=== PATIENT | female | born 2000 | race Caucasian/White ===

== ENCOUNTER 2023-01-07 16:19 | Outpatient (OUT) | payer BC, MEDICAID, SELFPAY ==
[2023-01-07 17:05] LABS: Thyroid Stimulating Hormone 0.912 uIU/mL (0.358-3.740)
== END 2023-01-07 16:20 | disposition home or self-care (01) ==
PROVIDERS: PCP Obstetrics & Gynecology; Visit Provider Obstetrics & Gynecology
DX: R79.89 Other specified abnormal findings of blood chemistry (principal)
CPT/HCPCS: 36415; 84443

== ENCOUNTER 2023-01-12 16:54 | Outpatient (OUT) | payer BC, MEDICAID, SELFPAY ==
--- NOTE | 2023-01-12 17:02 | US_ITS ---
[address] [address] Patient Name: KARLY CRUZ MRN: [id number] date: 2000 Sex: F Assigned Patient Location: US Current Patient Location: LAB Accession/Order Number: [id number] Exam Date: 01/12/2023 17:03 Report Date: 01/13/2023 16:41 At the request of: AI DARBY Procedure: US OB anatomy EXAMINATION: US OB anatomy, US OB cervical length HISTORY: Z34.92 ENCOUNTER FOR SUPERVISION OF NORMAL COMPARISON: No relevant comparison available. TECHNIQUE: Transabdominal sonographic examination was performed for obstetrical and evaluation. FINDINGS: Number: 1 Heart Rate: 142.1 bpm H.B. /min Amniotic Fluid Volume: Subjectively normal position: Cephalic presentation, longitudinal lie Placental Location: Posterior, grade 0. Placental edge 2.9 cm from the cervical os Cervix Length: 3.8 cm , closed Normally visualized anatomy: Cerebellum, choroid plexus, cisterna magna, lateral cerebral ventricles, orbits, midline falx, hard palate, four-chamber heart, RVOT, LVOT, stomach, kidneys, bladder, umbilical cord insertion into the abdomen, three-vessel cord, cervical spine, thoracic spine, lumbar spine, sacral spine, right upper extremity, left upper extremity, right lower extremity, left lower extremity Suboptimally visualized anatomy: None BIOMETRY: BPD: 5.7 cm 23 weeks 2 days , 16% HC: 22.1 cm 24 weeks 1 days, 30% AC: 20.5 cm 25 weeks 1 days, 71% FL: 4.2 cm 23 weeks 5 days, 26% EFW:694.7 grams; 1 lb. 9 oz., 54% FL/AC: 20.6 FL/BPD: 74.6 HC/AC: 1.1 GESTATIONAL AGE: Age by EDC: 24 weeks 1 days REBEKAH by EDC: 05/03/2023 Age by current US: 24 weeks 1 days REBEKAH by current US: 05/03/2023 IMPRESSION: Normal anatomy scan Closed cervix measuring 3.8 cm in length *Reference: [facility] Practice Guideline for the performance of Obstetric Ultrasound Examinations, April 17, 2007. Electronically authenticated by: ALF PIEDRA Date: 01/13/2023 16:41
--- NOTE | 2023-01-12 17:02 | US_ITS ---
[address] [address] Patient Name: KARLY CRUZ MRN: [id number] date: 2000 Sex: F Assigned Patient Location: US Current Patient Location: LAB Accession/Order Number: [id number] Exam Date: 01/12/2023 17:03 Report Date: 01/13/2023 16:41 At the request of: AI DARBY Procedure: US OB cervical length EXAMINATION: US OB anatomy, US OB cervical length HISTORY: Z34.92 ENCOUNTER FOR SUPERVISION OF NORMAL COMPARISON: No relevant comparison available. TECHNIQUE: Transabdominal sonographic examination was performed for obstetrical and evaluation. FINDINGS: Number: 1 Heart Rate: 142.1 bpm H.B. /min Amniotic Fluid Volume: Subjectively normal position: Cephalic presentation, longitudinal lie Placental Location: Posterior, grade 0. Placental edge 2.9 cm from the cervical os Cervix Length: 3.8 cm , closed Normally visualized anatomy: Cerebellum, choroid plexus, cisterna magna, lateral cerebral ventricles, orbits, midline falx, hard palate, four-chamber heart, RVOT, LVOT, stomach, kidneys, bladder, umbilical cord insertion into the abdomen, three-vessel cord, cervical spine, thoracic spine, lumbar spine, sacral spine, right upper extremity, left upper extremity, right lower extremity, left lower extremity Suboptimally visualized anatomy: None BIOMETRY: BPD: 5.7 cm 23 weeks 2 days , 16% HC: 22.1 cm 24 weeks 1 days, 30% AC: 20.5 cm 25 weeks 1 days, 71% FL: 4.2 cm 23 weeks 5 days, 26% EFW:694.7 grams; 1 lb. 9 oz., 54% FL/AC: 20.6 FL/BPD: 74.6 HC/AC: 1.1 GESTATIONAL AGE: Age by EDC: 24 weeks 1 days REBEKAH by EDC: 05/03/2023 Age by current US: 24 weeks 1 days REBEKAH by current US: 05/03/2023 IMPRESSION: Normal anatomy scan Closed cervix measuring 3.8 cm in length *Reference: [facility] Practice Guideline for the performance of Obstetric Ultrasound Examinations, April 17, 2007. Electronically authenticated by: ALF PIEDRA Date: 01/13/2023 16:41
== END 2023-01-12 16:55 | disposition home or self-care (01) ==
PROVIDERS: PCP Obstetrics & Gynecology; Visit Provider Obstetrics & Gynecology
DX: Z34.92 Encounter for supervision of normal pregnancy, unspecified, second trimester (principal)
CPT/HCPCS: 76805; 76817

== ENCOUNTER 2023-02-16 15:26 | Outpatient (OUT) | payer OTHER, MEDICAID, SELFPAY ==
[2023-02-16 16:39] LABS: Basophils Percent Auto 0.3 % (0.2-2.0); Eosinophils Absolute Auto 0.3 10^3/uL (0.0-0.7); Eosinophils Percent Auto 3.1 % (0.9-7.0); Hematocrit 32.9 % (36.0-48.0); Hemoglobin 10.5 g/dL (12.0-16.0); Immature Granulocytes Abs Auto 0.04 10^3/uL (0.00-0.03); Immature Granulocytes Pct Auto 0.4 % (0.0-0.5); Lymphocytes Absolute Auto 1.7 10^3/uL (1.2-3.8); Lymphocytes Percent Auto 16.4 % (20.5-60.0); Mean Corpuscular HGB Conc 31.9 g/dL (29.9-35.2); Mean Corpuscular Hemoglobin 25.6 pg (26.7-34.0); Mean Corpuscular Volume 80.2 fL (81.0-99.0); Mean Platelet Volume 10.7 fL (9.5-13.5); Monocytes Absolute Auto 0.4 10^3/uL (0.3-0.8); Neutrophils Absolute Auto 7.6 10^3/uL (1.4-6.5); Neutrophils Percent Auto 75.8 % (43.0-75.0); Platelet Count 291 10^3/uL (150-450); Red Cell Distribution Width 13.7 % (11.0-15.0); White Blood Count 10.1 10^3/uL (4.0-11.0)
[2023-02-16 16:56] LABS: Glucose 1 Hour 171 mg/dL
== END 2023-02-16 15:27 | disposition home or self-care (01) ==
LOC: LAB 15:26
PROVIDERS: PCP Obstetrics & Gynecology; Visit Provider Obstetrics & Gynecology
DX: Z34.93 Encounter for supervision of normal pregnancy, unspecified, third trimester (principal)
CPT/HCPCS: 36415; 82950; 85025

== ENCOUNTER 2023-03-18 13:19 | Outpatient (OUT) | payer OTHER, MEDICAID, SELFPAY ==
[2023-03-18 13:45] LABS: Glucose Fasting 75 mg/dL (74-106)
[2023-03-18 14:57] LABS: Glucose 1 Hour 162 mg/dL
[2023-03-18 15:57] LABS: Glucose 2 Hour 134 mg/dL
[2023-03-18 16:58] LABS: Glucose 3 Hour 143 mg/dL
== END 2023-03-18 13:20 | disposition home or self-care (01) ==
PROVIDERS: PCP Obstetrics & Gynecology; Visit Provider Obstetrics & Gynecology
DX: E74.39 Other disorders of intestinal carbohydrate absorption (principal)
CPT/HCPCS: 36415; 82951; 82952

== ENCOUNTER 2023-04-14 20:06 | Outpatient (REF) | payer OTHER, MEDICAID, SELFPAY | END 2023-04-14 20:07 | disposition home or self-care (01) | LOC: LAB 20:06 | PROVIDERS: PCP Obstetrics & Gynecology; Visit Provider Obstetrics & Gynecology | DX: Z34.93 Encounter for supervision of normal pregnancy, unspecified, third trimester (principal) | CPT/HCPCS: 87081; 87150 ==

== ENCOUNTER 2023-04-28 18:04 | Inpatient (IN) | payer OTHER, MEDICAID, SELFPAY ==
[2023-04-28] VITALS (19 sets, daily range): BP systolic 89–135; BP diastolic 50–94; PULSE 78–115; RESP 18
[2023-04-28 20:04] LABS: Hemoglobin 9.9 g/dL (12.0-16.0); Mean Corpuscular HGB Conc 31.9 g/dL (29.9-35.2); Mean Corpuscular Hemoglobin 23.8 pg (26.7-34.0); Mean Corpuscular Volume 74.5 fL (81.0-99.0); Platelet Count 321 10^3/uL (150-450); Red Blood Count 4.16 10^6/uL (4.20-5.40); Red Cell Distribution Width 14.6 % (11.0-15.0)
[2023-04-28 20:21] LABS: Amphetamine Screen Urine NEGATIVE (NEGATIVE); Barbiturates Screen Urine NEGATIVE (NEGATIVE); Benzodiazepines Screen Urine NEGATIVE (NEGATIVE); Cannabinoid Screen Urine NEGATIVE (NEGATIVE); Cocaine Screen Urine NEGATIVE (NEGATIVE); Methadone Screen Urine NEGATIVE (NEGATIVE); Methamphetamines Screen Urine NEGATIVE (NEGATIVE); Opiate Screen Urine NEGATIVE (NEGATIVE); Phencyclidine Screen Urine NEGATIVE (NEGATIVE); Tricyclic Antidepressant Urine NEGATIVE (NEGATIVE)
[2023-04-28 20:22] LABS: Buprenorphine Screen Urine NEGATIVE (NEGATIVE); Oxycodone Screen Urine NEGATIVE (NEGATIVE)
[2023-04-28] MEDS: 0.9 % SODIUM CHLORIDE 1,000 ML 125 ML IV (20:54)
[2023-04-28] MEDS: AMPICILLIN SODIUM 2,000 MG in 0.9 % SODIUM CHLORIDE 100 ML 200 MG IV (20:57)
[2023-04-28] MEDS: ROPIVACAINE HCL/PF 400 MG/200 ML PREMIX 6 MG EPIDURAL (22:30)
[2023-04-28] MEDS: FENTANYL CITRATE/PF 100 MCG/2 ML VIAL EPIDURAL ×2 (22:31)
[2023-04-29] VITALS (18 sets, daily range): BP systolic 107–191; BP diastolic 53–124; PULSE 71–97; RESP 14–18; TEMP 36.3–37.1
[2023-04-29] MEDS: AMPICILLIN SODIUM 1,000 MG in 0.9 % SODIUM CHLORIDE 50 ML 100 MG IV (00:32)
--- NOTE | 2023-04-29 00:56 | PM.OBPRCVD ---
Procedure Intrapartal events: None Induction method: artificial rupture of membranes Delivery augmentation: rupture of membranes and pitocin Delivery monitor: external FHT and external uterine Route of delivery: Episiotomy Description: none Laceration description: perineal - 1st degree Delivery repair: Vicryl Estimated blood loss (mL): 250 Anesthesia type: Epidural Disposition: floor Infant Delivery date: 04/29/23 Gender: male presentation: vertex Placental delivery description: Spontaneous cord description: 3 Vessels and Nuchal Cord
[2023-04-29] MEDS: OXYTOCIN/0.9 % SODIUM CHLORIDE 20 UNITS/1,000 ML PLAST..BAG 125 UNIT IV (01:06)
[2023-04-29] MEDS: BENZOCAINE/MENTHOL 85 GRAM SPRAY BOTTLE 1 APPLIC TOPICAL (04:04)
[2023-04-29] MEDS: IBUPROFEN 600 MG TABLET PO ×3 (04:04→17:25)
[2023-04-29] MEDS: GLYCERIN/WITCH HAZEL PADS 1 PAD TOPICAL (04:04)
--- NOTE | 2023-04-29 07:21 | W.PC.ACHO ---
Registration Status: ADM IN Primary Language: Bahraini Preferred Language: Bahraini Active Medications Generic Name Dose Route Start Last Admin Trade Name Freq PRN Reason Stop Dose Admin Acetaminophen 650 mg 04/29/23 00:54 Acetaminophen 325 Mg Tablet PO Q6H PRN Mild Pain Al Hydroxide/Mg Hydroxide 2,400 mg 04/29/23 00:54 Magnesium Hydroxide 2,400 Mg/10 Ml Oral.Susp PO Q6H PRN Dyspepsia Benzocaine/Menthol 1 applic 04/29/23 00:54 04/29/23 04:04 Benzocaine/Menthol 85 Gram Douglas Bottle TOPICAL 1 applic Q2H PRN Administration Pain Carboprost Tromethamine 250 mcg 04/28/23 18:41 Carboprost Tromethamine 250 Mcg/Ml 1 Ml Vial IM 04/30/23 18:42 Q15M PRN Bleeding Diphenhydramine HCl 25 mg 04/28/23 18:57 Diphenhydramine Hcl 50 Mg/Ml (1ml) Vial IV 04/29/23 18:57 Q6H PRN Itching Diphtheria/Pertussis/Tetanus Vacc 0.5 ml 05/01/23 09:00 Adacel Diph,Pertuss(Acell),Tet Vac/Pf 0.5 Ml Adult Syringe IM 05/01/23 09:01 .ONCE ONE Docusate Sodium 100 mg 04/30/23 09:00 Docusate Sodium 100 Mg Capsule PO BID GEETA Ephedrine Sulfate 5 mg 04/28/23 18:57 Ephedrine Sulfate 50 Mg/Ml Vial IV 04/29/23 18:57 Q5M PRN Blood Pressure - Low Sodium Chloride 1,000 mls @ 125 mls/hr 04/28/23 18:45 04/28/23 20:54 Sodium Chloride 0.9% 1,000 Ml IV 125 mls/hr .Q8H GEETA Administration Oxytocin/Sodium Chloride 10 units in 500 mls @ 6 mls/hr 04/28/23 18:45 Pitocin 10 Unit/500 Ml-Ns IV CONT GEETA Protocol 2 MILLIUNIT/MIN Ampicillin 1,000 mg/ Sodium 50 mls @ 100 mls/hr 04/29/23 00:00 04/29/23 00:32 Chloride IV 100 mls/hr Q4H GEETA Administration Ropivacaine/Sodium Chloride 400 mg in 200 mls @ 6 mls/hr 04/28/23 23:15 04/28/23 22:30 Naropin 0.2% 400 Mg/200 Ml Bag EPIDURAL 6 mls/hr Q24H GEETA Administration Oxytocin 20 unit/ Sodium 1,002 mls @ 125 mls/hr 04/29/23 01:00 Chloride IV 04/29/23 08:59 Q8H GEETA Ibuprofen 600 mg 04/29/23 00:54 04/29/23 04:04 Ibuprofen 600 Mg Tablet PO 600 mg Q6H PRN Administration Moderate Pain Lidocaine 5 ml 04/28/23 18:51 Lidocaine Viscous 2% 15 Ml Solution TOPICAL ONCE PRN Pain Lidocaine 1 ml 04/28/23 18:51 Lidocaine Hcl 1% 200 Mg/20 Ml Mdv INJ ONCE PRN Pain Lidocaine 5 ml 04/28/23 18:57 Lidocaine Hcl 2% Pf 100 Mg/5 Ml Vial INJ 04/29/23 18:57 Q1H PRN epidural Measles/Mumps/Rubella Vaccine Live 0.5 ml 05/01/23 09:00 Measles,Mumps,Rubella Vacc/Pf 0.5 Ml Vial SQ 05/01/23 09:01 .ONCE ONE Methylergonovine Maleate 0.2 mg 04/28/23 18:41 Methylergonovine Maleate 0.2 Mg/Ml Ampule IM 04/30/23 18:42 ONCE PRN Uterine Contractility/Contract Methylergonovine Maleate 0.2 mg 04/28/23 18:41 Methylergonovine Maleate 0.2 Mg Tablet PO 04/30/23 18:42 Q4H PRN Uterine Contractility/Contract Misoprostol 600 mcg 04/28/23 18:41 Misoprostol 100 Mcg Tablet PO 04/30/23 18:42 ONCE PRN Uterine Bleeding Misoprostol 800 mcg 04/28/23 18:41 Misoprostol 100 Mcg Tablet SL 04/30/23 18:42 ONCE PRN Uterine Bleeding Misoprostol 1,000 mcg 04/28/23 18:41 Misoprostol 100 Mcg Tablet SC 04/30/23 18:42 ONCE PRN Uterine Bleeding Naloxone HCl 0.4 mg 04/28/23 18:57 Naloxone Hcl 0.4 Mg/Ml Vial IV 04/29/23 18:57 ONCE PRN epidural Ondansetron HCl 4 mg 04/28/23 18:41 Ondansetron Pf 4 Mg/2 Ml Vial IV Q6H PRN Nausea And Vomiting Ondansetron HCl 4 mg 04/28/23 18:41 Ondansetron 4 Mg Rapdis Tablet SL Q6H PRN Nausea And Vomiting Oxytocin 10 unit 04/28/23 18:41 Oxytocin 10 Unit/Ml Vial IM 04/30/23 18:42 ONCE PRN Bleeding Senna 17.2 mg 04/29/23 20:00 Sennosides 8.6 Mg Tablet PO QHS PRN Constipation Simethicone 80 mg 04/29/23 00:54 Simethicone 80 Mg Tab.Chew PO QID PRN Abdominal Distention Temazepam 15 mg 04/29/23 00:54 Temazepam 15 Mg Capsule PO QHS PRN Sleep Witch Cindy/Glycerin 1 pad 04/29/23 00:54 04/29/23 04:04 Glycerin/Witch Cindy Pads TOPICAL 1 pad Q2H PRN Administration Pain Diet Category Date Time Status Regular Consistency Diet Diet 04/29/23 00:55 Active IV Insertion/Site Date of IV Line Insertion [20g 04/28/23 right Hand] IV Insertion Time [20g right 19:50 Hand] Neurology Patient orientation (short person,place,time,situation list) Respiratory Oxygen Delivery Method Room Air Oxygen Delivery Method Room Air Oxygen Delivery Method Room Air Cardiology Heart Sounds Strong,Regular
--- NOTE | 2023-04-29 18:57 | PC.NURSE ---
Charting from 0700-current reviewed by this group underwriter and confirmed.
--- NOTE | 2023-04-29 19:36 | PC.NURSE ---
Patient visiting with visitors. Ice water refilled. Denies any further needs.
[2023-04-30 00:52] VITALS: BP 111/62; PULSE 74
[2023-04-30] MEDS: IBUPROFEN 600 MG TABLET PO ×2 (00:52→10:43)
[2023-04-30 00:53] VITALS: RESP 16; TEMP 36.3
[2023-04-30 06:31] LABS: Basophils Percent Auto 0.5 % (0.2-2.0); Eosinophils Absolute Auto 0.4 10^3/uL (0.0-0.7); Eosinophils Percent Auto 5.3 % (0.9-7.0); Hematocrit 30.2 % (36.0-48.0); Hemoglobin 8.8 g/dL (12.0-16.0); Immature Granulocytes Abs Auto 0.03 10^3/uL (0.00-0.03); Immature Granulocytes Pct Auto 0.4 % (0.0-0.5); Lymphocytes Absolute Auto 2.6 10^3/uL (1.2-3.8); Lymphocytes Percent Auto 31.7 % (20.5-60.0); Mean Corpuscular HGB Conc 29.1 g/dL (29.9-35.2); Mean Corpuscular Hemoglobin 23.9 pg (26.7-34.0); Mean Corpuscular Volume 82.1 fL (81.0-99.0); Mean Platelet Volume 10.7 fL (9.5-13.5); Monocytes Absolute Auto 0.5 10^3/uL (0.3-0.8); Monocytes Percent Auto 6.5 % (1.7-12.0); Neutrophils Absolute Auto 4.5 10^3/uL (1.4-6.5); Neutrophils Percent Auto 55.6 % (43.0-75.0); Platelet Count 230 10^3/uL (150-450); Red Blood Count 3.68 10^6/uL (4.20-5.40); White Blood Count 8.1 10^3/uL (4.0-11.0)
--- NOTE | 2023-04-30 07:34 | PC.NURSE ---
Report given to Elma Rivera RN
--- NOTE | 2023-04-30 08:05 | PM.OBPN ---
OB - PN: Subj Subjective Patient comments: no complaints and pain well controlled Narrative: Patient considering discharge today Exam Constitutional Vital Signs, click to edit/add: Last Vital Signs Temp 97.3 F L 04/30/23 00:53 Pulse 74 04/30/23 00:52 Resp 16 04/30/23 00:53 BP 111/62 04/30/23 00:52 O2 Del Method Room Air 04/30/23 00:53 GI Inspection: normal to inspection Palpation: soft Other: Fundus firm below U Other: perineum - minimal bleeding Results Labs Labs: Short CBC 04/30/23 Range/Units 06:24 WBC 8.1 (4.0-11.0) 10^3/uL Hgb 8.8 L (12.0-16.0) g/dL Hct 30.2 L (36.0-48.0) % Plt Count 230 (150-450) 10^3/uL OB - PN: A/P Assessment and Plan (1) Vaginal delivery: Plan Patient doing well May go home today Plan - Vaginal Delivery day: 1 Plan: routine care and follow up 6 weeks Comment: patient considering discharge today Time Spent with Patient Time: Total time spent is greater than 50% in coordination of care (as documented) at patient's floor/unit and/or counseling patient: Total time spent with greater than 50% in coordination of care (as documented) at patient's floor/unit and/or counseling patient: less than 15 minutes
--- NOTE | 2023-04-30 08:07 | P.DS_ITS ---
DS: Providers Provider Date of admission: 04/28/23 18:04 Primary care physician: Benjamin Spencer DO Admitting clinician: Benjamin Spencer Attending physician on admission: Benjamin Spencer Consults: 04/28/23 Consult to Anesthesiology Routine Consulting Provider: Gagandeep Frias Reason for consultation: epidural Attending physician on discharge: Benjamin Spencer Discharging clinician: Jayashree Thorne Anticipated date of discharge: 04/30/23 DS: Diagnosis Discharge Diagnosis (1) Vaginal delivery: Plan Patient doing well Considering discharge today OB - DS: Summary Hospital Course Hospital Course: Normal care Complications complications: none Delivery method: spontaneous vaginal delivery Gender: male Discharge plan: home Status at Discharge Functional status at discharge: independent ambulation Overall status at discharge: patient is progressing back to baseline Time Spent with Patient Time attestation: Total time spent providing and/or coordinating discharge services: Time spent: less than 30 minutes Exam Constitutional Vital Signs, click to edit/add: Last Vital Signs Temp 97.3 F L 04/30/23 00:53 Pulse 74 04/30/23 00:52 Resp 16 04/30/23 00:53 BP 111/62 04/30/23 00:52 O2 Del Method Room Air 04/30/23 00:53 GI Inspection: normal to inspection Palpation: soft Other: Fundus firm below U Other: perineum - minimal bleeding DS: Data Data Completed and Pending Labs on day of discharge: Labs from last 24 hours 04/30/23 06:24 WBC 8.1 RBC 3.68 L Hgb 8.8 L Hct 30.2 L MCV 82.1 MCH 23.9 L MCHC 29.1 L RDW 15.0 Plt Count 230 MPV 10.7 Neut % (Auto) 55.6 Lymph % (Auto) 31.7 [place] % (Auto) 6.5 Eos % (Auto) 5.3 Baso % (Auto) 0.5 Neut # (Auto) 4.5 Lymph # (Auto) 2.6 [place] # (Auto) 0.5 Eos # (Auto) 0.4 Baso # (Auto) 0.0 Abs Immat Gran (auto) 0.03 Imm/Tot Granulo (auto) 0.4 Discharge Plan Discharge Disposition: Home, Self-Care Discharge Medications: Discontinued PNV w/o vit A-Fe [id number] PO Forms: Portal Instructions Follow Up Appointments: 6 weeks
[2023-04-30] MEDS: DOCUSATE SODIUM 100 MG CAPSULE PO (10:44)
--- NOTE | 2023-04-30 17:27 | PC.NURSE ---
[id number] dr Walsh in and discusses infant circ. consent signed. then mom pumps breasts. denies needs at this time or pain
--- NOTE | 2023-04-30 17:30 | PC.NURSE ---
Dr. Walsh in to inform that circ will be delayed d/t floor census. verbalizes understanding
[2023-04-30 20:59] VITALS: BP 135/85; PULSE 85
[2023-04-30] MEDS: MEASLES,MUMPS,RUBELLA VACC/PF 0.5 ML VIAL SQ (21:49)
== END 2023-04-30 22:00 | disposition home or self-care (01) | DRG 807 ==
PROVIDERS: Admitting Provider Obstetrics & Gynecology; PCP Obstetrics & Gynecology; Visit Provider Obstetrics & Gynecology
DX: O69.81X0 Labor and delivery complicated by cord around neck, without compression, not applicable or unspecified (principal); Z37.0 Single live birth; O70.0 First degree perineal laceration during delivery; Z3A.39 39 weeks gestation of pregnancy; Z83.3 Family history of diabetes mellitus; Z82.49 Family history of ischemic heart disease and other diseases of the circulatory system; Z88.1 Allergy status to other antibiotic agents
CPT/HCPCS: 36415; 59050; 59410; 80307; 85025; 85027; 86850; 86900; 86901; 90471; 90707; 96374; 96375; 96376

== ENCOUNTER 2023-05-05 08:00 | Outpatient (OUT) | payer OTHER, MEDICAID, SELFPAY | END 2023-05-05 08:01 | disposition home or self-care (01) | LOC: FBCO 08:02 | PROVIDERS: Visit Provider Obstetrics & Gynecology | DX: Z39.2 Encounter for routine postpartum follow-up (principal) ==

== ENCOUNTER 2024-01-29 14:30 | Emergency (ER) | payer OTHER, MEDICAID, SELFPAY ==
[2024-01-29 14:53] VITALS: BP 129/80; PULSE 82; TEMP 37; O2SAT 98
--- NOTE | 2024-01-29 15:10 | ED.GENADUL1 ---
HPI HPI - General Adult General Chief complaint: Urogenital-Female Stated complaint: LOWER ABDOMEN/PRIVATE AREA PAIN Time Seen by Provider: 01/29/24 15:04 Source: patient Mode of arrival: walk-in History of Present Illness HPI narrative: Patient is a 23-year-old female who presents to the emergency department for vaginal pain and burning after sneezing vigorously while urinating yesterday. She states she had no symptoms until she was urinating on the toilet and sneezed, she states she felt pressure and burning in the vaginal area and is concerned that something may have torn. She has no fevers, vomiting, flank pain, abdominal pain. No vaginal discharge. Related Data Previous Rx's ?Medication ?Instructions ?Recorded ketorolac 10 mg tablet 10 mg PO TID PRN pain #10 tabs 01/29/24 Allergies Allergy/AdvReac Type Severity Reaction Status Date / Time No Known Drug Allergies Allergy Verified 04/28/23 20:53 Opioid HPI Opioid Management Most Recent Opioid Data: Last Pain Scale 2 04/30/23 10:43 Ur Phencyclidine Scrn Negative (NEGATIVE) 04/28/23 19:50 Review of Systems ROS Constitutional Denies: fever or chills Ears, nose, mouth, and throat Denies: throat pain or nasal congestion Respiratory Denies: shortness of breath Gastrointestinal Denies: nausea or vomiting Genitourinary Reports: painful urination; Denies: pelvic pain Musculoskeletal Denies: back pain Integumentary/Breast Denies: rash Hematologic/Lymphatic Denies: easy bruising or easy bleeding [facility] Medical History (Updated 01/29/24 @ 15:37 by ANGELA Cordero) Anemia affecting first ?O99.019 - Anemia complicating , unspecified trimester (ICD-10) Exam Narrative Exam Narrative: Gen.: Awake, alert, in no distress Head: Normocephalic, atraumatic ENT: Moist mucous membranes Respiratory: No respiratory distress Gastrointestinal: Abdomen is soft, nondistended and nontender to palpation : No evidence of vaginal laceration, cervix is present in the opening of the vagina, although the cervix does not protrude past the vagina. No vaginal discharge. Extremities: Moves extremities equally Psych: Normal mood and affect Neuro: No focal neuro deficit Skin: Warm, dry, intact Constitutional Vital Signs, click to edit/add: Last Vital Signs Temp 98.6 F 01/29/24 14:53 Pulse 82 01/29/24 14:53 Resp 16 01/29/24 14:53 BP 129/80 01/29/24 14:53 Pulse Ox 98 01/29/24 14:53 O2 Del Method Room Air 01/29/24 14:53 Course Vital Signs Vital signs: Vital Signs Temperature 98.6 F 01/29/24 14:53 Pulse Rate 82 01/29/24 14:53 Respiratory Rate 16 01/29/24 14:53 Blood Pressure 129/80 01/29/24 14:53 Pulse Oximetry 98 01/29/24 14:53 Oxygen Delivery Method Room Air 01/29/24 14:53 Temperature 98.6 F 01/29/24 14:53 Pulse Rate 82 01/29/24 14:53 Respiratory Rate 16 01/29/24 14:53 Blood Pressure 129/80 01/29/24 14:53 Pulse Oximetry 98 01/29/24 14:53 Oxygen Delivery Method Room Air 01/29/24 14:53 Medical Decision Making MDM Narrative Medical decision making narrative: Vaginal exam performed with Amalia Navarro RN at the bedside throughout the duration of the exam. Patient has evidence on exam of mild uterine prolapse. Cervix does not extend past the vagina. Urine specimen obtained. Urine with no evidence of urinary tract infection, test is negative and the patient is discharged to follow-up with gynecology for evaluation of prolapse. NSAIDs given for home. SUPERVISED APC VISIT, PHYSICIAN ATTESTATION: Based on the medical record the care appears appropriate. ? Medical Records Medical records reviewed: Yes I reviewed the patient's medical records Lab Data Lab results reviewed: Yes I reviewed the patient's lab results Labs: Lab Results 01/29/24 Range/Units 14:56 Urine Color Lt. yellow (YELLOW) Urine Clarity Clear (CLEAR) Urine pH 7.0 (5.0-9.0) Ur Specific [place] 1.020 (1.005-1.025) Urine Protein Negative (NEG/TRACE) mg/dL Urine Glucose (UA) Negative (NEGATIVE) mg/dL Urine Ketones Negative (NEGATIVE) mg/dL Urine Occult Blood Negative (NEGATIVE) Urine Nitrite Negative (NEGATIVE) Urine Bilirubin Negative (NEGATIVE) Urine Urobilinogen 0.2 (0.2-1.0) EU/dL Ur Leukocyte Esterase Negative (NEGATIVE) Urine HCG, Qual Negative (NEGATIVE) Discharge Plan Discharge Stand Alone Forms: Portal Instructions Chief Complaint: Urogenital-Female Clinical Impression: Cervical prolapse Patient Disposition: Home, Self-Care Time of Disposition Decision: 15:37 Condition: Good Prescriptions / Home Meds: New ketorolac 10 mg tablet 10 mg PO TID PRN (Reason: pain) Qty: 10 0RF Print Language: Mongolian Instructions: Uterine Prolapse (ED) Referrals: Benjamin Spencer DO [Physician] - As soon as possible Physician,Non-Staff, MD [Primary Care Provider] - 1 week
[2024-01-29 15:31] LABS: Bilirubin Urine NEGATIVE (NEGATIVE); Blood Urine NEGATIVE (NEGATIVE); Clarity Urine CLEAR (CLEAR); Color Urine LT. YELLOW (YELLOW); Glucose Urine UA NEGATIVE (NEGATIVE); Ketones Urine NEGATIVE (NEGATIVE); Leukocyte Esterase Urine NEGATIVE (NEGATIVE); Nitrite Urine NEGATIVE (NEGATIVE); Protein Urine NEGATIVE (NEG/TRACE); Urobilinogen Urine 0.2 EU/dL (0.2-1.0)
[2024-01-29 15:33] LABS: HCG Qualitative Urine* NEGATIVE (NEGATIVE); Internal Control Within Normal Limits
[2024-01-29 15:34] LABS: Urine Microscopic Indicated NO
== END 2024-01-29 15:50 | disposition home or self-care (01) ==
PROVIDERS: Physician Assistant; Emergency Provider Student in an Organized Health Care Education/Training Program
DX: N81.2 Incomplete uterovaginal prolapse (principal)
CPT/HCPCS: 81003; 84703; 99283

== ENCOUNTER 2024-02-01 08:04 | Outpatient (OUT) | payer OTHER, MEDICAID, SELFPAY ==
--- NOTE | 2024-02-01 08:06 | US_ITS ---
[address] [address] Patient Name: KARLY CRUZ MRN: [id number] date: 2000 Sex: F Assigned Patient Location: [facility] Current Patient Location: [facility] Accession/Order Number: [id number] Exam Date: 02/01/2024 08:07 Report Date: 02/01/2024 14:21 At the request of: AI DARBY Procedure: US pelvis w/ transvaginal EXAMINATION: US pelvis w/ transvaginal HISTORY: VAGINAL BURNING , pain COMPARISON: No relevant comparison available. TECHNIQUE: Transabdominal and/or transvaginal sonographic examination was performed as indicated by examination type. FINDINGS: UTERUS: Normal size and appearance. Uterus size: 7.0 x 3.0 x 6.0 cm ENDOMETRIUM: Normal homogeneous appearance. Endometrial thickness: 6 mm RIGHT OVARY: Normal size and appearance. Duplex Doppler demonstrates normal waveform and flow; resistive index 0.6. Ovary size: 3.0 x 1.7 x 3.5 cm LEFT OVARY: Normal size and appearance. Duplex Doppler demonstrates normal waveform and flow; resistive index 0.5. Ovary size: 2.6 x 1.8 x 2.1 cm CUL-DE-SAC: Unremarkable. No significant free fluid. BLADDER: Unremarkable. OTHER: None. US/US pelvis w/ transvaginal IMPRESSION: 1. No abnormal or suspicious findings to account for patient's symptoms. Electronically authenticated by: GM BARRY Date: 02/01/2024 14:21
--- OUTSIDE RECORDS SUMMARY | 2024-02-01 08:09 | XMS_ITS | CCD ---
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 Role Phone Elsa Rea Unavailable Deann Partida Unavailable RosalvaCharisse solorzano Unavailable ANTONIETAC, DR HIGHTOWER Primary Care Unavailable MEHNAZ ., DR CLOUD Admitting Unavailable MEHNAZ ., DR CLOUD Attending Unavailable MEHNAZ ., DR CLOUD Consulting Unavailable MEHNAZ ., DR CLOUD Admitting Unavailable MISC, DR HIGHTOWER Primary Care Unavailable MEHNAZ ., DR CLOUD Attending Unavailable ZIEBER, DR GM Cole Consulting Unavailable MEHNAZ ., DR LCOUD Attending Unavailable MEHNAZ ., DR CLOUD Consulting Unavailable MISC, DR HIGHTOWER Primary Care Unavailable MEHNAZ ., DR CLOUD Admitting Unavailable MEHNAZ ., DR CLOUD Consulting Unavailable EMHNAZ ., DR CLOUD Admitting Unavailable MISC, DR HIGHTOWER Primary Care Unavailable MEHNAZ ., DR CLOUD Attending Unavailable MEHNAZ ., DR CLOUD Consulting Unavailable MEHNAZ ., DR CLOUD Admitting Unavailable MISC, DR HIGHTOWER Primary Care Unavailable MEHNAZ ., DR CLOUD Attending Unavailable SELENA MEZA Attending Unavailable Medications Current Medications Medication Drug Class(es) Dates Sig (Normalized) Sig (Original) fluticasone propionate 0.05 mg/actuat metered dose nasal spray (1 source) Corticosteroid Start: 03-25-2022 take 2 spray(s) nasal route once daily Fluticasone Propionate 50 MCG/ACT 2 sprays Nasally Once a day for 14 day(s) Mar, Active Pre-Elen (1 source) Pre-Elen Active predniSONE 20 mg oral tablet (1 source) Start: 03-25-2022 take 1 tablet by mouth every twelve hours predniSONE 20 MG 1 tablet Orally 2 times a day for 5 day(s) Mar, Active Completed/Discontinued Medications Medication Drug Class(es) Dates Sig (Normalized) Sig (Original) Iron (2 sources) Iron Not-Taking/ PRN Iron Active mupirocin 0.02 mg/mg topical ointment (2 sources) RNA Synthetase Inhibitor Antibacterial Start: 09-14-2022 Mupirocin 2 % 1 application to affected area Externally 2 times a day for 7 days Aug, Not-Taking/PRN (2 sources) Not-Abhishek ing/PRN Active Problems Active Problems Problem Classification Problem Date Documented Date Episodic/Chronic Immunizations and screening for infectious disease (2 sources) Contact with and (suspected) exposure to other viral communicable diseases; Translations: [Encounter for screening for human papillomavirus (HPV)] Onset: 05-04-2021 Resolved: 05-04-2021 Episodic Menstrual disorders (5 sources) Irregular menstruation, unspecified; Translations: [IRREGULAR MENSTRUATION UNSPECIFIED] Onset: 10-09-2022 Chronic Other and delivery including normal (1 source) Encounter for supervision of normal , unspecified, first trimester; Translations: [ENC SUP NORMAL PREG UNS FIRST TRI] Onset: 10-09-2022 Episodic Other screening for suspected conditions (not mental disorders or infectious disease) (8 sources) Encounter for screening for malignant neoplasm of cervix; Translations: [Encounter for screening, unspecified] Onset: 10-01-2022 Episodic Other upper respiratory infections (7 sources) Acute pharyngitis, unspecified; Translations: [Pain in throat] Onset: 01-01-2022 Resolved: 03-25-2022 Episodic Residual codes; unclassified (1 source) 9 weeks gestation of ; Translations: [9 WEEKS GESTATION OF ] Onset: 10-09-2022 Episodic Skin and subcutaneous tissue infections (1 source) Impetigo, unspecified Episodic Past or Other Problems Problem Classification Problem Date Documented Da te Episodic/Chronic Viral infection (3 sources) COVID-19; Translations: [COVID-19 U07.1] Onset: 05-04-2021 Resolved: 01-01-2022 Results Test Name Value Interpretation Reference Range Facility COVID + FLU Quick Testingon 08-18-2023 SARS-CoV-2 (COVID-19) RNA ANNE+probe Ql (Unsp spec) Positive [facility] Other COVID + FLU Quick Testing Negative [facility] Other PAP ACOG PANEL 2: 21 to 29on 11-25-2022 . . Normal [facility] Comment on above: Performed By: #### [id number] #### [facility] [address] [place] [address] Dr. Keri Guerra Age Gdln ACOG Testing - Normal [facility] Comment on above: Performed By: #### [id number] #### [facility] [address] [address] [address] Keri Guerra DIAGNOSIS: Comment [facility] Comment on above: Result Comment: NEGA TIVE FOR INTRAEPITHELIAL LESION OR MALIGNANCY. Performed By: #### [id number] #### [facility] [address] [place] [address] Dr. Keri Guerra Methodology: Comment [facility] Comment on above: Result Comment: This liquid based ThinPrep(R) pap test was screened with the use of an image guided system. Performed By: #### [id number] #### [facility] [address] [place] [address] Dr. Keri Guerra Note: Comment [facility] Comment on above: Result Comment: The Pap smear is a screening test designed to aid in the detection of premalignant and malignant conditions of the uterine cervix. It is not a diagnostic procedure and should not be used as the sole means of detecting cervical cancer. Both false-positive and false-negative reports do occur. . Performed By: #### [id number] #### [facility] [address] [place] [address] Dr. Keri Guerra Performed by: Comment Normal [place] Comment on above: Result Comment: Drew Florian Biology Instructor (ASCP) Performed By: #### [id number] #### [facility] [address] [place] [address] Dr. Keri Guerra Reflex Criteria: Comment [facility] Comment on above: Result Comment: The HPV DNA reflex criteria were not met with this specimen result therefore, no HPV testing was performed. . Performed By: #### [id number] #### [facility] [address] [place] [address] Dr. Keri Guerra Specimen adequacy: Comment Normal [facility] Comment on above: Result Comment: Sati sfactory for evaluation. No endocervical component is identified. Areas of partially obscuring inflammatory exudate are present. Performed By: #### [id number] #### [facility] [address] [place] [address] Dr. Keri Guerra HEP B SURFACE ANTIGEN SCREEN on 10-17-2022 HBsAg Screen Negative Normal Negative [facility] Comment on above: Performed By: #### H BSANS #### [facility] [address] [place] [address] Dr. Keri Guerra HEPATITIS C VIRUS AB W/ REFL EX QUANTon 10-17-2022 HCV AB Non-Reactive Normal Non Reactive [facility] Comment on above: Performed By: #### H CVPCRR #### [facility] [address] [place] [address] Dr. Keri Guerra Interpretation: Comment Normal [facility] Comment on above: Result Comment: Not infected with HCV unless early or acute infection is suspected (which may be delayed in an immunocompromised individual), or other evidence exists to indicate HCV infection. Performed By: #### H CVPCRR #### [facility] [address] [place] [address] Dr. Keri Guerra HIV 1 AND 2 WITH REFLEXon HIV Screen 4th Generation wRfx Non-Reactive Normal Non Reactive [facility] Comment on above: Result Comment: HIV Negative HIV-1/HIV-2 antibodies and HIV-1 p24 antigen were NOT detected. There is no laboratory evidence of HIV infection. Performed By: #### H IV12 #### [facility] [address] [place] [address] Dr. Keri Guerra RPR QUANTon 10-17-2022 Rapid Plasma Reagin, Quant Non-Reactive Normal NonRea<1:1 [facility] Comment on above: Result Comment: Plea se Note: This test does not meet current guidelines for screening and diagnosis of syphilis. This test is intended for following treatment response in patients being treated for syphilis infection. To screen for syphilis infection, a reflex cascade that includes both RPR and a treponema-specific assay should be utilized, such as Treponema pallidum (Syphilis) Screening [place] ([id number]) or Rapid Plasma Reagin (RPR) Test With Reflex to Quantitative RPR and Confirmatory Treponema pallidum Antibodies ([id number]). Performed By: #### R PRQ #### [facility] [address] [place] [address] Dr. Keri Guerra RUBELLA AB IGGon 10-17-2022 Rubella Antibodies, IgG <0.90 Critically low Immune >0.99 [facility] Comment on above: Result Comment: Non- immune <0.90 Equivocal 0.90 - 0.99 Immune >0.99 Performed By: #### R UBIGG #### [facility] [address] [place] [address] Dr. Keri Guerra CBC AUTO DIFFon 10-15-2022 BASO # 0.0 103/ul Normal 0.0-0.1 [facility] Comment on above: Performed By: #### C BC #### [facility] [address] [place] [address] Dr. Keri Guerra Basophils/100 WBC (Bld) 0.1 % Critically low 0.2-2.0 [facility] Comment on above: Performed By: #### C BC #### [facility] [address] [place] [address] Dr. Keri Guerra EO # 0.3 103/ul Normal 0.0-0.7 [facility] Comment on above: Performed By: #### C BC #### [facility] [address] [place] [address] Dr. Keri Guerra Eosinophils/100 WBC (Bld) 3.7 % Normal 0.9-7.0 [facility] Comment on above: Performed By: #### C BC #### [facility] [address] [place] [address] Dr. Keri Guerra Erythrocyte distribution width (RBC) [Ratio] 16.0 % Critically high 11.0-15.0 [facility] Comment on above: Performed By: #### C BC #### [facility] [address] [place] [address] Dr. Keri Guerra Hematocrit (Bld) [Volume fraction] 36.3 % Normal 36.0-48.0 [facility] Comment on above: Performed By: #### C BC #### [facility] [address] [place] [address] Dr. Keri Guerra Hemoglobin (Bld) [Mass/Vol] 12.1 g/dL Normal 12.0-16.0 [facility] Comment on above: Performed By: #### C BC #### [facility] [address] [place] [address] Dr. Keri Guerra IG # 0.02 10e3/ul Normal 0.00-0.03 [facility] Comment on above: Performed By: #### C BC #### [facility] [address] [place] [address] Dr. Keri Guerra IG % 0.3 % Normal 0.0-0.5 [facility] Comment on above: Performed By: #### C BC #### [facility] [address] [place] [address] Dr. Keri Guerra LYMPH # 1.7 103/ul Normal 1.2-3.8 [facility] Comment on above: Performed By: #### C BC #### [facility] [address] [place] [address] Dr. Keri Guerra Lymphocytes/100 WBC (Bld) 20.8 % Normal 20.5-60.0 [facility] Comment on above: Performed By: #### C BC #### [facility] [address] [place] [address] Dr. Keri Guerra MANUAL DIFF REQ NO Normal [facility] Comment on above: Performed By: #### C BC #### [facility] [address] [place] [address] Dr. Keri Guerra MCH (RBC) [Entitic mass] 25.3 pg Critically low 26.7-34.0 [facility] Comment on above: Performed By: #### C BC #### [facility] [address] [place] [address] Dr. Keri Guerra MCHC (RBC) [Mass/Vol] 33.3 g/dL Normal 29.9-35.2 [facility] Comment on above: Performed By: #### C BC #### [facility] [address] [place] [address] Dr. Keri Guerra MCV (RBC) [Entitic vol] 75.9 fL Critically low 81.0-99.0 [facility] Comment on above: Performed By: #### C BC #### [facility] [address] [place] [address] Dr. Keri Guerra MONO # 0.4 103/ul Normal 0.3-0.8 [facility] Comment on above: Performed By: #### C BC #### [facility] [address] [place] [address] Dr. Keri Guerra Monocytes/100 WBC (Bld) 5.0 % Normal 1.7-12.0 [facility] Comment on above: Performed By: #### C BC #### [facility] [address] [place] [address] Dr. Keri Guerra NEUT # 5.6 103/ul Normal 1.4-6.5 [facility] Comment on above: Performed By: #### C BC #### [facility] [address] [place] [address] Dr. Keri Guerra Neutrophils/100 WBC (Bld) 70.1 % Normal 43.0-75.0 [facility] Comment on above: Performed By: #### C BC #### [facility] [address] [place] [address] Dr. Keri Guerra Platelet mean volume (Bld) [Entitic vol] 11.0 fL Normal 9.5-13.5 [facility] Comment on above: Performed By: #### C BC #### [facility] [address] [place] [address] Dr. Keri Guerra PLT 319 103/ul Normal 150-450 [facility] Comment on above: Performed By: #### C BC #### [facility] [address] [place], [place] [id number] Dr. Keri Guerra RBC 4.78 106/ul Normal 4.20-5.40 [facility] Comment on above: Performed By: #### C BC #### [facility] [address] [place] [address] Dr. Keri Guerra WBC 7.9 103/ul Normal 4.0-11.0 [facility] Comment on above: Performed By: #### C BC #### [facility] [address] [place] [address] Dr. Keri Guerra CULTURE URINEon 10-15-2022 CULTURE URINE Culture Observations : LIGHT GROWTH OF MIXED GENITAL LARISA. NO POTENTIAL PATHOGENS SEEN. Normal [facility] Comment on above: Performed By: #### U RCX #### [facility] [address] [place] [address] Dr. Keri Guerra TSHon 10-15-2022 TSH 0.294 uIU/mL Critically low 0.358-3.740 [facility] Comment on above: Performed By: #### T SH #### [facility] [address] [place] [address] Dr. Keri Guerra TYPE AND SCREENon 10-15-2022 TYPE AND SCREEN Negative Normal [facility] Comment on above: Performed By: #### T NS #### [facility] [address] [place] [address] Dr. Keri Guerra US PREG TVon 10-01-2022 US PREG TV EXAMINATION: US PREG TV HISTORY: Missed period COMPARISON: No relevant comparison available. FINDINGS: GESTATIONAL SAC: Present and normal appearing. YOLK SAC: Present and normal appearing. POLE: Present and normal appearing. CARDIAC: Present. UTERUS: Normal size and appearance. OVARIES: Right: Normal. Left: Normal. CERVIX: 4.5 cm in length and closed. CUL-DE-SAC: Normal. OTHER: None. AGE BY LMP: Unknown LMP REBEKAH BY LMP: AGE BY US CRL: 9 weeks 3 days REBEKAH BY US CRL: 05/03/2023 IMPRESSION: 1. Single live intrauterine 9 weeks 3 days by today's ultrasound. Electronically authenticated by: GM BARRY Date: 2022-10-01 15:23 Normal [facility] Quick Strepon 03-25-2022 S. pyogenes Org specific cx Ql (Throat) Negative [facility] Other Quick Strep [facility] Other COVID/FLU RT-PCRon SARS-CoV-2 (COVID-19) RNA ANNE+probe Ql (Unsp spec) Positive [facility] Other COVID/FLU RT-PCR Negative [facility] Other COVID Quick Testingon 2020 Result Positive [facility] Other Consultation Noteon 08-05-19 Consultation Note [id number] 0CD:[id number] Normal [facility] Vital Signs Date Time Vital Sign Value Performing Clinician Facility 08-18-2023 11:30-0500 Body height 157.48 cm Deann Partida Other [facility] Other 08-18-2023 11:30-0500 Body mass index (BMI) [Ratio] 26.48 kg/m2 Deann Partida Other [facility] Other 08-18-2023 11:30-0500 Body temperature 98.6 [degF] Deann Partida Other [facility] Other 08-18-2023 11:30-0500 Body weight 65.68 kg Deann Partida Other [facility] Other 08-18-2023 11:30-0500 Respiratory rate 18 /min Deann Partida Other [facility] Other 08-18-2023 11:30-0500 SaO2% (BldA) [Mass fraction] 97 % Deann Partida Other [facility] Other 09-14-2022 15:25-0500 Body height 157.48 cm Elsa Rea Other [facility] Other 09-14-2022 15:25-0500 Body mass index (BMI) [Ratio] 26.88 kg/m2 Elsa Rea Other [facility] Other 09-14-2022 15:25-0500 Body temperature 97.7 [degF] Elsa Rea Other [facility] Other 09-14-2022 15:25-0500 Body weight 66.68 kg Elsa Rea Other [facility] Other 09-14-2022 15:25-0500 Diastolic blood pressure 65 mm[Hg] Elsa Rea Other [facility] Other 09-14-2022 15:25-0500 Respiratory rate 18 /min Elsa Rea Other [facility] Other 09-14-2022 15:25-0500 SaO2% (BldA) [Mass fraction] 99 % Elsa Rea Other [facility] Other 09-14-2022 15:25-0500 Systolic blood pressure 118 mm[Hg] Elsa Rea Other [facility] Other 03-25-2022 11:40-0400 Body height 157.48 cm Charisse Blackwell Other [facility] Other 03-25-2022 11:40-0400 Body mass index (BMI) [Ratio] 27.43 kg/m2 Charisse Blackwell Other [facility] Other 03-25-2022 11:40-0400 Body temperature 98.8 [degF] Charisse Blackwell Other [facility] Other 03-25-2022 11:40-0400 Body weight 68.04 kg Charisse Blackwell Other [facility] Other 03-25-2022 11:40-0400 Respiratory rate 18 /min Charisse Blackwell Other [facility] Other 03-25-2022 11:40-0400 SaO2% (BldA) [Mass fraction] 99 % Charisse Blackwell Other [facility] Other 01-01-2022 10:40-0400 Body height 160.02 cm Deann Partida Other [facility] Other 01-01-2022 10:40-0400 Body mass index (BMI) [Ratio] 24.8 kg/m2 Deann Partida Other [facility] Other 01-01-2022 10:40-0400 Body temperature 97.5 [degF] Deann Partida Other [facility] Other 01-01-2022 10:40-0400 Body weight 63.5 kg Deann Partida Other [facility] Other 01-01-2022 10:40-0400 SaO2% (BldA) [Mass fraction] 99 % Deann Partida Other [facility] Other 05-04-2021 11:30-0400 Body height 160.02 cm Elsa Rea Other [facility] Other 05-04-2021 11:30-0400 Body mass index (BMI) [Ratio] 23.91 kg/m2 Elsa Rea Other [facility] Other 05-04-2021 11:30-0400 Body temperature 97.3 [degF] Elsa Rea Other [facility] Other 05-04-2021 11:30-0400 Body weight 61.24 kg Elsa Rea Other [facility] Other 05-04-2021 11:30-0400 SaO2% (BldA) [Mass fraction] 99 % Elsa Rea Other [facility] Other Encounters Encounter Date Encounter Type Care Provider Facility Start: 08-18-2023 End: 08-18-2023 ambulatory Deann Partida Other [facility] Other Start: 08-18-2023 Office outpatient visit 25 minutes Deann Partida [facility] Start: 06-13-2023 End: 06-13-2023 ambulatory SELENA MEZA Not Available Start: 11-17-2022 End: 11-17-[address] AI DARBY . Facility:[facility] Start: 10-18-[address] DOCTOR MONCADA Facility :[facility] Start: 10-15-2022 End: 10-16-[address] AI DARBY . Facility:[facility] Start: 10-01-2022 End: 10-02-[address] AI DARBY . Facility:[facility] Start: 09-14-2022 End: 09-14-2022 ambulatory Elsa Rea Other [facility] Other Start: 09-14-2022 Office outpatient visit 15 minutes Elsa Álvaro [facility] Start: 03-25-2022 End: 03-25-2022 ambulatory Charisse Blackwell Other [facility] Other Start: 03-25-2022 Office outpatient visit 15 minutes Charisse Blackwell [facility] Start: 01-01-2022 End: 01-01-2022 ambulatory Deann Partida Other [facility] Other Start: 01-01-2022 Office outpatient visit 25 minutes Deann Partida [facility] Start: 05-04-2021 Office outpatient visit 15 minutes Elsa Álvaro [facility] Payers Date Payer Category Payer Medicaid [id number] 2. [id number] 2022 Private Health Insurance [id number] 2001 Unknown [id number] 2.16.84 [id number] 2001 Unknown [id number] 2.16.84 [id number] 2001 Unknown [id number] 2.16.84 [id number] 2001 Unknown [id number] 2.16.84 [id number] 2001 Unknown [id number] 2.16.84 [id number] 2001 Unknown [id number] 1958 [id number] Private Health Insurance [id number] Unknown [id number] 2.1 [id number] Social History Date Type Detail Facility Unknown if ever smoked [facility] Other Sex Assigned At Sex Assigned At Bir th [facility] Other Evaluation note 08-18-2023 Note Date & Type Note Facility 08-18-2023 Evaluation note Encounter Date Diagnosis Assessment Notes Aug, Sore throat (ICD-10 - J02.9) Aug, COVID-19 (ICD-10 - U07.1) Rapid COVID test performed in office today. Advised patient that test was positive. Instructed patient to isolate per CDC guidelines for 5 days from symptom onset, mask 5 days following. May return to work/activities outside home after isolation period as long as symptoms are improving and has been afebrile for 24 hours without use of antipyretic. Advised patient that treatment of COVID is with viral supportive care, Capmist and Flonase as directed, Tylenol/Motrin as needed for body aches/fever. Increase fluids and rest. Encouraged use of cool mist humidifier. Follow-up with PCP to advise of positive result and further management. Immediate eval for SOB, difficulty, chest pain, fevers that do not break with antipyretic or any other concerning symptoms as reviewed on patient education handout. Patient verbalizes understanding and is agreeable to treatment plan. Patient left in stable condition [facility] Other Evaluation note 09-14-2022 Note Date & Type Note Facility 09-14-2022 Evaluation note Encounter Date Diagnosis Assessment Notes Aug, Impetigo (ICD-10 - L01.00) Clean area as discussed with 1/2 peroxide and water mix. Apply ointment to area. Infection is very contagious. Bed laundering and cleaning toys is important. Follow up with primary care provider or come back into office to be seen if symptoms worsen [facility] Other Evaluation note 03-25-2022 Note Date & Type Note Facility 03-25-2022 Evaluation note Encounter Date Diagnosis Assessment Notes Mar, Sore throat (ICD-10 - J02.9) Mar, Acute sinusitis, recurrence not specified, unspecified location (ICD-10 - J01.90) Sinusitis home care material was printed Drink plenty fluids, get plenty of rest. Take Tylenol or Motrin as needed for aches pains or fevers. Take the prednisone as prescribed until gone. Use the Flonase inhaler as prescribed until your symptoms improve. Follow-up with your family physician if no improvement in 2 to 3 days. [facility] Other Evaluation note 01-01-2022 Note Date & Type Note Facility 01-01-2022 Evaluation note Encounter Date Diagnosis Assessment Notes Dec, Sore throat (ICD-10 - J02.9) Dec, COVID-19 (ICD-10 - U07.1) COVID PCR test positive today, Influenza A/B PCR test negative today. Advised patient that test was positive. Instructed patient to isolate per CDC guidelines for 10 days from symptom onset. May return to work/activities outside home after isolation period as long as symptoms are improving and has been afebrile for 24 hours without use of antipyretic. Encouraged supportive care, reviewed OTC cold medications safe with , Tylenol/Motrin as needed for body aches/fever, increase fluids and rest, encouraged use of cool mist humidifier. Follow-up with PCP to advise of positive result and further management. Immediate eval for SOB, difficulty, chest pain, fevers that do not break with antipyretic or any other concerning symptoms as reviewed on patient education handout. Patient verbalizes understanding and is agreeable to treatment plan. Patient left in stable condition [facility] ([place] Other Evaluation note 05-04-2021 Note Date & Type Note Facility 05-04-2021 Evaluation note Encounter Date Diagnosis Assessment Notes Apr, Contact with and (suspected) exposure to other viral communicable diseases (ICD-10 - Z20.828) Apr, COVID-19 (ICD-10 - U07.1) Today you tested positive for the COVID virus. This mean you need to follow all CDC quarantine guidelines found at coronavirus.[place].gov. It is important to rest, increase fluids, and stay at home. Contact PCP and inform them of results. Medications like Mucinex, Cepacol, Tylenol, saline nasal spray are over the counter medications that can help with the symptoms. Current guidelines include staying home for at least 10 days, having no fever above 100.4 for 24 hours without medication and having significant improvement of symptoms before you are allowed to stop your quarantine. Contact primary care and ask for guidance is essential to follow up Apr, Other Additional time spent conducting pre-visit phone call, screening for symptoms, instructions on social distancing, application and removal of PPE, and cleaning of examination room, equipment and supplies was preformed. Patient education given for testing methodology and results. Patient care instructions given in writting by [facility] document. [facility] ([place] Other History general Narrative - Reported Note Date & Type Note Facility History general Narrative - Reported Type Hospitalization History fractured arm and shatte red elbow [facility] Other History general Narrative - Reported Note Date & Type Note Facility History general Narrative - Reported Type Hospitalization History fractured arm and shatte red elbow Hospitalization History childbirth [facility] Other Summary Purpose Family History No Family History Records FoundNo Family History Records FoundNo Family History Records Found Advance Directives No Advanced Directives Records FoundNo Advanced Directives Records FoundNo Advanced Directives Records Found Additional Source Comments INFORMATION SOURCE (unrecogn ized section and content) DATE CREATED AUTHOR 08/09/2020 [facility] DATE CREATED AUTHOR AUTHOR'S ORGANIZ ATION 12/24/2022 [facility] DATE CREATED AUTHOR AUTHOR'S ORGANIZ ATION 06/14/2023 [facility] EPIC REASON FOR VISIT (unrecogniz ed section and content) #7 WHITE FUSION, N/V, COVID EXPOSURE, , COVID Provider VisitWHITE FUSION, SORE THROAT, COUGHWHITE FUSION, SWOLLEN GLANDS, SORE THROAT, SINUS CONGESTION, EARCHEINFECTION ON TOP OF NOSECONGESTION, THROAT PAIN, EAR PAIN, HEADACHE FOR RECORDS PERTAINING TO PATIENTS WHO ARE OR HAVE BEEN ENROLLED IN A CHEMICAL DEPENDENCY/SUBSTANCEABUSE PROGRAM, SOME INFORMATION MAY BE OMITTED. This clinical summary was aggregated from multiple sources. Caution should be exercised in using it in the provision of clinical care. This summary normalizes information from multiple sources, and as a consequence, information in this document may materially change the coding, format and clinical context of patient data. In addition, data may be omitted in some cases. CLINICAL DECISIONS SHOULD BE BASED ON THE PRIMARY CLINICAL RECORDS. [facility] provides no warranty or guarantee of the accuracy or completeness of information in this document.
== END 2024-02-01 08:05 | disposition home or self-care (01) ==
LOC: NOMS 08:04
PROVIDERS: Visit Provider Obstetrics & Gynecology
DX: N94.9 Unspecified condition associated with female genital organs and menstrual cycle (principal)
CPT/HCPCS: 76830; 76856

== ENCOUNTER 2024-08-29 16:38 | Outpatient (RCR) | payer OTHER, MEDICAID, SELFPAY ==
[2024-08-29 17:44] LABS: HCG Quantitative 43102 mIU/mL
== END 2024-09-14 16:57 | disposition home or self-care (01) ==
LOC: LAB 16:38
PROVIDERS: Visit Provider Obstetrics & Gynecology
DX: Z32.01 Encounter for pregnancy test, result positive (principal)
CPT/HCPCS: 36415; 84702

== ENCOUNTER 2024-09-29 13:02 | Outpatient (OUT) | payer OTHER, SELFPAY ==
--- NOTE | 2024-09-29 | US_ITS ---
The [address] [address] Patient Name: KARLY CRUZ MRN: [id number] date: 2000 Sex: F Assigned Patient Location: US Current Patient Location: US Accession/Order Number: [id number] Exam Date: 09/29/2024 13:47 Report Date: 09/29/2024 13:52 At the request of: AI DARBY DO Procedure: US OB <= 14 weeks fetus Obstetrical ultrasound for fetus less than 14 weeks HISTORY: Missed menses. COMPARISON: None The heart rate is 178bpm. Left ovary not visualized. Right ovary measures 2.3 x 1.8 x 2.1 cm. Adequate flow of the right ovary. No cervical length 3.5 cm. Cervical os closed. No free fluid identified in cul-de-sac. Subchorionic hematoma measures 2.6 x 2.5 x 0.2 cm. [place]-rump length measures 4.0cm consistent with 11 weeks 0 days. The yolk sac is not seen. The estimated due date by this ultrasound is 04/20/2025. US/US OB <= 14 weeks fetus IMPRESSION: Single live anterior gestation no recent or days. 2.6 cm subchorionic hematoma.. Impression dictated by: Jose Miguel Riley M.D.09/29/2024 1:52 PM Dictation Location: [employer] Electronically authenticated by: [id number] Y Date: 09/29/2024 13:52
--- OUTSIDE RECORDS SUMMARY | 2024-09-29 13:05 | XMS_ITS | CCD ---
Author Organization [facility]iniSyn[facility] Care Team Providers Care Pull Worker Name Role Phone Elsa Rea Unavailable Deann Partida Unavailable Charisse Blackwell Unavailable ANTONIETAC, DR HIGHTOWER Primary Care Unavailable TJ ., DR CLOUD Admitting Unavailable TJ ., DR CLOUD Attending Unavailable TJ ., DR CLOUD Consulting Unavailable TJ ., DR CLOUD Admitting Unavailable MISC, DR HIGHTOWER Primary Care Unavailable TJ ., DR CLOUD Attending Unavailable ZIEBER, DR GM Cole Consulting Unavailable TJ ., DR CLOUD Attending Unavailable TJ ., DR CLOUD Consulting Unavailable MISC, DR HIGHTOWER Primary Care Unavailable TJ ., DR CLOUD Admitting Unavailable TJ ., DR CLOUD Consulting Unavailable TJ ., DR CLOUD Admitting Unavailable MISC, DR HIGHTOWER Primary Care Unavailable TJ ., DR CLOUD Attending Unavailable TJ ., DR CLOUD Consulting Unavailable TJ ., DR CLOUD Admitting Unavailable MISC, DR HIGHTOWER Primary Care Unavailable TJ ., DR CLOUD Attending Unavailable Unavailable Primary Care Provider Unavailabl e AI SPENCER Attending Unavailable TJAI Lee Attending Unavailable AI SPENCER Attending Unavailable Allergies Allergy Classification Reported Allergen(s) Allergy Type Date of Onset Reaction(s) Facility (5 sources) Minocycline Drug Allergy 12-14-2022 Nausea Only [facility] Work Phone: Medications Current Medications Medication Drug Class(es) Dates Sig (Normalized) Sig (Original) fluticasone propionate 0.05 mg/actuat metered dose nasal spray (1 source) Corticosteroid Start: 03-25-2022 take 2 spray(s) nasal route once daily Fluticasone Propionate 50 MCG/ACT 2 sprays Nasally Once a day for 14 day(s) Mar, Active Pre- (1 source) Pre- Active predniSONE 20 mg oral tablet (1 source) Start: 03-25-2022 take 1 tablet by mouth every twelve hours predniSONE 20 MG 1 tablet Orally 2 times a day for 5 day(s) Mar, Active Completed/Discontinued Medications Medication Drug Class(es) Dates Sig (Normalized) Sig (Original) Iron (2 sources) Iron Not-Taking/ PRN Iron Active levonorgestrel 0.730645 mg/hr intrauterine system (2 sources) Progestin, Progestin-containing Intrauterine Device Start: 2024 End: 2024 Levonorgestrel intrauterine device 52 mg mupirocin 0.02 mg/mg topical ointment (2 sources) RNA Synthetase Inhibitor Antibacterial Start: 09-14-2022 Mupirocin 2 % 1 application to affected area Externally 2 times a day for 7 days Aug, Not-Taking/PRN (2 sources) Not-Taking/PRN Active Problems Active Problems Problem Classification Problem Date Documented Date Episodic/Chronic Contraceptive and procreative management (2 sources) Patient encounter status; Translations: [Encounter for initial prescription of contraceptives, unspecified] 07-31-2024 Episodic Immunizations and screening for infectious disease (2 sources) Contact with and (suspected) exposure to other viral communicable diseases; Translations: [Encounter for screening for human papillomavirus (HPV)] Onset: 05-04-2021 Resolved: 05-04-2021 Episodic Menstrual disorders (8 sources) Irregular menstruation, unspecified; Translations: [Missed period] Onset: 10-09-2022 Chronic Other and delivery including normal (4 sources) Encounter for supervision of normal , unspecified, first trimester; Translations: [ test positive] Onset: 10-09-2022 2024 Episodic Other screening for suspected conditions (not [...] tissue infections (1 source) Impetigo, unspecified Episodic Sprains and strains (2 sources) Sprain of right ankle; Translations: [Sprain of unspecified ligament of right ankle, initial encounter] 05-10-2024 Episodic Unclassified (5 sources) OB Reminders Onset: 04-27-2023 04-27-2023 Past or Other Problems Problem Classification Problem Date Documented Da te Episodic/Chronic Viral infection (3 sources) COVID-19; Translations: [COVID-19 U07.1] Onset: 05-04-2021 Resolved: 01-01-2022 Results Test Name Value Interpretation Reference Range Facility [facility] PREG QUANT HCGon 025 HCG QUANTITATIVE 09002 mIU/mL [facility] Comment on above: 5-50 0.2-1 WEEK 50-500 1-2 WEEKS 100-5,000 2-3 WEEKS 500-10,000 3-4 WEEKS 1,000-50,000 4-5 WEEKS 10,000-100,000 5-6 WEEKS 15,000-200,000 6-8 WEEKS 10,000-100,000 2-3 MONTHS [facility] Healthcar e HCG ( test) Ql (U)o n 07-31-2024 Interpretation and review of laboratory results Normal formerly [facility] re Preg Test, Ur Negative Negative [facility] COVID + FLU Quick Testingon 08-18-2023 SARS-CoV-2 (COVID-19) RNA ANNE+probe Ql (Unsp spec) Positive [employer] Other COVID + FLU Quick Testing Negative [employer] Other PAP ACOG PANEL 2: 21 to 29on 11-25-2022 . . Normal [facility] Comment on above: Performed By: #### [id number] #### [facility] [address] [place] [address] Dr. Keri Guerra Age Gdln ACOG Testing - Normal [facility] Comment on above: Performed By: #### [id number] #### [facility] [address] [place] [address] Dr. Keri Guerra DIAGNOSIS: Comment Normal [facility] Comment on above: Result Comment: NEGA TIVE FOR INTRAEPITHELIAL LESION OR MALIGNANCY. Performed By: #### [id number] #### [facility] [address] [place] [address] Dr. Keri Guerra Methodology: Comment Normal [facility] Comment on above: Result Comment: This liquid based ThinPrep(R) pap test was screened with the use of an image guided system. Performed By: #### [id number] #### [facility] [address] [place] [address] Dr. Keri Guerra Note: Comment Normal [facility] Comment on above: Result Comment: The Pap smear is a screening test designed to aid in the detection of premalignant and malignant conditions of the uterine cervix. It is not a diagnostic procedure and should not be used as the sole means of detecting cervical cancer. Both false-positive and false-negative reports do occur. . Performed By: #### [id number] #### [facility] [address] [place] [address] Dr. Keri Guerra Performed by: Comment Normal [facility] Comment on above: Result Comment: Drew Florian Senior Occupational Therapist (ASCP) Performed By: #### [id number] #### [facility] [address] [place] [address] Dr. Keri Guerra Reflex Criteria: Comment Normal [facility] Comment on above: Result Comment: The HPV DNA reflex criteria were not met with this specimen result therefore, no HPV testing was performed. . Performed By: #### [id number] #### [facility] [address] [place] [address] Dr. Keri Guerra Specimen adequacy: Comment Normal [facility] Comment on above: Result Comment: Sati sfactory for evaluation. No endocervical component is identified. Areas of partially obscuring inflammatory exudate are present. Performed By: #### 4 [id number] #### [facility] [address] [place] [address] Dr. Keri Guerra HEP B SURFACE ANTIGEN SCREEN on 10-17-2022 HBsAg Screen Negative Normal Negative [facility] Comment on above: Performed By: #### H BSANS #### [facility] [address] [place] [address] Dr. Keri Guerra HEPATITIS C VIRUS AB W/ REFL EX QUANTon 10-17-2022 HCV AB Non-Reactive Normal Non Reactive [facility] Comment on above: Performed By: #### H CVPCRR #### [facility] [address] [place] [address] Dr. Keri Guerra Interpretation: Comment Normal [facility] Comment on above: Result Comment: Not infected with HCV unless early or acute infection is suspected (which may be delayed in an immunocompromised individual), or other evidence exists to indicate HCV infection. Performed By: #### H CVPCRR #### [facility] [address] [place] [address] Dr. Keri Guerra HIV 1 AND 2 WITH REFLEXon HIV Screen 4th Generation wRfx Non-Reactive Normal Non Reactive [facility] Comment on above: Result Comment: HIV Negative HIV-1/HIV-2 antibodies and HIV-1 p24 antigen were NOT detected. There is no laboratory evidence of HIV infection. Performed By: #### H IV12 #### [facility] [address] [place] [address] Dr. Keri Guerra RPR QUANTon 10-17-2022 Rapid Plasma Reagin, Quant Non-Reactive Normal NonRea<1:1 [facility] Comment on above: Result Comment: Plea se Note: This test does not meet current guidelines for screening and diagnosis of syphilis. This test is intended for following treatment response in patients being treated for syphilis infection. To screen for syphilis infection, a reflex cascade that includes both RPR and a treponema-specific assay should be utilized, such as Treponema pallidum (Syphilis) Screening [place] (526296) or Rapid Plasma Reagin (RPR) Test With Reflex to Quantitative RPR and Confirmatory Treponema pallidum Antibodies ([id number]). Performed By: #### R PRQ #### [facility] [address] [place] [address] Dr. Keri Guerra RUBELLA AB IGGon 10-17-2022 Rubella Antibodies, IgG <0.90 Critically low Immune >0.99 [facility] Comment on above: Result Comment: Non- immune <0.90 Equivocal 0.90 - 0.99 Immune >0.99 Performed By: #### R UBIGG #### [facility] [address] [place] [address] Dr. Keri Guerra CBC AUTO DIFFon 10-15-2022 BASO # 0.0 103/ul Normal 0.0-0.1 [facility] Comment on above: Performed By: #### C BC #### [facility] [address] [place] [address] Dr. Keri Guerra Basophils/100 WBC (Bld) 0.1 % Critically low 0.2-2.0 [facility] Comment on above: Performed By: #### C BC #### [facility] [address] [place] [address] Dr. Keri Guerra EO # 0.3 103/ul Normal 0.0-0.7 [facility] Comment on above: Performed By: #### C BC #### [facility] [address] [place] [address] Dr. Keri Guerra Eosinophils/100 WBC (Bld) 3.7 % Normal 0.9-7.0 [facility] Comment on above: Performed By: #### C BC #### [facility] [address] [place] [address] Dr. Keri Guerra Erythrocyte distribution width (RBC) [Ratio] 16.0 % Critically high 11.0-15.0 [facility] Comment on above: Performed By: #### C BC #### [facility] [address] [place] [address] Dr. Keri Guerra Hematocrit (Bld) [Volume fraction] 36.3 % Normal 36.0-48.0 [facility] Comment on above: Performed By: #### C BC #### [facility] [address] [place] [address] Dr. Keri Guerra Hemoglobin (Bld) [Mass/Vol] 12.1 g/dL Normal 12.0-16.0 [facility] Comment on above: Performed By: #### C BC #### [facility] [address] [place] [address] Dr. Keri Guerra IG # 0.02 10e3/ul Normal 0.00-0.03 [facility] Comment on above: Performed By: #### C BC #### [facility] [address] [place] [address] Dr. Keri Guerra IG % 0.3 % Normal 0.0-0.5 [facility] Comment on above: Performed By: #### C BC #### [facility] [address] [place] [address] Dr. Keri Guerra LYMPH # 1.7 103/ul Normal 1.2-3.8 [facility] Comment on above: Performed By: #### C BC #### [facility] [address] [place] [address] Dr. Keri Guerra Lymphocytes/100 WBC (Bld) 20.8 % Normal 20.5-60.0 [facility] Comment on above: Performed By: #### C BC #### [facility] [address] [place] [address] Dr. Keri Guerra MANUAL DIFF REQ NO Normal [facility] Comment on above: Performed By: #### C BC #### [facility] [address] [place] [address] Dr. Keri Guerra MCH (RBC) [Entitic mass] 25.3 pg Critically low 26.7-34.0 [facility] Comment on above: Performed By: #### C BC #### [facility] [address] [place] [address] Dr. Keri Guerra MCHC (RBC) [Mass/Vol] 33.3 g/dL Normal 29.9-35.2 [facility] Comment on above: Performed By: #### C BC #### [facility] [address] [place] [address] Dr. Keri Guerra MCV (RBC) [Entitic vol] 75.9 fL Critically low 81.0-99.0 [facility] Comment on above: Performed By: #### C BC #### [facility] [address] [place] [address] Dr. Keri Guerra MONO # 0.4 103/ul Normal 0.3-0.8 [facility] Comment on above: Performed By: #### C BC #### [facility] [address] [place] [address] Dr. Keri Guerra Monocytes/100 WBC (Bld) 5.0 % Normal 1.7-12.0 [facility] Comment on above: Performed By: #### C BC #### [facility] [address] [place] [address] Dr. Keri Guerra NEUT # 5.6 103/ul Normal 1.4-6.5 [facility] Comment on above: Performed By: #### C BC #### [facility] [address] [place] [address] Dr. Keri Guerra Neutrophils/100 WBC (Bld) 70.1 % Normal 43.0-75.0 [facility] Comment on above: Performed By: #### C BC #### [facility] [address] [place] [address] Dr. Keri Guerra Platelet mean volume (Bld) [Entitic vol] 11.0 fL Normal 9.5-13.5 [facility] Comment on above: Performed By: #### C BC #### [facility] [address] [place] [address] Dr. Keri Guerra PLT 319 103/ul Normal 150-450 [facility] Comment on above: Performed By: #### C BC #### [facility] [address] [place] [address] Dr. Keri Guerra RBC 4.78 106/ul Normal 4.20-5.40 [facility] Comment on above: Performed By: #### C BC #### [facility] [address] [place] [address] Dr. Keri Guerra WBC 7.9 103/ul Normal 4.0-11.0 [facility] Comment on above: Performed By: #### C BC #### [facility] [address] [place] [address] Dr. Keri Guerra CULTURE URINEon 10-15-2022 CULTURE URINE Culture Observations : LIGHT GROWTH OF MIXED GENITAL LARISA. NO POTENTIAL PATHOGENS SEEN. Normal [facility] Comment on above: Performed By: #### U RCX #### [facility] [address] [address] [address] Keri Guerra TSHon 10-15-2022 TSH 0.294 uIU/mL Critically low 0.358-3.740 [facility] Comment on above: Performed By: #### T SH #### [facility] [address] [address] [address] Keri Guerra TYPE AND SCREENon 10-15-2022 TYPE AND SCREEN Negative Normal [facility] Comment on above: Performed By: #### T NS #### [facility] [address] [address] [address] Keri Guerra US PREG TVon 10-01-2022 [...] by: GM BARRY Date: 2022-10-01 15:23 Normal [facility] Quick Strepon 03-25-2022 S. pyogenes Org specific cx Ql (Throat) Negative [employer] Other Quick Strep [employer] Other COVID/FLU RT-PCRon 2 SARS-CoV-2 (COVID-19) RNA ANNE+probe Ql (Unsp spec) Positive [employer] Other COVID/FLU RT-PCR Negative [place] [employer] Other COVID Quick Testingon 2020 Result Positive [facility] [employer] Other Consultation Noteon 08-05-19 Consultation Note [id number] Normal [facility] Vital Signs Date Time Vital Sign Value Performing Clinician Facility 07-31-2024 09:06-0500 Body mass index (BMI) [Ratio] 27.58 kg/m2 Ai Tj DO Work Phone: [facility] 07-31-2024 09:06-0500 Body weight 68.4 kg Ai Tj DO Work Phone: [facility] 07-31-2024 09:06-0500 Diastolic blood pressure 80 mm[Hg] reBuy[employer]deo DO Work Phone: [facility] 07-31-2024 09:06-0500 Systolic blood pressure 120 mm[Hg] Ai Tj DO Work Phone: [facility] 05-10-2024 10:22-0400 Body height 160.02 cm [facility] 05-10-2024 10:22-0400 Body mass index (BMI) [Ratio] 24.7 kg/m2 [facility] 05-10-2024 10:22-0400 Body temperature 98.2 [degF] [facility] 05-10-2024 10:22-0400 Body weight 63.5 kg [facility] 05-10-2024 10:22-0400 Diastolic blood pressure 65 mm[Hg] [facility] 05-10-2024 10:22-0400 Heart rate 95 /min [facility] 05-10-2024 10:22-0400 Respiratory rate 18 /min [facility] 05-10-2024 10:22-0400 SaO2% (BldA) [Mass fraction] 97 % [facility] 05-10-2024 10:22-0400 Systolic blood pressure 128 mm[Hg] [facility] 08-18-2023 11:30-0500 Body height 157.48 cm Deann Partida Other [employer] Other 08-18-2023 11:30-0500 Body mass index (BMI) [Ratio] 26.48 kg/m2 Deann Partida Other [employer] Other 08-18-2023 11:30-0500 Body temperature 98.6 [degF] Deann Partida Other [employer] Other 08-18-2023 11:30-0500 Body weight 65.68 kg Deann Partida Other [employer] Other 08-18-2023 11:30-0500 Respiratory rate 18 /min Deann Partida Other [employer] Other 08-18-2023 11:30-0500 SaO2% (BldA) [Mass fraction] 97 % Deann Partida Other [employer] Other 09-14-2022 15:25-0500 Body height 157.48 cm Elsa Rea Other [employer] Other 09-14-2022 15:25-0500 Body mass index (BMI) [Ratio] 26.88 kg/m2 Elsa Rea Other [employer] Other 09-14-2022 15:25-0500 Body temperature 97.7 [degF] Elsa Rea Other [employer] Other 09-14-2022 15:25-0500 Body weight 66.68 kg Elsa Rea Other [employer] Other 09-14-2022 15:25-0500 Diastolic blood pressure 65 mm[Hg] Elsa Rea Other [employer] Other 09-14-2022 15:25-0500 Respiratory rate 18 /min Elsa Rea Other [employer] Other 09-14-2022 15:25-0500 SaO2% (BldA) [Mass fraction] 99 % Elsa Rea Other [employer] Other 09-14-2022 15:25-0500 Systolic blood pressure 118 mm[Hg] Elsa Rea Other [employer] Other 03-25-2022 11:40-0400 Body height 157.48 cm Charisse Bonillamond Other [employer] Other 03-25-2022 11:40-0400 Body mass index (BMI) [Ratio] 27.43 kg/m2 Charisse Rosalva Other [employer] Other 03-25-2022 11:40-0400 Body temperature 98.8 [degF] Charisse Rosalva Other [employer] Other 03-25-2022 11:40-0400 Body weight 68.04 kg Charisse Bonillamond Other [employer] Other 03-25-2022 11:40-0400 Respiratory rate 18 /min Charisse Bonillamond Other [employer] Other 03-25-2022 11:40-0400 SaO2% (BldA) [Mass fraction] 99 % Charisse Rosalva Other [employer] Other 01-01-2022 10:40-0400 Body height 160.02 cm Deann Partida Other [employer] Other 01-01-2022 10:40-0400 Body mass index (BMI) [Ratio] 24.8 kg/m2 Deann Partida Other [employer] Other 01-01-2022 10:40-0400 Body temperature 97.5 [degF] Deann Partida Other [employer] Other 01-01-2022 10:40-0400 Body weight 63.5 kg Deann Partida Other [employer] Other 01-01-2022 10:40-0400 SaO2% (BldA) [Mass fraction] 99 % Deann Partida Other [employer] Other 05-04-2021 11:30-0400 Body height 160.02 cm Elsa Álvaro Other [employer] Other 05-04-2021 11:30-0400 Body mass index (BMI) [Ratio] 23.91 kg/m2 Elsa Rea Other [employer] Other 05-04-2021 11:30-0400 Body temperature 97.3 [degF] Elsa Rea Other [employer] Other 05-04-2021 11:30-0400 Body weight 61.24 kg Elsa Rea Other [employer] Other 05-04-2021 11:30-0400 SaO2% (BldA) [Mass fraction] 99 % Elsa Rea Other [facility] [employer] Other Encounters Encounter Date Encounter Type Care Provider Facility Start: 2024 End: 2024 ambulatory AI TJ Not Available Start: 2024 End: 2024 Office outpatient visit 15 minutes Ai Tj DO Work Phone: [facility] Comment on above: examinatio n or test, positive result; Missed menses Start: 2024 End: 2024 Clinisync Result Encounter Ai Tj DO Work Phone: [facility] Unsolicited Start: 2024 End: 2024 Clinisync Result Encounter Ai Tj DO Work Phone: [facility] Unsolicited Start: 07-31-2024 End: 07-31-2024 Bamboo flowsheet Ai Tj DO Work Phone: [facility] Start: 07-31-2024 End: 07-31-2024 Bamboo flowsheet Ai Tj DO Work Phone: [facility] Start: 07-31-2024 End: 07-31-2024 ambulatory AI TJ Not Available Start: 07-31-2024 End: 07-31-2024 Office outpatient visit 15 minutes Ai Tj DO Work Phone: [facility] Comment on above: Encounter for initia l prescription of contraceptives, unspecified contraceptive Start: 05-10-2024 End: 05-10-2024 ambulatory [facility] Work Phone: Start: 05-10-2024 End: 05-10-2024 Patient encounter procedure [facility] Work Phone: Start: 01-31-2024 End: 01-31-2024 ambulatory AI TJ Not Available Start: 08-18-2023 End: 08-18-2023 ambulatory Deann Partida Other [employer] Other Start: 08-18-2023 Office outpatient vi sit 25 minutes Deann Partida [facility] Start: 11-17-2022 End: 11-17-[address] AI SPENCER . Facility:[facility] Start: 10-18-[address] DOCTOR MONCADA Facility :[facility] Start: 10-15-2022 End: 10-16-[address] AI SPENCER . Facility:[facility] Start: 10-01-2022 End: 10-02-[address] AI SPENCER . Facility:[facility] Start: 09-14-2022 End: 09-14-2022 ambulatory Elsa Rea Other [employer] Other Start: 09-14-2022 Office outpatient vi sit 15 minutes Elsajose j Rea [facility] Start: 03-25-2022 End: 03-25-2022 ambulatory Charisse Blackwell Other [employer] Other Start: 03-25-2022 Office outpatient vi sit 15 minutes Charissenell Blackwell [facility] Start: 01-01-2022 End: 01-01-2022 ambulatory Deann Partida Other [employer] Other Start: 01-01-2022 Office outpatient vi sit 25 minutes Deann Partida [facility] Start: 05-04-2021 Office outpatient vi sit 15 minutes Elsa Álvaro [facility] Procedures Date Procedure Procedure Detail Performing Clinician Start: 2024 [facility] PREG QUANT HCG Core y Tj DO Work Phone: Start: 07-31-2024 Urine test visual color cmprsn meths Ai Tj DO Work Phone: Plan of Treatment Date Care Activity Detail Author Start: 10-31-2024 End: 10-31-2024 Patient encounter procedure 10/31/2024 1:00 PM EDT Office Visit [facility] [address] [place] [id number] Ai Spencer, DO [address] [place], [place] [id number] [facility] Start: 2024 End: 2024 Patient encounter procedure 2024 3:30 PM EST Procedure Visit [facility] [address] [place] [address] Ai Spencer, DO [address] [place], [place] [id number] [facility] End: 2025 hCG, quantitative, hCG, quantitative, Lab Routine examination or test, positive result 4 Occurrences starting 2024 until 2025 [facility] Work Phone: Comment on above: 4 Occurrences starti ng 2024 until 2025 Payers Date Payer Category Payer Private Health Insurance [employer] [id number] 2024 Unknown [id number] 2022 Medicaid [id number] 2001 Unknown [id number]. 593 2001 Unknown [id number] [id number]. 593 2001 Unknown [id number] [id number]. 593 2001 Unknown [id number] [id number]. 593 2001 Unknown [id number] [id number]. 593 2001 Unknown [id number] 2.16.840.1.315295.3.579.2. 1259 2001 Unknown [id number] [id number]. 1259 2001 Unknown [id number] [id number]. 1259 1959 [place] [facility] [id number] Private Health Insurance [id number] Self-pay Self Pay [id number] Unknown [id number] Unknown Benny BARRIGA/GRACE [id number] Social History Date Type Detail Facility Unknown if ever smoked [facility] [employer] Other Start: 01-31-2024 Sex Assigned At N [facility] [employer] Other Start: 03-31-2023 End: 05-10-2024 Tobacco smoking status NHIS Never smoked tobacco (finding) [facility] Start: 2001 Sex Assigned At Female F [facility] Start: 03-31-2023 Tobacco use and exposure Smokeless tobacco non-user [facility] Start: 01-31-2024 End: 2024 Alcoholic beverage intake Lifetime non-drinker (finding) [facility] Start: 01-31-2024 History of Social function [facility] Start: 02-16-2023 Alcohol Comment Caffeine intak e: soda/pop occasional [facility] Start: 2001 Sex assigned at Not on file [facility] Goals Date Patient Goal Desired Activity /State Personal health goal Clinical Notes 05-04-2021 to 2024 Iza De Leon, YARIEL - 2024 3:30 PM Alison Rodriguez, YARIEL - 2024 3:30 PM Alison Rodriguez, [employer] - 07/31/2024 8:50 AM EST Note Date & Type Note Facility 2024 History of Presen t illness Narrative Associated Order(s): IUD Insertion Post-Procedure Diagnose(s): Encounter for IUD insertion Reason for Appointment: Patient ID: Wendy Agosto is a 24 y.o. female who presents for IUD insertion Patient presents today for a IUD Insertion appointment. MEDICATIONS No current outpatient medications ALLERGIES Allergies Allergen Reactions Minocycline Nausea Only SURGICAL HISTORY Past Surgical History: Procedure Laterality Date PAP SMEAR 03/19/2021 nilm REVIEW OF SYSTEMS Review of Systems: Review of Systems OBJECTIVE Objective: OBGyn Exam Vitals: Estimated body mass index is 27.58 kg/m as calculated from the following: Height as of 12/15/22: 5' 2 . Weight as of 07/31/24: 150 lb 12.8 oz. BP: Patient's last menstrual period was 07/18/2024. ASSESSMENT & PLAN Assessment/Plan Encounter Diagnosis: ICD-10-CM 1. Encounter for IUD insertion Z30.430 Levonorgestrel intrauterine device 52 mg POCT , urine manually resulted IUD Insertion Performed by: Ai Spencer DO Authorized by: Ai Spencer DO Procedure: IUD insertion [facility]: 52 mg Mirena IUD (5 years) Intended removal date: 5 years Documented by Iza De Leon LPN on behalf of: Ai Spencer DO Reason for Appointment: Patient ID: Wendy Agosto is a 24 y.o. female who presents for IUD insertion Patient presents today for Acute Visit. MEDICATIONS No current outpatient medications ALLERGIES Allergies Allergen Reactions Minocycline Nausea Only PROBLEMS Active Ambulatory Problems Diagnosis Date Noted No Active Ambulatory Problems Resolved Ambulatory Problems Diagnosis Date Noted No Resolved Ambulatory Problems Past Medical History: Diagnosis Date 6 weeks follow-up BMI 25.0-25.9,adult Salt deficiency Type O blood, Rh positive HISTORY PAST MEDICAL HISTORY SOCIAL HISTORY Past Medical History: Diagnosis Date 6 weeks follow-up BMI 25.0-25.9,adult Salt deficiency Type O blood, Rh positive Social History Tobacco Use Smoking status: Never Smokeless tobacco: Never Substance Use Topics Alcohol use: Never Comment: Caffeine intake: soda/pop occasional Drug use: Never FAMILY HISTORY Family History Problem Relation Name Age of Onset Diabetes Father Heart disease Father No Known Problems Maternal Grandmother Diabetes Maternal Grandfather No Known Problems Paternal Grandmother No Known Problems Paternal Grandfather SURGICAL HISTORY Past Surgical History: Procedure Laterality Date PAP SMEAR 03/19/2021 nilm REVIEW OF SYSTEMS Review of Systems: Review of Systems Constitutional: Negative. HENT: Negative. Eyes: Negative. Respiratory: Negative. Cardiovascular: Negative. Gastrointestinal: Negative. Genitourinary: Negative. Musculoskeletal: Negative. Skin: Negative. Neurological: Negative. All other systems reviewed and are negative. Hematological: Negative. Endocrine: Negative. Allergic/Immunologic: Negative. OBJECTIVE Objective: Physical Exam Constitutional: Appearance: Normal appearance. She is well-developed. Cardiovascular: Rate and Rhythm: Normal rate and regular rhythm. Pulmonary: Effort: Pulmonary effort is normal. Breath sounds: Normal breath sounds. Abdominal: General: Bowel sounds are normal. There is no distension. Palpations: Abdomen is soft. Tenderness: There is no abdominal tenderness. There is no guarding or rebound. Musculoskeletal: General: No swelling. Normal range of motion. Right lower leg: No edema. Left lower leg: No edema. Neurological: Mental Status: She is alert and oriented to person, place, and time. Skin: General: Skin is warm and dry. Psychiatric: Mood and Affect: Mood normal. Behavior: Behavior normal. Vitals and nursing note reviewed. Exam conducted with a cemetery laborer present. Vitals: Estimated body mass index is 27.58 kg/m as calculated from the following: Height as of 12/15/22: 5' 2 . Weight as of 07/31/24: 150 lb 12.8 oz. BP: Patient's last menstrual period was 07/18/2024. ASSESSMENT & PLAN ICD-10-CM 1. Encounter for IUD insertion Z30.430 Levonorgestrel intrauterine device 52 mg POCT , urine manually resulted IUD Insertion 2. examination or test, positive result Z32.01 hCG, quantitative, Pt presents for IUD insertion- test positive- pt given quant lab level to have obtained. Pt to return for ob intake. Documented by Lisa Rodriguez LPN on behalf of: Ai Spencer DO documented in this encounter [facility] 07-31-2024 History of Presen t illness Narrative Reason for Appointment: Patient ID: Wendy Agosto is a 23 y.o. female who presents for Contraception Patient presents today for Consult appointment. MEDICATIONS No current outpatient medications ALLERGIES Allergies Allergen Reactions Minocycline Nausea Only PROBLEMS Active Ambulatory Problems Diagnosis Date Noted No Active Ambulatory Problems Resolved Ambulatory Problems Diagnosis Date Noted No Resolved Ambulatory Problems Past Medical History: Diagnosis Date 6 weeks follow-up BMI 25.0-25.9,adult Salt deficiency Type O blood, Rh positive HISTORY PAST MEDICAL HISTORY SOCIAL HISTORY Past Medical History: Diagnosis Date 6 weeks follow-up BMI 25.0-25.9,adult Salt deficiency Type O blood, Rh positive Social History Tobacco Use Smoking status: Never Smokeless tobacco: Never Substance Use Topics Alcohol use: Never Comment: Caffeine intake: soda/pop occasional Drug use: Never FAMILY HISTORY Family History Problem Relation Name Age of Onset Diabetes Father Heart disease Father No Known Problems Maternal Grandmother Diabetes Maternal Grandfather No Known Problems Paternal Grandmother No Known Problems Paternal Grandfather SURGICAL HISTORY Past Surgical History: Procedure Laterality Date PAP SMEAR 03/19/2021 nilm REVIEW OF SYSTEMS Review of Systems: Review of Systems Constitutional: Negative. HENT: Negative. Eyes: Negative. Respiratory: Negative. Cardiovascular: Negative. Gastrointestinal: Negative. Genitourinary: Negative. Musculoskeletal: Negative. Skin: Negative. Neurological: Negative. All other systems reviewed and are negative. Hematological: Negative. Endocrine: Negative. Allergic/Immunologic: Negative. OBJECTIVE Objective: Physical Exam Constitutional: Appearance: Normal appearance. She is well-developed. Cardiovascular: Rate and Rhythm: Normal rate and regular rhythm. Pulmonary: Effort: Pulmonary effort is normal. Breath sounds: Normal breath sounds. Abdominal: General: Bowel sounds are normal. There is no distension. Palpations: Abdomen is soft. Tenderness: There is no abdominal tenderness. There is no guarding or rebound. Musculoskeletal: General: No swelling. Normal range of motion. Right lower leg: No edema. Left lower leg: No edema. Neurological: Mental Status: She is alert and oriented to person, place, and time. Skin: General: Skin is warm and dry. Psychiatric: Mood and Affect: Mood normal. Behavior: Behavior normal. Vitals and nursing note reviewed. Exam conducted with a cemetery laborer present. Vitals: Estimated body mass index is 27.58 kg/m as calculated from the following: Height as of 23: 5' 2 . Weight as of this encounter: 150 lb 12.8 oz. BP: 120/80 Patient's last menstrual period was 07/18/2024. ASSESSMENT & PLAN ICD-10-CM 1. Encounter for initial prescription of contraceptives, unspecified contraceptive Z30.019 POCT , urine manually resulted Pt presents to discuss control. Pt is not good at taking pills. Discussed all options. Pt desires Mirena IUD for control for bleeding control. Pt to return for placement. Pt voiced understanding. Documented by Lisa Rodriguez LPN on behalf of: Ai Spencer DO documented in this encounter [facility] 08-18-2023 Evaluation note Encounter Date Diagnosis Assessment [...] treatment plan. Patient left in stable condition [employer] Other 02-28-2023 Evaluation note* Encounter Date Diagnosis Assessment Notes Treatment Notes Treatment Clinical Notes Aug, Impetigo (ICD-10 - L01.00) Clean area as discussed with 1/2 peroxide and water mix. Apply ointment to area. Infection is very contagious. Bed laundering and cleaning toys is important. Follow up with primary care provider or come back into office to be seen if symptoms worsen [employer] Other 09-08-2022 Evaluation note* Encounter Date Diagnosis Assessment Notes Treatment Notes Treatment Clinical Notes Mar, Sore throat (ICD-10 - J02.9) [...] no improvement in 2 to 3 days. [employer] Other 06-17-2022 Evaluation note* Encounter Date Diagnosis Assessment Notes Treatment Notes Treatment Clinical Notes Dec, Sore throat (ICD-10 - J02.9) [...] treatment plan. Patient left in stable condition [employer] Other 10-18-2021 Evaluation note* Encounter Date Diagnosis Assessment Notes Treatment Notes Treatment Clinical Notes Apr, Contact with and (suspected) exposure to other viral communicable diseases (ICD-10 - Z20.828) Apr, COVID-19 (ICD-10 - U07.1) Today you tested positive for the COVID virus. This mean you need to follow all CDC quarantine guidelines found at [email or web address] v. It is important to rest, increase fluids, [...] Patient care instructions given in writting by [facility] Home document. [employer] Other Evaluation note* Diagnosis Onset Date Resolution Status Right ankle sprain acute [facility] Work Phone: Evaluation note* Diagnosis Encounter for initial prescription of contraceptives, unspecified contraceptive [facility] Diagnosis examination or test, positive result Missed menses [facility] N[facility] - Reported* Type Description Date Hospitalization History fractured arm and shatte red elbow [facility] [employer] Other History general Narrative - Reported* Type Description Date Hospitalization History fractured arm and shatte red elbow Hospitalization History childbirth [facility] [employer] Other Summary Purpose Family History No Family History Records Found Relationship Condition Age at Onset Recorded Date/T raul father Diabetes mellitus Unknown Advance Directives No Advanced Directives Records Found Advance Directive Response Recorded Date/ Time Advance Directives No May 10, 2024 10:15am Chief Complaint and Reason for Visit Chief Complaint ankle pain w/o known injury Reason for Visit Right ankle sprain Additional Source Comments INFORMATION SOURCE (unrecogn ized section and content) DATE CREATED AUTHOR 08/09/2020 Rodriguez Lucho [facility] DATE CREATED AUTHOR AUTHOR'S ORGANIZ ATION 12/24/2022 [facility] DATE CREATED AUTHOR AUTHOR'S ORGANIZ ATION 08/31/2024 [facility] EPIC REASON FOR VISIT (unrecogniz ed section and content) Reason Comments Contraception Reason Comments Amenorrhea Care Teams (unrecognized sec tion and content) Team Status: Active Member Role Status Dates PHYSICIAN NO FAMILY Primary Care Provider Active Team Status: Inactive Member Role Status Dates PHYSICIAN NO FAMILY Primary Care Provider Active Start: May 10, 2024 End: May 10, 2024 Maranda Caceres APRN Attending Provider Active Start: May 10, 2024 End: May 10, 2024 Goals (unrecognized section and content) Goals may be documented in a n alternate section FOR RECORDS PERTAINING TO PATIENTS WHO ARE [...] BE BASED ON THE PRIMARY CLINICAL RECORDS. [employer] provides no warranty or guarantee of the accuracy or completeness of information in this document.
== END 2024-09-29 13:03 | disposition home or self-care (01) ==
LOC: US 13:02
PROVIDERS: Visit Provider Obstetrics & Gynecology
DX: Z3A.11 11 weeks gestation of pregnancy (principal); N92.6 Irregular menstruation, unspecified
CPT/HCPCS: 76801

== ENCOUNTER 2024-10-18 16:59 | Outpatient (OUT) | payer OTHER, SELFPAY ==
--- OUTSIDE RECORDS SUMMARY | 2024-10-17 16:58 | XMS_ITS | CCD ---
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 Name Role Phone Elsa Rea Unavailable Deann [...] 14 day(s) Mar, Active Pre- (1 source) Pre-Elen Active predniSONE 20 mg oral tablet (1 source) Start: 03-25-2022 take 1 tablet by mouth every twelve hours predniSONE 20 MG 1 tablet Orally 2 times a day for 5 day(s) Mar, Active Completed/Discontinued Medications Medication Drug Class(es) Dates Sig (Normalized) Sig (Original) Iron (2 sources) Iron Not-Taking/ PRN Iron Active levonorgestrel 0.707872 mg/hr intrauterine system (2 sources) Progestin, Progestin-containing [...] Test Name Value Interpretation Reference Range Facility [facility] PREG QUANT HCGon 025 HCG QUANTITATIVE 39104 mIU/mL [facility] lthcare Comment on above: 5-50 0.2-1 WEEK 50-500 1-2 WEEKS 100-5,000 2-3 WEEKS 500-10,000 3-4 WEEKS 1,000-50,000 4-5 WEEKS 10,000-100,000 5-6 WEEKS 15,000-200,000 6-8 WEEKS 10,000-100,000 2-3 MONTHS [facility] HCG ( test) Ql (U)o n 07-31-2024 Interpretation and review of laboratory results Normal [facility] re Preg Test, Ur Negative Negative [facility] COVID + FLU Quick Testingon 08-18-2023 SARS-CoV-2 (COVID-19) RNA ANNE+probe Ql (Unsp spec) Positive [facility] Other COVID + FLU Quick Testing Negative [facility] Other PAP ACOG PANEL 2: 21 to 29on 11-25-2022 . . Normal [facility] Comment on above: Performed By: #### [id number] #### [facility] [address] [place] [address] Dr. Keri Guerra Age Gdln ACOG Testing - Normal [facility] Comment on above: Performed By: #### [id number] #### [facility] [address] [place] [address] Dr. Keri Guerra DIAGNOSIS: Comment Normal [facility] Comment on above: Result Comment: NEGA TIVE FOR INTRAEPITHELIAL LESION OR MALIGNANCY. Performed By: #### [id number] #### [facility] [address] [place] [address] Dr. Keri Guerra Methodology: Comment Normal [facility] Comment on above: Result Comment: This liquid based ThinPrep(R) pap test was screened with the use of an image guided system. Performed By: #### [id number] #### [facility] [address] [place] [address] Dr. Keri Guerra Note: Comment Normal [facility] Comment on above: Result Comment: The Pap smear is a screening test designed to aid in the detection of premalignant and malignant conditions of the uterine cervix. It is not a diagnostic procedure and should not be used as the sole means of detecting cervical cancer. Both false-positive and false-negative reports do occur. . Performed By: #### [id number] #### [facility] [address] [place] [address] Dr. Keri Guerra Performed by: Comment Normal [facility] Comment on above: Result Comment: Drew Florian Architecture Technician (ASCP) Performed By: #### [id number] #### [facility] [address] [place] [address] Dr. Keri Guerra Reflex Criteria: Comment Normal [facility] Comment on above: Result Comment: The HPV DNA reflex criteria were not met with this specimen result therefore, no HPV testing was performed. . Performed By: #### [id number] #### [facility] [address] [place] [address] Dr. Keri Guerra Specimen adequacy: Comment Normal [facility] Comment on above: Result Comment: Sati sfactory for evaluation. No endocervical component is identified. Areas of partially obscuring inflammatory exudate are present. Performed By: #### [id number] #### [facility] [address] [place] [address] Dr. Keri Guerra HEP B SURFACE ANTIGEN SCREEN on 10-17-2022 HBsAg Screen Negative Normal Negative [facility] Comment on above: Performed By: #### H BSANS #### [facility] [address] [place] [address] Dr. Keri Guerra HEPATITIS C VIRUS AB W/ REFL EX QUANTon 10-17-2022 HCV AB Non-Reactive Normal Non Reactive [facility] Comment on above: Performed By: #### H CVPCRR #### [facility] [address] [place] [address] Dr. Keri Guerra Interpretation: Comment Normal [facility] Comment on above: Result Comment: Not infected with HCV unless early or acute infection is suspected (which may be delayed in an immunocompromised individual), or other evidence exists to indicate HCV infection. Performed By: #### H CVPCRR #### [facility] [address] [place] [address] Dr. Keri Guerra HIV 1 AND 2 WITH REFLEXon HIV Screen 4th Generation wRfx Non-Reactive Normal Non Reactive [facility] Comment on above: Result Comment: HIV Negative HIV-1/HIV-2 antibodies and HIV-1 p24 antigen were NOT detected. There is no laboratory evidence of HIV infection. Performed By: #### H IV12 #### [facility] [address] [place] [address] Dr. Keri Guerra RPR QUANTon 10-17-2022 Rapid Plasma Reagin, Quant Non-Reactive Normal NonRea<1:1 [facility] Comment on above: Result Comment: Plea se Note: This test does not meet current guidelines for screening and diagnosis of syphilis. This test is intended for following treatment response in patients being treated for syphilis infection. To screen for syphilis infection, a reflex cascade that includes both RPR and a treponema-specific assay should be utilized, such as Treponema pallidum (Syphilis) Screening [place] (367342) or Rapid Plasma Reagin (RPR) Test With Reflex to Quantitative RPR and Confirmatory Treponema pallidum Antibodies ([id number]). Performed By: #### R PRQ #### [facility] [address] [place] [address] Dr. Keri Guerra RUBELLA AB IGGon 10-17-2022 Rubella Antibodies, IgG <0.90 Critically low Immune >0.99 [facility] Comment on above: Result Comment: Non- immune <0.90 Equivocal 0.90 - 0.99 Immune >0.99 Performed By: #### R UBIGG #### [facility] [address] [place] [address] Dr. Keri Guerra CBC AUTO DIFFon 10-15-2022 BASO # 0.0 103/ul Normal 0.0-0.1 [facility] Comment on above: Performed By: #### C BC #### [facility] [address] [place] [address] Dr. Keri Guerra Basophils/100 WBC (Bld) 0.1 % Critically low 0.2-2.0 [facility] Comment on above: Performed By: #### C BC #### [facility] [address] [place] [address] Dr. Keri Guerra EO # 0.3 103/ul Normal 0.0-0.7 [facility] Comment on above: Performed By: #### C BC #### [facility] [address] [place] [address] Dr. Keri Guerra Eosinophils/100 WBC (Bld) 3.7 % Normal 0.9-7.0 [facility] Comment on above: Performed By: #### C BC #### [facility] [address] [place] [address] Dr. Keri Guerra Erythrocyte distribution width (RBC) [Ratio] 16.0 % Critically high 11.0-15.0 [facility] Comment on above: Performed By: #### C BC #### [facility] [address] [place] [address] Dr. Keri Guerra Hematocrit (Bld) [Volume fraction] 36.3 % Normal 36.0-48.0 [facility] Comment on above: Performed By: #### C BC #### [facility] [address] [place] [address] Dr. Keri Guerra Hemoglobin (Bld) [Mass/Vol] 12.1 g/dL Normal 12.0-16.0 [facility] Comment on above: Performed By: #### C BC #### [facility] [address] [place] [address] Dr. Keri Guerra IG # 0.02 10e3/ul Normal 0.00-0.03 [facility] Comment on above: Performed By: #### C BC #### [facility] [address] [place] [address] Dr. Keri Guerra IG % 0.3 % Normal 0.0-0.5 [facility] Comment on above: Performed By: #### C BC #### [facility] [address] [place] [address] Dr. Keri Guerra LYMPH # 1.7 103/ul Normal 1.2-3.8 [facility] Comment on above: Performed By: #### C BC #### [facility] [address] [place] [address] Dr. Keri Guerra Lymphocytes/100 WBC (Bld) 20.8 % Normal 20.5-60.0 [facility] Comment on above: Performed By: #### C BC #### [facility] [address] [place] [address] Dr. Keri Guerra MANUAL DIFF REQ NO Normal [facility] Comment on above: Performed By: #### C BC #### [facility] [address] [place] [address] Dr. Keri Guerra MCH (RBC) [Entitic mass] 25.3 pg Critically low 26.7-34.0 [facility] Comment on above: Performed By: #### C BC #### [facility] [address] [place] [address] Dr. Keri Guerra MCHC (RBC) [Mass/Vol] 33.3 g/dL Normal 29.9-35.2 [facility] Comment on above: Performed By: #### C BC #### [facility] [address] [place] [address] Dr. Keri Guerra MCV (RBC) [Entitic vol] 75.9 fL Critically low 81.0-99.0 [facility] Comment on above: Performed By: #### C BC #### [facility] [address] [place] [address] Dr. Keri Guerra MONO # 0.4 103/ul Normal 0.3-0.8 [facility] Comment on above: Performed By: #### C BC #### [facility] [address] [place] [address] Dr. Keri Guerra Monocytes/100 WBC (Bld) 5.0 % Normal 1.7-12.0 [facility] Comment on above: Performed By: #### C BC #### [facility] [address] [place] [address] Dr. Keri Guerra NEUT # 5.6 103/ul Normal 1.4-6.5 [facility] Comment on above: Performed By: #### C BC #### [facility] [address] [place] [address] Dr. Keri Guerra Neutrophils/100 WBC (Bld) 70.1 % Normal 43.0-75.0 [facility] Comment on above: Performed By: #### C BC #### [facility] [address] [place] [address] Dr. Keri Guerra Platelet mean volume (Bld) [Entitic vol] 11.0 fL Normal 9.5-13.5 [facility] Comment on above: Performed By: #### C BC #### [facility] [address] [place] [address] Dr. Keri Guerra PLT 319 103/ul Normal 150-450 [facility] Comment on above: Performed By: #### C BC #### [facility] [address] [place] [address] Dr. Keri Guerra RBC 4.78 106/ul Normal 4.20-5.40 [facility] Comment on above: Performed By: #### C BC #### [facility] [address] [place] [address] Dr. Keri Guerra WBC 7.9 103/ul Normal 4.0-11.0 [facility] Comment on above: Performed By: #### C BC #### [facility] [address] [place] [address] Dr. Keri Guerra CULTURE URINEon 10-15-2022 CULTURE URINE Culture Observations : LIGHT GROWTH OF MIXED GENITAL LARISA. NO POTENTIAL PATHOGENS SEEN. Normal [facility] Comment on above: Performed By: #### U RCX #### [facility] [address] [address] [address] Keri Guerra TSHon 10-15-2022 TSH 0.294 uIU/mL Critically low 0.358-3.740 [facility] Comment on above: Performed By: #### T SH #### [facility] [address] [address] [address] Keri Guerra TYPE AND SCREENon 10-15-2022 TYPE AND SCREEN Negative Normal [facility] Comment on above: Performed By: #### T NS #### [facility] [address] [address] [address] Keri Guerra US PREG TVon 10-01-2022 [...] by: GM BARRY Date: 2022-10-01 15:23 Normal [facility] Quick Strepon 03-25-2022 S. pyogenes Org specific cx Ql (Throat) Negative [facility] Other Quick Strep [facility] Other COVID/FLU RT-PCRon 2 SARS-CoV-2 (COVID-19) RNA ANNE+probe Ql (Unsp spec) Positive [facility] Other COVID/FLU RT-PCR Negative [place] [employer] Other COVID Quick Testingon 2020 Result Positive modu [facility] Other Consultation Noteon 08-05-19 Consultation Note [id number] Normal Rodriguez [facility] Vital Signs Date Time Vital Sign Value Performing Clinician Facility 07-31-2024 09:06-0500 Body mass index (BMI) [Ratio] 27.58 kg/m2 Ai Tj DO Work Phone: [facility] 07-31-2024 09:06-0500 Body weight 68.4 kg Ai Tj DO Work Phone: [facility] 07-31-2024 09:06-0500 Diastolic blood pressure 80 mm[Hg] Gustoo DO Work Phone: [facility] 07-31-2024 09:06-0500 Systolic blood pressure 120 mm[Hg] Ai Tj DO Work Phone: [facility] 05-10-2024 10:22-0400 Body height 160.02 cm [facility] 05-10-2024 10:22-0400 Body mass index (BMI) [Ratio] 24.7 kg/m2 [facility] 05-10-2024 10:22-0400 Body temperature 98.2 [degF] [facility] 05-10-2024 10:22-0400 Body weight 63.5 kg [facility] 05-10-2024 10:22-0400 Diastolic blood pressure 65 mm[Hg] [facility] 05-10-2024 10:22-0400 Heart rate 95 /min [facility] 05-10-2024 10:22-0400 Respiratory rate 18 /min [facility] 05-10-2024 10:22-0400 SaO2% (BldA) [Mass fraction] 97 % [facility] 05-10-2024 10:22-0400 Systolic blood pressure 128 mm[Hg] [facility] 08-18-2023 11:30-0500 Body height 157.48 cm Deann Partida Other [facility] Other 08-18-2023 11:30-0500 Body mass index (BMI) [Ratio] 26.48 kg/m2 Deann Partida Other [facility] Other 08-18-2023 11:30-0500 Body temperature 98.6 [degF] Deann Partida Other [facility] Other 08-18-2023 11:30-0500 Body weight 65.68 kg Deann Partida Other [facility] Other 08-18-2023 11:30-0500 Respiratory rate 18 /min Deann Partida Other [facility] Other 08-18-2023 11:30-0500 SaO2% (BldA) [Mass fraction] 97 % Deann Partida Other [facility] Other 09-14-2022 15:25-0500 Body height 157.48 cm Elsa Rea Other [facility] Other 09-14-2022 15:25-0500 Body mass index (BMI) [Ratio] 26.88 kg/m2 Elsa Rea Other [facility] Other 09-14-2022 15:25-0500 Body temperature 97.7 [degF] Elsa Rea Other [facility] Other 09-14-2022 15:25-0500 Body weight 66.68 kg Elsa Rea Other [facility] Other 09-14-2022 15:25-0500 Diastolic blood pressure 65 mm[Hg] Elsa Rea Other [facility] Other 09-14-2022 15:25-0500 Respiratory rate 18 /min Elsa Rea Other [facility] Other 09-14-2022 15:25-0500 SaO2% (BldA) [Mass fraction] 99 % Elsa Rea Other [facility] Other 09-14-2022 15:25-0500 Systolic blood pressure 118 mm[Hg] Elsa Rea Other [facility] Other 03-25-2022 11:40-0400 Body height 157.48 cm Charisse Bonillamond Other [facility] Other 03-25-2022 11:40-0400 Body mass index (BMI) [Ratio] 27.43 kg/m2 Charisse Rosalva Other [facility] Other 03-25-2022 11:40-0400 Body temperature 98.8 [degF] Charisse Rosalva Other [facility] Other 03-25-2022 11:40-0400 Body weight 68.04 kg Charisse Bonillamond Other [facility] Other 03-25-2022 11:40-0400 Respiratory rate 18 /min Charisse Bonillamond Other [facility] Other 03-25-2022 11:40-0400 SaO2% (BldA) [Mass fraction] 99 % Charisse Rosalva Other [facility] Other 01-01-2022 10:40-0400 Body height 160.02 cm Deann Partida Other [facility] Other 01-01-2022 10:40-0400 Body mass index (BMI) [Ratio] 24.8 kg/m2 Deann Partida Other [facility] Other 01-01-2022 10:40-0400 Body temperature 97.5 [degF] Deann Partida Other [facility] Other 01-01-2022 10:40-0400 Body weight 63.5 kg Deann Partida Other [facility] Other 01-01-2022 10:40-0400 SaO2% (BldA) [Mass fraction] 99 % Deann Partida Other [facility] Other 05-04-2021 11:30-0400 Body height 160.02 cm Elsa Álvaro Other [facility] Other 05-04-2021 11:30-0400 Body mass index (BMI) [Ratio] 23.91 kg/m2 Elsa Rea Other [facility] Other 05-04-2021 11:30-0400 Body temperature 97.3 [degF] Elsa Rea Other [facility] Other 05-04-2021 11:30-0400 Body weight 61.24 kg Elsa Rea Other [facility] Other 05-04-2021 11:30-0400 SaO2% (BldA) [Mass fraction] 99 % Elsa Rea Other [facility] Other Encounters Encounter Date Encounter Type Care [...] unspecified contraceptive Start: 05-10-2024 End: 05-10-2024 ambulatory [facility] Work Phone: Start: 05-10-2024 End: 05-10-2024 Patient encounter procedure [facility] Work Phone: Start: 01-31-2024 End: 01-31-2024 ambulatory AI TJ Not Available Start: 08-18-2023 End: 08-18-2023 ambulatory Deann Partida Other [facility] Other Start: 08-18-2023 Office outpatient vi sit 25 minutes Deann Partida [facility] Start: 11-17-2022 End: 11-17-[address] AI SPENCER . Facility:[facility] Start: 10-18-[address] DOCTOR MONCADA Facility :[facility] Start: 10-15-2022 End: 10-16-[address] AI SPENCER . Facility:[facility] Start: 10-01-2022 End: 10-02-[address] AI SPENCER . Facility:[facility] Start: 09-14-2022 End: 09-14-2022 ambulatory Elsa Rea Other [facility] Other Start: 09-14-2022 Office outpatient vi sit 15 minutes Elsajose j Rea [facility] Start: 03-25-2022 End: 03-25-2022 ambulatory Charisse Blackwell Other [facility] Other Start: 03-25-2022 Office outpatient vi sit 15 minutes Charissenell Blackwell [facility] Start: 01-01-2022 End: 01-01-2022 ambulatory Deann Partida Other [facility] Other Start: 01-01-2022 Office outpatient vi sit [...] EDT Office Visit [facility] [address] [place] [id number] Ai Spencer, DO [address] [place], [place] [id number] [facility] Start: 2024 End: 2024 Patient encounter procedure 2024 3:30 PM EST Procedure Visit [facility] [address] [place] [address] Ai Spencer, DO [address] [place], [place] [id number] [facility] End: 2025 hCG, quantitative, hCG, quantitative, Lab Routine examination or test, positive result 4 Occurrences starting 2024 until 2025 [facility] Work Phone: Comment on above: 4 Occurrences starti ng 2024 until 2025 Payers Date Payer Category Payer Private Health Insurance [employer] [id number] 2024 Unknown [id number] 2022 Medicaid [id number] 2001 Unknown [id number]. 593 2001 Unknown [id number] [id number]. 593 2001 Unknown [id number] [id number]. 593 2001 Unknown [id number] [id number]. 593 2001 Unknown [id number] 2.16.840.1.180898.3.579.2. 593 2001 Unknown [id number] 2.16.840.1.191893.3.579.2. 1259 2001 Unknown [id number] 2.16.840.1.080634.3.579.2. 1259 2001 Unknown [id number] [id number]. 1259 1959 [facility] [id number] Private Health Insurance [id number] [id number] Self-pay Self Pay [id number] Unknown [id number] Unknown Benny BARRIGA/GRACE [id number] Social History Date Type Detail Facility Unknown if ever smoked [facility] Other Start: 01-31-2024 Sex Assigned At N [facility] Other Start: 03-31-2023 End: 05-10-2024 Tobacco smoking status NHIS Never smoked tobacco (finding) [facility] Start: 2000 Sex Assigned At Female F [facility] Start: 03-31-2023 Tobacco use and exposure Smokeless tobacco non-user [facility] Start: 01-31-2024 End: 2024 Alcoholic beverage intake Lifetime non-drinker (finding) [facility] Start: 01-31-2024 History of Social function [facility] Start: 02-16-2023 Alcohol Comment Caffeine intak e: soda/pop occasional [facility] Start: 2001 Sex assigned at Not on file [facility] Goals Date Patient Goal Desired Activity /State Personal health goal Clinical Notes 05-04-2021 to 2024 zIa De Leon, YARIEL - 2024 3:30 PM Alison Rodriguez, YARIEL - 2024 3:30 PM Alison Rodriguez, PAYROLL PROCESSOR - 07/31/2024 8:50 AM EST Note Date [...] nursing note reviewed. Exam conducted with a medical sales representative present. Vitals: Estimated body mass index is [...] Ai Spencer DO documented in this encounter [facility] 07-31-2024 History of Presen t illness [...] nursing note reviewed. Exam conducted with a medical sales representative present. Vitals: Estimated body mass index is [...] Ai Spencer DO documented in this encounter [facility] 08-18-2023 Evaluation note Encounter Date Diagnosis [...] treatment plan. Patient left in stable condition [facility] Other 02-28-2023 Evaluation note* Encounter Date Diagnosis Assessment Notes Treatment Notes Treatment Clinical Notes Aug, Impetigo (ICD-10 - L01.00) Clean area as discussed with 1/2 peroxide and water mix. Apply ointment to area. Infection is very contagious. Bed laundering and cleaning toys is important. Follow up with primary care provider or come back into office to be seen if symptoms worsen [facility] Other 09-08-2022 Evaluation note* Encounter Date Diagnosis [...] no improvement in 2 to 3 days. [facility] Other 06-17-2022 Evaluation note* Encounter Date Diagnosis [...] treatment plan. Patient left in stable condition [facility] Other 10-18-2021 Evaluation note* Encounter Date Diagnosis Assessment Notes Treatment Notes Treatment Clinical Notes Apr, Contact with and (suspected) exposure to other viral communicable diseases (ICD-10 - Z20.828) Apr, COVID-19 (ICD-10 - U07.1) Today you tested positive for the COVID virus. This mean you need to follow all CDC quarantine guidelines found at [email or web address] v. It is important to rest, increase [...] Patient care instructions given in writting by [facility] At Home document. [facility] Other Evaluation note* Diagnosis Onset Date Resolution Status Right ankle sprain acute [facility] Work Phone: Evaluation note* Diagnosis Encounter for initial prescription of contraceptives, unspecified contraceptive [facility] Diagnosis examination or test, positive result Missed menses documented in this encounter [facility] N[facility]ative - Reported* Type Description Date Hospitalization History fractured arm and shatte red elbow [facility] Other History general Narrative - Reported* Type Description Date Hospitalization History fractured arm and shatte red elbow Hospitalization History childbirth [facility] Other Summary Purpose Family History No Family [...] and content) DATE CREATED AUTHOR 08/09/2020 Rodriguez Kay [facility] DATE CREATED AUTHOR AUTHOR'S ORGANIZ ATION 12/24/2022 [facility] DATE CREATED AUTHOR AUTHOR'S ORGANIZ ATION 08/31/2024 [facility] EPIC REASON FOR VISIT (unrecogniz [...] BE BASED ON THE PRIMARY CLINICAL RECORDS. [employer] provides no warranty or guarantee of the accuracy or completeness of information in this document.
[2024-10-18 17:15] LABS: Basophils Percent Auto 0.3 % (0.2-2.0); Eosinophils Absolute Auto 0.5 10^3/uL (0.0-0.7); Eosinophils Percent Auto 4.8 % (0.9-7.0); Hematocrit 36.9 % (36.0-48.0); Hemoglobin 12.7 g/dL (12.0-16.0); Immature Granulocytes Abs Auto 0.02 10^3/uL (0.00-0.03); Immature Granulocytes Pct Auto 0.2 % (0.0-0.5); Lymphocytes Absolute Auto 2.2 10^3/uL (1.2-3.8); Lymphocytes Percent Auto 23.1 % (20.5-60.0); Mean Corpuscular HGB Conc 34.4 g/dL (29.9-35.2); Mean Corpuscular Hemoglobin 28.3 pg (26.7-34.0); Mean Corpuscular Volume 82.4 fL (81.0-99.0); Mean Platelet Volume 10.7 fL (9.5-13.5); Monocytes Absolute Auto 0.4 10^3/uL (0.3-0.8); Monocytes Percent Auto 4.2 % (1.7-12.0); Neutrophils Absolute Auto 6.4 10^3/uL (1.4-6.5); Neutrophils Percent Auto 67.4 % (43.0-75.0); Platelet Count 278 10^3/uL (150-450); Red Blood Count 4.48 10^6/uL (4.20-5.40); Red Cell Distribution Width 12.8 % (11.0-15.0); White Blood Count 9.5 10^3/uL (4.0-11.0)
[2024-10-18 17:32] LABS: Amphetamine Screen Urine NEGATIVE (NEGATIVE); Barbiturates Screen Urine NEGATIVE (NEGATIVE); Benzodiazepines Screen Urine NEGATIVE (NEGATIVE); Buprenorphine Screen Urine NEGATIVE (NEGATIVE); Cannabinoid Screen Urine NEGATIVE (NEGATIVE); Cocaine Screen Urine NEGATIVE (NEGATIVE); Methadone Screen Urine NEGATIVE (NEGATIVE); Methamphetamines Screen Urine NEGATIVE (NEGATIVE); Opiate Screen Urine NEGATIVE (NEGATIVE); Oxycodone Screen Urine NEGATIVE (NEGATIVE); Phencyclidine Screen Urine NEGATIVE (NEGATIVE); Tricyclic Antidepressant Urine NEGATIVE (NEGATIVE)
[2024-10-18 17:41] LABS: BOX Test Reference Lab UNITY; BOX Test Sent Out UNITY
[2024-10-18 18:00] LABS: Estimated Average Glucose 103 mg/dL; Glycohemoglobin A1C 5.2 % (4.5-6.2)
[2024-10-20 06:12] LABS: HBsAg Screen Negative (Negative); HCV Ab Non Reactive (Non Reactive); HIV Ab/p24 Ag Screen Non Reactive (Non Reactive)
[2024-10-20 08:09] LABS: Rubella Antibodies, IgG 2.06 index (Immune >0.99)
[2024-10-20 12:08] LABS: Rapid Plasma Reagin, Quant Non Reactive titer (NonRea<1:1)
== END 2024-10-18 17:00 | disposition home or self-care (01) ==
PROVIDERS: Visit Provider Obstetrics & Gynecology
DX: Z34.01 Encounter for supervision of normal first pregnancy, first trimester (principal); Z36.0 Encounter for antenatal screening for chromosomal anomalies; N92.6 Irregular menstruation, unspecified
CPT/HCPCS: 36415; 80307; 83036; 84702; 85025; 86592; 86762; 86803; 86850; 86900; 86901; 87086; 87340; 87389

== ENCOUNTER 2024-10-31 14:54 | Outpatient (REF) | payer OTHER, SELFPAY ==
[2024-11-03 14:08] LABS: Age Gdln ACOG Testing Note (.); IGP, rfx Aptima HPV ASCU Note (.)
== END 2024-10-31 14:55 | disposition home or self-care (01) ==
LOC: LAB 14:54
PROVIDERS: Visit Provider Obstetrics & Gynecology
DX: Z01.419 Encounter for gynecological examination (general) (routine) without abnormal findings (principal)
CPT/HCPCS: 88175

== ENCOUNTER 2024-12-08 14:00 | Outpatient (OUT) | payer OTHER, SELFPAY ==
--- OUTSIDE RECORDS SUMMARY | 2024-12-04 12:58 | XMS_ITS ---
Author Name Auto Generated Organization OHIP Care Team Providers Care Informatics Educator Name Role Phone AI DARBY Attending Unavailable AI DARBY Attending Unavailable AI DARBY Attending Unavailable AI DARBY Attending Unavailable AI DARBY Attending Unavailable PROBLEMS No Problem Records Found PROCEDURES No Procedure Records Found RESULTS No Result Records Found ALLERGIES No Allergies Records Found ENCOUNTERS ADMIT/DISCHARGE ACCOUNT NUMBER ADMITTING ENCOUNTER CLASS LOCATION SOURCE 12/04/2024/ 5 [id number] Ambulatory Building:[facility] 11/22/2024/ 5 [id number] Ambulatory Building:[facility] 10/31/2024/ 5 [id number] Ambulatory Building:[facility] 08/29/2024/ 5 [id number] Ambulatory Building:[facility] 07/31/2024/ 5 [id number] Ambulatory Building:[facility] 01/31/2024/ 4 [id number] Ambulatory Building:[facility] PAYERS ENCOUNTER GUARANTOR PAYER SUBSCRIBER SOURCE 12/04/2024 KARLY CRUZDOB: [place] [address]Vqq: (HP) Primary Insurance:MEDICAL MUTUALPolicy Number: [id number] e Date:2024-01-16 PRADIP LAGUERREOODDOB: [id number] [place] [address] [facility] 11/22/2024 KARLY BLANCHARDIBLEDOB: [place], [place] [address]Crn: (HP) Primary Insurance:MEDICAL MUTUALPolicy Number: [id number] e Date:2024-01-16 PRADIP LAGUERREOODDOB: [id number] [place] [address] [facility] 10/31/2024 KARLY BLANCHARDIBLEDOB: [place], [place] [address]Klv: () Primary Insurance:MEDICAL MUTUALPolicy Number: [id number] e Date:2024-01-16 PRADIP LAGUERREOODDOB: [id number] [place] [address] [facility] EPIC 2024 KARLY BLANCHARDIBLEDOB: [place], [place] [address]Wdz: (HP) Primary Insurance:MEDICAL MUTUALPolicy Number: [id number] e Date:2024-01-16 PRADIP LAGUERREOODDOB: [id number] [place] [address] [facility] 07/31/2024 KARLY BLANCHARDIBLEDOB: [place], [place] [address]Lzp: (HP) Primary Insurance:MEDICAL MUTUALPolicy Number: [id number] e Date:2024-01-16 PRADIP SMALL: [id number] [place] [address] [facility] 01/31/2024 KARLY BAUTISTAB: [place], [place] [address]Cwr: () Primary Insurance:[employer] MEDICAID [place] Number: [id number] e Date:2022-08-18 KARLY BAUTISTAB: [id number] [place] [address] [facility] 01/31/2024 Secondary Insurance:MEDICAL MUTUALPolicy Number: [id number] e Date:2024-01-16 PRADIP SMALL: [id number] [place] [address] [facility] EPIC
--- NOTE | 2024-12-08 14:02 | US_ITS ---
The [address] [address] Patient Name: KARLY CRUZ MRN: [id number] date: 2000 Sex: F Assigned Patient Location: US Current Patient Location: US Accession/Order Number: [id number] Exam Date: 12/08/2024 15:11 Report Date: 12/08/2024 15:17 At the request of: AI DARBY DO Procedure: US OB anatomy US OB cervical length, US OB anatomy 12/08/2024 2:38 PM SIGNS AND SYMPTOMS: anatomic survey, cervical length COMPARISON: None. TECHNIQUE: Ramon scale and color Doppler sonographic images of the gravid uterus FINDINGS: An intrauterine is identified. The fetus has an estimated gestational age of 20 weeks and 5 days by measurement sonographically and is consistent with the estimated gestational age of 20 weeks and 3 days given the history. The visualized anatomy is within normal limits. The fetus is male gender. A heart rate is identified at 144 bpm. A normal amount of amniotic fluid is present. There is no evidence for placenta previa or subchorionic hemorrhage. The placenta is approximately 3.3 cm from the cervix and anteriorly located. Pelvic survey reveals no gross abnormalities. The cervix measures 4.4 cm in length. US/US OB cervical length IMPRESSION: Single live IUP with an estimated gestational age of 20 weeks and 5 days with an estimated date of delivery of 04/22/2025 and normal heart rate. Unremarkable anatomy scan. The cervix measures 4.4 cm in length. Impression dictated by: Black Cummings M.D. 12/08/2024 3:17 PM Dictation Location: [employer] Electronically authenticated by: [id number] Y Date: 12/08/2024 15:17
--- NOTE | 2024-12-08 14:02 | US_ITS ---
The [address] [address] Patient Name: KARLY CRUZ MRN: [id number] date: 2000 Sex: F Assigned Patient Location: US Current Patient Location: US Accession/Order Number: [id number] Exam Date: 12/08/2024 15:11 Report Date: 12/08/2024 15:17 At the request of: AI DARBY DO Procedure: US OB anatomy US OB cervical length, US OB anatomy 12/08/2024 2:38 PM SIGNS AND SYMPTOMS: anatomic survey, cervical length COMPARISON: None. TECHNIQUE: Ramon scale and color Doppler sonographic images of the gravid uterus FINDINGS: An intrauterine is identified. The fetus has an estimated gestational age of 20 weeks and 5 days by measurement sonographically and is consistent with the estimated gestational age of 20 weeks and 3 days given the history. The visualized anatomy is within normal limits. The fetus is male gender. A heart rate is identified at 144 bpm. A normal amount of amniotic fluid is present. There is no evidence for placenta previa or subchorionic hemorrhage. The placenta is approximately 3.3 cm from the cervix and anteriorly located. Pelvic survey reveals no gross abnormalities. The cervix measures 4.4 cm in length. US/US OB anatomy IMPRESSION: Single live IUP with an estimated gestational age of 20 weeks and 5 days with an estimated date of delivery of 04/22/2025 and normal heart rate. Unremarkable anatomy scan. The cervix measures 4.4 cm in length. Impression dictated by: Black Cummings M.D. 12/08/2024 3:17 PM Dictation Location: [employer] Electronically authenticated by: [id number] Y Date: 12/08/2024 15:17
== END 2024-12-08 14:01 | disposition home or self-care (01) ==
LOC: US 14:00
PROVIDERS: Visit Provider Obstetrics & Gynecology
DX: Z36.89 Encounter for other specified antenatal screening (principal); Z3A.20 20 weeks gestation of pregnancy
CPT/HCPCS: 76805; 76817

== ENCOUNTER 2025-01-12 08:00 | Outpatient (OUT) | payer OTHER, SELFPAY ==
--- OUTSIDE RECORDS SUMMARY | 2025-01-12 08:03 | XMS_ITS | CCD ---
Author Organization [facility] Care Team Providers Care Apprentice Cook Name Role Phone Elsa Rea Unavailable Deann [...] Provider Unavailabl e AI SPENCER Attending Unavailable AI SPENCER Attending Unavailable AI SPENCER Attending Unavailable TJAI NOWAK Attending Unavailable TORRI MEZA Attending Unavailable AI SPENCER Attending Unavailable Allergies Allergy Classification Reported Allergen(s) Allergy Type Date of Onset Reaction(s) Facility (18 sources) Minocycline Drug Allergy 12-14-2022 Nausea Only [...] sources) Iron Not-Taking/ PRN Iron Active levonorgestrel 0.658716 mg/hr intrauterine system (2 sources) Progestin, Progestin-containing Intrauterine Device Start: 2024 End: 2024 Levonorgestrel intrauterine device 52 mg metroNIDAZOLE 500 mg oral tablet (3 sources) Nitroimidazole Antimicrobial Start: 11-01-2024 End: 12-04-2024 take 1 tablet by mouth in the morning metroNIDAZOLE (Flagyl) 500 MG tablet Indications: BV (bacterial vaginosis) Take 1 tablet (500 mg) by mouth in the morning and 1 tablet (500 mg) before bedtime. Do all this for 7 days. Do not drink alcohol while taking this medication. 14 tablet 11/01/2024 12/04/2024 Discontinued (Other) mupirocin 0.02 mg/mg topical ointment (2 sources) [...] Episodic Immunizations and screening for infectious disease (4 sources) Contact with and (suspected) exposure to other viral communicable diseases; Translations: [Encounter for screening for human papillomavirus (HPV)] Onset: 05-04-2021 Resolved: 05-04-2021 Episodic Menstrual disorders (20 sources) Irregular menstruation, unspecified; Translations: [Missed period] Onset: 10-09-2022 Chronic Other and delivery including normal (20 sources) Encounter for supervision of normal , unspecified, first trimester; Translations: [ test positive] Onset: 10-09-2022 2024 Episodic Other screening for suspected conditions (not mental disorders or infectious disease) (11 sources) Encounter for screening for malignant neoplasm of cervix; Translations: [Encounter for screening, unspecified] Onset: 10-01-2022 Episodic Other upper respiratory infections (7 sources) Acute pharyngitis, unspecified; Translations: [Pain in throat] Onset: 01-01-2022 Resolved: 03-25-2022 Episodic Residual codes; unclassified (1 source) 9 weeks gestation of ; Translations: [9 WEEKS GESTATION OF ] Onset: 10-09-2022 Episodic Residual codes; unclassified (2 sources) Gestation period, 19 weeks; Translations: [19 weeks gestation of ] 12-04-2024 Episodic Residual codes; unclassified (2 sources) Gestation period, 25 weeks; Translations: [25 weeks gestation of ] 01-10-2025 Episodic Skin and subcutaneous tissue infections (1 source) Impetigo, unspecified Episodic Sprains and strains (2 sources) Sprain of right ankle; Translations: [Sprain of unspecified ligament of right ankle, initial encounter] 05-10-2024 Episodic Unclassified (18 sources) OB Reminders Onset: 04-27-2023 04-27-2023 Past or Other Problems Problem Classification Problem Date Documented Da te Episodic/Chronic Viral infection (3 sources) COVID-19; Translations: [COVID-19 U07.1] Onset: 05-04-2021 Resolved: 01-01-2022 Results Test Name Value Interpretation Reference Range Facility Urinalysis macro (dipstick) panel (U)on 01-10-2025 Bilirubin, UA Negative Negative - 4(70) +++ mg/dL [facility] Blood, UA Negative Negative - 50 Nicolás/mcL [facility] Clarity, UA Clear [facility] re Color, UA Yellow [facility] Glucose, [facility]A Positive Negative - 2000(110) ++++ mg/dL [facility] Comment on above: 250mg/dL Interpretation and review of laboratory results Abnormal [facility] Ketones, UA Negative Negative - 160(16) ++++ mg/dL [facility] Leukocytes, UA Positive Negative - 500+++ Yodit/mcL [facility] Comment on above: small Nitrite, UA Negative Negative - Positive [facility] Healthcare pH, UA 7 5 - 9 [facility] Protein, UA Negative Negative - 1999(20) ++++ mg/dL [facility] Healthcare Spec Grav, UA 1.02 1 - 1.03 [facility] care Urobilinogen, UA 0.2 0.2 - 12 mg[facility]dL [facility] Urinalysis macro (dipstick) panel (U)on 12-04-2024 Bilirubin, UA Negative Negative - 4(70) +++ mg/dL [facility] Blood, UA Negative Negative - 50 Nicolás/mcL [facility] Healthcare Clarity, UA Clear [facility] Color, UA Yellow [facility] Glucose, UA Negative Negative - 1999(110) ++++ mg/dL [facility] Interpretation and review of laboratory results Normal [facility] Ketones, UA Negative Negative - 160(16) ++++ mg/dL [facility] Leukocytes, UA Negative Negative - 500+++ Yodit/mcL [facility] Healthcare Nitrite, UA Negative Negative - Positive [facility] pH, UA 8.5 5 - 9 [facility] Protein, UA Negative Negative - 1999(20) ++++ mg/dL [facility] Spec Grav, UA 1.02 1 - 1.03 [facility] Urobilinogen, UA 0.2 0.2 - 12 mg/dL [facility] Urinalysis macro (dipstick) panel (U)on 11-22-2024 Bilirubin, UA Negative Negative - 4(70) +++ mg/dL [facility] Blood, UA Negative Negative - 50 Nicolás/mcL [facility] Healthcare Clarity, UA Clear [facility] Color, UA Yellow [facility] Glucose, UA Positive Negative - 1999(110) ++++ mg/dL [facility] Interpretation and review of laboratory results Abnormal [facility] Ketones, UA Negative Negative - 160(16) ++++ mg/dL [facility] Leukocytes, UA Positive Negative - 500+++ Yodit/mcL [facility] Healthcare Nitrite, UA Negative Negative - Positive [facility] pH, UA 6.5 5 - 9 [facility] Protein, UA Negative Negative - 1999(20) ++++ mg/dL [facility] Spec Grav, UA 1.025 1 - 1.03 [facility] Urobilinogen, UA 1.0 0.2 - 12 mg/dL [facility],APTIMA HPV,AGE GDLNon AGE GDLN ACOG TESTING Note . [facility] Comment on above: TESTS RESULT FLAG U NITS REF RANGE LAB Clinician Provided Cytology Information Source.............Endoc[employer]ix Other.............. No. of containers..01 ThinPrep Vial Age Algo ACOG Rosita... FLAG LEGEND: L-Low Normal,H-High Normal,LL-Alert Low,HH-Alert High <-Panic Low,>-Panic High,A-Abnormal,AA-Critical Abnormal Performed at: 01 =G [facility] [address] [place] [address] Tamy Matos MD, IGP, RFX APTIMA HPV ASCU Note . [facility] Comment on above: TESTS RESULT FLAG UN ITS REF RANGE LAB DIAGNOSIS: 02 NEGATIVE FOR INTRAEPITHELIAL LESION OR MALIGNANCY. Specimen adequacy: 02 Satisfactory for evaluation. No endocervical component is identified. Performed by: 02 Shiraz [employer] ([facility]) . 02 Note: Note 03 The Pap smear is a screening test designed to aid in the detection of premalignant and malignant conditions of the uterine cervix. It is not a diagnostic procedure and should not be used as the sole means of detecting cervical cancer. Both false-positive and false-negative reports do occur. Test Methodology: Note 03 This liquid based ThinPrep(R) pap test was screened with the use of an image guided system. . 02 The HPV DNA reflex criteria were not met with this specimen result therefore, no HPV testing was performed. FLAG LEGEND: L-Low Normal,H-High Normal,LL-Alert Low,HH-Alert High <-Panic Low,>-Panic High,A-Abnormal,AA-Critical Abnormal Performed at: [address] [address] Neha Cole MD, [address] [facility] [address] [address] Tamy Matos MD, Performed at: = - [facility] [id number] A P Supervisor: Tamy Matos MD, Phone: [phone] Performed at: [facility] [address] [id number] A P Supervisor: Neha Cole MD, Phone: [phone] [facility] RECURRENT VAGINITIS (HTRX)on 11-01-[address] [facility] althcare ATOPOBIUM VAGINAE Not detected [facility] Healthcare BVAB 2,3 (BACTERIAL VAGINOSIS ASSOCIATED BACTERIA 2, 3); MOBILUNCUS SPP 0 [facility] BVAB 2,3 (BACTERIAL VAGINOSIS ASSOCIATED BACTERIA 2, 3); MOBILUNCUS SPP Not detected [facility] ELAINA ALBICANS, PARAPSILOSIS, TROPICALIS 0 [facility] ELAINA ALBICANS, PARAPSILOSIS, TROPICALIS Not detected [facility] Healthcare ELAINA GLABRATA 0 [facility] Hea lthcare ELAINA GLABRATA Not detected [facility] ealthcare ELAINA KRUSEI 0 [facility]LAINA KRUSEI Not detected [facility] CHLAMYDIA TRACHOMATIS 0 [facility] CHLAMYDIA TRACHOMATIS Not detected [facility] ERMB, C; MEFA 21.586 Abnormal [facility] care ERMB, C; MEFA Detected Abnormal [facility] GARDNERELLA VAGINALIS 24.886 Abnormal [facility] GARDNERELLA VAGINALIS Detected Abnormal [facility] Interpretation and review of laboratory results Abnormal [facility] MEGASPHAERA (TYPES 1, 2) 0 [facility] MEGASPHAERA (TYPES 1, 2) Not detected [facility] MYCOPLASMA GENITALIUM 0 [facility] MYCOPLASMA GENITALIUM Not detected [facility] NEISSERIA GONORRHOEAE 0 [facility] NEISSERIA GONORRHOEAE Not detected [facility] TRICHOMONAS VAGINALIS 0 [facility] TRICHOMONAS VAGINALIS Not detected [facility] TBH DRUG SCREEN RAPID (URINE )on 10-18-2024 AMPHETAMINE SCREEN URINE Negative NEGATIVE [facility] BARBITURATES SCREEN URINE Negative NEGATIVE [facility] BENZODIAZEPINES SCREEN URINE Negative NEGATIVE [facility] BUPRENORPHINE SCREEN URINE Negative NEGATIVE [facility] Comment on above: DRUG CLASS TEST SYST EM CUT-OFF CONCENTRATIONS ARE FOLLOWS: AMP (Amphetamine): 500 ng/mL BAR (Barbiturates): 200 ng/mL BZO (Benzodiazepines): 150 ng/mL BUP (Buprenorphine): 10 ng/mL PILAR (Cocaine): 150 ng/mL mAMP (Methamphetamine): 500 ng/mL MTD (Methadone): 200 ng/mL OPI (Opiates): 100 ng/mL OXY (Oxycodone): 100 ng/mL PCP (Phencyclidine): 25 ng/mL THC (Cannabinoids): 50 ng/mL TCA (Trycyclic Antidepressants): 300 ng/mL CANNABINOID SCREEN URINE Negative NEGATIVE [facility] COCAINE SCREEN URINE Negative NEGATIVE [facility] METHADONE SCREEN URINE Negative [facility] METHAMPHETAMINES SCREEN URINE Negative NEGATIVE [facility] OPIATE SCREEN URINE Negative NEGATIVE [facility] OXYCODONE SCREEN URINE Negative [facility]IVE [facility] PHENCYCLIDINE SCREEN URINE Negative NEGATIVE [facility] TRICYCLIC ANTIDEPRESSANT URINE Negative NEGATIVE [facility] Health care CL[facility] Health[facility] e TBH PREG QUANT HCGon 025 HCG QUANTITATIVE 66168 mIU/mL [facility] Hea lthcare Comment on above: 5-50 0.2-1 WEEK 50-500 1-2 WEEKS 100-5,000 2-3 WEEKS 500-10,000 3-4 WEEKS 1,000-50,000 4-5 WEEKS 10,000-100,000 5-6 WEEKS 15,000-200,000 6-8 WEEKS 10,000-100,000 2-3 MONTHS [facility] HCG ( test) Ql (U)o n 07-31-2024 Interpretation and review of laboratory results Normal [facility] Preg Test, Ur Negative Negative [facility] COVID + FLU Quick Testingon 08-18-2023 SARS-CoV-2 (COVID-19) RNA ANNE+probe Ql (Unsp spec) Positive [facility] Other COVID + FLU Quick Testing Negative [facility] Other PAP ACOG PANEL 2: 21 to 29on 11-25-2022 . . Normal [facility] Comment on above: Performed By: #### [id number] #### [facility] [address] [place] [address] Dr. Keri Guerra Age Gdln ACOG Testing 22- Normal [facility] Comment on above: Performed By: #### [id number] #### [facility] [address] [place] [address] Dr. Keri Guerra DIAGNOSIS: Comment [facility] Comment on above: Result Comment: NEGA TIVE FOR INTRAEPITHELIAL LESION OR MALIGNANCY. Performed By: #### [id number] #### [facility] [address] [address] [address] Keri Guerra Methodology: Comment Normal [facility] Comment on above: Result Comment: This liquid based ThinPrep(R) pap test was screened with the use of an image guided system. Performed By: #### [id number] #### [facility] [address] [place] [address] Dr. Keri Guerra Note: Comment Normal [facility] Comment on above: Result Comment: The Pap smear is a screening test designed to aid in the detection of premalignant and malignant conditions of the uterine cervix. It is not a diagnostic procedure and should not be used as the sole means of detecting cervical cancer. Both false-positive and false-negative reports do occur. . Performed By: #### [id number] #### [facility] [address] [place] [address] Dr. Keri Guerra Performed by: Comment Normal [facility] Comment on above: Result Comment: Drew Florian, Metal Loader (ASCP) Performed By: #### [id number] #### [facility] [address] [place] [address] Dr. Keri Guerra Reflex Criteria: Comment Normal [facility] Comment on above: Result Comment: The HPV DNA reflex criteria were not met with this specimen result therefore, no HPV testing was performed. . Performed By: #### [id number] #### [facility] [address] [place] [address] Dr. Keri Guerra Specimen adequacy: Comment Normal [facility] Comment on above: Result Comment: Sati sfactory for evaluation. No endocervical component is identified. Areas of partially obscuring inflammatory exudate are present. Performed By: #### 4 [id number] #### [facility] [address] [place] [address] Dr. Keri Guerra HEP B SURFACE ANTIGEN SCREEN on 10-17-2022 HBsAg Screen Negative Normal Negative [facility] Comment on above: Performed By: #### H BSANS #### [facility] [address] [place] [address] Dr. Keri Guerra HEPATITIS C VIRUS AB W/ REFL EX QUANTon 10-17-2022 HCV AB Non-Reactive Normal Non Reactive [facility] Comment on above: Performed By: #### H CVPCRR #### [facility] [address] [place] [address] Dr. Keri Guerra Interpretation: Comment Normal [facility] Comment on above: Result Comment: Not infected with HCV unless early or acute infection is suspected (which may be delayed in an immunocompromised individual), or other evidence exists to indicate HCV infection. Performed By: #### H CVPCRR #### [facility] [address] [place] [address] Dr. Keri Guerra HIV 1 AND 2 WITH REFLEXon HIV Screen 4th Generation wRfx Non-Reactive Normal Non Reactive [facility] Comment on above: Result Comment: HIV Negative HIV-1/HIV-2 antibodies and HIV-1 p24 antigen were NOT detected. There is no laboratory evidence of HIV infection. Performed By: #### H IV12 #### [facility] [address] [place] [address] Dr. Keri Guerra RPR QUANTon 10-17-2022 Rapid Plasma Reagin, Quant Non-Reactive Normal NonRea<1:1 [facility] Comment on above: Result Comment: Plea se Note: This test does not meet current guidelines for screening and diagnosis of syphilis. This test is intended for following treatment response in patients being treated for syphilis infection. To screen for syphilis infection, a reflex cascade that includes both RPR and a treponema-specific assay should be utilized, such as Treponema pallidum (Syphilis) Screening [place] (993894) or Rapid Plasma Reagin (RPR) Test With Reflex to Quantitative RPR and Confirmatory Treponema pallidum Antibodies (056631). Performed By: #### R PRQ #### [facility] [address] [place] [address] Dr. Keri Guerra RUBELLA AB IGGon 10-17-2022 Rubella Antibodies, IgG <0.90 Critically low Immune >0.99 [facility] Comment on above: Result Comment: Non- immune <0.90 Equivocal 0.90 - 0.99 Immune >0.99 Performed By: #### R UBIGG #### [facility] [address] [place] [address] Dr. Keri Guerra CBC AUTO DIFFon 10-15-2022 BASO # 0.0 103/ul Normal 0.0-0.1 [facility] Comment on above: Performed By: #### C BC #### [facility] [address] [address] [address] Keri Guerra Basophils/100 WBC (Bld) 0.1 % Critically low 0.2-2.0 [facility] Comment on above: Performed By: #### C BC #### [facility] [address] [place] [address] Dr. Keri Guerra EO # 0.3 103/ul Normal 0.0-0.7 [facility] Comment on above: Performed By: #### C BC #### [facility] [address] [place] [address] Dr. Keri Guerra Eosinophils/100 WBC (Bld) 3.7 % Normal 0.9-7.0 [facility] Comment on above: Performed By: #### C BC #### [facility] [address] [place] [address] Dr. Keri Guerra Erythrocyte distribution width (RBC) [Ratio] 16.0 % Critically high 11.0-15.0 [facility] Comment on above: Performed By: #### C BC #### [facility] [address] [place] [address] Dr. Keri Guerra Hematocrit (Bld) [Volume fraction] 36.3 % Normal 36.0-48.0 [facility] Comment on above: Performed By: #### C BC #### [facility] [address] [place] [address] Dr. Keri Guerra Hemoglobin (Bld) [Mass/Vol] 12.1 g/dL Normal 12.0-16.0 [facility] Comment on above: Performed By: #### C BC #### [facility] [address] [place] [address] Dr. Keri Guerra IG # 0.02 10e3/ul Normal 0.00-0.03 [facility] Comment on above: Performed By: #### C BC #### [facility] [address] [place] [address] Dr. Keri Guerra IG % 0.3 % Normal 0.0-0.5 [facility] Comment on above: Performed By: #### C BC #### [facility] [address] [place] [address] Dr. Keri Guerra LYMPH # 1.7 103/ul Normal 1.2-3.8 [facility] Comment on above: Performed By: #### C BC #### [facility] [address] [place] [address] Dr. Keri Guerra Lymphocytes/100 WBC (Bld) 20.8 % Normal 20.5-60.0 [facility] Comment on above: Performed By: #### C BC #### [facility] [address] [place] [address] Dr. Keri Guerra MANUAL DIFF REQ NO Normal [facility] Comment on above: Performed By: #### C BC #### [facility] [address] [place] [address] Dr. Keri Guerra MCH (RBC) [Entitic mass] 25.3 pg Critically low 26.7-34.0 [facility] Comment on above: Performed By: #### C BC #### [facility] [address] [place] [address] Dr. Keri Guerra MCHC (RBC) [Mass/Vol] 33.3 g/dL Normal 29.9-35.2 [facility] Comment on above: Performed By: #### C BC #### [facility] [address] [place] [address] Dr. Keri Guerra MCV (RBC) [Entitic vol] 75.9 fL Critically low 81.0-99.0 [facility] Comment on above: Performed By: #### C BC #### [facility] [address] [place] [address] Dr. Keri Guerra MONO # 0.4 103/ul Normal 0.3-0.8 [facility] Comment on above: Performed By: #### C BC #### [facility] [address] [place] [address] Dr. Keri Guerra Monocytes/100 WBC (Bld) 5.0 % Normal 1.7-12.0 [facility] Comment on above: Performed By: #### C BC #### [facility] [address] [place] [address] Dr. Keri Guerra NEUT # 5.6 103/ul Normal 1.4-6.5 [facility] Comment on above: Performed By: #### C BC #### [facility] [address] [place] [address] Dr. Keri Guerra Neutrophils/100 WBC (Bld) 70.1 % Normal 43.0-75.0 [facility] Comment on above: Performed By: #### C BC #### [facility] [address] [place] [address] Dr. Keri Guerra Platelet mean volume (Bld) [Entitic vol] 11.0 fL Normal 9.5-13.5 [facility] Comment on above: Performed By: #### C BC #### [facility] [address] [place] [address] Dr. Keri Guerra PLT 319 103/ul Normal 150-450 [facility] Comment on above: Performed By: #### C BC #### [facility] [address] [place] [address] Dr. Keri Guerra RBC 4.78 106/ul Normal 4.20-5.40 [facility] Comment on above: Performed By: #### C BC #### [facility] [address] [place] [address] Dr. Keri Guerra WBC 7.9 103/ul Normal 4.0-11.0 [facility] Comment on above: Performed By: #### C BC #### [facility] [address] [place] [address] Dr. Keri Guerra CULTURE URINEon 10-15-2022 CULTURE URINE Culture Observations : LIGHT GROWTH OF MIXED GENITAL LARISA. NO POTENTIAL PATHOGENS SEEN. Normal [facility] Comment on above: Performed By: #### U RCX #### [facility] [address] [place] [address] Dr. Keri Guerra TSHon 10-15-2022 TSH 0.294 uIU/mL Critically low 0.358-3.740 [facility] Comment on above: Performed By: #### T SH #### [facility] [address] [place], [place] [address] Dr. Keri Guerra TYPE AND SCREENon 10-15-2022 TYPE AND SCREEN Negative Normal [facility] Comment on above: Performed By: #### T NS #### [facility] [address] [place], [place] [address] Dr. Keri Guerra US PREG TVon 10-01-2022 [...] by: GM BARRY Date: 2022-10-01 15:23 Normal [facility] Quick Strepon 03-25-2022 S. pyogenes Org specific cx Ql (Throat) Negative [facility] Other Quick Strep [facility] Other COVID/FLU RT-PCRon 2 SARS-CoV-2 (COVID-19) RNA ANNE+probe Ql (Unsp spec) Positive [facility] [employer] Other COVID/FLU RT-PCR Negative [employer] [facility] Other COVID Quick Testingon 2020 Result Positive [facility] Other Consultation Noteon 08-05-19 21 Consultation Note [id number] Normal [facility] Vital Signs Date Time Vital Sign Value Performing Clinician Facility 01-10-2025 11:33-0400 Body mass index (BMI) [Ratio] 29.17 kg/m2 Torri MILLER Work Phone: [facility] 01-10-2025 11:33-0400 Body weight 72.35 kg Torri MILLER Work Phone: [facility] 01-10-2025 11:33-0400 Diastolic blood pressure 76 mm[Hg] Torri MILLER Work Phone: [facility] 01-10-2025 11:33-0400 Systolic blood pressure 122 mm[Hg] Torri MILLER Work Phone: [facility] 12-04-2024 13:28-0400 Body mass index (BMI) [Ratio] 27.87 kg/m2 Ai Tj DO Work Phone: [facility] 12-04-2024 13:28-0400 Body weight 69.13 kg Ai Tj DO Work Phone: [facility] 12-04-2024 13:28-0400 Diastolic blood pressure 70 mm[Hg] Ai Tj DO Work Phone: [facility] 12-04-2024 13:28-0400 Systolic blood pressure 120 mm[Hg] Ai Tj DO Work Phone: [facility] 11-22-2024 15:22-0400 Body mass index (BMI) [Ratio] 27.76 kg/m2 [facility] 11-22-2024 15:22-0400 Body weight 68.86 kg [facility] Nurse [facility] 10-31-2024 13:04-0400 Body mass index (BMI) [Ratio] 27.53 kg/m2 Ai Tj DO Work Phone: [facility] 10-31-2024 13:04-0400 Body weight 68.27 kg Ai Tj DO Work Phone: [facility] 10-31-2024 13:04-0400 Diastolic blood pressure 80 mm[Hg] Ai Tj DO Work Phone: [facility] 10-31-2024 13:04-0400 Systolic blood pressure 112 mm[Hg] Ai Tj DO Work Phone: [facility] 07-31-2024 09:06-0500 Body mass index (BMI) [Ratio] 27.58 kg/m2 Ai Tj DO Work Phone: [facility] 07-31-2024 09:06-0500 Body weight 68.4 kg Ai Tj DO Work Phone: [facility] 07-31-2024 09:06-0500 Diastolic blood pressure 80 mm[Hg] Ai Tj DO Work Phone: [facility] 07-31-2024 09:06-0500 Systolic blood pressure 120 mm[Hg] Ai Tj DO Work Phone: [facility] 05-10-2024 10:22-0400 Body height 160.02 cm [facility] [facility] 05-10-2024 10:22-0400 Body mass index (BMI) [Ratio] 24.7 kg/m2 [facility] 05-10-2024 10:22-0400 Body temperature 98.2 [degF] [facility] 05-10-2024 10:22-0400 Body weight 63.5 kg [facility] 05-10-2024 10:22-0400 Diastolic blood pressure 65 mm[Hg] [facility] 05-10-2024 10:22-0400 Heart rate 95 /min [facility] 05-10-2024 10:22-0400 Respiratory rate 18 /min [facility] 05-10-2024 10:22-0400 SaO2% (BldA) [Mass fraction] 97 % [facility] 05-10-2024 10:22-0400 Systolic blood pressure 128 mm[Hg] [facility] 08-18-2023 11:30-0500 Body height 157.48 cm Deann Partida Other [facility] Other 08-18-2023 11:30-0500 Body mass index (BMI) [Ratio] 26.48 kg/m2 Deann Jaquan Other [facility] Other 08-18-2023 11:30-0500 Body temperature 98.6 [degF] Deann Partida Other [facility] Other 08-18-2023 11:30-0500 Body weight 65.68 kg Deann Partida Other [facility] Other 08-18-2023 11:30-0500 Respiratory rate 18 /min Deann Partida Other [facility] Other 08-18-2023 11:30-0500 SaO2% (BldA) [Mass fraction] 97 % Deann Partida Other [facility] Other 09-14-2022 15:25-0500 Body height 157.48 cm Elsa Álvaro Other [facility] Other 09-14-2022 15:25-0500 Body mass index (BMI) [Ratio] 26.88 kg/m2 Elsa Álvaro Other [facility] Other 09-14-2022 15:25-0500 Body temperature 97.7 [degF] Elsa Rea Other [facility] Other 09-14-2022 15:25-0500 Body weight 66.68 kg Elsa Rea Other [facility] Other 09-14-2022 15:25-0500 Diastolic blood pressure 65 mm[Hg] Elsa Rea Other [facility] Other 09-14-2022 15:25-0500 Respiratory rate 18 /min Elsa Rea Other [facility] Other 09-14-2022 15:25-0500 SaO2% (BldA) [Mass fraction] 99 % Elsa Rea Other [facility] Other 09-14-2022 15:25-0500 Systolic blood pressure 118 mm[Hg] Elsa Rea Other [facility] Other 03-25-2022 11:40-0400 Body height 157.48 cm Charisse Bonillamond Other [facility] Other 03-25-2022 11:40-0400 Body mass index (BMI) [Ratio] 27.43 kg/m2 Charisse Bonillamond Other [facility] Other 03-25-2022 11:40-0400 Body temperature 98.8 [degF] Charisse Bonillamond Other [facility] Other 03-25-2022 11:40-0400 Body weight 68.04 kg Charisse Bonillamond Other [facility] Other 03-25-2022 11:40-0400 Respiratory rate 18 /min Charisse Blackwell Other [facility] Other 03-25-2022 11:40-0400 SaO2% (BldA) [Mass fraction] 99 % Charisse Bonillamond Other [facility] Other 01-01-2022 10:40-0400 Body height 160.02 cm Deann Partida Other [facility] Other 01-01-2022 10:40-0400 Body mass index (BMI) [Ratio] 24.8 kg/m2 Deann Partida Other [facility] Other 01-01-2022 10:40-0400 Body temperature 97.5 [degF] Deann Partida Other [facility] Other 01-01-2022 10:40-0400 Body weight 63.5 kg Deann Partida Other [facility] Other 01-01-2022 10:40-0400 SaO2% (BldA) [Mass fraction] 99 % Deann Partida Other [facility] Other 05-04-2021 11:30-0400 Body height 160.02 cm Lesa Álvaro Other [facility] Other 05-04-2021 11:30-0400 Body mass index (BMI) [Ratio] 23.91 kg/m2 Elsa Rea Other [facility] Other 05-04-2021 11:30-0400 Body temperature 97.3 [degF] Elsa Rea Other [facility] Other 05-04-2021 11:30-0400 Body weight 61.24 kg Elsa Rea Other [facility] Other 05-04-2021 11:30-0400 SaO2% (BldA) [Mass fraction] 99 % Elsa Rea Other [facility] Other Encounters Encounter Date Encounter Type Care Provider Facility Start: 01-10-2025 End: 01-10-2025 Bamboo flowsheet Torri MILLER Work Phone: [facility] Start: 01-10-2025 End: 01-10-2025 Bamboo flowsheet Torri MILLER Work Phone: [facility] Start: 01-10-2025 End: 01-10-2025 ambulatory TORRI MEZA Not Available Start: 01-10-2025 End: 01-10-2025 flow sheet Torri MILLER Work Phone: [facility] Comment on above: Second trimester pre gnancy ([facility]); 25 weeks gestation of ([facility]); Diabetes mellitus screening Start: 12-04-2024 End: 12-04-2024 Bamboo flowsheet Ai Tj DO Work Phone: [facility] Start: 12-04-2024 End: 12-04-2024 Bamboo flowsheet Ai Tj DO Work Phone: [facility] Start: 12-04-2024 End: 12-04-2024 flow sheet Ai Tj DO Work Phone: [facility] Comment on above: 19 weeks gestation o f ; Second trimester Start: 12-04-2024 End: 12-04-2024 ambulatory AI TJ Not Available Start: 11-22-2024 End: 11-22-2024 Office outpatient visit 5 minutes [facility] Tj Nurse [facility] Comment on above: GA: 18w1d Start: 11-22-2024 End: 11-22-2024 ambulatory AI TJ Not Available Start: 10-31-2024 End: 10-31-2024 Bamboo flowsheet Ai Tj DO Work Phone: [facility] Start: 10-31-2024 End: 11-03-2024 Bamboo flowsheet Ai Tj DO Work Phone: [facility] Start: 10-31-2024 End: 11-03-2024 Clinisync Result Encounter Ai Tj DO Work Phone: [facility] Unsolicited Start: 10-31-2024 End: 11-01-2024 External Result Encounter Ai Tj DO Work Phone: [facility] Unsolicited Start: 10-31-2024 End: 10-31-2024 Patient encounter procedure Ai Tj DO Work Phone: [facility] Start: 10-31-2024 End: 10-31-2024 Periodic preventive med est patient 18-39 yrs Ai Tj DO Work Phone: [facility] Comment on above: Well woman exam with routine gynecological exam; STD exposure Start: 10-31-2024 End: 10-31-2024 ambulatory AI TJ Not Available Start: 10-18-2024 End: 10-18-2024 Clinisync Result Encounter Ai Tj DO Work Phone: [facility] Unsolicited Start: 10-18-2024 End: 10-18-2024 Clinisync Result Encounter Ai Tj DO Work Phone: [facility] Unsolicited Start: 2024 End: 2024 ambulatory AI TJ [...] unspecified contraceptive Start: 05-10-2024 End: 05-10-2024 ambulatory [facility] Work Phone: Start: 05-10-2024 End: 05-10-2024 Patient encounter procedure [facility] Work Phone: Start: 01-31-2024 End: 01-31-2024 ambulatory AI SPENCER Not Available Start: 08-18-2023 End: 08-18-2023 ambulatory Deann Partida Other [facility] Other Start: 08-18-2023 Office outpatient vi sit 25 minutes Deann Partida [facility] Start: 11-17-2022 End: 11-17-[address] AI SPENCER . Facility:[facility] Start: 10-18-[address] DOCTOR MONCADA Facility :[facility] Start: 10-15-2022 End: 10-16-[address] AI SPENCER . Facility:[facility] Start: 10-01-2022 End: 10-02-[address] AI SPENCER . Facility:[facility] Start: 09-14-2022 End: 09-14-2022 ambulatory Elsa Rea Other [facility] Other Start: 09-14-2022 Office outpatient vi sit 15 minutes Elsa Rea [facility] Start: 03-25-2022 End: 03-25-2022 ambulatory Charisse Blackwell Other [facility] Other Start: 03-25-2022 Office outpatient vi sit 15 minutes Charisse Blackwell [facility] Start: 01-01-2022 End: 01-01-2022 ambulatory Deann Partida Other [facility] [employer] Other Start: 01-01-2022 Office outpatient vi sit 25 minutes Deann Partida [facility] Start: 05-04-2021 Office outpatient vi sit 15 minutes Elsa Rea [facility] Procedures Date Procedure Procedure Detail Performing Clinician Start: 01-10-2025 Urnls dip stick/tabl et rgnt non-auto w/o micrscp Torri Meza PA Work Phone: Start: 12-04-2024 Urnls dip stick/tabl et rgnt non-auto w/o micrscp Ai Tj DO Work Phone: Start: 11-22-2024 Urnls dip stick/tabl et rgnt non-auto w/o micrscp Ai Tj DO Work Phone: Start: 10-31-2024 RECURRENT VAGINITIS (HTRX) Ai Tj DO Work Phone: Start: 10-31-2024 IGP,APTIMA HPV,AGE GDLN Ai Tj DO Work Phone: Start: 10-18-2024 [facility] DRUG SCREEN RAPI D (URINE) Ai Tj DO Work Phone: Start: 2024 [facility] PREG QUANT HCG Core y Tj DO Work Phone: Start: 07-31-2024 Urine test visual color cmprsn meths Ai Tj DO Work Phone: Plan of Treatment Date Care Activity Detail Author Start: 02-05-2025 End: 02-05-2025 Patient encounter procedure 02/05/2025 8:40 AM EDT Routine [facility] [address] [place] [address] Ai Spencer, DO [address] [place] [address] [facility] Start: 01-10-2025 End: 01-10-2026 CBC panel - Blood by Automated count CBC Lab Routine Diabetes mellitus screening Expected: 01/10/2025 (Approximate), Expires: 01/10/2026 [facility] Work Phone: Comment on above: Expected: 01/10/2025 (Approximate), Expires: 01/10/2026 Start: 01-10-2025 End: 01-10-2026 Measurement of glucose 1 hour after glucose challenge for glucose tolerance test Glucose tolerance, 1 hour Lab Routine Diabetes mellitus screening Expected: 01/10/2025 (Approximate), Expires: 01/10/2026 [facility] Comment on above: Expected: 01/10/2025 (Approximate), Expires: 01/10/2026 Start: 01-01-2025 End: 01-01-2025 Patient encounter procedure 01/01/2025 2:40 PM EDT Routine [facility] [address] [place] [id number] Ai Spencer, [facility] [place] [address] [facility] Start: 12-04-2024 End: 12-04-2024 Patient encounter procedure [facility] Comment on above: Arrived Start: 11-22-2024 End: 03-25-2025 Alpha fetoprotein, maternal Alpha fetoprotein, maternal Lab Routine Screening, , for anatomic survey Expected: 11/22/2024 (Approximate), Expires: 03/25/2025 [facility] Work Phone: Comment on above: Expected: 11/22/2024 (Approximate), Expires: 03/25/2025 Start: 11-22-2024 End: 11-22-2024 ambulatory 11/22/2024 2:00 PM EDT Initial [facility] [address] [place] [address] [facility] Start: 11-22-2024 End: 02-22-2025 US for US OB 14+ weeks anatomy scan Imaging Routine Screening, , for anatomic survey Expected: 11/22/2024, Expires: 02/22/2025 [facility] Comment on above: Expected: 11/22/2024 , Expires: 02/22/2025 Start: 10-31-2024 End: 12-31-2024 Alpha fetoprotein, maternal Alpha fetoprotein, maternal Lab Routine Well woman exam with routine gynecological exam Expected: 10/31/2024 (Approximate), Expires: 12/31/2024 [facility] Work Phone: Comment on above: Expected: 10/31/2024 (Approximate), Expires: 12/31/2024 Start: 10-31-2024 End: 10-31-[address] [facility] Comment on above: Arrived Start: 2024 End: 2024 Patient encounter procedure 2024 3:30 PM EST Procedure Visit [facility] [address] [place] [id number] Ai Spencer, [address] [place] [address] [facility] CHLAMYDIA TRACHOMATI S (GENITO/STI) CHLAMYDIA TRACHOMATIS (GENITO/STI) Lab Routine STD exposure Ordered: 10/31/2024 [facility] Comment on above: Ordered: 10/31/2024 Cytology Cervical or vaginal smear or scraping study Pap Smear Pathology and Cytology Routine Well woman exam with routine gynecological exam Ordered: 10/31/2024 [facility] Comment on above: Ordered: 10/31/2024 End: 2025 hCG, quantitative, hCG, quantitative, Lab Routine examination or test, positive result 4 Occurrences starting 2024 until 2025 [facility] Work Phone: Comment on above: 4 Occurrences starti ng 2024 until 2025 Neisseria gonorrhoea e DNA [Presence] in Unspecified specimen by ANNE with probe detection Neisseria gonorrhea DNA probe, direct Lab Routine STD exposure Ordered: 10/31/2024 [facility] Comment on above: Ordered: 10/31/2024 SURESWAB(R) ADVANCED VAGINITIS PLUS, TMA SURESWAB(R) ADVANCED VAGINITIS PLUS, TMA Pathology and Cytology Routine STD exposure Ordered: 10/31/2024 [facility] Comment on above: Ordered: 10/31/2024 Payers Date Payer Category Payer Private Health Insurance [employer] [id number] 2024 Unknown [id number] 2022 Medicaid [id number] 2001 Unknown [id number] [id number]. 593 2001 Unknown [id number] [id number]. 593 2001 Unknown [id number] 2.16.840.1.364442.3.579.2. 593 2001 Unknown [id number] 2.16.840.1.100459.3.579.2. 593 2001 Unknown [id number] 2.16.840.1.299099.3.579.2. 593 2001 Unknown [id number] 2.16.840.1.901839.3.579.2. 1259 2001 Unknown [id number] 2.16.840.1.348082.3.579.2. 1259 2001 Unknown [id number] 2.16.840.1.998662.3.579.2. 1259 2001 Unknown [id number] 2.16.840.1.900368.3.579.2. 1259 2001 Unknown [id number] 2.16.840.1.724578.3.579.2. 1259 2001 Unknown [id number] 2.16.840.1.888788.3.579.2. 1259 2001 Unknown [id number] 2.16.840.1.183193.3.579.2. 1259 [id number] [id number] Private Health Insurance [id number] Self-pay Self Pay [id number] Unknown [id number] [id number] Unknown Benny BARRIGA/GRACE [id number] Social History Date Type Detail Facility Unknown if ever smoked [facility] [employer] Other Start: 01-31-2024 Sex Assigned At N [facility] [employer] Other Start: 03-31-2023 End: 05-10-2024 Tobacco smoking status NHIS Never smoked tobacco (finding) [facility] Start: 2001 Sex Assigned At Female F [facility] Start: 03-31-2023 Tobacco use and exposure Smokeless tobacco non-user [facility] Start: 01-31-2024 End: 12-25-2024 Alcoholic beverage intake Lifetime non-drinker (finding) [facility] Start: 01-31-2024 History of Social function [facility] Start: 02-16-2023 Alcohol Comment Caffeine intak e: soda/pop occasional [facility] Start: 2001 Sex assigned at Not on file [facility] Start: 08-01-2024 [facility] Go[facility] Date Patient Goal Desired Activity /State Personal health goal Clinical Notes 05-04-2021 to 01-10-2025 ANGLEA Mayorga - 01/10/2025 11:20 AM Sabrina Rodriguez, D[facility]ER - 12/04/2024 1:00 PM Muriel De Leon, DENTURE PACKER - 11/22/2024 2:00 PM Sabrina Rodriguez, [facility] - 10/31/2024 1:00 PM EDT Note Date & Type Note Facility 01-10-2025 History of Presen t illness Narrative Reason for Appointment: Patient ID: Wenyd Agosto is a 24 y.o. female who presents for Routine Visit Patient presents today for Return OB appointment. MEDICATIONS No current outpatient medications ALLERGIES Allergies Allergen Reactions Minocycline Nausea Only PROBLEMS Active Ambulatory Problems Diagnosis Date Noted Missed menses 2024 examination or test, positive result ([facility]) 2024 Resolved Ambulatory Problems Diagnosis Date Noted No Resolved Ambulatory Problems Past Medical History: Diagnosis Date 6 weeks follow-up ([facility]) BMI 25.0-25.9,adult Salt deficiency Type O blood, Rh positive HISTORY PAST MEDICAL HISTORY SOCIAL HISTORY Past Medical History: Diagnosis Date 6 weeks follow-up ([facility]) BMI 25.0-25.9,adult Salt deficiency Type O blood, [...] Exam Constitutional: Appearance: Normal appearance. She is normal weight. HENT: Head: Normocephalic. Cardiovascular: Rate and Rhythm: Normal rate. Pulses: Normal pulses. Pulmonary: Effort: Pulmonary effort is normal. Breath sounds: Normal breath sounds. Abdominal: Palpations: Abdomen is soft. Musculoskeletal: General: Normal range of motion. Neurological: General: No focal deficit present. Mental Status: She is alert and oriented to person, place, and time. Psychiatric: Mood and Affect: Mood normal. Behavior: Behavior normal. Thought Content: Thought content normal. Judgment: Judgment normal. Vitals and nursing note reviewed. Vitals: Estimated body mass index is 29.17 kg/m as calculated from the following: Height as of 12/15/22: 5' 2 . Weight as of this encounter: 159 lb 8 oz. BP: 122/76 Patient's last menstrual period was 07/18/2024. ASSESSMENT & PLAN ICD-10-CM 1. Second trimester ([facility]) Z34.92 POCT urinalysis dipstick manually resulted 2. 25 weeks gestation of ([facility]) Z3A.25 3. Diabetes mellitus screening Z13.1 CBC Glucose tolerance, 1 hour CBC Glucose tolerance, 1 hour Return OB: Patient presents today for a routine obstetrics appointment. Patient is currently 25w1d . Patient states she is doing well but has complaints of being tired due to current . Patient has verbalizes frequent movement. Orders Placed This Encounter Procedures CBC Glucose tolerance, 1 hour POCT urinalysis dipstick manually resulted Follow Up: Patient is to return to office in 4week for routine OB appointment. Documented by ANGELA Mayorga on behalf of: ANGELA Mayorga documented in this encounter [facility] 12-04-2024 History of Presen t illness Narrative Reason for Appointment: Patient ID: Wendy Agosto is a 24 y.o. female who presents for Routine Visit Patient presents today for Return OB appointment. MEDICATIONS No current outpatient medications ALLERGIES Allergies Allergen Reactions Minocycline Nausea Only PROBLEMS Active Ambulatory Problems Diagnosis Date Noted Missed menses 2024 examination or test, positive result 2024 Resolved Ambulatory Problems Diagnosis Date Noted No [...] nursing note reviewed. Exam conducted with a technology applications engineer present. Vitals: Estimated body mass index is 27.87 kg/m as calculated from the following: Height as of 12/15/22: 5' 2 . Weight as of this encounter: 152 lb 6.4 oz. BP: 120/70 Patient's last menstrual period was 07/18/2024. ASSESSMENT & PLAN ICD-10-CM 1. 19 weeks gestation of Z3A.19 POCT urinalysis dipstick manually resulted 2. Second trimester Z34.92 POCT urinalysis dipstick manually resulted Patient presents today for a routine obstetrics appointment. Patient is currently 19w6d with a Estimated Date of Delivery: 04/24/25. Pt has complaints of pressure on abdomen. Advised to apply heat or cold and take tylenol- pt voiced understanding. Pt to have anatomy scan. Pt to return in 4 weeks for scheduled Ob appt. Documented by Lisa Rodriguez LPN on behalf of: Ai Spencer DO documented in this encounter [facility] 11-22-2024 History of Presen t illness Narrative Reason for Appointment: Patient ID: Wendy Agosto is a 24 y.o. female who presents for Amenorrhea Patient presents today for a Nurse OB Intake appointment. Patient is 18w1d with a Estimated Date of Delivery: 04/24/25 OB History Para Term AB Living 3 2 2 1 SAB IAB Ectopic Multiple Live Births 1 # Outcome Date GA Lbr Ganga/2nd Weight Sex Type Anes PTL Lv 3 Current 2 Term 04/29/23 39w0d Vag-Spont CHELSI 1 Term Vag-Spont Obstetric Comments Last pap smear date 03/19/21 nilm Current Medications: currently has no medications in their medication list. Medical History: Active Ambulatory Problems Diagnosis Date Noted Missed menses 2024 examination or test, positive result 2024 Resolved Ambulatory Problems Diagnosis Date Noted No Resolved Ambulatory Problems Past Medical History: Diagnosis Date 6 weeks follow-up BMI 25.0-25.9,adult Salt deficiency Type O blood, Rh positive Family History Problem Relation Name Age of Onset Diabetes Father Heart disease Father No Known Problems Maternal Grandmother Diabetes Maternal Grandfather No Known Problems Paternal Grandmother No Known Problems Paternal Grandfather Social History Tobacco Use Smoking status: Never Smokeless tobacco: Never Substance Use Topics Alcohol use: Never Comment: Caffeine intake: soda/pop occasional Drug use: Never Past Surgical History: Procedure Laterality Date PAP SMEAR 03/19/2021 nilm Allergies Allergen Reactions Minocycline Nausea Only Vitals: Estimated body mass index is 27.76 kg/m as calculated from the following: Height as of 12/15/22: 5' 2 . Weight as of this encounter: 151 lb 12.8 oz. BP: Patient's last menstrual period was 07/18/2024. Assessment/Plan Diagnoses and all orders for this visit: Screening, , for anatomic survey - Alpha fetoprotein, maternal; Future - US OB 14+ weeks anatomy scan; Future - POCT urinalysis dipstick manually resulted Missed menses - POCT urinalysis dipstick manually resulted Nurse Note: OB Intake: Patient presents today for first OB visit. Patients history has been reviewed in great detail including any potential risks. Patient signed consent forms and patient desires testing in both trimesters. Patient currently has no complaints and has been advised to drink 6-8 glasses of water a day, eat no raw or undercooked meat, and stay away from [facility]. Patient has also been advised to not change litter boxes and eat 6 small meals a day. Patient has been consulted regarding the do's and don'ts of . Patient was given labs and all questions and concerns were answered. Follow Up: Patient is to return in 4 weeks for routine OB appointment. Orders Placed This Encounter Procedures US OB 14+ weeks anatomy scan Alpha fetoprotein, maternal POCT urinalysis dipstick manually resulted Follow Up: Patient is to have labs drawn at directed and return to office for initial OB appointment with provider. Patient may call office as needed with any concerns or questions. Nurse Visit Completed by: Iza De Leon LPN documented in this encounter [facility] 10-31-2024 History of Presen t illness Narrative Reason for Appointment: Patient ID: Wendy Agosto is a 24 y.o. female who presents for Well Women Visit Patient presents today for Annual Exam., STD Check., and Return OB appointment. MEDICATIONS No current outpatient medications ALLERGIES Allergies Allergen Reactions Minocycline Nausea Only PROBLEMS Active Ambulatory Problems Diagnosis Date Noted Missed menses 2024 examination or test, positive result 2024 Resolved Ambulatory Problems Diagnosis Date Noted No [...] Constitutional: Appearance: Normal appearance. She is well-developed. Genitourinary: Vulva normal. Breasts: Breasts are soft. Right: Normal. Left: Normal. Cardiovascular: Rate and Rhythm: Normal rate and [...] nursing note reviewed. Exam conducted with a technology applications engineer present. Vitals: Estimated body mass index is 27.53 kg/m as calculated from the following: Height as of 12/15/22: 5' 2 . Weight as of this encounter: 150 lb 8 oz. BP: 112/80 Patient's last menstrual period was 07/18/2024. ASSESSMENT & PLAN ICD-10-CM 1. Well woman exam with routine gynecological exam Z01.419 Alpha fetoprotein, maternal Alpha fetoprotein, maternal Pap Smear 2. STD exposure Z20.2 SURESWAB(R) ADVANCED VAGINITIS PLUS, TMA CHLAMYDIA TRACHOMATIS (GENITO/STI) Neisseria gonorrhea DNA probe, direct Return OB/Annual Exam: Patient presents today for a annual exam/routine obstetrics appointment. Patient is currently 15w0d . Patient states she is doing well but has complaints of nausea in the morning. Pap and cultures was obtained without difficulty and patient was given orders for msAFP to be obtained. Orders Placed This Encounter Procedures Alpha fetoprotein, maternal CHLAMYDIA TRACHOMATIS (GENITO/STI) Neisseria gonorrhea DNA probe, direct Follow Up: Patient is to schedule annual exam for next year and return to office for OB appointment. Documented by Lisa Rodriguez LPN on behalf of: Ai Spencer DO documented in this encounter [facility] 2024 History of Presen t illness Narrative [...] nursing note reviewed. Exam conducted with a technology applications engineer present. Vitals: Estimated body mass index is [...] Ai Spencer DO documented in this encounter [facility] 07-31-2024 History of Presen t illness [...] nursing note reviewed. Exam conducted with a technology applications engineer present. Vitals: Estimated body mass index is [...] Ai Spencer DO documented in this encounter [facility] 08-18-2023 Evaluation note Encounter Date Diagnosis [...] treatment plan. Patient left in stable condition [employer] Other 02-28-2023 Evaluation note* Encounter Date Diagnosis Assessment Notes Treatment Notes Treatment Clinical Notes Aug, Impetigo (ICD-10 - L01.00) Clean area as discussed with 1/2 peroxide and water mix. Apply ointment to area. Infection is very contagious. Bed laundering and cleaning toys is important. Follow up with primary care provider or come back into office to be seen if symptoms worsen [facility] Other 09-08-2022 Evaluation note* Encounter Date Diagnosis [...] no improvement in 2 to 3 days. [facility] Other 06-17-2022 Evaluation note* Encounter Date Diagnosis [...] treatment plan. Patient left in stable condition [employer] Other 10-18-2021 Evaluation note* Encounter Date Diagnosis Assessment Notes Treatment Notes Treatment Clinical Notes Apr, Contact with and (suspected) exposure to other viral communicable diseases (ICD-10 - Z20.828) Apr, COVID-19 (ICD-10 - U07.1) Today you tested positive for the COVID virus. This mean you need to follow all CDC quarantine guidelines found at [email or web address].go v. It is important to rest, increase [...] Patient care instructions given in writting by CDC Care At Home document. [employer] Other Evaluation note* Diagnosis Onset Date Resolution Status Right ankle sprain acute [facility] Work Phone: Evaluation note* Diagnosis Encounter for initial prescription of contraceptives, unspecified contraceptive documented in this encounter [facility]* Diagnosis examination or test, positive result Missed menses documented in this encounter [facility] note* Diagnosis Well woman exam with routine gynecological exam Routine gynecological examination STD exposure documented in this encounter [facility]* Diagnosis Screening, , for anatomic survey Encounter for anatomic survey Missed menses documented in this encounter [facility] HealthcareEvaluation note* Diagnosis 19 weeks gestation of Second trimester state, incidental documented in this encounter [facility]* Diagnosis Second trimester ([facility]) state, incidental 25 weeks gestation of ([facility]) Diabetes mellitus screening Screening for diabetes mellitus documented in this encounter [facility] HealthcareHistory general Narrative - Reported* Type Description Date Hospitalization History fractured arm and shatte red elbow [facility] [employer] Other History general Narrative - Reported* Type Description Date Hospitalization History fractured arm and shatte red elbow Hospitalization History childbirth [facility] [employer] Other Summary Purpose Family History No Family [...] section and content) DATE CREATED AUTHOR 08/09/2020 [facility] DATE CREATED AUTHOR AUTHOR'S ORGANIZ ATION 12/24/2022 [facility] DATE CREATED AUTHOR AUTHOR'S ORGANIZ ATION 01/11/2025 [facility] EPIC REASON FOR VISIT (unrecogniz ed section and content) Reason Comments Contraception Reason Comments Amenorrhea Reason Comments [facility] Women Visit Reason Comments Routine Visit Care Teams (unrecognized sec tion and content) [...] BE BASED ON THE PRIMARY CLINICAL RECORDS. [employer] [facility]. provides no warranty or guarantee of the accuracy or completeness of information in this document.
[2025-01-12 09:30] LABS: Basophils Percent Auto 0.3 % (0.2-2.0); Eosinophils Absolute Auto 0.4 10^3/uL (0.0-0.7); Eosinophils Percent Auto 3.9 % (0.9-7.0); Hematocrit 35.8 % (36.0-48.0); Hemoglobin 11.9 g/dL (12.0-16.0); Immature Granulocytes Abs Auto 0.03 10^3/uL (0.00-0.03); Immature Granulocytes Pct Auto 0.3 % (0.0-0.5); Lymphocytes Absolute Auto 1.3 10^3/uL (1.2-3.8); Lymphocytes Percent Auto 13.7 % (20.5-60.0); Mean Corpuscular HGB Conc 33.2 g/dL (29.9-35.2); Mean Corpuscular Volume 84.2 fL (81.0-99.0); Mean Platelet Volume 10.9 fL (9.5-13.5); Monocytes Absolute Auto 0.4 10^3/uL (0.3-0.8); Monocytes Percent Auto 4.5 % (1.7-12.0); Neutrophils Absolute Auto 7.5 10^3/uL (1.4-6.5); Neutrophils Percent Auto 77.3 % (43.0-75.0); Platelet Count 254 10^3/uL (150-450); Red Blood Count 4.25 10^6/uL (4.20-5.40); White Blood Count 9.7 10^3/uL (4.0-11.0)
[2025-01-12 09:53] LABS: Glucose 1 Hour 140 mg/dL (<130)
== END 2025-01-12 08:01 | disposition home or self-care (01) ==
LOC: LAB 08:00
PROVIDERS: Visit Provider Physician Assistant
DX: Z13.1 Encounter for screening for diabetes mellitus (principal)
CPT/HCPCS: 36415; 82950; 85025

== ENCOUNTER 2025-02-14 07:32 | Outpatient (OUT) | payer OTHER, SELFPAY ==
--- OUTSIDE RECORDS SUMMARY | 2025-02-14 07:35 | XMS_ITS | CCD ---
Author Organization [facility] CliniSymi Care Team Providers Care Extension Worker Name Role Phone Elsa Rea Unavailable [...] Allergy Type Date of Onset Reaction(s) Facility (19 sources) Minocycline Drug Allergy 12-14-2022 Nausea Only [...] sources) Iron Not-Taking/ PRN Iron Active levonorgestrel [id number] mg/hr intrauterine system (2 sources) Progestin, Progestin-containing [...] Translations: [Missed period] Onset: 10-09-2022 Chronic Other screening for suspected conditions (not mental [...] right ankle, initial encounter] 05-10-2024 Episodic Unclassified (19 sources) OB Reminders Onset: 04-27-2023 04-27-2023 Past or Other Problems Problem Classification Problem Date Documented Da te Episodic/Chronic Other and delivery including normal (20 sources) Encounter for supervision of normal , unspecified, first trimester; Translations: [ test positive] Onset: 10-09-2022 2024 Episodic Viral infection (3 sources) COVID-19; Translations: [COVID-19 U07.1] Onset: 05-04-2021 Resolved: 01-01-2022 Results Test Name Value Interpretation Reference Range Facility ALL CBC WITH AUTO DIFFon BASOPHILS ABSOLUTE AUTO 0 [facility] Basophils/100 WBC (Bld) 0.3 % 0.2 - 2.0 % [facility] Eosinophils/100 WBC (Bld) 3.9 % 0.9 - 7.0 % [facility] Erythrocyte distribution width (RBC) [Ratio] 13 % 11.0 - 15.0 % [facility] Hematocrit (Bld) [Volume fraction] 35.8 % Low 36.0 - 48.0 % [facility] [Mass/Vol] 11.9 g/dL Low 12.0 - 16.0 g/dL [facility] IMMATURE GRANULOCYTES ABS AUTO 0.03 [facility] Immature granulocytes/100 WBC (Bld) 0.3 % 0.0 - 0.5 % [facility] Interpretation and review of laboratory results Abnormal [facility] LYMPHOCYTES ABSOLUTE AUTO 1.3 [facility] Lymphocytes/100 WBC (Bld) 13.7 % Low 20.5 - 60.0 % [facility] MCH (RBC) [Entitic mass] 28 pg 26.7 - 34.0 pg [facility] MCHC (RBC) [Mass/Vol] 33.2 g/dL 29.9 - 35.2 g/dL [facility] MCV (RBC) [Entitic vol] 84.2 fL 81.0 - 99.0 fL [facility] MONOCYTES ABSOLUTE AUTO 0.4 [facility] Monocytes/100 WBC (Bld) 4.5 % 1.7 - 12.0 % [facility] NEUTROPHILS ABSOLUTE AUTO 7.5 High [facility] Neutrophils/100 WBC (Bld) 77.3 % High 43.0 - 75.0 % [facility] Platelet mean volume (Bld) [Entitic vol] 10.9 fL 9.5 - 13.5 fL [facility] EO # 0.4 [facility] e TB PLT 254 [facility] e TB RBC 4.25 [facility] TB WBC 9.7 [facility] Urinalysis macro (dipstick) panel (U)on 01-10-2025 Bilirubin, UA Negative Negative - 4(70) +++ mg/dL [facility] Blood, UA Negative Negative - 50 Nicolás/mcL [facility] Clarity, UA Clear [facility] re Color, UA Yellow [facility] e Glucose, UA Positive Negative - 1999(110) ++++ mg/dL [facility] Comment on above: 250mg/dL Interpretation and review of laboratory results Abnormal [facility] Ketones, UA Negative Negative - 160(16) ++++ mg/dL [facility] Leukocytes, UA Positive Negative - 500+++ Yodit/mcL [facility] Comment on above: small Nitrite, UA Negative Negative - Positive [facility] pH, UA 7 5 - 9 [facility] e Protein, UA Negative Negative - 1999(20) ++++ mg/dL [facility] Healthcare Spec Grav, UA 1.02 1 - 1.03 [facility] Health care Urobilinogen, UA 0.2 0.2 - 12 mg/dL [facility] e Urinalysis macro (dipstick) panel (U)on 12-04-2024 Bilirubin, UA Negative Negative - 4(70) +++ mg/dL [facility] Healthcare Blood, UA Negative Negative - 50 Nicolás/mcL [facility] Healthcare Clarity, UA Clear [facility] re Color, UA Yellow [facility] Glucose, UA Negative Negative - 1999(110) ++++ mg/dL [facility] Interpretation and review of laboratory results Normal [facility] Ketones, UA Negative Negative - 160(16) ++++ mg/dL [facility] Healthcare Leukocytes, UA Negative Negative - 500+++ Yodit/mcL [facility] Healthcare Nitrite, UA Negative Negative - Positive [facility] pH, UA 8.5 5 - 9 [facility] e Protein, UA Negative Negative - 1999(20) ++++ mg/dL [facility] Healthcare Spec Grav, UA 1.02 1 - 1.03 [facility] Health care Urobilinogen, UA 0.2 0.2 - 12 mg/dL [facility] Urinalysis macro (dipstick) panel (U)on 11-22-2024 Bilirubin, UA Negative Negative - 4(70) +++ mg/dL [facility] Blood, UA Negative Negative - 50 Nicolás/mcL [facility] Healthcare Clarity, UA Clear [facility] re Color, UA Yellow [facility] e Glucose, UA Positive Negative - 1999(110) ++++ mg/dL [facility] Interpretation and review of laboratory results Abnormal [facility] Ketones, UA Negative Negative - 160(16) ++++ mg/dL [facility] Healthcare Leukocytes, UA Positive Negative - 500+++ Yodit/mcL [facility] Healthcare Nitrite, UA Negative Negative - Positive [facility] Healthcare pH, UA 6.5 5 - 9 [facility] e Protein, UA Negative Negative - 1999(20) ++++ mg/dL [facility] Healthcare Spec Grav, UA 1.025 1 - 1.03 [facility] Health care Urobilinogen, UA 1.0 0.2 - 12 mg/dL [facility] Healthcare [facility] Healthcar e IGP,APTIMA HPV,AGE GDLNon AGE GDLN ACOG TESTING Note . [facility] Comment on above: TESTS RESULT FLAG UN ITS REF RANGE LAB Clinician Provided Cytology Information Source.............[employer] Other.............. No. of containers..01 ThinPrep Vial Age Algo ACOG Rosita... FLAG LEGEND: L-Low Normal,H-High Normal,LL-Alert Low,HH-Alert High <-Panic Low,>-Panic High,A-Abnormal,AA-Critical Abnormal Performed at: 01 =G [facility] [address] Tamy Matos MD, IGP, RFX APTIMA HPV ASCU Note . [facility] Comment on above: TESTS RESULT FLAG UN ITS REF RANGE LAB DIAGNOSIS: 02 NEGATIVE FOR INTRAEPITHELIAL LESION OR MALIGNANCY. Specimen adequacy: 02 Satisfactory for evaluation. No endocervical component is identified. Performed by: 02 Shiraz Todd Customs Officer (ASC) . 02 Note: Note 03 The Pap [...] <-Panic Low,>-Panic High,A-Abnormal,AA-Critical Abnormal Performed at: [address] [phone] Neha Cole MD, [address] [address] Tamy Matos MD, Performed at: =[facility] [address] [id number] Stratigraphy Teacher: Tamy Matos MD, Phone: [phone] Performed at: [facility] [address] [id number] Stratigraphy Teacher: Neha Cole MD, Phone: [phone] SPATULA-[facility]ONE [facility] e RECURRENT VAGINITIS (HTRX)on 11-01-[address] [facility] althcare ATOPOBIUM VAGINAE Not detected [facility] BVAB 2,3 (BACTERIAL VAGINOSIS ASSOCIATED BACTERIA 2, 3); MOBILUNCUS SPP 0 [facility] BVAB 2,3 (BACTERIAL VAGINOSIS ASSOCIATED BACTERIA 2, 3); MOBILUNCUS SPP Not detected [facility] Healthcare ELAINA ALBICANS, PARAPSILOSIS, TROPICALIS 0 [facility] Healthcare ELAINA ALBICANS, PARAPSILOSIS, TROPICALIS Not detected [facility] GLABRATA 0 [facility] ELAINA GLABRATA Not [facility] ELAINA KRUSEI 0 [facility] Healt hcare ELAINA KRUSEI Not detected [facility] CHLAMYDIA TRACHOMATIS 0 [facility] CHLAMYDIA TRACHOMATIS Not detected [facility] ERMB, C; MEFA 21.586 Abnormal [facility] care ERMB, C; MEFA Detected Abnormal [facility] care GARDNERELLA VAGINALIS 24.886 Abnormal [facility] GARDNERELLA VAGINALIS Detected Abnormal [facility] Interpretation and review of laboratory results Abnormal [facility] MEGASPHAERA (TYPES 1, 2) 0 [facility] MEGASPHAERA (TYPES 1, 2) Not detected [facility] MYCOPLASMA GENITALIUM 0 [facility] MYCOPLASMA GENITALIUM Not detected [facility] NEISSERIA GONORRHOEAE 0 [facility] NEISSERIA GONORRHOEAE Not detected [facility] TRICHOMONAS VAGINALIS 0 [facility] TRICHOMONAS VAGINALIS Not detected [facility] DRUG SCREEN RAPID (URINE )on 10-18-2024 AMPHETAMINE SCREEN URINE Negative NEGATIVE [facility] BARBITURATES SCREEN URINE Negative NEGATIVE [facility] BENZODIAZEPINES SCREEN URINE Negative NEGATIVE [facility] BUPRENORPHINE SCREEN URINE Negative NEGATIVE [facility] Comment on above: DRUG CLASS TEST [...] 300 ng/mL CANNABINOID SCREEN URINE Negative NEGATIVE [facility] Healthcare COCAINE SCREEN URINE Negative NEGATIVE [facility] Healthcare METHADONE SCREEN URINE Negative NEGATIVE [facility] Healthcare METHAMPHETAMINES SCREEN URINE Negative NEGATIVE [facility] OPIATE SCREEN URINE Negative NEGATIVE [facility] OXYCODONE SCREEN URINE Negative NEGATIVE [facility] PHENCYCLIDINE SCREEN URINE Negative NEGATIVE [facility] TRICYCLIC ANTIDEPRESSANT URINE Negative NEGATIVE [facility] e TBH PREG QUANT HCGon 025 HCG QUANTITATIVE 92323 mIU/mL [facility] Hea lthcare Comment on above: 5-50 0.2-1 WEEK 50-500 1-2 WEEKS 100-5,000 2-3 WEEKS 500-10,000 3-4 WEEKS 1,000-50,000 4-5 WEEKS 10,000-100,000 5-6 WEEKS 15,000-200,000 6-8 WEEKS 10,000-100,000 2-3 MONTHS [facility] e HCG ( test) Ql (U)o n 07-31-2024 Interpretation and review of laboratory results Normal [facility] Preg Test, Ur Negative Negative [facility] COVID + FLU Quick Testingon 08-18-2023 SARS-CoV-2 (COVID-19) RNA ANNE+probe Ql (Unsp spec) Positive [facility] Other COVID + FLU Quick Testing Negative [facility] Other PAP ACOG PANEL 2: 21 to 29on 11-25-2022 . . Normal [facility] Comment on above: Performed By: #### [id number] #### [facility] [address] [place] [address] Dr. Keri Guerra Age Gdln ACOG Testing 22- [facility] Comment on above: Performed By: #### [id number] #### [facility] [address] [address] [address] Keri Guerra DIAGNOSIS: Comment [facility] Comment on above: Result Comment: NEGA TIVE FOR INTRAEPITHELIAL LESION OR MALIGNANCY. Performed By: #### [id number] #### [facility] [address] [place] [address] Dr. Keri Guerra Methodology: Comment [facility] Comment on above: Result Comment: This liquid based ThinPrep(R) pap test was screened with the use of an image guided system. Performed By: #### [id number] #### [facility] [address] [place] [address] Dr. Keri Guerra Note: Comment Normal [facility] Comment on above: Result Comment: The Pap smear is a screening test designed to aid in the detection of premalignant and malignant conditions of the uterine cervix. It is not a diagnostic procedure and should not be used as the sole means of detecting cervical cancer. Both false-positive and false-negative reports do occur. . Performed By: #### 4 [id number] #### [facility] [address] [place] [address] Dr. Keri Guerra Performed by: Comment Normal [facility] Comment on above: Result Comment: Drew Florian, Customs Officer (ASCP) Performed By: #### [id number] #### [facility] [address] [place] [address] Dr. Keri Guerra Reflex Criteria: Comment Normal [facility] Comment on above: Result Comment: The HPV DNA reflex criteria were not met with this specimen result therefore, no HPV testing was performed. . Performed By: #### 4 [id number] #### [facility] [address] [place] [address] Dr. Keri Guerra Specimen adequacy: Comment Normal [facility] Comment on above: Result Comment: Sati sfactory for evaluation. No endocervical component is identified. Areas of partially obscuring inflammatory exudate are present. Performed By: #### 4 [id number] #### [facility] [address] [place] [address] Dr. Keri Guerra HEP B SURFACE ANTIGEN SCREEN on 10-17-2022 HBsAg Screen Negative Normal Negative [facility] Comment on above: Performed By: #### H BSANS #### [facility] [address] [place] [address] Dr. Keri Guerra HEPATITIS C VIRUS AB W/ REFL EX QUANTon 10-17-2022 HCV AB Non-Reactive Normal Non Reactive [facility] Comment on above: Performed By: #### H CVPCRR #### [facility] [address] [place] [address] Dr. Keri Guerra Interpretation: Comment Normal [facility] Comment on above: Result Comment: Not infected with HCV unless early or acute infection is suspected (which may be delayed in an immunocompromised individual), or other evidence exists to indicate HCV infection. Performed By: #### H CVPCRR #### [facility] [address] [place] [address] Dr. Keri Guerra HIV 1 AND 2 WITH REFLEXon HIV Screen 4th Generation wRfx Non-Reactive Normal Non Reactive [facility] Comment on above: Result Comment: HIV Negative HIV-1/HIV-2 antibodies and HIV-1 p24 antigen were NOT detected. There is no laboratory evidence of HIV infection. Performed By: #### H IV12 #### [facility] [address] [place] [address] Dr. Keri Guerra RPR QUANTon 10-17-2022 Rapid Plasma Reagin, Quant Non-Reactive Normal NonRea<1:1 [facility] Comment on above: Result [...] utilized, such as Treponema pallidum (Syphilis) Screening [place] (750563) or Rapid Plasma Reagin (RPR) Test With Reflex to Quantitative RPR and Confirmatory Treponema pallidum Antibodies ([id number]). Performed By: #### R PRQ #### [facility] [address] [place] [address] Dr. Keri Guerra RUBELLA AB IGGon 10-17-2022 Rubella Antibodies, IgG <0.90 Critically low Immune >0.99 [facility] Comment on above: Result Comment: Non- immune <0.90 Equivocal 0.90 - 0.99 Immune >0.99 Performed By: #### R UBIGG #### [facility] [address] [place] [address] Dr. Keri Guerra CBC AUTO DIFFon 10-15-2022 BASO # 0.0 103/ul Normal 0.0-0.1 [facility] Comment on above: Performed By: #### C BC #### [facility] [address] [place] [address] Dr. Keri Guerra Basophils/100 WBC (Bld) 0.1 % Critically low 0.2-2.0 [facility] Comment on above: Performed By: #### C BC #### [facility] [address] [place] [address] Dr. Keri Guerra EO # 0.3 103/ul Normal 0.0-0.7 [facility] Comment on above: Performed By: #### C BC #### [facility] [address] [place] [address] Dr. Keri Guerra Eosinophils/100 WBC (Bld) 3.7 % Normal 0.9-7.0 [facility] Comment on above: Performed By: #### C BC #### [facility] [address] [place] [address] Dr. Keri Guerra Erythrocyte distribution width (RBC) [Ratio] 16.0 % Critically high 11.0-15.0 [facility] Comment on above: Performed By: #### C BC #### [facility] [address] [place] [address] Dr. Keri Guerra Hematocrit (Bld) [Volume fraction] 36.3 % Normal 36.0-48.0 [facility] Comment on above: Performed By: #### C BC #### [facility] [address] [place] [address] Dr. Keri Guerra Hemoglobin (Bld) [Mass/Vol] 12.1 g/dL Normal 12.0-16.0 [facility] Comment on above: Performed By: #### C BC #### [facility] [address] [place] [address] Dr. Keri Guerra IG # 0.02 10e3/ul Normal 0.00-0.03 [facility] Comment on above: Performed By: #### C BC #### [facility] [address] [place] [address] Dr. Keri Guerra IG % 0.3 % Normal 0.0-0.5 [facility] Comment on above: Performed By: #### C BC #### [facility] [address] [address] [address] Keri Guerra LYMPH # 1.7 103/ul Normal 1.2-3.8 [facility] Comment on above: Performed By: #### C BC #### [facility] [address] [place] [address] Dr. Keri Guerra Lymphocytes/100 WBC (Bld) 20.8 % Normal 20.5-60.0 [facility] Comment on above: Performed By: #### C BC #### [facility] [address] [place] [address] Dr. Keri Guerra MANUAL DIFF REQ NO Normal [facility] Comment on above: Performed By: #### C BC #### [facility] [address] [place] [address] Dr. Keri Guerra MCH (RBC) [Entitic mass] 25.3 pg Critically low 26.7-34.0 [facility] Comment on above: Performed By: #### C BC #### [facility] [address] [place] [address] Dr. Keri Guerra MCHC (RBC) [Mass/Vol] 33.3 g/dL Normal 29.9-35.2 [facility] Comment on above: Performed By: #### C BC #### [facility] [address] [place] [address] Dr. Keri Guerra MCV (RBC) [Entitic vol] 75.9 fL Critically low 81.0-99.0 [facility] Comment on above: Performed By: #### C BC #### [facility] [address] [place] [address] Dr. Keri Guerra MONO # 0.4 103/ul Normal 0.3-0.8 [facility] Comment on above: Performed By: #### C BC #### [facility] [address] [place] [address] Dr. Keri Guerra Monocytes/100 WBC (Bld) 5.0 % Normal 1.7-12.0 [facility] Comment on above: Performed By: #### C BC #### [facility] [address] [place] [address] Dr. Keri Guerra NEUT # 5.6 103/ul Normal 1.4-6.5 [facility] Comment on above: Performed By: #### C BC #### [facility] [address] [place] [address] Dr. Keri Guerra Neutrophils/100 WBC (Bld) 70.1 % Normal 43.0-75.0 [facility] Comment on above: Performed By: #### C BC #### [facility] [address] [place] [address] Dr. Keri Guerra Platelet mean volume (Bld) [Entitic vol] 11.0 fL Normal 9.5-13.5 [facility] Comment on above: Performed By: #### C BC #### [facility] [address] [place] [address] Dr. Keri Guerra PLT 319 103/ul Normal 150-450 [facility] Comment on above: Performed By: #### C BC #### [facility] [address] [place] [address] Dr. Keri Guerra RBC 4.78 106/ul Normal 4.20-5.40 [facility] Comment on above: Performed By: #### C BC #### [facility] [address] [place] [address] Dr. Keri Guerra WBC 7.9 103/ul Normal 4.0-11.0 [facility] Comment on above: Performed By: #### C BC #### [facility] [address] [place] [address] Dr. Keri Guerra CULTURE URINEon 10-15-2022 CULTURE URINE Culture Observations : LIGHT GROWTH OF MIXED GENITAL LARISA. NO POTENTIAL PATHOGENS SEEN. Normal [facility] Comment on above: Performed By: #### U RCX #### [facility] [address] [place] [address] Dr. Keri Guerra TSHon 10-15-2022 TSH 0.294 uIU/mL Critically low 0.358-3.740 [facility] Comment on above: Performed By: #### T SH #### [facility] [address] [place] [address] Dr. Keri Guerra TYPE AND SCREENon 10-15-2022 TYPE AND SCREEN Negative Normal [facility] Comment on above: Performed By: #### T NS #### [facility] [address] [place] [address] Dr. Keri Guerra US PREG TVon 10-01-2022 [...] by: GM BARRY Date: 2022-10-01 15:23 Normal [facility] Quick Strepon 03-25-2022 S. pyogenes Org specific cx Ql (Throat) Negative [facility] Other Quick Strep [facility] Other COVID/FLU RT-PCRon 2 SARS-CoV-2 (COVID-19) RNA ANNE+probe Ql (Unsp spec) Positive [employer] Other COVID/FLU RT-PCR Negative [facility] Other COVID Quick Testingon 2020 Result Positive [employer] Other Consultation Noteon 08-05-19 21 Consultation Note [id number] Normal [facility] Vital Signs Date Time Vital Sign Value Performing Clinician Facility 01-10-2025 11:33-0400 Body mass index (BMI) [Ratio] 29.17 kg/m2 Torri MILLER Work Phone: [facility] 01-10-2025 11:33-0400 Body weight 72.35 kg Torri MILLER Work Phone: [facility] 01-10-2025 11:33-0400 Diastolic blood pressure 76 mm[Hg] Torri MILLER Work Phone: [facility] 01-10-2025 11:33-0400 Systolic blood pressure 122 mm[Hg] Torri MILLER Work Phone: [facility] 12-04-2024 13:28-0400 Body mass index (BMI) [Ratio] 27.87 kg/m2 Ai Tj DO Work Phone: [facility] 12-04-2024 13:28-0400 Body weight 69.13 kg Ai Tj DO Work Phone: [facility] 12-04-2024 13:28-0400 Diastolic blood pressure 70 mm[Hg] Ai Tj DO Work Phone: [facility] 12-04-2024 13:28-0400 Systolic blood pressure 120 mm[Hg] Ai Tj DO Work Phone: [facility] 11-22-2024 15:22-0400 Body mass index (BMI) [Ratio] 27.76 kg/m2 [facility] 11-22-2024 15:22-0400 Body weight 68.86 kg [facility] Nurse [facility] 10-31-2024 13:04-0400 Body mass index (BMI) [Ratio] 27.53 kg/m2 Ai Tj DO Work Phone: [facility] 10-31-2024 13:04-0400 Body weight 68.27 kg Ai Tj DO Work Phone: [facility] 10-31-2024 13:04-0400 Diastolic blood pressure 80 mm[Hg] Ai Tj DO Work Phone: [facility] 10-31-2024 13:04-0400 Systolic blood pressure 112 mm[Hg] Ai Tj DO Work Phone: [facility] 07-31-2024 09:06-0500 Body mass index (BMI) [Ratio] 27.58 kg/m2 Ai Tj DO Work Phone: [facility] 07-31-2024 09:06-0500 Body weight 68.4 kg Ai Tj DO Work Phone: [facility] 07-31-2024 09:06-0500 Diastolic blood pressure 80 mm[Hg] Ai Tj DO Work Phone: [facility] 07-31-2024 09:06-0500 Systolic blood pressure 120 mm[Hg] Ai Tj DO Work Phone: [facility] 05-10-2024 10:22-0400 Body height 160.02 cm [facility] 05-10-2024 10:22-0400 Body mass index (BMI) [Ratio] 24.7 kg/m2 [facility] 05-10-2024 10:22-0400 Body temperature 98.2 [degF] [facility] 05-10-2024 10:22-0400 Body weight 63.5 kg [facility] 05-10-2024 10:22-0400 Diastolic blood pressure 65 mm[Hg] [facility] 05-10-2024 10:22-0400 Heart rate 95 /min [facility] 05-10-2024 10:22-0400 Respiratory rate 18 /min [facility] 05-10-2024 10:22-0400 SaO2% (BldA) [Mass fraction] 97 % [facility] 05-10-2024 10:22-0400 Systolic blood pressure 128 mm[Hg] [facility] 08-18-2023 11:30-0500 Body height 157.48 cm Deann Partida Other [facility] Other 08-18-2023 11:30-0500 Body mass index (BMI) [Ratio] 26.48 kg/m2 Deann Partida Other [facility] Other 08-18-2023 11:30-0500 Body temperature 98.6 [degF] Deann Jaquan Other [facility] Other 08-18-2023 11:30-0500 Body weight 65.68 kg Deann Partida Other [facility] Other 08-18-2023 11:30-0500 Respiratory rate 18 /min Deann Partida Other [facility] Other 08-18-2023 11:30-0500 SaO2% (BldA) [Mass fraction] 97 % Deann Partida Other [facility] Other 09-14-2022 15:25-0500 Body height 157.48 cm Elsa Álvaro Other [facility] Other 09-14-2022 15:25-0500 Body mass index (BMI) [Ratio] 26.88 kg/m2 Elsa Álvaro Other [facility] Other 09-14-2022 15:25-0500 Body temperature 97.7 [degF] Elsa Álvaro Other [facility] Other 09-14-2022 15:25-0500 Body weight 66.68 kg Elsa Álvaro Other [facility] Other 09-14-2022 15:25-0500 Diastolic blood pressure 65 mm[Hg] Elsa Álvaro Other [facility] Other 09-14-2022 15:25-0500 Respiratory rate 18 /min Elsa Rea Other [facility] Other 09-14-2022 15:25-0500 SaO2% (BldA) [Mass fraction] 99 % Elsa Rea Other [facility] Other 09-14-2022 15:25-0500 Systolic blood pressure 118 mm[Hg] Elsa Rea Other [facility] Other 03-25-2022 11:40-0400 Body height 157.48 cm Charisse Blackwell Other [facility] Other 03-25-2022 11:40-0400 Body mass index (BMI) [Ratio] 27.43 kg/m2 Charisse Bonillamond Other [facility] Other 03-25-2022 11:40-0400 Body temperature 98.8 [degF] Charisse Blackwell Other [facility] Other 03-25-2022 11:40-0400 Body weight 68.04 kg Charisse Blackwell Other [facility] Other 03-25-2022 11:40-0400 Respiratory rate 18 /min Charisse Blackwell Other [facility] Other 03-25-2022 11:40-0400 SaO2% (BldA) [Mass fraction] 99 % Charisse Bonillamond Other [facility] Other 01-01-2022 10:40-0400 Body height 160.02 cm Deann Partida Other [facility] Other 01-01-2022 10:40-0400 Body mass index (BMI) [Ratio] 24.8 kg/m2 Deann Partida Other [facility] Other 01-01-2022 10:40-0400 Body temperature 97.5 [degF] Deann Jaquan Other [facility] Other 01-01-2022 10:40-0400 Body weight 63.5 kg Deann Jaquan Other [facility] Other 01-01-2022 10:40-0400 SaO2% (BldA) [Mass fraction] 99 % Deann Jaquan Other [facility] Other 05-04-2021 11:30-0400 Body height 160.02 cm Elsa Rea Other [facility] Other 05-04-2021 11:30-0400 Body mass index (BMI) [Ratio] 23.91 kg/m2 Elsa Bainsault Other [facility] Other 05-04-2021 11:30-0400 Body temperature 97.3 [degF] Elsa Bainsault Other [facility] Other 05-04-2021 11:30-0400 Body weight 61.24 kg Elsa Álvaro Other [facility] Other 05-04-2021 11:30-0400 SaO2% (BldA) [Mass fraction] 99 % Elsa Bainsault Other [facility] Other Encounters Encounter Date Encounter Type Care Provider Facility Start: 01-12-2025 End: 01-12-2025 Clinisync Result Encounter Torri MILLER Work Phone: [facility] Unsolicited Start: 01-12-2025 End: 01-12-2025 Clinisync Result Encounter Torri MILLER Work Phone: [facility] Unsolicited Start: 01-10-2025 End: 01-10-2025 Bamboo flowsheet Torri MILLER Work Phone: [facility] Start: 01-10-2025 End: 01-10-2025 Bamboo flowsheet Torri MILLER Work Phone: [facility] Start: 01-10-2025 End: 01-10-2025 ambulatory TORRI MEZA Not Available Start: 01-10-2025 End: 01-10-2025 flow sheet Torri MILLER Work Phone: [facility] Comment on above: Second trimester pre gnancy ([facility]); 25 weeks gestation of ([facility]); Diabetes mellitus screening Start: 12-04-2024 End: [...] yrs Ai Tj DO Work Phone: [facility] Comment on above: Well woman exam [...] minutes Ai Tj DO Work Phone: [facility] Comment on above: examinatio n or [...] unspecified contraceptive Start: 05-10-2024 End: 05-10-2024 ambulatory [facility] Work Phone: Start: 05-10-2024 End: 05-10-2024 Patient encounter procedure [facility] Work Phone: Start: 01-31-2024 End: 01-31-2024 ambulatory AI GRANADOSO Not Available Start: 08-18-2023 End: 08-18-2023 ambulatory Deann Partida Other [facility] Other Start: 08-18-2023 Office outpatient vi sit 25 minutes Deann Partida [facility] Start: 11-17-2022 End: 11-17-[address] AI SPENCER . Facility:[facility] Start: 10-18-[address] DOCTOR MONCADA Facility :[facility] Start: 10-15-2022 End: 10-16-[address] AI SPENCER . Facility:[facility] Start: 10-01-2022 End: 10-02-[address] AI SPENCER . Facility:[facility] Start: 09-14-2022 End: 09-14-2022 ambulatory Elsa Rea Other [facility] Other Start: 09-14-2022 Office outpatient vi sit 15 minutes Elsa Rea [facility] Start: 03-25-2022 End: 03-25-2022 ambulatory Charisse Bonillamond Other [facility] Other Start: 03-25-2022 Office outpatient vi sit 15 minutes Charisse Bonillamond [facility] Start: 01-01-2022 End: 01-01-2022 ambulatory Deann Partida Other [facility] Other Start: 01-01-2022 Office outpatient vi sit 25 minutes Deann Partida [facility] Start: 05-04-2021 Office outpatient vi sit 15 minutes Elsa Rea [facility] Procedures Date Procedure Procedure Detail Performing Clinician Start: 01-12-2025 ALL CBC WITH AUTO DIFF Torri MILLER Work Phone: Start: 01-10-2025 Urnls dip stick/tabl et rgnt non-auto w/o micrscp Torri MILLER Work Phone: Start: 12-04-2024 Urnls dip stick/tabl et rgnt non-auto w/o micrscp Ai Tj DO Work Phone: Start: 11-22-2024 Urnls dip stick/tabl et rgnt non-auto w/o micrscp Ai Tj DO Work Phone: Start: 10-31-2024 RECURRENT VAGINITIS (HTRX) Ai Tj DO Work Phone: Start: 10-31-2024 IGP,APTIMA HPV,AGE GDLN Ai Tj DO Work Phone: Start: 10-18-2024 TB DRUG SCREEN RAPI D (URINE) Ai Tj DO Work Phone: Start: 2024 TB PREG QUANT HCG Core y Tj DO Work Phone: Start: 07-31-2024 Urine test visual color cmprsn meths Ai Tj DO Work Phone: Plan of Treatment Date Care Activity Detail Author Start: 02-05-2025 End: 02-05-2025 Patient encounter procedure 02/05/2025 8:40 AM EDT Routine [facility] [address] [facility] [place] [place] [address] Ai Spencer, DO [address] [place], [place] [address] [place] [address] [facility] Start: 01-10-2025 End: 01-10-2026 [...] mellitus screening Expected: 01/10/2025 (Approximate), Expires: 01/10/2026 [facility] Comment on above: Expected: 01/10/2025 (Approximate), Expires: 01/10/2026 Start: 01-01-2025 End: 01-01-2025 Patient encounter procedure 01/01/2025 2:40 PM EDT Routine [facility] [address] [place] [address] Ai Spencer, DO [address] [place], [place] [address] [address] [facility] Start: 12-04-2024 End: 12-04-2024 Patient encounter procedure [facility] Comment on above: Arrived Start: 11-22-2024 End: 03-25-2025 Alpha fetoprotein, maternal Alpha fetoprotein, maternal Lab Routine Screening, , for anatomic survey Expected: 11/22/2024 (Approximate), Expires: 03/25/2025 [facility] Work Phone: Comment on above: Expected: 11/22/2024 (Approximate), Expires: 03/25/2025 Start: 11-22-2024 End: 11-22-2024 ambulatory 11/22/2024 2:00 PM EDT Initial [facility] [address] [id number] [facility] Start: 11-22-2024 End: 02-22-2025 US for US OB 14+ weeks anatomy scan Imaging Routine Screening, , for anatomic survey Expected: 11/22/2024, Expires: 02/22/2025 [facility] Comment on above: Expected: 11/22/2024 , Expires: 02/22/2025 Start: 10-31-2024 End: 12-31-2024 Alpha fetoprotein, maternal Alpha fetoprotein, maternal Lab Routine Well woman exam with routine gynecological exam Expected: 10/31/2024 (Approximate), Expires: 12/31/2024 [facility] Work Phone: Comment on above: Expected: 10/31/2024 (Approximate), Expires: 12/31/2024 Start: 10-31-2024 End: 10-31-2024 [facility] Comment on above: Arrived Start: 2024 End: 2024 Patient encounter procedure 2024 3:30 PM EST [facility] [address] [place] [id number] Ai Spencer, [address] [place] [address] [facility] CHLAMYDIA TRACHOMATI S (GENITO/STI) CHLAMYDIA TRACHOMATIS (GENITO/STI) Lab Routine STD exposure Ordered: 10/31/2024 [facility] Comment on above: Ordered: 10/31/2024 Cytology Cervical or vaginal smear or scraping study Pap Smear Pathology and Cytology Routine Well woman exam with routine gynecological exam Ordered: 10/31/2024 [facility] Comment on above: Ordered: 10/31/2024 End: 2025 hCG, quantitative, hCG, quantitative, Lab Routine examination or test, positive result 4 Occurrences starting 2024 until 2025 [facility] Work Phone: Comment on above: 4 Occurrences starti ng 2024 until 2025 Neisseria gonorrhoea e DNA [Presence] in Unspecified specimen by ANNE with probe detection Neisseria gonorrhea DNA probe, direct Lab Routine STD exposure Ordered: 10/31/2024 [facility] Comment on above: Ordered: 10/31/2024 SURESWAB(R) ADVANCED VAGINITIS PLUS, TMA SURESWAB(R) ADVANCED VAGINITIS PLUS, TMA Pathology and Cytology Routine STD exposure Ordered: 10/31/2024 [facility] Comment on above: Ordered: 10/31/2024 Payers Date Payer Category Payer Private Health Insurance [employer] [id number] 2024 Unknown [id number] 2022 Medicaid [id number] 2001 Unknown [id number] 2.16.840.1.895435.3.579.2. 593 2001 Unknown [id number] 2.16.840.1.684267.3.579.2. 593 2001 Unknown [id number] 2.16.840.1.765450.3.579.2. 593 2001 Unknown [id number] 2.16.840.1.226528.3.579.2. 593 2001 Unknown [id number] 2.16.840.1.924020.3.579.2. 593 2001 Unknown [id number] 2.16.840.1.764864.3.579.2. 1259 2001 Unknown [id number] 2.16.840.1.208724.3.579.2. 1259 2001 Unknown [id number] 2.16.840.1.767471.3.579.2. 1259 2001 Unknown [id number] 2.16.840.1.950837.3.579.2. 1259 2001 Unknown [id number] 2.16.840.1.514850.3.579.2. 1259 2001 Unknown [id number] 2.16.840.1.120727.3.579.2. 1259 2001 Unknown [id number] 2.16.840.1.591982.3.579.2. 1259 1959 Rust [id number] [id number] Private Health Insurance [id number] 2.16.840.1.308417.19 Self-pay Self Pay [id number] Unknown [id number] 2.16.840.1.352004.19 Unknown Benny BARRIGA/GRACE [id number] Social History Date Type Detail Facility Unknown if ever smoked [facility] Other Start: 01-31-2024 Sex Assigned At N [facility] Other Start: 03-31-2023 End: 05-10-2024 Tobacco smoking status NHIS Never smoked tobacco (finding) [facility] Start: 2000 Sex Assigned At Female F [facility] Start: 03-31-2023 Tobacco use and exposure Smokeless tobacco non-user [facility] Start: 01-31-2024 End: 12-25-2024 Alcoholic beverage intake Lifetime non-drinker (finding) [facility] Start: 01-31-2024 History of Social function [facility] Start: 02-16-2023 Alcohol Comment Caffeine intak e: soda/pop occasional [facility] Start: 2000 Sex assigned at Not on file [facility] Start: 08-01-2024 [facility] Go[facility] Date Patient Goal Desired Activity /State Personal health goal Clinical Notes 05-04-2021 to 01-10-2025 Torri Meaz, ANGELA - 01/10/2025 11:20 AM Sabrina Rodriguez, METAL FINISH INSPECTOR - 12/04/2024 1:00 PM Muriel De Leon, METAL FINISH INSPECTOR - 11/22/2024 2:00 PM Sabrina Rodriguez, METAL FINISH INSPECTOR - 10/31/2024 1:00 PM EDT Note Date [...] menses 2024 examination or test, positive result ([facility]) 2024 Resolved Ambulatory Problems Diagnosis Date Noted No Resolved Ambulatory Problems Past Medical History: Diagnosis Date 6 weeks follow-up ([facility]) BMI 25.0-25.9,adult Salt deficiency Type O blood, Rh positive HISTORY PAST MEDICAL HISTORY SOCIAL HISTORY Past Medical History: Diagnosis Date 6 weeks follow-up ([facility]) BMI 25.0-25.9,adult Salt deficiency Type O [...] ASSESSMENT & PLAN ICD-10-CM 1. Second trimester ([facility]) Z34.92 POCT urinalysis dipstick manually resulted 2. 25 weeks gestation of ([facility]) Z3A.25 3. Diabetes mellitus screening Z13.1 [...] of: ANGELA Mayorga documented in this encounter [facility] 12-04-2024 History of Presen t illness [...] nursing note reviewed. Exam conducted with a product development actuary present. Vitals: Estimated body mass index is [...] Ai Spencer DO documented in this encounter [facility] 11-22-2024 History of Presen t illness [...] or undercooked meat, and stay away from [facility]. Patient has also been advised to not [...] De Leon LPN documented in this encounter [facility] 10-31-2024 History of Presen t illness [...] nursing note reviewed. Exam conducted with a product development actuary present. Vitals: Estimated body mass index is [...] Ai Spencer DO documented in this encounter [facility] 2024 History of Presen t illness [...] nursing note reviewed. Exam conducted with a product development actuary present. Vitals: Estimated body mass index is [...] Ai Spencer DO documented in this encounter [facility] 07-31-2024 History of Presen t illness [...] nursing note reviewed. Exam conducted with a product development actuary present. Vitals: Estimated body mass index is [...] Ai Spencer DO documented in this encounter [facility] 08-18-2023 Evaluation note Encounter Date Diagnosis [...] treatment plan. Patient left in stable condition [facility] Other 02-28-2023 Evaluation note* Encounter Date Diagnosis Assessment Notes Treatment Notes Treatment Clinical Notes Aug, Impetigo (ICD-10 - L01.00) Clean area as discussed with 1/2 peroxide and water mix. Apply ointment to area. Infection is very contagious. Bed laundering and cleaning toys is important. Follow up with primary care provider or come back into office to be seen if symptoms worsen [facility] Other 09-08-2022 Evaluation note* Encounter Date Diagnosis [...] no improvement in 2 to 3 days. [facility] Other 06-17-2022 Evaluation note* Encounter Date Diagnosis [...] treatment plan. Patient left in stable condition [facility] Other 10-18-2021 Evaluation note* Encounter Date Diagnosis Assessment Notes Treatment Notes Treatment Clinical Notes Apr, Contact with and (suspected) exposure to other viral communicable diseases (ICD-10 - Z20.828) Apr, COVID-19 (ICD-10 - U07.1) Today you tested positive for the COVID virus. This mean you need to follow all CDC quarantine guidelines found at [email or web address] v. It is important to rest, increase [...] writting by CDC Care At Home document. [facility] Other Evaluation note* Diagnosis Onset Date Resolution Status Right ankle sprain acute [facility] Work Phone: Evaluation note* Diagnosis Encounter for initial prescription of contraceptives, unspecified contraceptive [facility] Diagnosis examination or test, positive result Missed menses documented [facility] Diagnosis Well woman exam with routine gynecological exam Routine gynecological examination STD exposure documented [facility] encounter [facility] Diagnosis Screening, , for anatomic survey Encounter for anatomic survey Missed menses documented in [facility] encounter [facility] Diagnosis 19 weeks gestation of Second trimester state, incidental documented in [facility] Diagnosis Second trimester ([facility]) state, incidental 25 weeks gestation of ([facility]) Diabetes mellitus screening Screening for diabetes mellitus documented in this encounter [facility] - Reported* Type Description Date Hospitalization History fractured arm and shatte red elbow [facility] Other History general Narrative - Reported* Type Description Date Hospitalization History fractured arm and shatte red elbow Hospitalization History childbirth [facility] Other Summary Purpose Family History Relationship Condition Age at Onset Recorded Date/T raul father Diabetes mellitus Unknown Advance Directives Advance Directive Response Recorded Date/ Time Advance Directives No May 10, 2024 10:15am Chief Complaint and Reason for Visit Chief Complaint ankle pain w/o known injury Reason for Visit Right ankle sprain Additional Source Comments INFORMATION SOURCE (unrecogn ized section and content) DATE CREATED AUTHOR 08/09/2020 Rodriguez [facility] DATE CREATED AUTHOR AUTHOR'S ORGANIZ ATION 12/24/2022 Jessica Vale [facility] DATE CREATED AUTHOR AUTHOR'S ORGANIZ ATION 01/11/2025 [facility] EPIC REASON FOR VISIT [...] BE BASED ON THE PRIMARY CLINICAL RECORDS. [employer] provides no warranty or guarantee of the accuracy or completeness of information in this document.
[2025-02-14 08:56] LABS: Glucose 1 Hour 157 mg/dL (<180)
[2025-02-14 10:25] LABS: Glucose 2 Hour 129 mg/dL (<155)
[2025-02-14 11:21] LABS: Glucose 3 Hour 114 mg/dL (<140)
== END 2025-02-14 07:33 | disposition home or self-care (01) ==
LOC: LAB 07:32
PROVIDERS: Visit Provider Physician Assistant
DX: R73.09 Other abnormal glucose (principal)
CPT/HCPCS: 36415; 82951; 82952

== ENCOUNTER 2025-03-01 06:59 | Outpatient (OUT) | payer OTHER, SELFPAY ==
--- NOTE | 2025-03-01 | US_ITS ---
[address] [address] Patient Name: KARLY CRUZ MRN: [id number] date: 2000 Sex: F Assigned Patient Location: US Current Patient Location: Accession/Order Number: [id number] Exam Date: 03/01/2025 08:28 Report Date: 03/01/2025 08:33 At the request of: SELENA MEZA Procedure: US OB growth Growth ultrasound. Reason for exam: size and consistent with dates. COMPARISON: Ultrasound 09/29/2024. TECHNIQUE: Transabdominal imaging of the gravid uterus was obtained. FINDINGS: Single live intrauterine measuring 32 weeks 2 days by anatomic measurements. Appropriate growth by dating. Estimated weight is 1833 g which is at the 24th percentile. ISAI is normal at 16.51 cm. heart rate 140 bpm. position is cephalic at time of scanning. US/US OB growth Impression: Single live intrauterine 32 weeks 2 days by anatomic measurements. Appropriate growth. Impression dictated by: Oscar Clemens Jr., D.O. 03/01/2025 8:33 AM Dictation Location[facility] Electronically authenticated by: [id number] Date: 03/01/2025 08:33
--- OUTSIDE RECORDS SUMMARY | 2025-03-01 07:01 | XMS_ITS | CCD ---
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 Name Role Phone Elsa Rea Unavailable Deann [...] SPENCER Attending Unavailable AI SPENCER Attending Unavailable TORRI MEZA Attending Unavailable TORRI MEZA Attending Unavailable AI SPENCER Attending Unavailable Allergies Allergy Classification Reported Allergen(s) Allergy Type Date of Onset Reaction(s) Facility (20 sources) Minocycline Drug Allergy 12-14-2022 Nausea Only [...] sources) Iron Not-Taking/ PRN Iron Active levonorgestrel 0.196756 mg/hr intrauterine system (2 sources) Progestin, Progestin-containing [...] Translations: [Missed period] Onset: 10-09-2022 Chronic Other complications of (2 sources) size does not accord with dates; Translations: [Uterine size-date discrepancy, unspecified trimester] 02-21-2025 Episodic Other and delivery including normal (20 sources) [...] [25 weeks gestation of ] 01-10-2025 Episodic Residual codes; unclassified (2 sources) Gestation period, 31 weeks; Translations: [31 weeks gestation of ] 02-21-2025 Episodic Skin and subcutaneous tissue infections (1 source) Impetigo, unspecified Episodic Sprains and strains (2 sources) Sprain of right ankle; Translations: [Sprain of unspecified ligament of right ankle, initial encounter] 05-10-2024 Episodic Unclassified (20 sources) OB Reminders Onset: 04-27-2023 04-27-2023 Past or Other Problems Problem Classification Problem Date Documented Da te Episodic/Chronic Viral infection (3 sources) COVID-19; Translations: [COVID-19 U07.1] Onset: 05-04-2021 Resolved: 01-01-2022 Results Test Name Value Interpretation Reference Range Facility Urinalysis macro (dipstick) panel (U)on 02-21-2025 Bilirubin, UA Negative Negative - 4(70) +++ mg/dL [facility] Blood, UA Negative Negative - 50 Nicolás/mcL [facility] Healthcare Clarity, UA Clear [facility] re Color, UA Yellow [facility] e Glucose, UA Negative Negative - 1999(110) ++++ mg/dL [facility] Interpretation and review of laboratory results Normal [facility] Ketones, UA Negative Negative - 160(16) ++++ mg/dL [facility] Leukocytes, UA Negative Negative - 500+++ Yodit/mcL [facility] Nitrite, UA Negative Negative - Positive [facility] pH, UA 5.5 5 - 9 [facility] Protein, UA Negative Negative - 1999(20) ++++ mg/dL [facility] Spec Grav, UA 1.02 1 - 1.03 [facility] Urobilinogen, UA 1.0 0.2 - 12 mg/dL [facility] GLUCOSE TOLERANCE 3 HOURon 0 02-14-2025 GLUCOSE TOLERANCE 3 HOUR mg/dL [facility] Comment on above: GLU FAST 86 (<95) Co l: 02/14/25 0737 GLU 1HR 157 (<180) Col: 02/14/25 0841 GLU 2HR 129 (<155) Col: 02/14/25 0941 GLU 3HR 114 (<140) Col: 02/14/25 1040 [facility] e ALL CBC WITH AUTO DIFFon BASOPHILS ABSOLUTE AUTO 0 [facility] Basophils/100 WBC (Bld) 0.3 % 0.2 - 2.0 % [facility] Eosinophils/100 WBC (Bld) 3.9 % 0.9 - 7.0 % [facility] Erythrocyte distribution width (RBC) [Ratio] 13 % 11.0 - 15.0 % [facility] Hematocrit (Bld) [Volume fraction] 35.8 % Low 36.0 - 48.0 % [facility] e Hemoglobin (Bld) [Mass/Vol] 11.9 g/dL Low 12.0 - 16.0 g/dL [facility] IMMATURE GRANULOCYTES ABS AUTO 0.03 [facility] Immature granulocytes/100 WBC (Bld) 0.3 % 0.0 - 0.5 % [facility] Interpretation and review of laboratory results Abnormal [facility] LYMPHOCYTES ABSOLUTE AUTO 1.3 [facility] Lymphocytes/100 WBC (Bld) 13.7 % Low 20.5 - 60.0 % [facility] MCH (RBC) [Entitic mass] 28 pg 26.7 - 34.0 pg [facility] MCHC (RBC) [Mass/Vol] 33.2 g/dL 29.9 - 35.2 g/dL [facility] MCV (RBC) [Entitic vol] 84.2 fL 81.0 - 99.0 fL [facility] MONOCYTES ABSOLUTE AUTO 0.4 [facility] Monocytes/100 WBC (Bld) 4.5 % 1.7 - 12.0 % [facility] NEUTROPHILS ABSOLUTE AUTO 7.5 High [facility] Neutrophils/100 WBC (Bld) 77.3 % High 43.0 - 75.0 % [facility] Platelet mean volume (Bld) [Entitic vol] 10.9 fL 9.5 - 13.5 fL [facility] EO # 0.4 [facility] Healthcar e TB PLT 254 [facility] e TB RBC 4.25 [facility] TB WBC 9.7 [facility] Urinalysis macro (dipstick) panel (U)on 01-10-2025 Bilirubin, UA Negative Negative - 4(70) +++ mg/dL [facility] Blood, UA Negative Negative - 50 Nicolás/mcL [facility] Clarity, UA Clear [facility], UA Yellow [facility] e Glucose, UA Positive Negative - 1999(110) ++++ mg/dL [facility] Comment on above: 250mg/dL Interpretation and review of laboratory results Abnormal [facility] Ketones, UA Negative Negative - 160(16) ++++ mg/dL [facility] Leukocytes, UA Positive Negative - 500+++ Yodit/mcL [facility] Comment on above: small Nitrite, UA Negative Negative - Positive [facility] pH, UA 7 5 - 9 [facility] Protein, UA Negative Negative - 1999(20) ++++ mg/dL [facility] Spec Grav, UA 1.02 1 - 1.03 [facility] Urobilinogen, UA 0.2 0.2 - 12 mg/dL [facility] Urinalysis macro (dipstick) panel (U)on 12-04-2024 Bilirubin, UA Negative Negative - 4(70) +++ mg/dL [facility] Blood, UA Negative Negative - 50 Nicolás/mcL [facility] Clarity, UA Clear [facility] Healthca re Color, UA Yellow [facility] Healthcar e Glucose, UA Negative Negative - 1999(110) ++++ mg/dL [facility] Interpretation and review of laboratory results Normal [facility] Ketones, UA Negative Negative - 160(16) ++++ mg/dL [facility] Leukocytes, UA Negative Negative - 500+++ Yoidt/mcL [facility] Nitrite, UA Negative Negative - Positive [facility] pH, UA 8.5 5 - 9 [facility] Healthcar e Protein, UA Negative Negative - 1999(20) ++++ mg/dL [facility] Spec Grav, UA 1.02 1 - 1.03 [facility] Urobilinogen, UA 0.2 0.2 - 12 mg/dL [facility] Urinalysis macro (dipstick) panel (U)on 11-22-2024 Bilirubin, UA Negative Negative - 4(70) +++ mg/dL [facility] Blood, UA Negative Negative - 50 Nicolás/mcL [facility] Clarity, UA Clear [facility] Healthca re Color, UA Yellow [facility] Healthcar e Glucose, UA Positive Negative - 1999(110) ++++ mg/dL [facility] Interpretation and review of laboratory results Abnormal [facility] Ketones, UA Negative Negative - 160(16) ++++ mg/dL [facility] Leukocytes, UA Positive Negative - 500+++ Yodit/mcL [facility] Nitrite, UA Negative Negative - Positive [facility] pH, UA 6.5 5 - 9 [facility] Healthcar e Protein, UA Negative Negative - 1999(20) ++++ mg/dL [facility] Spec Grav, UA 1.025 1 - 1.03 [facility] Urobilinogen, UA 1.0 0.2 - 12 mg/dL [facility] Health[facility] e IGP,APTIMA HPV,AGE GDLNon AGE GDLN ACOG TESTING Note . [facility] Comment on above: TESTS RESULT FLAG UN ITS REF RANGE LAB Clinician Provided Cytology Information Source.............[employer] Other.............. No. of containers..01 ThinPrep Vial Age Chuyita Becker... FLAG LEGEND: L-Low Normal,H-High Normal,LL-Alert Low,HH-Alert High <-Panic Low,>-Panic High,A-Abnormal,AA-Critical Abnormal Performed at: 01 =G [facility] [id number] Tamy Matos MD, IGP, RFX APTIMA HPV ASCU Note . [facility] Comment on above: TESTS RESULT FLAG U NITS REF RANGE LAB DIAGNOSIS: 02 NEGATIVE FOR INTRAEPITHELIAL LESION OR MALIGNANCY. Specimen adequacy: 02 Satisfactory for evaluation. No endocervical component is identified. Performed by: 02 Shiraz Todd Migratory Worker ([facility]) . 02 Note: Note 03 The [...] <-Panic Low,>-Panic High,A-Abnormal,AA-Critical Abnormal Performed at: 02 [facility] [address] [place] [address] Neha Cole MD, [address] [address] Tamy Matos MD, Performed at: =[facility] [address] [id number] Supervisor Net Making: Tamy Matos MD, Phone: [phone] Performed at: [address] [id number] Supervisor Net Making: Neha Cole MD, Phone: [phone] [facility]AT[facility] Healthcar e RECURRENT VAGINITIS (HTRX)on 11-01-[address] [facility] ATOPOBIUM VAGINAE Not detected [facility] BVAB 2,3 (BACTERIAL VAGINOSIS ASSOCIATED BACTERIA 2, 3); MOBILUNCUS SPP 0 [facility] BVAB 2,3 (BACTERIAL VAGINOSIS ASSOCIATED BACTERIA 2, 3); MOBILUNCUS SPP Not detected [facility] ELAINA ALBICANS, PARAPSILOSIS, TROPICALIS 0 [facility] ELAINA ALBICANS, PARAPSILOSIS, TROPICALIS Not detected [facility] E[facility]INA [facility]RATA [facility] ELAINA GLABRATA Not detected [facility] ELAINA KRUSEI 0 [facility] ELAINA KRUSEI Not detected [facility] ltare CHLAMYDIA TRACHOMATIS 0 [facility] CHLAMYDIA TRACHOMATIS Not detected [facility] ERMB, C; MEFA 21.586 Abnormal [facility] care ERMB, C; MEFA Detected Abnormal [facility] care GARDNERELLA VAGINALIS 24.886 Abnormal [facility] GARDNERELLA VAGINALIS Detected Abnormal [facility] Interpretation and review of laboratory results Abnormal [facility] MEGASPHAERA (TYPES 1, 2) 0 [facility] MEGASPHAERA (TYPES 1, 2) Not detected [facility] MYCOPLASMA GENITALIUM 0 [facility] MYCOPLASMA GENITALIUM Not detected [facility] NEISSERIA GONORRHOEAE 0 [facility] NEISSERIA GONORRHOEAE Not detected [facility] TRICHOMONAS VAGINALIS 0 [facility] TRICHOMONAS VAGINALIS Not detected [facility] TB DRUG SCREEN RAPID (URINE )on 10-18-2024 AMPHETAMINE SCREEN URINE Negative NEGATIVE [facility] BARBITURATES SCREEN URINE Negative NEGATIVE [facility] BENZODIAZEPINES SCREEN URINE Negative NEGATIVE [facility] BUPRENORPHINE SCREEN URINE Negative NEGATIVE [facility] Comment on above: DRUG CLASS TEST SYST [...] 300 ng/mL CANNABINOID SCREEN URINE Negative NEGATIVE [facility] COCAINE SCREEN URINE Negative NEGATIVE [facility] METHADONE SCREEN URINE Negative NEGATIVE [facility] METHAMPHETAMINES SCREEN URINE Negative NEGATIVE [facility] OPIATE SCREEN URINE Negative NEGATIVE [facility] OXYCODONE SCREEN URINE Negative NEGATIVE [facility] PHENCYCLIDINE SCREEN URINE Negative NEGATIVE [facility] TRICYCLIC ANTIDEPRESSANT URINE Negative NEGATIVE [facility] care [facility] TB PREG QUANT HCGon 025 HCG QUANTITATIVE [address] mIU/mL [facility] Hea lthcare Comment on above: 5-50 0.2-1 WEEK 50-500 1-2 WEEKS 100-5,000 2-3 WEEKS 500-10,000 3-4 WEEKS 1,000-50,000 4-5 WEEKS 10,000-100,000 5-6 WEEKS 15,000-200,000 6-8 WEEKS 10,000-100,000 2-3 MONTHS [facility] HCG ( test) Ql (U)o n 07-31-2024 Interpretation and review of laboratory results Normal [facility] Healthcare Preg Test, Ur Negative Negative [facility] care [facility] COVID + FLU Quick Testingon 08-18-2023 SARS-CoV-2 (COVID-19) RNA ANNE+probe Ql (Unsp spec) Positive [facility] Other COVID + FLU Quick Testing Negative [facility] Other PAP ACOG PANEL 2: 21 to 29on 11-25-2022 . . Normal [facility] Comment on above: Performed By: #### [id number] #### [facility] [address] [place] [address] Dr. Keri Guerra Age Gdln ACOG Testing - Normal [facility] Comment on above: Performed By: #### [id number] #### [facility] [address] [address] [address] Keri Guerra DIAGNOSIS: Comment [facility] Comment on above: Result Comment: NEGA TIVE FOR INTRAEPITHELIAL LESION OR MALIGNANCY. Performed By: #### 4 [id number] #### [facility] [address] [place] [address] Dr. Keri Guerra Methodology: Comment [facility] Comment on above: Result Comment: This liquid based ThinPrep(R) pap test was screened with the use of an image guided system. Performed By: #### [id number] #### [facility] [address] [address] [address] Keri Guerra Note: Comment [facility] Comment on above: Result Comment: The Pap smear is a screening test designed to aid in the detection of premalignant and malignant conditions of the uterine cervix. It is not a diagnostic procedure and should not be used as the sole means of detecting cervical cancer. Both false-positive and false-negative reports do occur. . Performed By: #### 4 [id number] #### [facility] [address] [place] [address] Dr. Keri Guerra Performed by: Comment Normal [facility] Comment on above: Result Comment: Drew Florian, Migratory Worker (ASCP) Performed By: #### 4 [id number] #### [facility] [address] [place] [address] Dr. Keri Guerra Reflex Criteria: Comment Normal [facility] Comment on above: Result Comment: The HPV DNA reflex criteria were not met with this specimen result therefore, no HPV testing was performed. . Performed By: #### 4 [id number] #### [facility] [address] [address] [address] Keri Guerra Specimen adequacy: Comment Normal [facility] Comment on above: Result Comment: Sati sfactory for evaluation. No endocervical component is identified. Areas of partially obscuring inflammatory exudate are present. Performed By: #### 4 [id number] #### [facility] [address] [place] [address] Dr. Keri Guerra HEP B SURFACE ANTIGEN SCREEN on 10-17-2022 HBsAg Screen Negative Normal Negative [facility] Comment on above: Performed By: #### H BSANS #### [facility] [address] [place] [address] Dr. Keri Guerra HEPATITIS C VIRUS AB W/ REFL EX QUANTon 10-17-2022 HCV AB Non-Reactive Normal Non Reactive [facility] Comment on above: Performed By: #### H CVPCRR #### [facility] [address] [place] [address] Dr. Keri Guerra Interpretation: Comment Normal [facility] Comment on above: Result Comment: Not infected with HCV unless early or acute infection is suspected (which may be delayed in an immunocompromised individual), or other evidence exists to indicate HCV infection. Performed By: #### H CVPCRR #### [facility] [address] [place] [address] Dr. Keri Guerra HIV 1 AND 2 WITH REFLEXon HIV Screen 4th Generation wRfx Non-Reactive Normal Non Reactive [facility] Comment on above: Result Comment: HIV Negative HIV-1/HIV-2 antibodies and HIV-1 p24 antigen were NOT detected. There is no laboratory evidence of HIV infection. Performed By: #### H IV12 #### [facility] [address] [place] [address] Dr. Keri Guerra RPR QUANTon 10-17-2022 Rapid Plasma Reagin, Quant Non-Reactive Normal NonRea<1:1 [facility] Comment on above: Result Comment: Plea se Note: This test does not meet current guidelines for screening and diagnosis of syphilis. This test is intended for following treatment response in patients being treated for syphilis infection. To screen for syphilis infection, a reflex cascade that includes both RPR and a treponema-specific assay should be utilized, such as Treponema pallidum (Syphilis) Screening Sharp (969210) or Rapid Plasma Reagin (RPR) Test With Reflex to Quantitative RPR and Confirmatory Treponema pallidum Antibodies (989535). Performed By: #### R PRQ #### [facility] [address] [place] [address] Dr. Keri Guerra RUBELLA AB IGGon 10-17-2022 Rubella Antibodies, IgG <0.90 Critically low Immune >0.99 [facility] Comment on above: Result Comment: Non- immune <0.90 Equivocal 0.90 - 0.99 Immune >0.99 Performed By: #### R UBIGG #### [facility] [address] [place] [address] Dr. Keri Guerra CBC AUTO DIFFon 10-15-2022 BASO # 0.0 103/ul Normal 0.0-0.1 [facility] Comment on above: Performed By: #### C BC #### [facility] [address] [place] [address] Dr. Keri Guerra Basophils/100 WBC (Bld) 0.1 % Critically low 0.2-2.0 [facility] Comment on above: Performed By: #### C BC #### [facility] [address] [place] [address] Dr. Keri Guerra EO # 0.3 103/ul Normal 0.0-0.7 [facility] Comment on above: Performed By: #### C BC #### [facility] [address] [place] [address] Dr. Keri Guerra Eosinophils/100 WBC (Bld) 3.7 % Normal 0.9-7.0 [facility] Comment on above: Performed By: #### C BC #### [facility] [address] [place] [address] Dr. Keri Guerra Erythrocyte distribution width (RBC) [Ratio] 16.0 % Critically high 11.0-15.0 [facility] Comment on above: Performed By: #### C BC #### [facility] [address] [place] [address] Dr. Keri Guerra Hematocrit (Bld) [Volume fraction] 36.3 % Normal 36.0-48.0 [facility] Comment on above: Performed By: #### C BC #### [facility] [address] [place] [address] Dr. Keri Guerra Hemoglobin (Bld) [Mass/Vol] 12.1 g/dL Normal 12.0-16.0 [facility] Comment on above: Performed By: #### C BC #### [facility] [address] [place] [address] Dr. Keri Guerra IG # 0.02 10e3/ul Normal 0.00-0.03 [facility] Comment on above: Performed By: #### C BC #### [facility] [address] [place] [address] Dr. Keri Guerra IG % 0.3 % Normal 0.0-0.5 [facility] Comment on above: Performed By: #### C BC #### [facility] [address] [place] [address] Dr. Keri Guerra LYMPH # 1.7 103/ul Normal 1.2-3.8 [facility] Comment on above: Performed By: #### C BC #### [facility] [address] [place] [address] Dr. Keri Guerra Lymphocytes/100 WBC (Bld) 20.8 % Normal 20.5-60.0 [facility] Comment on above: Performed By: #### C BC #### [facility] [address] [place] [address] Dr. Keri Guerra MANUAL DIFF REQ NO Normal [facility] Comment on above: Performed By: #### C BC #### [facility] [address] [place] [address] Dr. Keri Guerra MCH (RBC) [Entitic mass] 25.3 pg Critically low 26.7-34.0 [facility] Comment on above: Performed By: #### C BC #### [facility] [address] [place] [address] Dr. Keri Guerra MCHC (RBC) [Mass/Vol] 33.3 g/dL Normal 29.9-35.2 [facility] Comment on above: Performed By: #### C BC #### [facility] [address] [place] [address] Dr. Keri Guerra MCV (RBC) [Entitic vol] 75.9 fL Critically low 81.0-99.0 [facility] Comment on above: Performed By: #### C BC #### [facility] [address] [place] [address] Dr. Keri Guerra MONO # 0.4 103/ul Normal 0.3-0.8 [facility] Comment on above: Performed By: #### C BC #### [facility] [address] [place] [address] Dr. Keri Guerra Monocytes/100 WBC (Bld) 5.0 % Normal 1.7-12.0 [facility] Comment on above: Performed By: #### C BC #### [facility] [address] [place] [address] Dr. Keri Guerra NEUT # 5.6 103/ul Normal 1.4-6.5 [facility] Comment on above: Performed By: #### C BC #### [facility] [address] [place] [address] Dr. Keri Guerra Neutrophils/100 WBC (Bld) 70.1 % Normal 43.0-75.0 [facility] Comment on above: Performed By: #### C BC #### [facility] [address] [address] [address] Keri Guerra Platelet mean volume (Bld) [Entitic vol] 11.0 fL Normal 9.5-13.5 [facility] Comment on above: Performed By: #### C BC #### [facility] [address] [address] [address] Keri Guerra PLT 319 103/ul Normal 150-450 [facility] Comment on above: Performed By: #### C BC #### [facility] [address] [address] [address] Keri Guerra RBC 4.78 106/ul Normal 4.20-5.40 [facility] Comment on above: Performed By: #### C BC #### [facility] [address] [address] [address] Keri Guerra WBC 7.9 103/ul Normal 4.0-11.0 [facility] Comment on above: Performed By: #### C BC #### [facility] [address] [address] [address] Keri Guerra CULTURE URINEon 10-15-2022 CULTURE URINE Culture Observations : LIGHT GROWTH OF MIXED GENITAL LARISA. NO POTENTIAL PATHOGENS SEEN. Normal [facility] Comment on above: Performed By: #### U RCX #### [facility] [address] [place] [address] Dr. Keri Guerra TSHon 10-15-2022 TSH 0.294 uIU/mL Critically low 0.358-3.740 [facility] Comment on above: Performed By: #### T SH #### [facility] [address] [place] [address] Dr. Keri Guerra TYPE AND SCREENon 10-15-2022 TYPE AND SCREEN Negative Normal [facility] Comment on above: Performed By: #### T NS #### [facility] [address] [place] [address] Dr. Keri Guerra US PREG TVon 10-01-2022 [...] days by today's ultrasound. Electronically authenticated by: MG BARRY Date: 2022-10-01 15:23 Normal [facility] Quick Strepon 03-25-2022 S. pyogenes Org specific cx Ql (Throat) Negative [facility] Other Quick Strep SpineThera [facility] Urlist Other COVID/FLU RT-PCRon SARS-CoV-2 (COVID-19) RNA ANNE+probe Ql (Unsp spec) Positive [facility] Other COVID/FLU RT-PCR Negative [facility] fruux Other COVID Quick Testingon 2020 Result Positive [facility] Other Consultation Noteon 08-05-19 Consultation Note [id number] [facility] Vital Signs Date Time Vital Sign Value Performing Clinician Facility 02-21-2025 11:44-0400 Body mass index (BMI) [Ratio] 30.07 kg/m2 Torri MILLER Work Phone: [facility] 02-21-2025 11:44-0400 Body weight 74.57 kg Torri MILLER Work Phone: [facility] 02-21-2025 11:44-0400 Diastolic blood pressure 78 mm[Hg] Torri MILLER Work Phone: [facility] 02-21-2025 11:44-0400 Systolic blood pressure 118 mm[Hg] Torri MILLER Work Phone: [facility] 01-10-2025 11:33-0400 Body mass index (BMI) [Ratio] 29.17 kg/m2 Torri Meza PA Work Phone: [facility] 01-10-2025 11:33-0400 Body weight 72.35 kg Torri Meza PA Work Phone: [facility] 01-10-2025 11:33-0400 Diastolic blood pressure 76 mm[Hg] Torri Meza PA Work Phone: [facility] 01-10-2025 11:33-0400 Systolic blood pressure 122 mm[Hg] Torri Meza PA Work Phone: [facility] 12-04-2024 13:28-0400 Body mass index (BMI) [Ratio] 27.87 kg/m2 Ai Tj DO Work Phone: [facility] [facility] 12-04-2024 13:28-0400 Body weight 69.13 kg Ai Tj DO Work Phone: [facility] 12-04-2024 13:28-0400 Diastolic blood pressure 70 mm[Hg] Ai Tj DO Work Phone: [facility] 12-04-2024 13:28-0400 Systolic blood pressure 120 mm[Hg] Ai Tj DO Work Phone: [facility] 11-22-2024 15:22-0400 Body mass index (BMI) [Ratio] 27.76 kg/m2 [facility] 11-22-2024 15:22-0400 Body weight 68.86 kg [facility] Nurse [facility] 10-31-2024 13:04-0400 Body mass index (BMI) [Ratio] 27.53 kg/m2 Ai Tj DO Work Phone: [facility] 10-31-2024 13:04-0400 Body weight 68.27 kg Ai Tj DO Work Phone: [facility] 10-31-2024 13:04-0400 Diastolic blood pressure 80 mm[Hg] Ai Tj DO Work Phone: [facility] 10-31-2024 13:04-0400 Systolic blood pressure 112 mm[Hg] Ai Tj DO Work Phone: [facility] 07-31-2024 09:06-0500 Body mass index (BMI) [Ratio] 27.58 kg/m2 Ai Tj DO Work Phone: [facility] 07-31-2024 09:06-0500 Body weight 68.4 kg Ai Tj DO Work Phone: [facility] 07-31-2024 09:06-0500 Diastolic blood pressure 80 mm[Hg] Ai Tj DO Work Phone: [facility] 07-31-2024 09:06-0500 Systolic blood pressure 120 mm[Hg] Ai Tj DO Work Phone: [facility] 05-10-2024 10:22-0400 Body height 160.02 cm [facility] 05-10-2024 10:22-0400 Body mass index (BMI) [Ratio] 24.7 kg/m2 [facility] 05-10-2024 10:22-0400 Body temperature 98.2 [degF] [facility] 05-10-2024 10:22-0400 Body weight 63.5 kg [facility] 05-10-2024 10:22-0400 Diastolic blood pressure 65 mm[Hg] [facility] 05-10-2024 10:22-0400 Heart rate 95 /min [facility] 05-10-2024 10:22-0400 Respiratory rate 18 /min [facility] 05-10-2024 10:22-0400 SaO2% (BldA) [Mass fraction] 97 % [facility] 05-10-2024 10:22-0400 Systolic blood pressure 128 mm[Hg] [facility] 08-18-2023 11:30-0500 Body height 157.48 cm Deann Partida Other [facility] 08-18-2023 11:30-0500 Body mass index (BMI) [Ratio] 26.48 kg/m2 Deann Jaquan Other [facility] Other 08-18-2023 11:30-0500 Body temperature 98.6 [degF] Deann Partida Other [facility] Other 08-18-2023 11:30-0500 Body weight 65.68 kg Deann Jaquan Other [facility] Other 08-18-2023 11:30-0500 Respiratory rate 18 /min Deann Partida Other [facility] Other 08-18-2023 11:30-0500 SaO2% (BldA) [Mass fraction] 97 % Deann Partida Other [facility] Other 09-14-2022 15:25-0500 Body height 157.48 cm Elsa Álvaro Other [facility] Other 09-14-2022 15:25-0500 Body mass index (BMI) [Ratio] 26.88 kg/m2 Elsa Álvaro Other [facility] Other 09-14-2022 15:25-0500 Body temperature 97.7 [degF] Elsa Rea Other [facility] Other 09-14-2022 15:25-0500 Body weight 66.68 kg Elsa Rea Other [facility] Other 09-14-2022 15:25-0500 Diastolic blood pressure 65 mm[Hg] Elsa Rea Other [facility] Other 09-14-2022 15:25-0500 Respiratory rate 18 /min Elsa Rea Other [facility] Other 09-14-2022 15:25-0500 SaO2% (BldA) [Mass fraction] 99 % Elsa Rea Other [facility] Other 09-14-2022 15:25-0500 Systolic blood pressure 118 mm[Hg] Elsa Rea Other [facility] Other 03-25-2022 11:40-0400 Body height 157.48 cm Charisse Bonillamond Other [facility] Other 03-25-2022 11:40-0400 Body mass index (BMI) [Ratio] 27.43 kg/m2 Charisse Bonillamond Other [facility] Other 03-25-2022 11:40-0400 Body temperature 98.8 [degF] Charisse Bonillamond Other [facility] Other 03-25-2022 11:40-0400 Body weight 68.04 kg Charisse Bonillamond Other [facility] Other 03-25-2022 11:40-0400 Respiratory rate 18 /min Charisse Bonillamond Other [facility] Other 03-25-2022 11:40-0400 SaO2% (BldA) [Mass fraction] 99 % Charisse Bonillamond Other [facility] Other 01-01-2022 10:40-0400 Body height 160.02 cm Deann Partida Other [facility] Other 01-01-2022 10:40-0400 Body mass index (BMI) [Ratio] 24.8 kg/m2 Deann Partida Other [facility] Other 01-01-2022 10:40-0400 Body temperature 97.5 [degF] Deann Partida Other [facility] Other 01-01-2022 10:40-0400 Body weight 63.5 kg Deann Jaquan Other [facility] Other 01-01-2022 10:40-0400 SaO2% (BldA) [Mass fraction] 99 % Deann Partida Other [facility] Other 05-04-2021 11:30-0400 Body height 160.02 cm Elsa Rea Other [facility] Other 05-04-2021 11:30-0400 Body mass index (BMI) [Ratio] 23.91 kg/m2 Elsa Rea Other [facility] Other 05-04-2021 11:30-0400 Body temperature 97.3 [degF] Elsa Rea Other [facility] Other 05-04-2021 11:30-0400 Body weight 61.24 kg Elsa Rea Other [facility] Other 05-04-2021 11:30-0400 SaO2% (BldA) [Mass fraction] 99 % Elsa Rea Other [facility] Other Encounters Encounter Date Encounter Type Care Provider Facility Start: 02-21-2025 End: 02-21-2025 Bamboo flowsheet Torri Meza PA Work Phone: [facility] Start: 02-21-2025 End: 02-21-2025 Bamboo flowsheet Torri Meza PA Work Phone: [facility] Start: 02-21-2025 End: 02-21-2025 ambulatory TORRI MEZA Not Available Start: 02-21-2025 End: 02-21-2025 flow sheet Torri Meza PA Work Phone: [facility] Comment on above: Third trimester preg sandy ([facility]); 31 weeks gestation of ([facility]); size inconsistent with dates ([facility]) Start: 02-14-2025 End: 02-14-2025 Clinisync Result Encounter Torri Meza PA Work Phone: [facility]solic[facility] Start: 02-14-2025 End: 02-14-2025 Clinisync Result Encounter Torri Meza PA Work Phone: [facility] Start: 01-12-2025 End: 01-12-2025 Clinisync Result Encounter Torri Meza PA Work Phone: [facility] Start: 01-12-2025 End: 01-12-2025 Clinisync Result Encounter Torri Meza PA Work Phone: [facility] Start: 01-10-2025 End: 01-10-2025 Bamboo flowsheet Torri Meza PA Work Phone: [facility] Start: 01-10-2025 End: 01-10-2025 Bamboo flowsheet Torri Breanna PA Work Phone: [facility] Start: 01-10-2025 End: 01-10-2025 ambulatory TORRI MEZA Not Available Start: 01-10-2025 End: 01-10-2025 flow sheet Torri Breanna PA Work Phone: [facility] Comment on above: Second trimester pre gnancy ([facility]); 25 weeks gestation of ([facility]); Diabetes mellitus screening Start: 12-04-2024 End: 12-04-2024 [...] unspecified contraceptive Start: 05-10-2024 End: 05-10-2024 ambulatory [facility] Work Phone: Start: 05-10-2024 End: 05-10-2024 Patient encounter procedure [facility] Work Phone: Start: 08-18-2023 End: 08-18-2023 ambulatory Deann Partida Other [facility] Other Start: 08-18-2023 Office outpatient vi sit 25 minutes Deann Paritda [facility] Start: 11-17-2022 End: 11-17-[address] AI SPENCER . Facility:[facility] Start: 10-18-[address] DOCTOR MONCADA Facility :[facility] Start: 10-15-2022 End: 10-16-[address] AI SPENCER . Facility:[facility] Start: 10-01-2022 End: 10-02-[address] AI SPENCER . Facility:[facility] Start: 09-14-2022 End: 09-14-2022 ambulatory Elsa Rea Other [facility] Other Start: 09-14-2022 Office outpatient vi sit 15 minutes Elsa Rea [facility] Start: 03-25-2022 End: 03-25-2022 ambulatory Charisse Blackwell Other [facility] Other Start: 03-25-2022 Office outpatient vi sit 15 minutes Charisse Blackwell [facility] Start: 01-01-2022 End: 01-01-2022 ambulatory Deann Partida Other [facility] Other Start: 01-01-2022 Office outpatient vi sit 25 minutes Deann Partida [facility] Start: 05-04-2021 Office outpatient vi sit 15 minutes Elsa Álvaro [facility] Procedures Date Procedure Procedure Detail Performing Clinician Start: 02-21-2025 Urnls dip stick/tabl et rgnt non-auto w/o micrscp Torri MILLER Work Phone: Start: 02-14-2025 GLUCOSE TOLERANCE 3 HOUR Torri MILLER Work Phone: Start: 01-12-2025 ALL CBC WITH AUTO DIFF [...] Treatment Date Care Activity Detail Author Start: 04-09-2025 End: 04-09-2025 Patient encounter procedure 04/09/2025 8:40 AM EDT Routine [facility] [address] [place] [address] Ai Spencer DO [address] [place] [address] [facility] Start: 04-02-2025 End: 04-02-2025 Patient encounter procedure 04/02/2025 8:50 AM EDT Routine [facility] [address] [place] [id number] Ai Spencer, DO [address] [place] [address] [facility] Start: 03-26-2025 End: 03-26-2025 Patient encounter procedure 03/26/2025 8:30 AM EDT Routine [facility] [address] [place] [id number] Torri Meza, PA [address] [place] [address] [facility] Start: 03-19-2025 End: 03-19-2025 Patient encounter procedure 03/19/2025 8:40 AM EDT Routine [facility] [address] [place] [id number] Ai Spencer, DO [address] [place] [address] [facility] Start: 03-07-2025 End: 03-07-2025 Patient encounter procedure 03/07/2025 9:00 AM EDT Routine [facility] [address] [place] [address] Ai Spencer, DO [address] [place] [address] [facility] Start: 03-07-2025 End: 03-07-2025 Professional / ancillary services management 03/07/2025 8:30 AM EDT Ancillary Procedure [facility] [address] [place] [id number] [facility] Start: 02-21-2025 End: 06-23-2025 US for US OB follow up transabdominal approach Imaging Routine size inconsistent with dates ([facility]) Expected: 02/21/2025, Expires: 06/23/2025 [facility] Work Phone: Comment on above: Expected: 02/21/2025 , Expires: 06/23/2025 Start: 02-05-2025 End: 02-05-2025 Patient encounter procedure 02/05/2025 8:40 AM EDT Routine [facility] [address] [facility] [place] [id number] Ai Spencer, DO [address] [place] [address] [facility] Start: 01-10-2025 End: 01-10-2026 CBC panel - Blood by Automated count CBC Lab Routine Diabetes mellitus screening Expected: 01/10/2025 (Approximate), Expires: 01/10/2026 [facility] Work Phone: Comment on above: Expected: 01/10/2025 (Approximate), Expires: 01/10/2026 Start: 01-10-2025 End: 01-10-2026 Measurement of glucose 1 hour after glucose challenge for glucose tolerance test Glucose tolerance, 1 hour Lab Routine Diabetes mellitus screening Expected: 01/10/2025 (Approximate), Expires: 01/10/2026 [facility] Comment on above: Expected: 01/10/2025 (Approximate), Expires: 01/10/2026 Start: 01-01-2025 End: 01-01-2025 Patient encounter procedure 01/01/2025 2:40 PM EDT Routine [facility] [address] [facility] [place] [phone] Ai Spencer, DO [address] [place] [address] [facility] Start: 12-04-2024 End: 12-04-2024 Patient [...] PM EDT Initial [facility] [address] [facility] [place] [address] [facility] Start: 11-22-2024 End: 02-22-2025 US for US OB 14+ weeks anatomy scan Imaging Routine Screening, , for anatomic survey Expected: 11/22/2024, Expires: 02/22/2025 [facility] Comment on above: Expected: 11/22/2024 , Expires: 02/22/2025 Start: 10-31-2024 End: 12-31-2024 Alpha fetoprotein, maternal Alpha fetoprotein, maternal Lab Routine Well woman exam with routine gynecological exam Expected: 10/31/2024 (Approximate), Expires: 12/31/2024 [facility] Work Phone: Comment on above: Expected: 10/31/2024 (Approximate), Expires: 12/31/2024 Start: 10-31-2024 End: 10-31-2024 Patient encounter procedure [facility] Comment on above: Arrived Start: 2024 End: 2024 Patient encounter procedure 2024 3:30 PM EST Procedure Visit [facility] [address] [place] [id number] Ai Spencer DO [address] [place] [address] [facility] CHLAMYDIA TRACHOMATI S (GENITO/STI) CHLAMYDIA TRACHOMATIS (GENITO/STI) Lab Routine STD exposure Ordered: 10/31/2024 [facility] Comment on above: Ordered: 10/31/2024 Cytology Cervical or vaginal smear or scraping study Pap Smear Pathology and Cytology Routine Well woman exam with routine gynecological exam Ordered: 10/31/2024 [facility] Comment on above: Ordered: 10/31/2024 End: 2025 hCG, quantitative, hCG, quantitative, Lab Routine examination or test, positive result 4 Occurrences starting 2024 until 2025 [facility] Work Phone: Comment on above: 4 Occurrences starti ng 2024 until 2025 Neisseria gonorrhoea e DNA [Presence] in Unspecified specimen by ANNE with probe detection Neisseria gonorrhea DNA probe, direct Lab Routine STD exposure Ordered: 10/31/2024 [facility] Comment on above: Ordered: 10/31/2024 SURESWAB(R) ADVANCED VAGINITIS PLUS, TMA SURESWAB(R) ADVANCED VAGINITIS PLUS, TMA Pathology and Cytology Routine STD exposure Ordered: 10/31/2024 [facility] Comment on above: Ordered: 10/31/2024 Payers Date Payer Category Payer Medicaid [employer] [id number] 2024 Private Health Insurance [id number] 2024 Unknown [id number] 2022 Medicaid [id number] 2001 Unknown [id number] 2.16.840.1.102637.3.579.2. 593 2001 Unknown [id number] 2.16.840.1.512526.3.579.2. 593 2001 Unknown [id number] 2.16.840.1.529301.3.579.2. 593 2001 Unknown [id number] 2.16.840.1.220425.3.579.2. 593 2001 Unknown [id number] 2.16.840.1.415369.3.579.2. 593 2001 Unknown [id number] 2.16.840.1.484866.3.579.2. 1259 2001 Unknown [id number] 2.16.840.1.752856.3.579.2. 1259 2001 Unknown [id number] 2.16.840.1.677980.3.579.2. 1259 2001 Unknown [id number] 2.16.840.1.878869.3.579.2. 1259 2001 Unknown [id number] 2.16.840.1.745644.3.579.2. 1259 2001 Unknown [id number] 2.16.840.1.616297.3.579.2. 1259 2001 Unknown [id number] 2.16.840.1.580242.3.579.2. 1259 1959 Blue Cross Blue Shield [id number] Private Health Insurance [id number] [id number] Self-pay Self Pay [id number] Unknown [id number] Unknown [place] BC/BS [id number] Social History Date Type Detail Facility Unknown if ever smoked [facility] Other Start: 01-31-2024 End: 07-31-2024 Sex Assigned At [facility] [employer] Other Start: 03-31-2023 End: 05-10-2024 Tobacco smoking status NHIS Never smoked tobacco (finding) [facility] Start: 2000 Sex Assigned At Female [facility] Start: 03-31-2023 Tobacco use and exposure Smokeless tobacco non-user [facility] Start: 01-31-2024 End: 02-21-2025 Alcoholic beverage intake Lifetime non-drinker (finding) [facility] Start: 01-31-2024 End: 07-31-2024 History of Social function [facility] Start: 02-16-2023 Alcohol Comment Caffeine intak e: soda/pop occasional [facility] Start: 2001 Sex assigned at Not on file [facility] Start: 08-01-2024 [facility] Goals Date Patient Goal Desired Activity /State Personal health goal Clinical Notes 05-04-2021 to 02-21-2025 ANGELA Mayorga - 02/21/2025 11:30 AM ANGELA Sharma - 01/10/2025 11:20 AM Sabrina Rodriguez LPN - 12/04/2024 1:00 PM Muriel De Leon LPN - 11/22/2024 2:00 PM EDT Note Date & Type Note Facility 02-21-2025 History of Presen t illness Narrative Reason for Appointment: Patient ID: Wendy Agosto is a 24 y.o. female who presents for Routine Visit Patient presents today for Return OB appointment. MEDICATIONS No current outpatient medications ALLERGIES Allergies Allergen Reactions Minocycline Nausea Only PROBLEMS Active Ambulatory Problems Diagnosis Date Noted Missed menses 2024 examination or test, positive result ([facility]) 2024 Resolved Ambulatory Problems Diagnosis Date Noted No Resolved Ambulatory Problems Past Medical History: Diagnosis Date 6 weeks follow-up ([facility]) BMI 25.0-25.9,adult Salt deficiency Type O blood, Rh positive HISTORY PAST MEDICAL HISTORY SOCIAL HISTORY Past Medical History: Diagnosis Date 6 weeks follow-up ([facility]) BMI 25.0-25.9,adult Salt deficiency Type O blood, [...] reviewed. Vitals: Estimated body mass index is 30.07 kg/m as calculated from the following: Height as of 12/15/22: 5' 2 . Weight as of this encounter: 164 lb 6.4 oz. BP: 118/78 Patient's last menstrual period was 07/18/2024. ASSESSMENT & PLAN ICD-10-CM 1. Third trimester ([facility]) Z34.93 POCT urinalysis dipstick manually resulted 2. 31 weeks gestation of ([facility]) Z3A.31 POCT urinalysis dipstick manually resulted 3. size inconsistent with dates ([facility]) O26.849 US OB follow up transabdominal approach Return OB: Patient presents today for a routine obstetrics appointment. Patient is currently 31w1d . Patient states she is doing well but has complaints of being tired due to current . Patient has verbalizes frequent movement. labor precautions was discussed/given and patient was instructed to perform kick counts three times a day. Orders Placed This Encounter Procedures US OB follow up transabdominal approach POCT urinalysis dipstick manually resulted Follow Up: Patient is to return to office in 2 week for routine OB appointment. Documented by ANGELA Mayorga on behalf of: ANGELA Mayorga documented in this encounter [facility] 01-10-2025 History of Presen t illness Narrative Reason for Appointment: Patient ID: Wendy Agosto is a 24 y.o. female who presents for Routine Visit Patient presents today for Return OB appointment. MEDICATIONS No current outpatient medications ALLERGIES Allergies Allergen Reactions Minocycline Nausea Only PROBLEMS Active Ambulatory Problems Diagnosis Date Noted Missed menses 2024 examination or test, positive result ([facility]) 2024 Resolved Ambulatory Problems Diagnosis Date Noted No Resolved Ambulatory Problems Past Medical History: Diagnosis Date 6 weeks follow-up ([facility]) BMI 25.0-25.9,adult Salt deficiency Type O blood, Rh positive HISTORY PAST MEDICAL HISTORY SOCIAL HISTORY Past Medical History: Diagnosis Date 6 weeks follow-up ([facility]) BMI 25.0-25.9,adult Salt deficiency Type O blood, [...] ASSESSMENT & PLAN ICD-10-CM 1. Second trimester ([facility]) Z34.92 POCT urinalysis dipstick manually resulted 2. 25 weeks gestation of ([facility]) Z3A.25 3. Diabetes mellitus screening Z13.1 CBC [...] of: ANGELA Mayorga documented in this encounter [facility] 12-04-2024 History of Presen t illness Narrative [...] nursing note reviewed. Exam conducted with a community music therapist present. Vitals: Estimated body mass index is [...] Ai Spencer DO documented in this encounter [facility] 11-22-2024 History of Presen t illness Narrative [...] or undercooked meat, and stay away from [facility]. Patient has also been advised to [...] De Leon LPN documented in this encounter [facility] 10-31-2024 History of Presen t illness Narrative [...] nursing note reviewed. Exam conducted with a community music therapist present. Vitals: Estimated body mass index is [...] Ai Spencer DO documented in this encounter [facility] 2024 History of Presen t illness Narrative [...] nursing note reviewed. Exam conducted with a community music therapist present. Vitals: Estimated body mass index is [...] Ai Spencer DO documented in this encounter [facility] 07-31-2024 History of Presen t illness Narrative [...] nursing note reviewed. Exam conducted with a community music therapist present. Vitals: Estimated body mass index is [...] Ai Spencer DO documented in this encounter [facility] 08-18-2023 Evaluation note Encounter Date Diagnosis Assessment [...] treatment plan. Patient left in stable condition [facility] 02-28-2023 Evaluation note* Encounter Date Diagnosis Assessment Notes Treatment Notes Treatment Clinical Notes Aug, Impetigo (ICD-10 - L01.00) Clean area as discussed with 1/2 peroxide and water mix. Apply ointment to area. Infection is very contagious. Bed laundering and cleaning toys is important. Follow up with primary care provider or come back into office to be seen if symptoms worsen [facility] Other 09-08-2022 Evaluation note* Encounter Date Diagnosis [...] no improvement in 2 to 3 days. [facility] 06-17-2022 Evaluation note* Encounter Date Diagnosis [...] treatment plan. Patient left in stable condition [facility] 10-18-2021 Evaluation note* Encounter Date Diagnosis Assessment Notes Treatment Notes Treatment Clinical Notes Apr, Contact with and (suspected) exposure to other viral communicable diseases (ICD-10 - Z20.828) Apr, COVID-19 (ICD-10 - U07.1) Today you tested positive for the COVID virus. This mean you need to follow all CDC quarantine guidelines found at [email or web address].go v. It is important to rest, increase [...] writting by CDC Care At Home document. [facility] Other Evaluation note* Diagnosis Onset Date Resolution Status Right ankle sprain acute [facility] Work Phone: Evaluation note* Diagnosis Encounter [...] for diabetes mellitus [facility] Diagnosis Third trimester ([facility]) state, incidental 31 weeks gestation of ([facility]) size inconsistent with dates ([facility]) documented [facility] - Reported* Type Description Date Hospitalization History fractured arm and shatte red elbow [facility] Other History general Narrative - Reported* Type Description Date Hospitalization History fractured arm and shatte red elbow Hospitalization History childbirth [facility] Other Summary Purpose Family History No Family [...] and content) DATE CREATED AUTHOR 08/09/2020 [facility] DATE CREATED AUTHOR AUTHOR'S ORGANIZ ATION 12/24/2022 Jessica [facility] DATE CREATED AUTHOR AUTHOR'S ORGANIZ ATION 02/23/2025 [facility] EPIC REASON FOR [...] BE BASED ON THE PRIMARY CLINICAL RECORDS. [employer] provides no warranty or guarantee of the accuracy or completeness of information in this document.
== END 2025-03-01 07:00 | disposition home or self-care (01) ==
LOC: US 06:59
PROVIDERS: Visit Provider Physician Assistant
DX: O26.843 Uterine size-date discrepancy, third trimester (principal); Z3A.32 32 weeks gestation of pregnancy
CPT/HCPCS: 76816

== ENCOUNTER 2025-03-20 14:52 | Observation (INO) | payer OTHER, SELFPAY ==
--- OUTSIDE RECORDS SUMMARY | 2021-02-18 10:30 | XMS_ITS | Continuity of Care Document ---
Author Organization [facility] Address [address] [place] [address] Phone Care Team Providers Care Bartenders Name Role Phone Chucky RUIZNarendra DELMERWaleska Unavailable Unavaila ble Allergies, Adverse Reactions, Alerts Substance Reaction Status Criticality No Known Allergies Active No Inform ation Medications Medication Instructions Dosage Effective Dates (start - stop) Status Comments promethazine 25 mg tablet take 1 tablet by oral route every 4 - 6 hours as needed 25 MG - Active Prenate DHA 28 mg iron-1 mg-300 mg capsule take 1 capsule by oral route every day (May substitute per insurance) - Active may substitute with ANY vitamin covered by her insurance Problems Condition Type Effective Dates (start - stop) Clini cezar Status Comments No Known Problems Procedures Procedure Date URINE TEST URINALYSIS NONAUTO W/O SCOPE OFFICE/OUTPATIENT VISIT, EST Advance Directives Directive Yes / No Effective Date File Name Life Support Not Answered N/A N/A Intubation Not Answered N/A N/A Antibiotics Not Answered N/A N/A IV Fluid Support Not Answered N/A N/A Tube Feed Not Answered N/A N/A Other Directive N/A N/A WARNING:The information contained in this section is historical and is provided for information only and does not constitute a legal document or any assurance that the information is still accurate. Please verify the information with the jensen of the legal document before using it for clinical purposes. Encounters Encounter Description Practice Location Reason(s) For Visit Diagnoses Date Provider Providers Copied on Encounter OFFICE/OUTPAT IENT VISIT, EST [facility], [address], [place], [id number], [place] tel:[phone] [facility] Test (chief complaint) Encounter for test, result positiveLess than 8 weeks gestation of pregnancyEncounter for supervision of normal 1st , 1st trimester Chucky [facility]. [address], [place], [id number] , [place]. tel:[phone] Family History Family Member Type Diagnosis Age At Onset Father Problem hypertension Mother Problem Eczema Mother Problem asthma Sister Problem Alive and well Father Problem Diabetes mellitus Payers Payer name Insurance type Covered democrat ID Rosanna shetty(mark anthony Saleh [id number] Medicaid Wrap - [facility] [place] [id number] Social History Type Description Quantity Date Captured Comments Alcohol Use Details No Caffeine Use Details No Tobacco Use Status Current non-smoker Smoking Status Never smoker Non-Smoking Tobacco Use Details : No Details Available : No Details Available Sex Female Yes - Patient is currently Sexual Orientation Straight or heterosexual Gender Identity Female Vital Signs Date / Time: Height Weight BMI Pulse Rate Blood Pressure Temperature Respiratory Rate Body Surface Area Head Circumference Head Circ. Percentile Wt./Ganga. Percentile BMI percentile Pulse Ox Inhaled Ox 3:07 PM 63.00 in 61.689 kg (136.00 lbs) 24.0 9 kg/m eter (2) 82 /min 110/75 mm[Hg] 73 Chief Complaint And Reason For Visit From encounter dated '02/18/2021 14:30'. Test (chief complaint) Reason For Referral Reason For Referral No Information History Of Present Illness Encounter Date Complaint History Of Prese nt Illness Test Functional Status Date Functional Assessmen t No Information Instructions Date Instruction Additional Infor melanie Reviewed resources a vailable to patient and handout was given. Related to Less than 8 weeks gestation of Assessments Type Assessment Date assessment Encounter for test, re sult positive assessment Less than 8 weeks gestation of p regnancy assessment Encounter for superv ision of normal 1st , 1st trimester Mental Status Date Cognitive Assessment Orientation - Lemitar ed to time, place, person, situation. Patient Care Teams Name Effective Dates (start - stop) Status Members No Information
--- OUTSIDE RECORDS SUMMARY | 2025-03-07 09:00 | XMS_ITS | Encounter Summary ---
Author Organization [facility] Address [address] [place] [address] Care Team Providers Care Pharmacy Stock Clerk Name Role Phone Unavailable Primary Care Provider Unavailabl e Reason for Visit * Reason Comments Routine Visit Encounter Details Date Type Department Care Team (Late st Contact Info) Description 03/07/2025 9:00 AM EDT Routine [facility] [place] [facility] [address] [facility] [place] [phone] Benjamin Spencer DO [address] [facility] [place] [address] 33 weeks gestation of ([facility]); Third trimester ([facility]) Social History Tobacco Use Types Packs/Day Years Used Date Smoking Tobacco: Never Smokeless Tobacco: Never Alcohol Use Standard Drinks/Week Comments Never 0 (1 standard drink = 0.6 oz pure alcohol) Caffeine intake: soda/pop occasional Estimated Date of Delivery Comme nts Yes 04/24/2025 Based on last me nstrual period of 07/18/2024 Sex and Gender Information Value Date Recorded Sex Assigned at Not on file Legal Sex Female 7:06 PM EDT Gender Identity Not on file Sexual Orientation Not on file documented as of this encounter Last Filed Vital Signs Vital Sign Reading Time Taken Comments Blood Pressure 110/70 03/07/2025 10:12 AM EDT Pulse - - Temperature - - Respiratory Rate - - Oxygen Saturation - - Inhaled Oxygen Concentration - - Weight 74.8 kg (165 lb) 03/07/2025 10:12 AM EDT Height - - Body Mass Index 30.18 12/15/2022 10:37 AM EDT documented in this encounter Progress Notes * Waleska Castanedamervat, YARIEL - 03/07/2025 9:00 AM EDT Reason for Appointment: Patient ID: Wendy Agosto is a 24 y.o. female who presents for Routine Visit Patient presents today for Return OB appointment. MEDICATIONS No current outpatient medications ALLERGIES Allergies Allergen Reactions Minocycline Nausea Only PROBLEMS Active Ambulatory Problems Diagnosis Date Noted Missed menses 2024 examination or test, positive result ([facility]) 2024 Resolved Ambulatory Problems Diagnosis Date Noted No Resolved Ambulatory Problems Past Medical History: Diagnosis Date 6 weeks follow-up ([facility]) BMI 25.0-25.9,adult Salt deficiency Type O blood, Rh positive HISTORY PAST MEDICAL HISTORY SOCIAL HISTORY Past Medical History: Diagnosis Date 6 weeks follow-up ([facility]) BMI 25.0-25.9,adult Salt deficiency Type O [...] nursing note reviewed. Exam conducted with a school aide present. Vitals: Estimated body mass index is 30.18 kg/m?? as calculated from the following: Height as of 12/15/22: 5' 2 . Weight as of this encounter: 165 lb. BP: 110/70 Patient's last menstrual period was 07/18/2024. ASSESSMENT & PLAN ICD-10-CM 1. 33 weeks gestation of ([facility]) Z3A.33 POCT urinalysis dipstick manually resulted 2. Third trimester ([facility]) Z34.93 POCT urinalysis dipstick manually resulted Patient presents today for a routine obstetrics appointment. Patient is currently 33w1d with a Estimated Date of Delivery: 04/24/25. Patient to return to clinic in 2 weeks. Documented by Waleska Linares LPN on behalf of: Benjamin Spencer DO documented in this encounter Plan of Treatment Upcoming Encounters Date Type Department Care Team (Late st Contact Info) Description 03/26/2025 8:30 AM EDT Routine [facility] [address] [place] [address] [place] [address] Torri Carlos PA [address] [facility] [address] [place], [place] [id number] 04/02/2025 8:50 AM EDT Routine [facility] [address] [place] [address] Benjamin Spencer DO [address] [facility] [address] [place], [place] [id number] 04/09/2025 8:40 AM EDT Routine [facility] [address] [place] [address] Benjamin Spencer DO [address] [place] [address] [place] [address] documented as of this encounter Goals Goal Patient Goal Type Associated Problems Recent Progress Patient-Stated? Author Reminders Care Plan OB Reminders No Open Scheduling, Background documented as of this encounter Procedures Procedure Name Priority Date/Time Associated Diagnosis Comments POCT URINALYSIS DIPSTICK Routine 03/07/2025 10:16 AM EDT 33 weeks gestation of ([facility]) Third trimester ([facility]) documented in this encounter Results * (ABNORMAL) POCT urinalysis dipstick manually resulted (03/07/2025 10:16 AM EDT) Color, UA Yellow Clarity, UA Clear Glucose, UA Negative Negative - 2000(110) ++++ mg/dL Bilirubin, UA Negative Negative - 4(70) +++ mg/dL Ketones, UA Negative Negative - 160(16) ++++ mg/dL Spec Grav, UA 1.010 1 - 1.03 Blood, UA Negative Negative - 50 Nicolás/mcL pH, UA 7.0 5 - 9 Protein, UA Negative Negative - 2000(20) ++++ mg/dL Urobilinogen, UA 1.0 0.2 - 12 mg/dL Leukocytes, UA Positive Negative - 500+++ Yodit/mcL Nitrite, UA Negative Negative - Positive Urine 03/07/2025 10:1 6 AM EDT Benjamin Spencer DO POINT OF CARE TEST ENTER/EDIT OR DERABLES Final Result documented in this encounter Visit Diagnoses Diagnosis 33 weeks gestation of ([facility]) Third trimester ([facility]) state, incidental documented in this encounter Additional Health Concerns Active Problems Noted Date Diagnosed Date OB Reminders 04/27/2023 documented as of this encounter
--- OUTSIDE RECORDS SUMMARY | 2025-03-19 08:40 | XMS_ITS | Encounter Summary ---
Author Organization [facility] Address [address] [place] [address] Care Team Providers Care Brush Filler Hand Name Role Phone Unavailable Primary Care Provider Unavailabl e Reason for Visit * Reason Comments Routine Visit Encounter Details Date Type Department Care Team (Late st Contact Info) Description 03/19/2025 8:40 AM EDT Routine [facility] [place] [facility] [address] [facility] [phone] Benjamin Spencer DO [address] [facility] [place] [address] 34 weeks gestation of ([facility]); Third trimester ([facility]); SGA (small for gestational age) ([facility]) Social History Tobacco Use Types Packs/Day Years [...] menses 2024 examination or test, positive result ([facility]) 2024 Resolved Ambulatory Problems Diagnosis Date Noted No Resolved Ambulatory Problems Past Medical History: Diagnosis Date 6 weeks follow-up ([facility]) BMI 25.0-25.9,adult Salt deficiency Type O blood, Rh positive HISTORY PAST MEDICAL HISTORY SOCIAL HISTORY Past Medical History: Diagnosis Date 6 weeks follow-up ([facility]) BMI 25.0-25.9,adult Salt deficiency Type O blood, [...] nursing note reviewed. Exam conducted with a furnace converter present. Vitals: Estimated body mass index is 30.43 kg/m?? as calculated from the following: Height as of 12/15/22: 5' 2 . Weight as of this encounter: 166 lb 6.4 oz. BP: 120/78 Patient's last menstrual period was 07/18/2024. ASSESSMENT & PLAN ICD-10-CM 1. 34 weeks gestation of ([facility]) Z3A.34 POCT urinalysis dipstick manually resulted 2. Third trimester ([facility]) Z34.93 POCT urinalysis dipstick manually resulted Return [...] Info) Description 03/26/2025 8:30 AM EDT Routine [facility] [address] [place] [address] [place] [phone] Torri Carlos PA [address] [facility] [address] [place], [place] [id number] 04/02/2025 8:50 AM EDT Routine [facility] [address] [place] [address] [place] [address] Benjamin Spencer, DO [address] [facility] [place] [address] 04/09/2025 8:40 AM EDT Routine [facility] [address] [place] [address] [place] [address] Benjamin Spencer, DO [address] [facility] [place] [address] Pending Results Name Type Priority Associated Diagnoses Date /Time US OB follow up transabdominal approach Imaging Routine SGA (small for gestational age) ([facility]) 03/20/2025 11:56 AM EDT Scheduled Orders Name Type Priority Associated Diagnoses Orde r Schedule US OB follow up transabdominal approach Imaging Routine SGA (small for gestational age) ([facility]) Expected: 03/19/2025, Expires: 07/19/2025 US biophysical profile w non stress test Imaging Routine SGA (small for gestational age) ([facility]) Expected: 03/20/2025 (Approximate), Expires: 09/17/2025 documented as of this encounter Goals Goal Patient Goal Type Associated Problems Recent Progress Patient-Stated? Author Reminders Care Plan OB Reminders No Open Scheduling, Background documented as of this encounter Procedures Procedure Name Priority Date/Time Associated Diagnosis Comments POCT URINALYSIS DIPSTICK Routine 03/19/2025 9:00 AM EDT 34 weeks gestation of ([facility]) Third trimester ([facility]) documented in this encounter Results * POCT urinalysis dipstick manually resulted (03/19/2025 [...] Visit Diagnoses Diagnosis 34 weeks gestation of ([facility]) Third trimester ([facility]) state, incidental SGA (small for gestational age) ([facility]) Kjgjh-vgj-ntdet without mention of malnutrition, unspecified (weight) documented in this encounter Additional Health Concerns Active Problems Noted Date Diagnosed Date OB Reminders 04/27/2023 documented as of this encounter
--- OUTSIDE RECORDS SUMMARY | 2025-03-20 11:30 | XMS_ITS | Encounter Summary ---
Author Organization [facility] Address [address] [place] [address] Care Team Providers Care Professional Fee Coder Name Role Phone Unavailable Primary Care Provider Unavailabl e Encounter Details Date Type Department Care Team (Latest Contact Info) Description 03/20/2025 11:30 AM EDT Ancillary Procedure [facility] [address] [place] [address] SGA (small for gestational age) ([facility]) Social History Tobacco Use Types Packs/Day Years [...] on file documented as of this encounter Plan of Treatment Upcoming Encounters Date Type Department Care Team (Late st Contact Info) Description 03/26/2025 8:30 AM EDT Routine [facility] [address] [place] [address] Torri Carlos PA [address] [place], [facility] 04/02/2025 8:50 AM EDT Routine [facility] [address] [place] [address] Benjamin Spencer, DO [address] [facility] [place] [address] 04/09/2025 8:40 AM EDT Routine [facility] [address] [place] [address] Benjamin Spencer, DO [address] [facility] [place] [address] Pending Results Name Type Priority Associated Diagnoses Date /Time US OB follow up transabdominal approach Imaging Routine SGA (small for gestational age) ([facility]) 03/20/2025 11:56 AM EDT documented as of this encounter Goals Goal Patient Goal Type Associated Problems Recent Progress Patient-Stated? Author Reminders Care Plan OB Reminders No Open Scheduling, Background documented as of this encounter Visit Diagnoses Diagnosis SGA (small for gestational age) ([facility]) Uebpy-rqt-uoant without mention of malnutrition, unspecified (weight) documented in this encounter Additional Health Concerns Active Problems Noted Date Diagnosed Date OB Reminders 04/27/2023 documented as of this encounter
--- OUTSIDE RECORDS SUMMARY | 2025-03-20 14:57 | XMS_ITS | Encounter Summary ---
Author Organization [facility] Address [address] [place] [address] Care Team Providers Care Unitizer Name Role Phone Unavailable Primary Care Provider Unavailabl e Encounter Details Date Type Department Care Team (Late st Contact Info) Description 03/07/2025 Bamboo flowsheet [facility] [address] [facility] [place] [address] Benjamin Spencer DO [address] [facility] [address] [place], [facility]11 Social History Tobacco Use Types Packs/Day Years [...] 03/26/2025 8:30 AM EDT Routine [facility] [address] [facility] [place] [address] Torri Carlos PA [address] [facility] [address] [place], [facility]11 04/02/2025 8:50 AM EDT Routine [facility] [address] [facility] [address] Benjamin Spencer, DO [address] [facility] [place] [address] 04/09/2025 8:40 AM EDT Routine [facility] [address] [facility] [place] [phone] Benjamin Spencer, DO [address] [facility] [place] [address] documented as of this encounter Goals Goal Patient Goal Type Associated Problems Recent Progress Patient-Stated? Author Reminders Care Plan OB Reminders No Open Scheduling, Background documented as of this encounter Visit Diagnoses Not on filedocumented in this encounter Additional Health Concerns Active Problems Noted Date Diagnosed Date OB Reminders 04/27/2023 documented as of this encounter
--- OUTSIDE RECORDS SUMMARY | 2025-03-20 14:57 | XMS_ITS | Encounter Summary ---
Author Organization [facility] Address [address] [place] [address] Care Team Providers Care Technology Engineer Name Role Phone Unavailable Primary Care Provider Unavailabl e Encounter Details Date Type Department Care Team (Late st Contact Info) Description 01/13/2023 Abstract [facility] [address] [place], [place] [address] [address] Benjamin Spencer DO [address] [place], [place] [address] Social History Tobacco Use Types Packs/Day Years Used Date Smoking Tobacco: Never Assessed Comments Yes Sex and Gender Information Value Date Recorded Sex Assigned at Not on file Legal Sex Female 7:06 PM EDT Gender Identity Not on file Sexual Orientation Not on file documented as of this encounter Plan of Treatment Upcoming Encounters Date Type Department Care Team (Late st Contact Info) Description 03/26/2025 8:30 AM EDT Routine [facility] [place] [address] Torri Carlos PA [address] [place], [place] [id number] 04/02/2025 8:50 AM EDT Routine [facility] [place] [address] Benjamin Spencer DO [address], [facility]24 04/09/2025 8:40 AM EDT Routine [facility] [address] [facility] [place] [address] Benjamin Spencer DO [address] [facility] [address] [place], [place] [id number] documented as of this encounter Visit Diagnoses Not on filedocumented in this encounter
--- OUTSIDE RECORDS SUMMARY | 2025-03-20 14:57 | XMS_ITS | Clinical Summary ---
Author Organization [facility] Address [address] [place] [address] Care Team Providers Care Bank Credit Card Collection Clerk Name Role Phone Unavailable Primary Care Provider Unavailabl e Allergies Active Allergy Reactions Criticality Noted Date Comments Minocycline Nausea Only 12/14/2022 Medications No known medications Active Problems Problem Noted Date Diagnosed Date Missed menses 2024 examination or test, positive result ( [facility]) 2024 Estimated Date of Delivery Comme nts Yes 04/24/2025 Based on last me nstrual period of 07/18/2024 Encounters Date Type Department Care Team Description 03/20/2025 11:30 AM EDT Ancillary Procedure [facility] [address] [place] [address] SGA (small for gestational age) ([facility]) 03/20/20[place] [address] Michelle Curry MA 03/19/2025 8:40 [place] [address] Benjamin Spencer DO 34 weeks gestation of ([facility]); Third trimester ([facility]); SGA (small for gestational age) ([facility]) 03/19/2025 Bamboo flowsheet [facility] [address] [place] [address] Benjamin Spencer DO 03/07/2025 9:00 AM EDT Routine [facility] [address] [facility] [place] [address] Benjamin Spencer, 33 weeks gestation of ([facility]); Third trimester ([facility]) 03/07/2025 Bamboo flowsheet [facility] [address] [facility] [place] [address] Benjamin Spencer, 03/01/2025 Clinisync Result Encounter NOMS External Department Unsolicited Torri Meza PA 02/21/2025 11:30 AM EDT Routine [facility] [address] [facility] [place] [address] Torri Meza PA Third trimester ([facility]); 31 weeks gestation of ([facility]); size inconsistent with dates ([facility]) 02/21/2025 Bamboo flowsheet [facility] [address] [place] [address] Torri Meza PA 02/14/2025 Clinisync Result Encounter NOMS External Department Unsolicited Torri Meza PA 01/14/2025 Telephone [facility] [address] [facility] [place] [address] Torri Meza PA 01/12/2025 Clinisync Result Encounter NOMS External Department Unsolicited Torri Meza PA 01/10/2025 11:20 AM EDT Routine [facility] [address] [place] [address] Torri Meza PA Second trimester ([facility]); 25 weeks gestation of ([facility]); Diabetes mellitus screening 01/10/2025 Bamboo flowsheet [facility] [address] [facility] [place] [address] Torri Meza PA 01/09/2025 Travel from Last 3 Months Family History Medical History Relation Name Comments Diabetes Father Heart disease Father Diabetes Maternal Grandfather No Known Problems Maternal Grandmother No Known Problems Paternal Grandfather No Known Problems Paternal Grandmother Relation Name Status Comments Father Alive Maternal Grandfather Alive Maternal Grandmother Alive Mother Alive Paternal Grandfather Paternal Grandmother Alive Sister 1, healthy Social History Tobacco Use Types Packs/Day Years Used Date Smoking Tobacco: Never Smokeless Tobacco: Never Tobacco Cessation:Counseling Given: Not Answered Alcohol Use Standard Drinks/Week Comments Never 0 [...] on file Sexual Orientation Not on file Last Filed Vital Signs Vital Sign Reading Time Taken Comments Blood Pressure 120/78 03/19/2025 8:52 AM EDT Pulse - - Temperature - - Respiratory Rate - - Oxygen Saturation - - Inhaled Oxygen Concentration - - Weight 75.5 kg (166 lb 6.4 oz) 03/19/2025 8:52 A M EDT Height 157.5 cm (5' 2 ) 12/15/2022 10:37 AM EDT Body Mass Index 30.43 12/15/2022 10:37 AM EDT Plan of Treatment Upcoming Encounters Date Type Department Care Team (Late st Contact Info) Description 03/26/2025 8:30 AM EDT Routine [facility] [address] [facility] [place] [phone] Torri Meza PA [address] [facility] [address] [place], [place] [address] 04/02/2025 8:50 AM EDT Routine [facility] [address] [facility] [place] [address] Benjamin Spencer DO [address] [facility] [address] [place], [place] [phone] 04/09/2025 8:40 AM EDT Routine [facility] [address] [facility] [place] [address] Benjamin Spencer, DO [address] [facility] [place] [address] Goals Goal Patient Goal Type Associated Problems Recent Progress Patient-Stated? Author Reminders Care Plan OB Reminders No Open Scheduling, Background Procedures Procedure Name Priority Date/Time Associated Diagnosis Comments POCT URINALYSIS DIPSTICK Routine 03/19/2025 9:00 AM EDT 34 weeks gestation of ([facility]) Third trimester ([facility]) POCT URINALYSIS DIPSTICK Routine 03/07/2025 10:16 AM EDT 33 weeks gestation of ([facility]) Third trimester ([facility]) US OB GROWTH 03/01/2025 8:33 AM EDT POCT URINALYSIS DIPSTICK Routine 02/21/2025 11:49 AM EDT Third trimester ([facility]) 31 weeks gestation of ([facility]) GLUCOSE TOLERANCE 3 HOUR Routine 02/14/2025 7:37 AM EDT GLUCOSE 1 HOUR Routine 01/12/2025 9:01 AM EDT ALL CBC WITH AUTO DIFF Routine 01/12/2025 9:01 AM EDT POCT URINALYSIS DIPSTICK Routine 01/10/2025 11:38 AM EDT Second trimester ([facility]) from Last 3 Months Results * POCT urinalysis dipstick manually resulted (03/19/2025 9:00 AM EDT) Only the most recent of4 resultswithin the time period is included. Color, UA Yellow Clarity, UA Clear Glucose, [...] - Positive Urine 03/19/2025 9:00 AM EDT [facility] DO POINT OF CARE TEST ENTER/EDIT OR DERABLES Final Result * US OB GROWTH (03/01/2025 8:33 AM EDT) Anatomical Region Laterality Modality Other 03/01/2025 8:33 AM EDT Narrative 03/01/2025 8:35 AM EDT [address] [address] Ultrasound Report Signed Patient: KARLY AGOSTO MR#: [id number] : 2000 Acct:[id number] Age/Sex: 24 / F ADM Date: 03/01/25 Loc: US Attending Dr: Torri Meza Ordering Physician: Torri Meza Date of Service: 03/01/25 Procedure(s): US OB growth Accession Number(s): [id number] cc: Torri Meza; Physician,Non-Staff M.D. The [address] [address] Patient Name: KARLY AGOSTO MRN: [id number] date: 2000 Sex: F Assigned Patient Location: US Current Patient Location: US Accession/Order Number: [id number] Exam Date: 03/01/2025 08:28 Report Date: 03/01/2025 08:33 At the request of: TORRI MEZA Procedure: US OB growth Growth ultrasound. Reason for exam: size and consistent with dates. COMPARISON: Ultrasound 09/29/2024. TECHNIQUE: Transabdominal imaging of the gravid uterus was obtained. FINDINGS: Single live intrauterine measuring 32 weeks 2 days by anatomic measurements. Appropriate growth by dating. Estimated weight is 1833 g which is at the 24th percentile. ISAI is normal at 16.51 cm. heart rate 140 bpm. position is cephalic at time of scanning. US/US OB growth Impression: Single live intrauterine 32 weeks 2 days by anatomic measurements. Appropriate growth. Impression dictated by: Oscar Clemens Jr., DTaniOTani 03/01/2025 8:33 AM Dictation Location: [place] [address] Electronically authenticated by: [id number] Y Date: 03/01/2025 08:33 Dictated By: Oscar Clemens M.D. Signed By: 03/01/2535 DD/ 2 TD/TT: Automobile Drivers: Procedure Note Radiology, Radiologist, MD - 03/01/[address] [address] Ultrasound Report Signed Patient: KARLY AGOSTO R#: [id number] : 2000Acct:[id number] Age/Sex: 24 / FADM Date: 03/01/25 Loc: US Attending Dr: Torri Meza Ordering Physician: Torri Meza Date of Service: 03/01/25 Procedure(s): US OB growth Accession Number(s): [id number] cc: Torri Meza; Physician,Non-Staff Jayme The [address] [address] Patient Name: KARLY AGOSTO MRN: [id number] date: 2000 Sex: F Assigned Patient Location: US Current Patient Location: US Accession/Order Number: [id number] Exam Date: 03/01/2025 08:28 Report Date: 03/01/2025 08:33 At the request of: TORRI MEZA Procedure: US OB growth Growth ultrasound. Reason for exam: size and consistent with dates. COMPARISON: Ultrasound 09/29/2024. TECHNIQUE: Transabdominal imaging of the gravid uterus was obtained. FINDINGS: Single live intrauterine measuring 32 weeks 2 days by anatomic measurements. Appropriate growth by dating. Estimated fetalweight is 1833 g which is at the 24th percentile. ISAI is normal at 16.51 cm. heart rate 140 bpm. position is cephalic at time of scanning. US/US OB growth Impression: Single live intrauterine 32 weeks 2 days by anatomicmeasurements. Appropriate growth. Impression dictated by: Oscar Clemens Jr., D.O. 03/01/2025 8:33 AM Dictation Location: [place] [address] Electronically authenticated by: [id number] Y Date: 508:33 Dictated By: Oscar Clemens M.D. Signed By:03/01/2535 DD/ 2 TD/TT: Automobile Drivers: Torri MILLER [facility] Final Result * GLUCOSE TOLERANCE 3 HOUR (02/14/2025 7:37 AM EDT) GLUCOSE TOLERANCE 3 HOUR mg/dL TB Comment: GLU FAST 86 (<95) Col: 02/14/25 0737 GLU 1HR 157 (<180) Col: 02/14/25 0841 GLU 2HR 129 (<155) Col: 02/14/25 0941 GLU 3HR 114 (<140) Col: 02/14/25 1040 02/14/2025 7:37 AM EDT 02/14/2025 7:38 AM EDT Narrative [facility] - 02/14/2025 11:22 AM EDT Torri MILLER LAB BLOOD ORDERABLES Final Resul t [facility] * (ABNORMAL) GLUCOSE 1 HOUR (01/12/2025 9:01 AM EDT) GLUCOSE 1 HOUR 140(H) <130 mg/dL TB 01/12/2025 9:01 AM EDT 01/12/2025 9:16 AM EDT Narrative [facility] - 01/12/2025 10:01 AM EDT us Torri MILLER LAB BLOOD ORDERABLES Final Resul t [facility] * (ABNORMAL) ALL CBC WITH AUTO DIFF (01/12/2025 9:01 AM EDT) [facility] WBC 9.7 4.0 - 11.0 10 3/uL TBH TBH RBC 4.25 4.20 - 5.40 10 6/uL TBH TBH HGB 11.9(L) 12.0 - 16.0 g/dL TBH TBH HCT 35.8(L) 36.0 - 48.0 % TBH TBH MCV 84.2 81.0 - 99.0 fL TBH TBH MCH 28.0 26.7 - 34.0 pg TBH TBH MCHC 33.2 29.9 - 35.2 g/dL TBH TBH RDW 13.0 11.0 - 15.0 % TBH TBH PLT 254 150 - 450 10 3/uL TBH TBH MPV 10.9 9.5 - 13.5 fL TBH NEUTROPHILS PERCENT AUTO 77.3(H) 43.0 - 75.0 % TBH LYMPHOCYTES PERCENT AUTO 13.7(L) 20.5 - 60.0 % [facility] MONOCYTES PERCENT AUTO 4.5 1.7 - 12.0 % TBH TBH EO % 3.9 0.9 - 7.0 % [facility] BASOPHILS PERCENT AUTO 0.3 0.2 - 2.0 % TB[facility] IMMATURE GRANULOCYTES PCT AUTO 0.3 0.0 - 0.5 % TBH NEUTROPHILS ABSOLUTE AUTO 7.5(H) 1.4 - 6.5 10 3/uL TBH LYMPHOCYTES ABSOLUTE AUTO 1.3 1.2 - 3.8 10 3/uL [facility] MONOCYTES ABSOLUTE AUTO 0.4 0.3 - 0.8 10 3/uL TBH TBH EO # 0.4 0.0 - 0.7 10 3/uL TBH BASOPHILS ABSOLUTE AUTO 0.0 0.0 - 0.1 10 3/uL [facility]H IMMATURE GRANULOCYTES ABS AUTO 0.03 0.00 - 0.03 10 3/uL [facility] 01/12/2025 9:01 AM EDT 01/12/2025 9:16 AM EDT Narrative [facility] - 01/12/2025 9:52 AM EDT us Torri MILLER [facility] Final Result [facility] TB from Last 3 Months Additional Health Concerns Active Problems Noted Date Diagnosed Date OB Reminders 04/27/2023 Insurance [employer]
--- OUTSIDE RECORDS SUMMARY | 2025-03-20 14:57 | XMS_ITS | Encounter Summary ---
Author Organization [facility] Address [address] [place] [address] Care Team Providers Care Telesales Specialist Name Role Phone Unavailable Primary Care Provider Unavailabl e Encounter Details Date Type Department Care Team (Late Contact Info) Description 02/02/2024 Abstract [facility] [address] [place] [address] Benjamin Spencer DO [address] [place], [place] [address] Social History Tobacco Use Types Packs/Day Years Used Date Smoking Tobacco: Never Smokeless Tobacco: Never Alcohol Use Standard Drinks/Week Comments Never 0 (1 standard drink = 0.6 oz pure alcohol) Caffeine intake: soda/pop occasional Comments Unknown Sex and Gender Information Value Date Recorded Sex Assigned at Not on file Legal Sex Female 7:06 PM EDT Gender Identity Not on file Sexual Orientation Not on file documented as of this encounter Plan of Treatment Upcoming Encounters Date Type Department Care Team (Late Contact Info) Description 03/26/2025 8:30 AM EDT Routine [facility] [address] [place] [address] Torri Carlos PA [address] [place], [facility]11 04/02/2025 8:50 AM EDT Routine [facility] [place] [address] Benjamin Spencer, DO [address] [place] [address] 04/09/2025 8:40 AM EDT Routine [facility] [address] [facility] [place] [phone] Benjamin Spencer, DO [address] [place] [address] documented as of this encounter Goals Goal Patient Goal Type Associated Problems Recent Progress Patient-Stated? Author Reminders Care Plan OB Reminders No Open Scheduling, Background documented as of this encounter Visit Diagnoses Not on filedocumented in this encounter Additional Health Concerns Active Problems Noted Date Diagnosed Date OB Reminders 04/27/2023 documented as of this encounter
--- OUTSIDE RECORDS SUMMARY | 2025-03-20 14:57 | XMS_ITS | Encounter Summary ---
Author Organization [facility] Address [address] [place] [address] Care Team Providers Care Mushroom Sorter Grader Name Role Phone Unavailable Primary Care Provider Unavailabl e Encounter Details Date Type Department Care Team (Late st Contact Info) Description 02/01/2024 Clinisync Result Encounter [facility] External Department Unsolicited Benjamin Spencer, DO [address], [facility]11 Social History Tobacco Use Types Packs/Day Years [...] AM EDT Routine [facility] [place] [facility] [address] [place] [address] Torri Carlos PA [address] [place], [facility]11 04/02/2025 8:50 AM EDT Routine [facility] [place] [facility] [address] [place] [address] Benjamin Spencer DO [address] [place] [address] 04/09/2025 8:40 AM EDT Routine [facility] [place] [facility] [address] [facility] [place] [phone] Benjamin Spencer DO [address] [facility] [address] documented as of this encounter Goals Goal Patient Goal Type Associated Problems Recent Progress Patient-Stated? Author Reminders Care Plan OB Reminders No Open Scheduling, Background documented as of this encounter Procedures Procedure Name Priority Date/Time Associated Diagnosis Comments US PELVIS W/ TRANSVAGINAL 02/01/2024 2:21 PM EDT documented in this encounter Results * US PELVIS W/ TRANSVAGINAL (02/01/2024 2:21 PM EDT) Anatomical Region Laterality Modality Other 02/01/2024 2:21 PM EDT Narrative 02/01/2024 2:24 PM EDT The [address] [address] Ultrasound Report Signed Patient: WENDY AGOSTO MR#: [id number] : 2000 Acct:[id number] Age/Sex: 23 / F ADM Date: 02/01/24 Loc: [facility] Attending Dr: Benjamin Spencer D.O. Ordering Physician: Benjamin Spencer D.O. Date of Service: 02/01/24 Procedure(s): US pelvis w/ transvaginal Accession Number(s): [id number] cc: Benjamin Spencer D.O.; Physician,Non-Staff M.Thania The [address] [address] Patient Name: WENDY AGOSTO MRN: [id number] date: 2000 Sex: F Assigned Patient Location: [facility] Current Patient Location: [facility] Accession/Order Number: [id number] Exam Date: 02/01/2024 08:07 Report Date: 02/01/2024 14:21 At the request of: BENJAMIN SPENCER Procedure: US pelvis w/ transvaginal EXAMINATION: US pelvis w/ transvaginal HISTORY: VAGINAL BURNING , pain COMPARISON: No relevant comparison available. TECHNIQUE: Transabdominal and/or transvaginal sonographic examination was performed as indicated by examination type. FINDINGS: UTERUS: Normal size and appearance. Uterus size: 7.0 x 3.0 x 6.0 cm ENDOMETRIUM: Normal homogeneous appearance. Endometrial thickness: 6 mm RIGHT OVARY: Normal size and appearance. Duplex Doppler demonstrates normal waveform and flow; resistive index 0.6. Ovary size: 3.0 x 1.7 x 3.5 cm LEFT OVARY: Normal size and appearance. Duplex Doppler demonstrates normal waveform and flow; resistive index 0.5. Ovary size: 2.6 x 1.8 x 2.1 cm CUL-DE-SAC: Unremarkable. No significant free fluid. BLADDER: Unremarkable. OTHER: None. US/US pelvis w/ transvaginal IMPRESSION: 1. No abnormal or suspicious findings to account for patient's symptoms. Electronically authenticated by: HONG EM Date: 02/01/2024 14:21 Dictated By: Hnog Em M.D. Signed By: 02/01/24 1424 DD/ 1421 TD/TT: Frame Welder Cargo Utility Trailers: Procedure Note Radiology, Radiologist, MD - 02/01/2024 [place] [address] Ultrasound Report Signed Patient: WENDY AGOSTO R#: [id number] : 2000Acct:[id number] Age/Sex: 23 / FADM Date: 02/01/24 Loc: [facility] Attending Dr: Benjamin Spencer D.O. Ordering Physician: Benjamin Spencer D.O. Date of Service: 02/01/24 Procedure(s): US pelvis w/ transvaginal Accession Number(s): [id number] cc: Benjamin Spencer D.O.; Physician,Non-Staff MPatricia The [place] [address] Patient Name: WENDY AGOSTO MRN: [id number] date: 2000 Sex: F Assigned Patient Location: [facility] Current Patient Location: [facility] Accession/Order Number: [id number] Exam Date: 02/01/2024 08:07 Report Date: 02/01/2024 14:21 At the request of: BENJAMIN SPENCER Procedure: US pelvis w/ transvaginal EXAMINATION: US pelvis w/ transvaginal HISTORY: VAGINAL BURNING , pain COMPARISON: No relevant comparison available. TECHNIQUE: Transabdominal and/or transvaginal sonographic examination was performed as indicated by examination type. FINDINGS: UTERUS: Normal size and appearance. Uterus size: 7.0 x 3.0 x 6.0 cm ENDOMETRIUM: Normal homogeneous appearance. Endometrial thickness: 6 mm RIGHT OVARY: Normal size and appearance. Duplex Doppler demonstratesnormal waveform and flow; resistive index 0.6. Ovary size: 3.0 x 1.7 x 3.5 cm LEFT OVARY: Normal size and appearance. Duplex Doppler demonstrates normal waveform and flow; resistive index 0.5. Ovary size: 2.6 x 1.8 x 2.1 cm CUL-DE-SAC: Unremarkable. No significant free fluid. BLADDER: Unremarkable. OTHER: None. US/US pelvis w/ transvaginal IMPRESSION: 1. No abnormal or suspicious findings to account for patient's symptoms. Electronically authenticated by: HONG EM Date: 02/01/2024 14:21 Dictated By: Hong Em M.D. Signed By:02/01/24 1424 DD/ 1421 TD/TT: Frame Welder Cargo Utility Trailers: us Benjamin Spencer DO [facility] Final Result documented in this encounter Visit Diagnoses Not on filedocumented in this encounter Additional Health Concerns Active Problems Noted Date Diagnosed Date OB Reminders 04/27/2023 documented as of this encounter
--- OUTSIDE RECORDS SUMMARY | 2025-03-20 14:57 | XMS_ITS | Encounter Summary ---
Author Organization [facility] Address [address] [place] [address] Care Team Providers Care Policy Change Clerks Supervisor Name Role Phone Unavailable Primary Care Provider Unavailabl e Encounter Details Date Type Department Care Team (Late st Contact Info) Description 03/20/2025 Telephone [facility] [address] [place] [address] [place] [phone] Michelle Curry MA Social History Tobacco Use Types Packs/Day Years [...] on file documented as of this encounter Miscellaneous Notes * Telephone Encounter - Michelle Curry MA - 03/20/2025 2:28 PM EDT OB 35w 0d Pt called in c/o vaginal bleeding that began 15 minutes ago. Pt states it is bright red in color. Pt denies any abdominal cramping or recent intercourse. Pt advised to head to [facility] for evaluation. documented in this encounter Plan of Treatment Upcoming Encounters Date Type Department Care Team (Late st Contact Info) Description 03/26/2025 8:30 AM EDT Routine [facility] [address] [facility] [place] [address] Torri Carlos, PA [address] [facility] [place] [address] 04/02/2025 8:50 AM EDT Routine [facility] [address] [facility] [place] [address] Benjamin Spencer, DO [address] [facility] [address] [place], [place] [id number] 04/09/2025 8:40 AM EDT Routine [facility] [address] [facility] [place] [address] Benjamin Spencer, DO [address] [facility] [place] [address] documented as of this encounter Goals Goal Patient Goal Type Associated Problems Recent Progress Patient-Stated? Author Reminders Care Plan OB Reminders No Open Scheduling, Background documented as of this encounter Visit Diagnoses Not on filedocumented in this encounter Additional Health Concerns Active Problems Noted Date Diagnosed Date OB Reminders 04/27/2023 documented as of this encounter
--- OUTSIDE RECORDS SUMMARY | 2025-03-20 14:57 | XMS_ITS | Encounter Summary ---
Author Organization [facility] Address [address] [place] [address] Care Team Providers Care Electronics Assembler And Tester Name Role Phone Unavailable Primary Care Provider Unavailabl e Encounter Details Date Type Department Care Team (Late Contact Info) Description 10/18/2024 Abstract [facility] [address] [place] [address] Benjamin Spencer DO [address] [facility] [address] [place], [place] [address] Social History Tobacco Use Types Packs/Day Years [...] EDT Routine [facility] [address] [place] [address] Torri Carlos PA [address] [place], [facility]11 04/02/2025 8:50 AM EDT Routine [facility] [place] [address] Benjamin Spencer, DO [address] [place] [address] 04/09/2025 8:40 AM EDT Routine [facility] [place] [facility] [address] [facility] [place] [phone] Benjamin Spencer, DO [address] [place] [address] documented as of this encounter Goals Goal Patient Goal Type Associated Problems Recent Progress Patient-Stated? Author Reminders Care Plan OB Reminders No Open Scheduling, Background documented as of this encounter Visit Diagnoses Not on filedocumented in this encounter Additional Health Concerns Active Problems Noted Date Diagnosed Date OB Reminders 04/27/2023 documented as of this encounter
--- OUTSIDE RECORDS SUMMARY | 2025-03-20 14:57 | XMS_ITS | Encounter Summary ---
Author Organization [facility] Address [address] [place] [address] Care Team Providers Care Junior Php Developer Name Role Phone Unavailable Primary Care Provider Unavailabl e Encounter Details Date Type Department Care Team (Late st Contact Info) Description 03/19/2025 Bamboo flowsheet [facility] [address] [facility] [place] [address] Benjamin Spencer DO [address] [facility] [address], [facility] [place]11 Social History Tobacco Use Types Packs/Day Years [...] 8:30 AM EDT Routine [facility] [address] [facility] [place] [address] Torri Carlos PA [address] [facility] [address] [place], [facility] [place]11 04/02/2025 8:50 AM EDT Routine [facility] [place] [facility] [address] [facility] [place] [address] Benjamin Spencer, DO [address] [facility] [place] [address] 04/09/2025 8:40 AM EDT Routine [facility] [place] [facility] [address] [facility] [place] [phone] Benjamin Spencer, DO [address] [facility] [place] [address] documented as of this encounter Goals Goal Patient Goal Type Associated Problems Recent Progress Patient-Stated? Author Reminders Care Plan OB Reminders No Open Scheduling, Background documented as of this encounter Visit Diagnoses Not on filedocumented in this encounter Additional Health Concerns Active Problems Noted Date Diagnosed Date OB Reminders 04/27/2023 documented as of this encounter
--- OUTSIDE RECORDS SUMMARY | 2025-03-20 14:57 | XMS_ITS | Encounter Summary ---
Author Organization [facility] Address [address] [place] [address] Care Team Providers Care Night Court Magistrate Name Role Phone Unavailable Primary Care Provider Unavailabl e Encounter Details Date Type Department Care Team (Late Contact Info) Description 02/16/2023 Abstract [facility] ZAMBRANO [address] [facility] [place] [address] Torri Carlos PA [address] [place] [address] [place], [place] [address] Social History Tobacco Use Types Packs/Day Years Used Date Smoking Tobacco: Never Tobacco Cessation:Counseling Given: Not Answered Alcohol Use Standard Drinks/Week Comments Never 0 (1 standard drink = 0.6 oz pure alcohol) Caffeine intake: soda/pop occasional Comments Yes Sex and Gender Information Value Date Recorded Sex Assigned at Not on file Legal Sex Female 7:06 PM EDT Gender Identity Not on file Sexual Orientation Not on file documented as of this encounter Plan of Treatment Upcoming Encounters Date Type Department Care Team (Late Contact Info) Description 03/26/2025 8:30 AM EDT Routine [facility] [address] [place] [address] Torri Carlos PA [address] [place] [address] [place], [facility]11 04/02/2025 8:50 AM EDT Routine [facility] [address] [place] [address] [place] [phone] Benjamin Spencer, DO [address] [facility] [place] [address] 04/09/2025 8:40 AM EDT Routine [facility] [place] [facility] [address] [facility] [place] [address] Benjamin Spencer, DO [address] [facility] [place] [address] documented as of this encounter Visit Diagnoses Not on filedocumented in this encounter
[2025-03-20 15:07] VITALS: BP 121/74; PULSE 118
[2025-03-20 15:09] VITALS: BP 140/93; PULSE 120
[2025-03-20 17:21] VITALS: BP 113/72; PULSE 90
--- OUTSIDE RECORDS SUMMARY | 2025-03-20 19:02 | XMS_ITS | CCD ---
Author Organization [facility] CliniSysd Care Team Providers Care It Application Support Analyst Name Role Phone Elsa Rea Unavailable Deann [...] MEZA Attending Unavailable AI SPENCER Attending Unavailable AI SPENCER Attending Unavailable AI SPENCER Attending Unavailable Allergies [...] sources) Iron Not-Taking/ PRN Iron Active levonorgestrel 0.973781 mg/hr intrauterine system (2 sources) Progestin, Progestin-containing [...] [31 weeks gestation of ] 02-21-2025 Episodic Residual codes; unclassified (2 sources) Gestation period, 33 weeks; Translations: [33 weeks gestation of ] 03-07-2025 Episodic Residual codes; unclassified (2 sources) Gestation period, 34 weeks; Translations: [34 weeks gestation of ] 03-19-2025 Episodic Short gestation; low weight; and growth retardation (2 sources) Xicty-fqh-gnibf baby; Translations: [[place] small for gestational age, unspecified weight] 03-19-2025 Episodic Skin and subcutaneous tissue infections (1 [...] Range Facility Urinalysis macro (dipstick) panel (U)on 03-19-2025 Bilirubin, UA Negative Negative - 4(70) +++ mg/dL [facility] Healthcare Blood, UA Negative Negative - 50 Nicolás/mcL [facility] Healthcare Clarity, UA Clear [facility] Color, UA Yellow [facility] Glucose, UA Negative Negative - 1999(110) ++++ mg/dL [facility] Interpretation and review of laboratory results Normal [facility] Ketones, UA Negative Negative - 160(16) ++++ mg/dL [facility] Leukocytes, UA Negative Negative - 500+++ Yodit/mcL [facility] Nitrite, UA Negative Negative - Positive [facility] pH, UA 7 5 - 9 [facility] Protein, UA Negative Negative - 1999(20) ++++ mg/dL [facility] Spec Grav, UA 1.015 1 - 1.03 [facility] Health care Urobilinogen, UA 1.0 0.2 - 12 mg/dL [facility] Urinalysis macro (dipstick) panel (U)on 03-07-2025 Bilirubin, UA Negative Negative - 4(70) +++ mg/dL [facility] Blood, UA Negative Negative - 50 Nicolás/mcL [facility] Healthcare Clarity, UA Clear [facility] Color, UA Yellow [facility] Glucose, UA Negative Negative - 1999(110) ++++ mg/dL [facility] Interpretation and review of laboratory results Abnormal [facility] Ketones, UA Negative Negative - 160(16) ++++ mg/dL [facility] Leukocytes, UA Positive Negative - 500+++ Yodit/mcL [facility] Nitrite, UA Negative Negative - Positive [facility] pH, UA 7 5 - 9 [facility] Protein, UA Negative Negative - 1999(20) ++++ mg/dL [facility] Spec Grav, UA 1.01 1 - 1.03 [facility] Urobilinogen, UA 1.0 0.2 - 12 mg/dL [facility] US OB GROWTHon 03-01-[address] [address] Ultrasound Report Signed Patient: KARLY AGOSTO MR#: [id number] : 2000 Acct:[id number] Age/Sex: 24 / F ADM Date: 03/01/25 Loc: US Attending Dr: Torri Meza Ordering Physician: Torri Meza Date of Service: 03/01/25 Procedure(s): US OB growth Accession Number(s): [id number] cc: Torri Meza; Physician,Non-Staff M.[place] [address] [address] Patient Name: KARLY AGOSTO MRN: [facility]:[id number] date: 2000 Sex: F Assigned Patient Location: US Current Patient Location: US Accession/Order Number: [id number] Exam Date: 03/01/2025 08:28 Report Date: 03/01/2025 [...] Jr., D.O. 03/01/2025 8:33 AM Dictation Location: [place] [address] Electronically authenticated by: [id number] Y Date: 03/01/2025 08:33 Dictated By: Oscar Clemens M.D. 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 Radiology, Radiologist, - 03/01/[address] [address] Ultrasound Report Signed Patient: KARLY AGOSTO MR#: [id number] : 2000 Acct:[id number] Age/Sex: 24 / F ADM Date: 03/01/25 Loc: US Attending Dr: Torri Meza Ordering Physician: Torri Meza Date of Service: 03/01/25 Procedure(s): US OB growth Accession Number(s): [id number] cc: Torri Meza; Physician,Non-Staff M.Thania The [address] [address] Patient Name: KARLY AGOSTO MRN: [id number] date: 2000 Sex: F Assigned Patient Location: US Current Patient Location: US Accession/Order Number: [id number] Exam Date: 03/01/2025 08:28 Report Date: 03/01/2025 [...] Jr., D.O. 03/01/2025 8:33 AM Dictation Location: [place] [address] Electronically authenticated by: [id number] Y Date: 03/01/2025 08:33 Dictated By: Oscar Clemens M.D. Signed By: 03/01/2535 DD/ TD/TT: Steam Shovel Operator: [facility] Radiology Study observation (narrative) [facility] OB GROWTHOrdered By: Joel ologist Radiology on 03-01-[address] [facility] e Work Phone: Urinalysis macro (dipstick) panel (U)on 02-21-2025 Bilirubin, UA Negative Negative - 4(70) +++ mg/dL [facility] Blood, UA Negative Negative - 50 Nicolás/mcL [facility] Clarity, UA Clear [facility] re Color, UA Yellow [facility] Glucose, UA Negative Negative - 1999(110) ++++ mg/dL [facility] Interpretation and review of laboratory results Normal [facility] Ketones, UA Negative Negative - 160(16) ++++ mg/dL [facility] Leukocytes, UA Negative Negative - 500+++ Yodit/mcL [facility] Nitrite, UA Negative Negative - Positive [facility] pH, UA 5.5 5 - 9 [facility] Protein, UA Negative Negative - 1999(20) ++++ mg/dL [facility] Spec Grav, UA 1.02 1 - 1.03 [facility] Urobilinogen, UA 1.0 0.2 - 12 mg/dL [facility] [employer] GLUCOSE TOLERANCE 3 HOURon 0 02-14-2025 GLUCOSE TOLERANCE 3 HOUR mg/dL [facility] Comment on above: GLU FAST 86 (<95) Co l: 02/14/25 0737 GLU 1HR 157 (<180) Col: 02/14/25 0841 GLU 2HR 129 (<155) Col: 02/14/25 0941 GLU 3HR 114 (<140) Col: 02/14/25 1040 [facility] ALL CBC WITH AUTO DIFFon BASOPHILS ABSOLUTE AUTO 0 [facility] Basophils/100 WBC (Bld) 0.3 % 0.2 - 2.0 % [facility] Eosinophils/100 WBC (Bld) 3.9 % 0.9 - 7.0 % [facility] Erythrocyte distribution width (RBC) [Ratio] 13 % 11.0 - 15.0 % [facility] Hematocrit (Bld) [Volume fraction] 35.8 % Low 36.0 - 48.0 % [facility] Hemoglobin (Bld) [Mass/Vol] 11.9 g/dL Low 12.0 - 16.0 g/dL [facility] IMMATURE GRANULOCYTES ABS AUTO 0.03 [facility] Immature granulocytes/100 WBC (Bld) 0.3 % 0.0 - 0.5 % [facility] Interpretation and review of laboratory results Abnormal [facility] LYMPHOCYTES ABSOLUTE AUTO 1.3 [facility] Lymphocytes/100 WBC (Bld) 13.7 % Low 20.5 - 60.0 % [facility] MCH (RBC) [Entitic mass] 28 pg 26.7 - 34.0 pg [facility] MCHC (RBC) [Mass/Vol] 33.2 g/dL 29.9 - 35.2 g/dL [facility] MCV (RBC) [Entitic vol] 84.2 fL 81.0 - 99.0 fL [facility] MONOCYTES ABSOLUTE AUTO 0.4 [facility] Monocytes/100 WBC (Bld) 4.5 % 1.7 - 12.0 % [facility] NEUTROPHILS ABSOLUTE AUTO 7.5 High [facility] Neutrophils/100 WBC (Bld) 77.3 % High 43.0 - 75.0 % [facility] Platelet mean volume (Bld) [Entitic vol] 10.9 fL 9.5 - 13.5 fL [facility] EO # 0.4 [facility] TB PLT [address] [facility] e TB RBC 4.25 [facility] TB WBC 9.7 [facility] Urinalysis macro (dipstick) panel (U)on 01-10-2025 Bilirubin, UA Negative Negative - 4(70) +++ mg/dL [facility] Blood, UA Negative Negative - 50 Nicolás/mcL [facility] Clarity, UA Clear [facility] re Color, UA Yellow [facility] e Glucose, UA Positive Negative - 1999(110) ++++ mg/dL [facility] Comment on above: 250mg/dL Interpretation and review of laboratory results Abnormal [facility] Ketones, UA Negative Negative - 160(16) ++++ mg/dL [facility] Leukocytes, UA Positive Negative - 500+++ Yodit/mcL [facility] Comment on above: small Nitrite, UA Negative Negative - Positive [facility] pH, UA 7 5 - [address] [facility] e Protein, UA Negative Negative - 1999(20) ++++ mg/dL [facility] Spec Grav, UA 1.02 1 - 1.03 [facility] Urobilinogen, UA 0.2 0.2 - 12 mg/dL [facility] Urinalysis macro (dipstick) panel (U)on 12-04-2024 Bilirubin, UA Negative Negative - 4(70) +++ mg/dL [facility] Blood, UA Negative Negative - 50 Nicolás/mcL [facility] Healthcare Clarity, UA Clear [facility] Color, UA Yellow [facility] Glucose, UA Negative Negative - 1999(110) ++++ mg/dL [facility] Interpretation and review of laboratory results Normal [facility] Ketones, UA Negative Negative - 160(16) ++++ mg/dL [facility] Leukocytes, UA Negative Negative - 500+++ Yodit/mcL [facility] Healthcare Nitrite, UA Negative Negative - Positive [facility] pH, UA 8.5 5 - 9 [facility] Protein, UA Negative Negative - 1999(20) ++++ mg/dL [facility] Spec Grav, UA 1.02 1 - 1.03 [facility] Urobilinogen, UA 0.2 0.2 - 12 mg/dL [facility] Urinalysis macro (dipstick) panel (U)on 11-22-2024 Bilirubin, UA Negative Negative - 4(70) +++ mg/dL [facility] Blood, UA Negative Negative - 50 Nicolás/mcL [facility] Clarity, UA Clear [facility] Color, UA Yellow [facility] Glucose, UA Positive Negative - 1999(110) ++++ mg/dL [facility] Interpretation and review of laboratory results Abnormal [facility] Ketones, UA Negative Negative - 160(16) ++++ mg/dL [facility] Leukocytes, UA Positive Negative - 500+++ Yodit/mcL [facility] Healthcare Nitrite, UA Negative Negative - Positive [facility] pH, UA 6.5 5 - 9 [facility] Protein, UA Negative Negative - 1999(20) ++++ mg/dL [facility] Spec Grav, UA 1.025 1 - 1.03 [facility] Urobilinogen, UA 1.0 0.2 - 12 mg/dL [facility] IGP,APTIMA HPV,AGE GDLNon AGE GDLN ACOG TESTING Note . [facility] Comment on above: TESTS RESULT FLAG UN ITS REF RANGE LAB Clinician Provided Cytology Information Source.............[employer] Other.............. No. of containers..01 ThinPrep Vial Age Algo ACOG Rosita... FLAG LEGEND: L-Low Normal,H-High Normal,LL-Alert Low,HH-Alert High <-Panic Low,>-Panic High,A-Abnormal,AA-Critical Abnormal Performed at: 01 =G [address] [address] Tamy Matos MD, IGP, RFX APTIMA HPV ASCU Note . [facility] Comment on above: TESTS RESULT FLAG UN ITS REF RANGE LAB DIAGNOSIS: 02 NEGATIVE FOR INTRAEPITHELIAL LESION OR MALIGNANCY. Specimen adequacy: 02 Satisfactory for evaluation. No endocervical component is identified. Performed by: Edison Todd Software Engineering Associate Manager ([facility]) . 02 Note: Note 03 The Pap [...] <-Panic Low,>-Panic High,A-Abnormal,AA-Critical Abnormal Performed at: [address] [address] Neha Cole MD, [address] [address] Tamy Matos MD, Performed at: =[facility] [address] [id number] Treating Machine Operator: Tamy Matos MD, Phone: [phone] Performed at: [address] [id number] Treating Machine Operator: Neha Cole MD, Phone: [phone] SPATULA-ALONE [facility]ERVIX [facility] RECURRENT VAGINITIS (HTRX)on 11-01-2024 ATOPOBIUM VAGINAE 0 [facility] ATOPOBIUM VAGINAE Not detected [facility] BVAB 2,3 (BACTERIAL VAGINOSIS ASSOCIATED BACTERIA 2, 3); MOBILUNCUS SPP 0 [facility] BVAB 2,3 (BACTERIAL VAGINOSIS ASSOCIATED BACTERIA 2, 3); MOBILUNCUS SPP Not detected [facility] ELAINA ALBICANS, PARAPSILOSIS, TROPICALIS 0 [facility] Healthcare ELAINA ALBICANS, PARAPSILOSIS, TROPICALIS Not detected [facility] ELAINA GLABRATA 0 [facility] ELAINA GLABRATA Not detected [facility] ELAINA KRUSEI 0 [facility] ELAINA KRUSEI Not detected [facility] CHLAMYDIA TRACHOMATIS 0 [facility] CHLAMYDIA TRACHOMATIS Not detected [facility] ERMB, C; MEFA 21.586 Abnormal [facility] ERMB, C; MEFA Detected Ab[facility] GARDNERELLA VAGINALIS 24.886 Abnormal [facility] GARDNERELLA VAGINALIS Detected Abnormal [facility] Interpretation and review of laboratory results Abnormal [facility] MEGASPHAERA (TYPES 1, 2) 0 [facility] MEGASPHAERA (TYPES 1, 2) Not detected [facility] MYCOPLASMA GENITALIUM 0 [facility] MYCOPLASMA GENITALIUM Not detected [facility] NEISSERIA GONORRHOEAE 0 [facility] NEISSERIA GONORRHOEAE Not detected [facility] TRICHOMONAS VAGINALIS 0 [facility] TRICHOMONAS VAGINALIS Not detected [facility] TB DRUG SCREEN RAPID (URINE )on 10-18-2024 AMPHETAMINE SCREEN URINE Negative NEGATIVE [facility] BARBITURATES SCREEN URINE Negative NEGATIVE [facility] BENZODIAZEPINES SCREEN URINE Negative NEGATIVE [facility] BUPRENORPHINE SCREEN URINE Negative NEGATIVE [facility] Comment on above: DRUG CLASS TEST [...] [facility] METHADONE SCREEN URINE Negative NEGATIVE [facility] METHAMPHETAMINES SCREEN URINE Negative NEGATIVE [facility] OPIATE SCREEN URINE Negative NEGATIVE [facility] OXYCODONE SCREEN URINE Negative NEGATIVE [facility] Healthcare PHENCYCLIDINE SCREEN URINE Negative NEGATIVE [facility] TRICYCLIC ANTIDEPRESSANT URINE Negative NEGATIVE [facility] TBH PREG QUANT HCGon 025 HCG QUANTITATIVE [address] mIU/mL [facility] Comment on above: 5-50 0.2-1 WEEK 50-500 1-2 WEEKS 100-5,000 2-3 WEEKS 500-10,000 3-4 WEEKS 1,000-50,000 4-5 WEEKS 10,000-100,000 5-6 WEEKS 15,000-200,000 6-8 WEEKS 10,000-100,000 2-3 MONTHS [facility] HCG ( test) Ql (U)o n 07-31-2024 Interpretation and review of laboratory results Normal [facility] Preg Test, Ur Negative Negative [facility] COVID + FLU Quick Testingon 08-18-2023 SARS-CoV-2 (COVID-19) RNA ANNE+probe Ql (Unsp spec) Positive [facility] Other COVID + FLU Quick Testing Negative [facility] Other PAP ACOG PANEL 2: 21 to 29on 11-25-2022 . . Normal [facility] Comment on above: Performed By: #### 4 [id number] #### [facility] [address] [place] [address] Dr. Keri Geurra Age Gdln ACOG Testing - Normal [facility] Comment on above: Performed By: #### 4 [id number] #### [facility] [address] [place] [address] [address] Keri Guerra DIAGNOSIS: Comment Normal [facility] Comment on above: Result Comment: NEGA TIVE FOR INTRAEPITHELIAL LESION OR MALIGNANCY. Performed By: #### 4 [id number] #### [facility] [address] [place] [address] [address] Keri Guerra Methodology: Comment [facility] Comment on above: Result Comment: This liquid based ThinPrep(R) pap test was screened with the use of an image guided system. Performed By: #### 4 [id number] #### [facility] [address] [address] [address] Keri Guerra Note: Comment [facility] Comment on above: Result Comment: The Pap smear is a screening test designed to aid in the detection of premalignant and malignant conditions of the uterine cervix. It is not a diagnostic procedure and should not be used as the sole means of detecting cervical cancer. Both false-positive and false-negative reports do occur. . Performed By: #### 4 [id number] #### [facility] [address] [place] [address] Dr. Keri Guerra Performed by: Comment Normal [facility] Comment on above: Result Comment: Drew Florian, Software Engineering Associate Manager (ASCP) Performed By: #### 4 [id number] #### [facility] [address] [place] [address] Dr. Keri Guerra Reflex Criteria: Comment Normal [facility] Comment on above: Result Comment: The HPV DNA reflex criteria were not met with this specimen result therefore, no HPV testing was performed. . Performed By: #### 4 [id number] #### [facility] [address] [place] [address] Dr. Keri Guerra Specimen adequacy: Comment Normal [facility] Comment on above: Result Comment: Sati sfactory for evaluation. No endocervical component is identified. Areas of partially obscuring inflammatory exudate are present. Performed By: #### 4 [id number] #### [facility] [address] [place] [address] Dr. Keri Guerra HEP B SURFACE ANTIGEN SCREEN on 10-17-2022 HBsAg Screen Negative Normal Negative [facility] Comment on above: Performed By: #### H BSANS #### [facility] [address] [place] [address] Dr. Keri Guerra HEPATITIS C VIRUS AB W/ REFL EX QUANTon 10-17-2022 HCV AB Non-Reactive Normal Non Reactive [facility] Comment on above: Performed By: #### H CVPCRR #### [facility] [address] [place] [address] Dr. Keri Guerra Interpretation: Comment Normal [facility] Comment on above: Result Comment: Not infected with HCV unless early or acute infection is suspected (which may be delayed in an immunocompromised individual), or other evidence exists to indicate HCV infection. Performed By: #### H CVPCRR #### [facility] [address] [place] [address] Dr. Keri Guerra HIV 1 AND 2 WITH REFLEXon HIV Screen 4th Generation wRfx Non-Reactive Normal Non Reactive [facility] Comment on above: Result Comment: HIV Negative HIV-1/HIV-2 antibodies and HIV-1 p24 antigen were NOT detected. There is no laboratory evidence of HIV infection. Performed By: #### H IV12 #### [facility] [address] [place] [address] Dr. Keri Guerra RPR QUANTon 10-17-2022 Rapid Plasma Reagin, Quant Non-Reactive Normal NonRea<1:1 [facility] Comment on above: Result Comment: Plea se Note: This test does not meet current guidelines for screening and diagnosis of syphilis. This test is intended for following treatment response in patients being treated for syphilis infection. To screen for syphilis infection, a reflex cascade that includes both RPR and a treponema-specific assay should be utilized, such as Treponema pallidum (Syphilis) Screening [place] (939320) or Rapid Plasma Reagin (RPR) Test With Reflex to Quantitative RPR and Confirmatory Treponema pallidum Antibodies (200745). Performed By: #### R PRQ #### [facility] [address] [place] [address] Dr. Keri Guerra RUBELLA AB IGGon 10-17-2022 Rubella Antibodies, IgG <0.90 Critically low Immune >0.99 [facility] Comment on above: Result Comment: Non- immune <0.90 Equivocal 0.90 - 0.99 Immune >0.99 Performed By: #### R UBIGG #### [facility] [address] [place] [address] Dr. Keri Guerra CBC AUTO DIFFon 10-15-2022 BASO # 0.0 103/ul Normal 0.0-0.1 [facility] Comment on above: Performed By: #### C BC #### [facility] [address] [place] [address] Dr. Keri Guerra Basophils/100 WBC (Bld) 0.1 % Critically low 0.2-2.0 [facility] Comment on above: Performed By: #### C BC #### [facility] [address] [address] [address] Keri Guerra EO # 0.3 103/ul Normal 0.0-0.7 [facility] Comment on above: Performed By: #### C BC #### [facility] [address] [place] [address] Dr. Keri Guerra Eosinophils/100 WBC (Bld) 3.7 % Normal 0.9-7.0 [facility] Comment on above: Performed By: #### C BC #### [facility] [address] [place] [address] Dr. Keri Guerra Erythrocyte distribution width (RBC) [Ratio] 16.0 % Critically high 11.0-15.0 [facility] Comment on above: Performed By: #### C BC #### [facility] [address] [place] [address] Dr. Keri Guerra Hematocrit (Bld) [Volume fraction] 36.3 % Normal 36.0-48.0 [facility] Comment on above: Performed By: #### C BC #### [facility] [address] [place] [address] Dr. Keri Guerra Hemoglobin (Bld) [Mass/Vol] 12.1 g/dL Normal 12.0-16.0 [facility] Comment on above: Performed By: #### C BC #### [facility] [address] [place] [address] Dr. Keri Guerra IG # 0.02 10e3/ul Normal 0.00-0.03 [facility] Comment on above: Performed By: #### C BC #### [facility] [address] [place] [address] Dr. Keri Guerra IG % 0.3 % Normal 0.0-0.5 [facility] Comment on above: Performed By: #### C BC #### [facility] [address] [place] [address] Dr. Keri Guerra LYMPH # 1.7 103/ul Normal 1.2-3.8 [facility] Comment on above: Performed By: #### C BC #### [facility] [address] [place] [address] Dr. Keri Guerra Lymphocytes/100 WBC (Bld) 20.8 % Normal 20.5-60.0 [facility] Comment on above: Performed By: #### C BC #### [facility] [address] [place] [address] Dr. Keri Guerra MANUAL DIFF REQ NO Normal [facility] Comment on above: Performed By: #### C BC #### [facility] [address] [place] [address] Dr. Keri Guerra MCH (RBC) [Entitic mass] 25.3 pg Critically low 26.7-34.0 [facility] Comment on above: Performed By: #### C BC #### [facility] [address] [place] [address] Dr. Keri Guerra MCHC (RBC) [Mass/Vol] 33.3 g/dL Normal 29.9-35.2 [facility] Comment on above: Performed By: #### C BC #### [facility] [address] [place] [address] Dr. Keri Guerra MCV (RBC) [Entitic vol] 75.9 fL Critically low 81.0-99.0 [facility] Comment on above: Performed By: #### C BC #### [facility] [address] [place] [address] Dr. Keri Guerra MONO # 0.4 103/ul Normal 0.3-0.8 [facility] Comment on above: Performed By: #### C BC #### [facility] [address] [place] [address] Dr. Keri Guerra Monocytes/100 WBC (Bld) 5.0 % Normal 1.7-12.0 [facility] Comment on above: Performed By: #### C BC #### [facility] [address] [place] [address] Dr. Keri Guerra NEUT # 5.6 103/ul Normal 1.4-6.5 [facility] Comment on above: Performed By: #### C BC #### [facility] [address] [place] [address] Dr. Keri Guerra Neutrophils/100 WBC (Bld) 70.1 % Normal 43.0-75.0 [facility] [facility] Comment on above: Performed By: #### C BC #### [facility] [address] [place] [address] Dr. Keri Guerra Platelet mean volume (Bld) [Entitic vol] 11.0 fL Normal 9.5-13.5 [facility] Comment on above: Performed By: #### C BC #### [facility] [address] [place] [address] Dr. Keri Guerra PLT 319 103/ul Normal 150-450 [facility] Comment on above: Performed By: #### C BC #### [facility] [address] [place] [address] Dr. Keri Guerra RBC 4.78 106/ul Normal 4.20-5.40 [facility] Comment on above: Performed By: #### C BC #### [facility] [address] [place] [address] Dr. Keri Guerra WBC 7.9 103/ul Normal 4.0-11.0 [facility] Comment on above: Performed By: #### C BC #### [facility] [address] [place] [address] Dr. Keri Guerra CULTURE URINEon 10-15-2022 CULTURE URINE Culture Observations : LIGHT GROWTH OF MIXED GENITAL LARISA. NO POTENTIAL PATHOGENS SEEN. Normal [facility] Comment on above: Performed By: #### U RCX #### [facility] [address] [place] [address] Dr. Keri Guerra TSHon 10-15-2022 TSH 0.294 uIU/mL Critically low 0.358-3.740 [facility] Comment on above: Performed By: #### T SH #### [facility] [address] [place] [address] Dr. Keri Guerra TYPE AND SCREENon 10-15-2022 TYPE AND SCREEN Negative Normal [facility] Comment on above: Performed By: #### T NS #### [facility] [address] [address] [address] Keri Guerra US PREG TVon 10-01-2022 [...] GM BARRY Date: 2022-10-01 15:23 Normal [facility] Quick Strepon 03-25-2022 S. pyogenes Org specific cx Ql (Throat) Negative [facility] Other Quick Strep [facility] [employer] Other COVID/FLU RT-PCRon 2 SARS-CoV-2 (COVID-19) RNA ANNE+probe Ql (Unsp spec) Positive [facility] [employer] Other COVID/FLU RT-PCR Negative [facility] [employer] Other COVID Quick Testingon 2020 Result Positive [facility] Other Consultation Noteon 08-05-19 21 Consultation Note [id number]:127 Normal [facility] Vital Signs Date Time Vital Sign Value Performing Clinician Facility 03-19-2025 08:52-0400 Body mass index (BMI) [Ratio] 30.43 kg/m2 [email or web address] Phone: [facility] 03-19-2025 08:52-0400 Body weight 75.48 kg [employer] Work Phone: [facility] 03-19-2025 08:52-0400 Diastolic blood pressure 78 mm[Hg] Ai Tj DO Work Phone: [facility] 03-19-2025 08:52-0400 Systolic blood pressure 120 mm[Hg] Ai Tj DO Work Phone: [facility] 03-07-2025 10:12-0400 Body mass index (BMI) [Ratio] 30.18 kg/m2 Ai Tj DO Work Phone: [facility] 03-07-2025 10:12-0400 Body weight 74.84 kg Ai Tj DO Work Phone: [facility] 03-07-2025 10:12-0400 Diastolic blood pressure 70 mm[Hg] Ai Tj DO Work Phone: [facility] 03-07-2025 10:12-0400 Systolic blood pressure 110 mm[Hg] Ai Tj DO Work Phone: [facility] 02-21-2025 11:44-0400 Body mass index (BMI) [Ratio] 30.07 kg/m2 Torri Blanco PA Work Phone: [facility] 02-21-2025 11:44-0400 Body weight 74.57 kg Torri Breanna PA Work Phone: [facility] 02-21-2025 11:44-0400 Diastolic blood pressure 78 mm[Hg] Torri Blanco PA Work Phone: [facility] 02-21-2025 11:44-0400 Systolic blood pressure 118 mm[Hg] Torri Breanna PA Work Phone: [facility] 01-10-2025 11:33-0400 Body mass index (BMI) [Ratio] 29.17 kg/m2 Torri Blanco PA Work Phone: [facility] 01-10-2025 11:33-0400 Body weight 72.35 kg Torri Blanco PA Work Phone: [facility] 01-10-2025 11:33-0400 Diastolic blood pressure 76 mm[Hg] Torri Breanna PA Work Phone: [facility] 01-10-2025 11:33-0400 Systolic blood pressure 122 mm[Hg] Torri MILLER Work Phone: [facility] 12-04-2024 13:28-0400 Body mass index (BMI) [Ratio] 27.87 kg/m2 Ai Tj DO Work Phone: [facility] 12-04-2024 13:28-0400 Body weight 69.13 kg Ai Tj DO Work Phone: [facility] 12-04-2024 13:28-0400 Diastolic blood pressure 70 mm[Hg] Ai Tj DO Work Phone: [facility] 12-04-2024 13:28-0400 Systolic blood pressure 120 mm[Hg] Ai Tj DO Work Phone: [facility] 11-22-2024 15:22-0400 Body mass index (BMI) [Ratio] 27.76 kg/m2 [facility] 11-22-2024 15:22-0400 Body weight 68.86 kg [facility] Nurse [facility] 10-31-2024 13:04-0400 Body mass index (BMI) [Ratio] 27.53 kg/m2 Ai Tj DO Work Phone: [facility] 10-31-2024 13:04-0400 Body weight 68.27 kg Ai Tj DO Work Phone: [facility] 10-31-2024 13:04-0400 Diastolic blood pressure 80 mm[Hg] Ai Tj DO Work Phone: [facility] 10-31-2024 13:04-0400 Systolic blood pressure 112 mm[Hg] Ai Tj DO Work Phone: [facility] 07-31-2024 09:06-0500 Body mass index (BMI) [Ratio] 27.58 kg/m2 Ai Tj DO Work Phone: [facility] 07-31-2024 09:06-0500 Body weight 68.4 kg Ai Tj DO Work Phone: [facility] 07-31-2024 09:06-0500 Diastolic blood pressure 80 mm[Hg] Ai Tj DO Work Phone: [facility] 07-31-2024 09:06-0500 Systolic blood pressure 120 mm[Hg] Ai Tj DO Work Phone: [facility] 05-10-2024 10:22-0400 Body height 160.02 cm [facility] 05-10-2024 10:22-0400 Body mass index (BMI) [Ratio] 24.7 kg/m2 [facility] 05-10-2024 10:22-0400 Body temperature 98.2 [degF] [facility] 05-10-2024 10:22-0400 Body weight 63.5 kg [facility] 05-10-2024 10:22-0400 Diastolic blood pressure 65 mm[Hg] [facility] 05-10-2024 10:22-0400 Heart rate 95 /min [facility] 05-10-2024 10:22-0400 Respiratory rate 18 /min [facility] 05-10-2024 10:22-0400 SaO2% (BldA) [Mass fraction] 97 % [facility] 05-10-2024 10:22-0400 Systolic blood pressure 128 mm[Hg] [facility] 08-18-2023 11:30-0500 Body height 157.48 cm Deann Partida Other [facility] [employer] Other 08-18-2023 11:30-0500 Body mass index (BMI) [Ratio] 26.48 kg/m2 Deann Partida Other [facility] [employer] Other 08-18-2023 11:30-0500 Body temperature 98.6 [degF] Deann Partida Other [facility] Other 08-18-2023 11:30-0500 Body weight 65.68 kg Deann Partida Other [employer] Other 08-18-2023 11:30-0500 Respiratory rate 18 /min Deann Partida Other [employer] Other 08-18-2023 11:30-0500 SaO2% (BldA) [Mass fraction] 97 % Deann Partida Other [facility] Other 09-14-2022 15:25-0500 Body height 157.48 cm Elsa Bainsault Other [employer] Other 09-14-2022 15:25-0500 Body mass index (BMI) [Ratio] 26.88 kg/m2 Elsa Álvaro Other [facility] Other 09-14-2022 15:25-0500 Body temperature 97.7 [degF] Elsa Álvaro Other [facility] Other 09-14-2022 15:25-0500 Body weight 66.68 kg Elsa Bainsault Other [facility] Other 09-14-2022 15:25-0500 Diastolic blood pressure 65 mm[Hg] Elsa Álvaro Other [facility] Other 09-14-2022 15:25-0500 Respiratory rate 18 /min Elsa Álvaro Other [facility] Other 09-14-2022 15:25-0500 SaO2% (BldA) [Mass fraction] 99 % Elsa Álvaro Other [facility] Other 09-14-2022 15:25-0500 Systolic blood pressure 118 mm[Hg] Elsa Rea Other [facility] Other 03-25-2022 11:40-0400 Body height 157.48 cm Charisse Blackwell Other [facility] Other 03-25-2022 11:40-0400 Body mass index (BMI) [Ratio] 27.43 kg/m2 Charisse Blackwell Other [facility] Other 03-25-2022 11:40-0400 Body temperature 98.8 [degF] Charisse Blackwell Other [facility] Other 03-25-2022 11:40-0400 Body weight 68.04 kg Charisse Blackwell Other [facility] Other 03-25-2022 11:40-0400 Respiratory rate 18 /min Charisse Blackwell Other [facility] Other 03-25-2022 11:40-0400 SaO2% (BldA) [Mass fraction] 99 % Charisse Blackwell Other [facility] Other 01-01-2022 10:40-0400 Body height 160.02 cm Deann Partida Other [facility] Other 01-01-2022 10:40-0400 Body mass index (BMI) [Ratio] 24.8 kg/m2 Deann Partida Other [facility] Other 01-01-2022 10:40-0400 Body temperature 97.5 [degF] Deann Partida Other [facility] Other 01-01-2022 10:40-0400 Body weight 63.5 kg Deann Partida Other [facility] Other 01-01-2022 10:40-0400 SaO2% (BldA) [Mass fraction] 99 % Deann Partida Other [facility] Other 05-04-2021 11:30-0400 Body height 160.02 cm Elsa Bainsault Other [facility] Other 05-04-2021 11:30-0400 Body mass index (BMI) [Ratio] 23.91 kg/m2 Elsa Bainsault Other [facility] Other 05-04-2021 11:30-0400 Body temperature 97.3 [degF] Elsa Bainsault Other [facility] Other 05-04-2021 11:30-0400 Body weight 61.24 kg Elsa Bainsault Other [facility] Other 05-04-2021 11:30-0400 SaO2% (BldA) [Mass fraction] 99 % Elsa Bainsault Other [facility] Other Encounters Encounter Date Encounter Type Care Provider Facility Start: 03-19-2025 End: 03-19-2025 Bamboo flowsheet Ai Tj DO Work Phone: [facility] Start: 03-19-2025 End: 03-19-2025 Bamboo flowsheet Ai Tj DO Work Phone: [facility] Start: 03-19-2025 End: 03-19-2025 ambulatory AI TJ Not Available Start: 03-19-2025 End: 03-19-2025 flow sheet Ai Tj DO Work Phone: [facility] Comment on above: 34 weeks gestation o f ([facility]); Third trimester ([facility]); SGA (small for gestational age) ([facility]) Start: 03-07-2025 End: 03-07-2025 Bamboo flowsheet Ai Tj DO Work Phone: [facility] Start: 03-07-2025 End: 03-07-2025 Bamboo flowsheet Ai Tj DO Work Phone: [facility] Start: 03-07-2025 End: 03-07-2025 ambulatory AI TJ Not Available Start: 03-07-2025 End: 03-07-2025 flow sheet Ai Tj DO Work Phone: [facility] Comment on above: 33 weeks gestation o f ([facility]); Third trimester ([facility]) Start: 03-01-2025 End: 03-01-2025 Clinisync Result Encounter Torri MILLER Work Phone: [facility] Unsolicited Start: 03-01-2025 End: 03-01-2025 Clinisync Result Encounter Torri MILLER Work Phone: [facility]solic[facility] Start: 02-21-2025 End: 02-21-2025 Bamboo flowsheet Torri MILLER Work Phone: [facility] Start: 02-21-2025 End: 02-21-2025 Bamboo flowsheet Torri MILLER Work Phone: [facility] Start: 02-21-2025 End: 02-21-2025 ambulatory TORRI MEZA Not Available Start: 02-21-2025 End: 02-21-2025 flow sheet Torri MILLER Work Phone: [facility] Comment on above: Third trimester preg sandy ([facility]); 31 weeks gestation of ([facility]); size inconsistent with dates ([facility]) Start: 02-14-2025 End: 02-14-2025 Clinisync Result Encounter Torri MILLER Work Phone: [facility]solicited Start: 02-14-2025 End: 02-14-2025 Clinisync Result Encounter Torri MLILER Work Phone: [facility] Unsolicited Start: [...] Comment on above: Second trimester pre gnancy ([facility]); 25 weeks gestation of ([facility]); Diabetes mellitus screening Start: 12-04-2024 End: 12-04-2024 [...] unspecified contraceptive Start: 05-10-2024 End: 05-10-2024 ambulatory [facility] Work Phone: Start: 05-10-2024 End: 05-10-2024 Patient encounter procedure [facility] Work Phone: Start: 08-18-2023 End: 08-18-2023 ambulatory Deann Partida Other [facility] Other Start: 08-18-2023 Office outpatient vi sit 25 minutes Deann Partida [facility] Start: 11-17-2022 End: 11-17-[address] AI SPENCER . Facility:[facility] Start: 10-18-[address] DOCTOR MONCADA Facility :[facility] Start: 10-15-2022 End: 10-16-[address] AI SPENCER . Facility:[facility] Start: 10-01-2022 End: 10-02-[address] AI SPENCER . Facility:[facility] Start: 09-14-2022 End: 09-14-2022 ambulatory Elsa Rea Other [facility] Other Start: 09-14-2022 Office outpatient vi sit 15 minutes Elsa Álvaro [facility] Start: 03-25-2022 End: 03-25-2022 ambulatory Charisse Rosalva Other [facility] Other Start: 03-25-2022 Office outpatient vi sit 15 minutes Charisse Rosalva [facility] Start: 01-01-2022 End: 01-01-2022 ambulatory Deann Partida Other [facility] Other Start: 01-01-2022 Office outpatient vi sit 25 minutes Deann Partida [facility] Start: 05-04-2021 Office outpatient vi sit 15 minutes Elsa Álvaro [facility] Procedures Date Procedure Procedure Detail Performing Clinician Start: 03-19-2025 Urnls dip stick/tabl et rgnt non-auto w/o micrscp Ai Tj DO Work Phone: Start: 03-07-2025 Urnls dip stick/tabl et rgnt non-auto w/o micrscp Ai Tj DO Work Phone: Start: 03-01-2025 US OB GROWTH Torri MILLER Work Phone: Start: 02-21-2025 Urnls dip stick/tabl et rgnt [...] encounter procedure 04/09/2025 8:40 AM EDT Routine [facility] [address] [place] [address] Ai Spencer DO [address] [place] [address] [facility] Start: 04-02-2025 End: 04-02-2025 Patient encounter procedure 04/02/2025 8:50 AM EDT Routine [facility] [address] [place] [address] Ai Spencer DO [address] [place] [address] [facility] Start: 03-26-2025 End: 03-26-2025 Patient encounter procedure 03/26/2025 8:30 AM EDT Routine [facility] [address] [place] [address] Torri Meza PA [address] [place] [address] [facility] Start: 03-20-2025 End: 03-20-2025 Professional / ancillary services management 03/20/2025 11:30 AM EDT Ancillary Procedure [facility] [address] [place] [address] [facility] Start: 03-19-2025 End: 07-19-2025 US for US OB follow up transabdominal approach Imaging Routine SGA (small for gestational age) ([facility]) Expected: 03/19/2025, Expires: 07/19/2025 [facility] Work Phone: Comment on above: Expected: 03/19/2025 , Expires: 07/19/2025 Start: 03-19-2025 End: 03-19-2025 Patient encounter procedure 03/19/2025 8:40 AM EDT Routine [facility] [address] [place] [address] Ai Spencer, [address] [place] [address] [facility] Start: 03-07-2025 End: 03-07-2025 Patient encounter procedure 03/07/2025 9:00 AM EDT Routine [facility] [address] [place] [address] Ai Spencer, DO [address] [place] [address] [facility] Start: 03-07-2025 End: 03-07-2025 Professional / ancillary services management 03/07/2025 8:30 AM EDT Ancillary Procedure [facility] [address] [place] [address] [facility] Start: 02-21-2025 End: 06-23-2025 US for US OB follow up transabdominal approach Imaging Routine size inconsistent with dates ([facility]) Expected: 02/21/2025, Expires: 06/23/2025 [facility] Work Phone: Comment on above: Expected: 02/21/2025 , Expires: 06/23/2025 Start: 02-05-2025 End: 02-05-2025 Patient encounter procedure 02/05/2025 8:40 AM EDT Routine [facility] [address] [place] [address] Ai Spencer, DO [address] [address] [facility] Start: 01-10-2025 End: 01-10-2026 [...] PM EDT Routine [facility] [address] [place] [address] Ai Spencer, DO [address] [place] [address] [facility] Start: 12-04-2024 End: 12-04-2024 [...] PM EDT Initial [facility] [address] [place] [address] [facility] Start: 11-22-2024 End: 02-22-2025 US for US OB 14+ weeks anatomy scan Imaging Routine Screening, , for anatomic survey Expected: 11/22/2024, Expires: 02/22/2025 [facility] Comment on above: Expected: 11/22/2024 , [...] EST Procedure Visit [facility] [address] [place] [address] Ai Spencer, DO [address] [address] [facility] OB CHLAMYDIA TRACHOMATI S (GENITO/STI) CHLAMYDIA TRACHOMATIS (GENITO/STI) Lab Routine STD exposure Ordered: 10/31/2024 [facility] Comment on above: Ordered: 10/31/2024 Cytology Cervical or vaginal smear or scraping study Pap Smear Pathology and Cytology Routine Well woman exam with routine gynecological exam Ordered: 10/31/2024 [facility] Comment on above: Ordered: 10/31/2024 End: 2025 hCG, quantitative, hCG, quantitative, Lab Routine examination or test, positive result 4 Occurrences starting 2024 until 2025 [facility] Work Phone: Comment on above: 4 Occurrences starti ng 2024 until 2025 Neisseria gonorrhoea e DNA [Presence] in Unspecified specimen by ANNE with probe detection Neisseria gonorrhea DNA probe, direct Lab Routine STD exposure Ordered: 10/31/2024 [facility] Comment on above: Ordered: 10/31/2024 SURESWAB(R) ADVANCED VAGINITIS PLUS, TMA SURESWAB(R) ADVANCED VAGINITIS PLUS, TMA Pathology and Cytology Routine STD exposure Ordered: 10/31/2024 [facility] Comment on above: Ordered: 10/31/2024 Payers Date Payer Category Payer Medicaid [employer] [place] [place] [id number] 2024 Private Health Insurance [id number] 2024 Unknown [id number] 2022 Medicaid [id number] 2001 Unknown [id number] 2.16.840.1.532212.3.579.2. 593 2001 Unknown [id number] 2.16.840.1.501274.3.579.2. 593 2001 Unknown [id number] 2.16.840.1.827767.3.579.2. 593 2001 Unknown [id number] 2.16.840.1.626907.3.579.2. 593 2001 Unknown [id number] 2.16.840.1.859589.3.579.2. 593 2001 Unknown [id number] 2.16.840.1.541901.3.579.2. 1259 2001 Unknown [id number] 2.16.840.1.404477.3.579.2. 1259 2001 Unknown [id number] 2.16.840.1.596818.3.579.2. 1259 2001 Unknown [id number] 2.16.840.1.870358.3.579.2. 1259 2001 Unknown [id number] 2.16.840.1.571411.3.579.2. 1259 2001 Unknown [id number] 2.16.840.1.827063.3.579.2. 1259 2001 Unknown [id number] 2.16.840.1.640727.3.579.2. 1259 2001 Unknown [id number] 2.16.840.1.180834.3.579.2. 1259 2001 Unknown [id number] 2.16.840.1.097021.3.579.2. 1259 1959 [facility] [id number] [id number] Private Health Insurance [id number] [id number] Self-pay Self Pay [id number] Unknown [id number] 2..[id number] Unknown Benny BC/GRACE [id number] Social History Date Type Detail Facility Unknown if ever smoked [facility] Other Start: 01-31-2024 End: 07-31-2024 Sex Assigned At [employer] Other Start: 03-31-2023 End: 05-10-2024 Tobacco smoking status NHIS Never smoked tobacco (finding) [facility] Start: 2001 Sex Assigned At Female F [facility] Start: 03-31-2023 Tobacco use and exposure Smokeless tobacco non-user [facility] Start: 01-31-2024 End: 03-19-2025 Alcoholic beverage intake Lifetime non-drinker (finding) [facility] Start: 01-31-2024 End: 07-31-2024 History of Social function [facility] Start: 02-16-2023 Alcohol Comment Caffeine intak e: soda/pop occasional [facility] Start: 2001 Sex assigned at Not on file [facility] Start: 08-01-2024 [facility] Go[facility] Date Patient Goal Desired Activity /State Personal health goal Clinical Notes 05-04-2021 to 03-19-2025 Lisa Rodriguez, YARIEL - 03/19/2025 8:40 AM Silvino Linares, YARIEL - 03/07/2025 9:00 AM ANGELA Sharma - 02/21/2025 11:30 AM ANGELA Sharma - 01/10/2025 11:20 AM EDT Note Date & Type Note Facility 03-19-2025 History of Presen t illness Narrative Reason for Appointment: Patient ID: Karly Agosto is a 24 y.o. female who presents for Routine Visit Patient presents today for Return OB appointment. MEDICATIONS No current outpatient medications ALLERGIES Allergies Allergen Reactions Minocycline Nausea Only PROBLEMS Active Ambulatory Problems Diagnosis Date Noted Missed menses 2024 examination or test, positive result ([facility]) 2024 Resolved Ambulatory Problems Diagnosis Date Noted No Resolved Ambulatory Problems Past Medical History: Diagnosis Date 6 weeks follow-up ([facility]) BMI 25.0-25.9,adult Salt deficiency Type O blood, Rh positive HISTORY PAST MEDICAL HISTORY SOCIAL HISTORY Past Medical History: Diagnosis Date 6 weeks follow-up ([facility]) BMI 25.0-25.9,adult Salt deficiency Type O blood, [...] nursing note reviewed. Exam conducted with a personnel representative present. Vitals: Estimated body mass index is 30.43 kg/m as calculated from the following: Height as of 12/15/22: 5' 2 . Weight as of this encounter: 166 lb 6.4 oz. BP: 120/78 Patient's last menstrual period was 07/18/2024. ASSESSMENT & PLAN ICD-10-CM 1. 34 weeks gestation of ([facility]) Z3A.34 POCT urinalysis dipstick manually resulted 2. Third trimester ([facility]) Z34.93 POCT urinalysis dipstick manually resulted Return OB: Patient presents today for a routine obstetrics appointment. Patient is currently 34w6d . Patient states she is doing well but has complaints of being tired due to current . Patient has verbalizes frequent movement. labor precautions was discussed/given and patient was instructed to perform kick counts three times a day. Orders Placed This Encounter Procedures POCT urinalysis dipstick manually resulted Follow Up: Patient is to return to office in 1 week for routine OB appointment. Documented by Lisa Rodriguez LPN on behalf of: Ai Spencer DO documented in this encounter [facility] 03-07-2025 History of Presen t illness Narrative Reason for Appointment: Patient ID: Karly Agosto is a 24 y.o. female who presents for Routine Visit Patient presents today for Return OB appointment. MEDICATIONS No current outpatient medications ALLERGIES Allergies Allergen Reactions Minocycline Nausea Only PROBLEMS Active Ambulatory Problems Diagnosis Date Noted Missed menses 2024 examination or test, positive result ([facility]) 2024 Resolved Ambulatory Problems Diagnosis Date Noted No Resolved Ambulatory Problems Past Medical History: Diagnosis Date 6 weeks follow-up ([facility]) BMI 25.0-25.9,adult Salt deficiency Type O blood, Rh positive HISTORY PAST MEDICAL HISTORY SOCIAL HISTORY Past Medical History: Diagnosis Date 6 weeks follow-up ([facility]) BMI 25.0-25.9,adult Salt deficiency Type O blood, [...] nursing note reviewed. Exam conducted with a personnel representative present. Vitals: Estimated body mass index is 30.18 kg/m as calculated from the following: Height as of 12/15/22: 5' 2 . Weight as of this encounter: 165 lb. BP: 110/70 Patient's last menstrual period was 07/18/2024. ASSESSMENT & PLAN ICD-10-CM 1. 33 weeks gestation of ([facility]) Z3A.33 POCT urinalysis dipstick manually resulted 2. Third trimester ([facility]) Z34.93 POCT urinalysis dipstick manually resulted Patient presents today for a routine obstetrics appointment. Patient is currently 33w1d with a Estimated Date of Delivery: 04/24/25. Patient to return to clinic in 2 weeks. Documented by Waleska Linares LPN on behalf of: Ai Spencer DO documented in this encounter [facility] 02-21-2025 History of Presen t illness Narrative Reason for Appointment: Patient ID: Karly Agosto is a 24 y.o. female who presents for Routine Visit Patient presents today for Return OB appointment. MEDICATIONS No current outpatient medications ALLERGIES Allergies Allergen Reactions Minocycline Nausea Only PROBLEMS Active Ambulatory Problems Diagnosis Date Noted Missed menses 2024 examination or test, positive result ([facility]) 2024 Resolved Ambulatory Problems Diagnosis Date Noted No Resolved Ambulatory Problems Past Medical History: Diagnosis Date 6 weeks follow-up ([facility]) BMI 25.0-25.9,adult Salt deficiency Type O blood, Rh positive HISTORY PAST MEDICAL HISTORY SOCIAL HISTORY Past Medical History: Diagnosis Date 6 weeks follow-up ([facility]) BMI 25.0-25.9,adult Salt deficiency Type O blood, [...] ASSESSMENT & PLAN ICD-10-CM 1. Third trimester ([facility]) Z34.93 POCT urinalysis dipstick manually resulted 2. 31 weeks gestation of ([facility]) Z3A.31 POCT urinalysis dipstick manually resulted 3. size inconsistent with dates ([facility]) O26.849 US OB follow up transabdominal approach [...] of: ANGELA Mayorga documented in this encounter [facility] 01-10-2025 History of Presen t illness Narrative Reason for Appointment: Patient ID: Karly Agosto is a 24 y.o. female who presents for Routine Visit Patient presents today for Return OB appointment. MEDICATIONS No current outpatient medications ALLERGIES Allergies Allergen Reactions Minocycline Nausea Only PROBLEMS Active Ambulatory Problems Diagnosis Date Noted Missed menses 2024 examination or test, positive result ([facility]) 2024 Resolved Ambulatory Problems Diagnosis Date Noted No Resolved Ambulatory Problems Past Medical History: Diagnosis Date 6 weeks follow-up ([facility]) BMI 25.0-25.9,adult Salt deficiency Type O blood, Rh positive HISTORY PAST MEDICAL HISTORY SOCIAL HISTORY Past Medical History: Diagnosis Date 6 weeks follow-up ([facility]) BMI 25.0-25.9,adult Salt deficiency Type O blood, [...] ASSESSMENT & PLAN ICD-10-CM 1. Second trimester ([facility]) Z34.92 POCT urinalysis dipstick manually resulted 2. 25 weeks gestation of ([facility]) Z3A.25 3. Diabetes mellitus screening Z13.1 CBC [...] of: ANGELA Mayorga documented in this encounter [facility] 12-04-2024 History of Presen t illness Narrative Reason for Appointment: Patient ID: Karly Agosto is a 24 y.o. female who [...] nursing note reviewed. Exam conducted with a personnel representative present. Vitals: Estimated body mass index [...] for scheduled Ob appt. Documented by Lisa Rodriguze LPN on behalf of: Ai Spencer DO documented in this encounter [facility] 11-22-2024 History of Presen t illness Narrative Reason for Appointment: Patient ID: Karly Agosto is a 24 y.o. female who [...] or undercooked meat, and stay away from [facility]. Patient has also been advised to [...] De Leon LPN documented in this encounter [facility] 10-31-2024 History of Presen t illness Narrative Reason for Appointment: Patient ID: Karly Agosto is a 24 y.o. female who [...] nursing note reviewed. Exam conducted with a personnel representative present. Vitals: Estimated body mass index [...] Ai Spencer DO documented in this encounter [facility] 2024 History of Presen t illness Narrative Associated Order(s): IUD Insertion Post-Procedure Diagnose(s): Encounter for IUD insertion Reason for Appointment: Patient ID: Karly Agosto is a 24 y.o. female who [...] Spencer DO Reason for Appointment: Patient ID: Karly Agosto is a 24 y.o. female who [...] nursing note reviewed. Exam conducted with a personnel representative present. Vitals: Estimated body mass index [...] Ai Spencer DO documented in this encounter [facility] 07-31-2024 History of Presen t illness Narrative Reason for Appointment: Patient ID: Karly Agosto is a 23 y.o. female who [...] nursing note reviewed. Exam conducted with a personnel representative present. Vitals: Estimated body mass index [...] Ai Spencer DO documented in this encounter [facility] 08-18-2023 Evaluation note Encounter Date Diagnosis [...] treatment plan. Patient left in stable condition [facility] Other 02-28-2023 Evaluation note* Encounter Date Diagnosis Assessment Notes Treatment Notes Treatment Clinical Notes Aug, Impetigo (ICD-10 - L01.00) Clean area as discussed with 1/2 peroxide and water mix. Apply ointment to area. Infection is very contagious. Bed laundering and cleaning toys is important. Follow up with primary care provider or come back into office to be seen if symptoms worsen [facility] Other 09-08-2022 Evaluation note* Encounter Date Diagnosis [...] no improvement in 2 to 3 days. [facility] Other 06-17-2022 Evaluation note* Encounter Date Diagnosis [...] treatment plan. Patient left in stable condition [facility] Other 10-18-2021 Evaluation note* Encounter Date Diagnosis Assessment Notes Treatment Notes Treatment Clinical Notes Apr, Contact with and (suspected) exposure to other viral communicable diseases (ICD-10 - Z20.828) Apr, COVID-19 (ICD-10 - U07.1) Today you tested positive for the COVID virus. This mean you need to follow all [facility] quarantine guidelines found at [email or web address] v. It is important to rest, increase [...] care instructions given in writting by [facility] Care At Home document. [facility] Other Evaluation note* Diagnosis Onset Date Resolution Status Right ankle sprain acute [facility] Work Phone: Evaluation note* Diagnosis [...] dates ([facility]) [facility] Diagnosis 33 weeks gestation of ([facility]) Third trimester ([facility]) state, incidental documented [facility] Diagnosis 34 weeks gestation of ([facility]) Third trimester ([facility]) state, incidental SGA (small for gestational age) ([facility]) Ndbwd-hhd-tfhfv without mention of malnutrition, unspecified (weight) documented in this encounter [facility] Narrative - Reported* Type Description Date Hospitalization History fractured arm and shatte red elbow [facility] Other History general Narrative - Reported* Type Description Date Hospitalization History fractured arm and shatte red elbow Hospitalization History childbirth [facility] Other Summary Purpose Family History No Family [...] content) DATE CREATED AUTHOR 08/09/2020 Rodriguez Lucho [facility] DATE CREATED AUTHOR AUTHOR'S ORGANIZ ATION 12/24/2022 [facility] DATE CREATED AUTHOR AUTHOR'S ORGANIZ ATION 03/19/2025 [facility] EPIC REASON FOR VISIT (unrecogniz ed [...] BE BASED ON THE PRIMARY CLINICAL RECORDS. [facility] [employer] [facility]. provides no warranty or guarantee of the accuracy or completeness of information in this document.
== END 2025-03-20 17:20 | disposition home or self-care (01) ==
PROVIDERS: Admitting Provider Obstetrics & Gynecology; Visit Provider Obstetrics & Gynecology
DX: O99.891 Other specified diseases and conditions complicating pregnancy (principal); N89.8 Other specified noninflammatory disorders of vagina; Z3A.00 Weeks of gestation of pregnancy not specified
CPT/HCPCS: 59025; G0378; G0379

== ENCOUNTER 2025-03-27 18:56 | Outpatient (OUT) | payer OTHER, SELFPAY ==
--- OUTSIDE RECORDS SUMMARY | 2021-02-18 10:30 | XMS_ITS | Continuity of Care Document ---
Author Organization [facility] Address [address] [place] [address] Phone Care Team Providers Care National Coverage Specialist Name Role Phone Chucky RUIZNarendra DELMERWaleska Unavailable [...] Copied on Encounter OFFICE/OUTPAT IENT VISIT, EST [facility], [address], [place], [id number], [place] tel:[phone] [facility] Test (chief complaint) Encounter for test, result positiveLess than 8 weeks gestation of pregnancyEncounter for supervision of normal 1st , 1st trimester Chucky [facility]. [address], [place], [id number] , [place]. tel:[phone] Family History Family Member Type Diagnosis Age At Onset Father Problem hypertension Mother Problem Eczema Mother Problem asthma Sister Problem Alive and well Father Problem Diabetes mellitus Payers Payer name Insurance type Covered constitution party ID Rosanna shetty(mark anthony Saleh [id number] Medicaid Wrap - [facility] [place] [id number] Social History Type Description Quantity Date Captured [...] Mental Status Date Cognitive Assessment Orientation - Clever ed to time, place, person, situation. Patient Care Teams Name Effective Dates (start - stop) Status Members No Information
--- OUTSIDE RECORDS SUMMARY | 2025-03-19 08:40 | XMS_ITS | Encounter Summary ---
Author Organization [facility] Address [address] [place] [address] Care Team Providers Care Lead Sales Consultant Name Role Phone Unavailable Primary Care Provider Unavailabl e Reason for Visit * Reason Comments Routine Visit Encounter Details Date Type Department Care Team (Late st Contact Info) Description 03/19/2025 8:40 AM EDT Routine [facility] [place] [facility] [address] [place] [phone] Benjamin Spencer DO [address] [facility] [place] [address] 34 weeks gestation of ([facility]); Third trimester ([facility]); SGA (small for gestational age) ([facility]) Social History Tobacco Use Types Packs/Day [...] menses 2024 examination or test, positive result ([facility]) 2024 Resolved Ambulatory Problems Diagnosis Date Noted No Resolved Ambulatory Problems Past Medical History: Diagnosis Date 6 weeks follow-up ([facility]) BMI 25.0-25.9,adult Salt deficiency Type O blood, Rh positive HISTORY PAST MEDICAL HISTORY SOCIAL HISTORY Past Medical History: Diagnosis Date 6 weeks follow-up ([facility]) BMI 25.0-25.9,adult Salt deficiency Type O [...] nursing note reviewed. Exam conducted with a winder fixer present. Vitals: Estimated body mass index is 30.43 kg/m?? as calculated from the following: Height as of 12/15/22: 5' 2 . Weight as of this encounter: 166 lb 6.4 oz. BP: 120/78 Patient's last menstrual period was 07/18/2024. ASSESSMENT & PLAN ICD-10-CM 1. 34 weeks gestation of ([facility]) Z3A.34 POCT urinalysis dipstick manually resulted 2. Third trimester ([facility]) Z34.93 POCT urinalysis dipstick manually resulted [...] Care Team (Late st Contact Info) Description 04/02/2025 8:50 AM EDT Routine [facility] [address] [place] [address] [place] [phone] Benjamin Spencer, DO [address] [facility] [place] [address] 04/09/2025 8:40 AM EDT Routine [facility] [address] [place] [phone] Benjamin Spencer, DO [address] [place] [address] Scheduled Orders Name Type Priority Associated Diagnoses Orde r Schedule US biophysical profile w non stress test Imaging Routine SGA (small for gestational age) ([facility]) Expected: 03/20/2025 (Approximate), Expires: 09/17/2025 documented as of this encounter Goals Goal Patient Goal Type Associated Problems Recent Progress Patient-Stated? Author Reminders Care Plan OB Reminders No Open Scheduling, Background documented as of this encounter Procedures Procedure Name Priority Date/Time Associated Diagnosis Comments POCT URINALYSIS DIPSTICK Routine 03/19/2025 9:00 AM EDT 34 weeks gestation of ([facility]) Third trimester ([facility]) documented in this encounter Results * [...] Oscar Kent MD us Benjamin Spencer DO IM OB US PROCEDURES Final Resul t * [...] Visit Diagnoses Diagnosis 34 weeks gestation of ([facility]) Third trimester ([facility]) state, incidental SGA (small for gestational age) ([facility]) Qqprv-fxw-hderd without mention of malnutrition, unspecified (weight) SGA (small for gestational age) ([facility]) Wgsmt-guz-utvvj without mention of malnutrition, unspecified (weight) documented in this encounter Additional Health Concerns Active Problems Noted Date Diagnosed Date OB Reminders 04/27/2023 documented as of this encounter
--- OUTSIDE RECORDS SUMMARY | 2025-03-20 11:30 | XMS_ITS | Encounter Summary ---
Author Organization [facility] Address [address] [place] [address] Care Team Providers Care Container Crane Operator Name Role Phone Unavailable Primary Care Provider Unavailabl e Encounter Details Date Type Department Care Team (Latest Contact Info) Description 03/20/2025 11:30 AM EDT Ancillary Procedure [facility] [address] [place] [address] SGA (small for gestational age) ([facility]) Social History Tobacco Use Types Packs/Day Years [...] Info) Description 04/02/2025 8:50 AM EDT Routine [facility] [address] [place] [address] Benjamin Spencer DO [address] [place], [place] [address] 04/09/2025 8:40 AM EDT Routine [facility] [address] [place] [address] Benjamin Spencer, DO [address] [facility] [place] [address] documented as of this encounter Goals Goal Patient Goal Type Associated Problems Recent Progress Patient-Stated? Author Reminders Care Plan OB Reminders No Open Scheduling, Background documented as of this encounter Procedures Procedure Name Priority Date/Time Associated Diagnosis Comments US OB FOLLOW UP TRANSABDOMINAL APPROACH Routine 03/20/2025 11:56 AM EDT SGA (small for gestational age) ([facility]) documented in this encounter Results * US [...] Oscar Kent MD us Benjamin Spencer DO [facility] [place] US PROCEDURES Final Resul t documented in this encounter Visit Diagnoses Diagnosis SGA (small for gestational age) ([facility]) Mwlbt-fwg-nmeea without mention of malnutrition, unspecified (weight) documented in this encounter Additional Health Concerns Active Problems Noted Date Diagnosed Date OB Reminders 04/27/2023 documented as of this encounter
--- OUTSIDE RECORDS SUMMARY | 2025-03-27 18:58 | XMS_ITS | Encounter Summary ---
Author Organization [facility] Address [address] [place] [address] Care Team Providers Care Business Specialist Name Role Phone Unavailable Primary Care Provider Unavailabl e Encounter Details Date Type Department Care Team (Late st Contact Info) Description 02/01/2024 Clinisync Result Encounter [facility] External Department Unsolicited Benjamin Spencer, DO [address] [place], [facility] Social History Tobacco Use Types Packs/Day Years [...] 04/02/2025 8:50 AM EDT Routine [facility] [address] [place] [address] Benjamin Spencer DO [address] [place], [facility]11 04/09/2025 8:40 AM EDT Routine [facility] [address] [place] [address] Benjamin Spencer, DO [address] [place] [address] documented as of this encounter Goals Goal [...] PM EDT Narrative 02/01/2024 2:24 PM EDT [address] [address] Ultrasound Report Signed Patient: WENDY AGOSTO MR#: [id number] : 2000 Acct:[id number] Age/Sex: 23 / F ADM Date: 02/01/24 Loc: [facility] Attending Dr: Benjamin Spencer D.O. Ordering Physician: Benjamin Spencer D.O. Date of Service: 02/01/24 Procedure(s): US pelvis w/ transvaginal Accession Number(s): [id number] cc: Benjamin Spencer D.O.; Physician,Non-Staff M.DTani The [address] [address] Patient Name: WENDY AGOSTO MRN: [id number] date: 2000 Sex: F Assigned Patient Location: [facility] Current Patient Location: [facility] Accession/Order Number: [id number] Exam Date: 02/01/2024 08:07 Report Date: 02/01/2024 [...] account for patient's symptoms. Electronically authenticated by: GM EM Date: 02/01/2024 14:21 Dictated By: Gm Em M.D. Signed By: 02/01/24 1424 DD/ 20 TD/TT: Package Pick Up: Procedure Note Radiology, Radiologist, MD - 02/01/2024 [place] [address] Ultrasound Report Signed Patient: WENDY AGOSTO R#: [id number] : 2000Acct:[id number] Age/Sex: 23 / FADM Date: 02/01/24 Loc: [facility] Attending Dr: Benjamin Spencer D.O. Ordering Physician: Benjamin Spencer D.O. Date of Service: 02/01/24 Procedure(s): US pelvis w/ transvaginal Accession Number(s): [id number] cc: Benjamin Spencer D.O.; Physician,Non-Staff Jayme The [address] [address] Patient Name: WENDY AGOSTO MRN: [id number] date: 2000 Sex: F Assigned Patient Location: [facility] Current Patient Location: [facility] Accession/Order Number: [id number] Exam Date: 02/01/2024 08:07 Report Date: 02/01/2024 [...] account for patient's symptoms. Electronically authenticated by: GM EM Date: 02/01/2024 14:21 Dictated By: Gm Em M.D. Signed By:02/01/24 1424 DD/ 1421 TD/TT: Package Pick Up: us Benjamin Spencer DO [facility] Final Result documented in this encounter Visit Diagnoses Not on filedocumented in this encounter Additional Health Concerns Active Problems Noted Date Diagnosed Date OB Reminders 04/27/2023 documented as of this encounter
--- OUTSIDE RECORDS SUMMARY | 2025-03-27 18:58 | XMS_ITS | Encounter Summary ---
Author Organization [facility] Address [address] [place] [address] Care Team Providers Care Unit Tender Name Role Phone Unavailable Primary Care Provider Unavailabl e Encounter Details Date Type Department Care Team (Late st Contact Info) Description 01/13/2023 Abstract [facility]ER[facility] ZAMBR[facility]O [address] [place] [address] Benjamin Spencer, DO [address] [place], [place] [address] Social History Tobacco Use Types Packs/Day Years [...] 04/02/2025 8:50 AM EDT Routine [facility] Z[facility] [place] [address] Benjamin Spencer, DO [address] [place], [facility]11 04/09/2025 8:40 AM EDT Routine [facility] [address] [place] [address] Benjamin Spencer, DO [address] [place], [facility]11 documented as of this encounter Visit Diagnoses Not on filedocumented in this encounter
--- OUTSIDE RECORDS SUMMARY | 2025-03-27 18:58 | XMS_ITS | Clinical Summary ---
Author Organization [facility] Address [address] [place] [address] Care Team Providers Care Excellence Consultant Name Role Phone Unavailable Primary Care Provider Unavailabl e Allergies Active Allergy Reactions Criticality Noted Date Comments Minocycline Nausea Only 12/14/2022 Medications No known medications Active Problems Problem Noted Date Diagnosed Date Missed menses 2024 examination or test, positive result ( [facility]) 2024 Estimated Date of Delivery Comme nts Yes 04/24/2025 Based on last me nstrual period of 07/18/2024 Encounters Date Type Department Care Team Description 03/20/2025 11:30 AM EDT Ancillary Procedure [facility] [address] [place] [address] SGA (small for gestational age) ([facility]) 03/20/20[place] [address] Michelle Curry MA 03/19/2025 8:40 [place] [address] Benjamin Spencer DO 34 weeks gestation of ([facility]); Third trimester ([facility]); SGA (small for gestational age) ([facility]) 03/19/2025 Bamboo flowsheet [facility] [address] [place] [address] Benjamin Spencer DO 03/07/2025 9:00 AM EDT Routine [facility] [address] [place] [address] Benjamin Spencer, 33 weeks gestation of ([facility]); Third trimester ([facility]) 03/07/2025 Bamboo flowsheet [facility] [address] [place] [address] Benjamin Spencer, 03/01/2025 Clinisync Result Encounter NOMS External Department Unsolicited Torri Meza PA 02/21/2025 11:30 AM EDT Routine [facility] [address] [place] [address] Torri Meza PA Third trimester ([facility]); 31 weeks gestation of ([facility]); size inconsistent with dates ([facility]) 02/21/2025 Bamboo flowsheet [facility] [address] [place] [address] Torri Meza PA 02/14/2025 Clinisync Result Encounter [facility] External Department Unsolicited Torri Meza PA 01/14/2025 Telephone [facility] [place] [facility] [address] [place] [address] Torri Meza PA 01/12/2025 Clinisync Result Encounter [facility]S External Department Unsolicited Torri Meza PA 01/10/2025 11:20 AM EDT Routine [facility] [place] [facility] [address] [place] [address] Torri Meza PA Second trimester ([facility]); 25 weeks gestation of ([facility]); Diabetes mellitus screening 01/10/2025 Bamboo flowsheet [facility] [place] [facility] [address] [place] [address] Torri Meza PA 01/09/2025 Travel from Last [...] AM EDT Routine [facility] [address] [place] [address] Benjamin Spencer, DO [address] [facility] [place] [address] 04/09/2025 8:40 AM EDT Routine [facility] [address] [place] [address] Benjamin Spencer, DO [address] [facility] [address] [place], [place] [phone] Goals Goal Patient Goal Type Associated Problems Recent Progress Patient-Stated? Author Reminders Care Plan OB Reminders No Open Scheduling, Background Procedures Procedure Name Priority Date/Time Associated Diagnosis Comments US OB FOLLOW UP TRANSABDOMINAL APPROACH Routine 03/20/2025 11:56 AM EDT SGA (small for gestational age) ([facility]) POCT URINALYSIS DIPSTICK Routine 03/19/2025 9:00 AM EDT 34 weeks gestation of ([facility]) Third trimester ([facility]) POCT URINALYSIS DIPSTICK Routine 03/07/2025 10:16 AM EDT 33 weeks gestation of ([facility]) Third trimester ([facility]) US OB GROWTH 03/01/2025 8:33 AM EDT POCT URINALYSIS DIPSTICK Routine 02/21/2025 11:49 AM EDT Third trimester ([facility]) 31 weeks gestation of ([facility]) GLUCOSE TOLERANCE 3 HOUR Routine 02/14/2025 7:37 AM EDT GLUCOSE 1 HOUR Routine 01/12/2025 9:01 AM EDT ALL CBC WITH AUTO DIFF Routine 9:01 AM EDT POCT URINALYSIS DIPSTICK Routine 01/10/2025 11:38 AM EDT Second trimester ([facility]) from Last 3 Months Results * US OB follow up transabdominal [...] BY: ELECTRONICALLY SIGNED BY: Oscar Kent MD Benjamin Spencer DO IMG OB US PROCEDURES Final Resul t * [...] AM EDT Narrative 03/01/2025 8:35 AM EDT [address] [address] Ultrasound Report Signed Patient: KARLY AGOSTO MR#: [id number] : 2000 Acct:[id number] Age/Sex: 24 / F ADM Date: 03/01/25 Loc: US Attending Dr: Torri Meza Ordering Physician: Torri Meza Date of Service: 03/01/25 Procedure(s): US OB growth Accession Number(s): [id number] cc: Torri Meza; Physician,Non-Staff M.DTani The [place] [id number] Patient Name: KARLY AGOSTO MRN: [id number] date: 2000 Sex: F Assigned Patient Location: US Current Patient Location: US Accession/Order Number: [id number] Exam Date: 03/01/2025 08:28 Report Date: 03/01/2025 [...] Jr., D.O. 03/01/2025 8:33 AM Dictation Location: [place] [address] Electronically authenticated by: [id number] Y Date: 03/01/2025 08:33 Dictated By: Oscar Clemens M.D. Signed By: 03/01/25 0835 DD/ 0833 TD/TT: Peoplesoft Developer: Procedure Note Radiology, Radiologist, MD - 03/01/2025 The [place] [address] Ultrasound Report Signed Patient: KARLY AGOSTO R#: [id number] : 2000Acct:[id number] Age/Sex: 24 / FADM Date: 03/01/25 Loc: US Attending Dr: Torri Meza Ordering Physician: Torri Meza Date of Service: 03/01/25 Procedure(s): US OB growth Accession Number(s): [id number] cc: Torri Meza; Physician,Non-Staff Jayme The [place] [id number] Patient Name: KARLY AGOSTO MRN: [facility]:[id number] date: 2000 Sex: F Assigned Patient Location: US Current Patient Location: US Accession/Order Number: [id number] Exam Date: 03/01/2025 08:28 Report Date: 03/01/2025 [...] Jr., D.O. 03/01/2025 8:33 AM Dictation Location: [place] [address] Electronically authenticated by: [id number] Y Date: 508:33 Dictated By: Oscar Clemens M.D. Signed By:03/01/2535 DD/ TD/TT: [employer]oples[employer] Developer: Torri Meza PA [facility] Final Result * GLUCOSE TOLERANCE 3 HOUR (02/14/2025 7:37 AM EDT) GLUCOSE TOLERANCE 3 HOUR mg/dL [facility] Comment: GLU FAST 86 (<95) Col: 02/14/25 0737 GLU 1HR 157 (<180) Col: 02/14/25 0841 GLU 2HR 129 (<155) Col: 02/14/25 0941 GLU 3HR 114 (<140) Col: 02/14/25 1040 02/14/2025 7:37 AM EDT 02/14/2025 7:38 AM EDT Narrative [facility] - 02/14/2025 11:22 AM EDT Torri MILLER LAB BLOOD ORDERABLES Final Resul t [facility] * (ABNORMAL) GLUCOSE 1 HOUR (01/12/2025 9:01 AM EDT) GLUCOSE 1 HOUR 140(H) <130 mg/dL [facility] 01/12/2025 9:01 AM EDT 01/12/2025 9:16 AM EDT Narrative [facility] - 01/12/2025 10:01 AM EDT Torri Meza ANGELA LAB BLOOD ORDERABLES Final Resul t Performing Organization Address City/[facility]/ZIP Co de Phone Number [facility] * (ABNORMAL) ALL CBC WITH AUTO DIFF (01/12/2025 9:01 AM EDT) TB WBC 9.7 4.0 - 11.0 10 3/uL [...] us Torri MILLER [facility] Final Result [facility] from Last 3 Months Additional Health Concerns Active Problems Noted Date Diagnosed Date OB Reminders 04/27/2023 Insurance [employer]
--- OUTSIDE RECORDS SUMMARY | 2025-03-27 18:58 | XMS_ITS | Encounter Summary ---
Author Organization [facility] Address [address] [place] [address] Care Team Providers Care Dry Clipper Tender Name Role Phone Unavailable Primary Care Provider Unavailabl e Encounter Details Date Type Department Care Team (Late Contact Info) Description 02/02/2024 Abstract PIERRE ZAMBRANO [address] [place] [address] Benjamin Spencer DO [facility] [address] [place], [place] [address] Social History Tobacco Use Types Packs/Day Years [...] Department Care Team (Late Contact Info) Description 04/02/2025 8:50 AM EDT Routine [facility] ZAMBR[facility]O [address] [place] [address] Benjamin Spencer DO [address], [facility]11 04/09/2025 8:40 AM EDT Routine [facility] Z[facility] [place] [address] Benjamin Spencer, DO [address] [facility] [place] [address] documented as of this encounter Goals Goal Patient Goal Type Associated Problems Recent Progress Patient-Stated? Author Reminders Care Plan OB Reminders No Open Scheduling, Background documented as of this encounter Visit Diagnoses Not on filedocumented in this encounter Additional Health Concerns Active Problems Noted Date Diagnosed Date OB Reminders 04/27/2023 documented as of this encounter
--- OUTSIDE RECORDS SUMMARY | 2025-03-27 18:58 | XMS_ITS | Encounter Summary ---
Author Organization [facility] Address [address] [place] [address] Care Team Providers Care Regulatory Affairs Director Name Role Phone Unavailable Primary Care Provider Unavailabl e Encounter Details Date Type Department Care Team (Late st Contact Info) Description 03/20/2025 Telephone [facility] [address] [facility] [place] [address] Michelle Curry MA Social History Tobacco Use [...] Description 04/02/2025 8:50 AM EDT Routine [facility]ana [facility]BGYN [address] [facility] [place] [address] Benjamin Spencer, DO [address] [place] [address] 04/09/2025 8:40 AM EDT Routine [facility] Adriana VERAGYN [address] [facility] [place] [address] Benjamin Spencer, DO [address] [place] [address] documented as of this encounter Goals Goal Patient Goal Type Associated Problems Recent Progress Patient-Stated? Author Reminders Care Plan OB Reminders No Open Scheduling, Background documented as of this encounter Visit Diagnoses Not on filedocumented in this encounter Additional Health Concerns Active Problems Noted Date Diagnosed Date OB Reminders 04/27/2023 documented as of this encounter
--- OUTSIDE RECORDS SUMMARY | 2025-03-27 18:58 | XMS_ITS | Encounter Summary ---
Author Organization [facility] Address [address] [place] [address] Care Team Providers Care Filling Hauler Weaving Name Role Phone Unavailable Primary Care Provider Unavailabl e Encounter Details Date Type Department Care Team (Late st Contact Info) Description 03/19/2025 Bamboo flowsheet PIERRE ZAMBRANO [address] [place] [address] Benjamin Spencer DO [facility] [place], [facility]11 Social History Tobacco Use Types [...] EDT Routine NOM[facility]on ZAMBRANO [address] [place] [address] Benjamin Spencer DO [address] [place], [facility] 04/09/2025 8:40 AM EDT Routine [facility] [address] [facility] [place] [address] Benjamin Spencer DO [address] [facility] [place] [address] documented as of this encounter Goals Goal Patient Goal Type Associated Problems Recent Progress Patient-Stated? Author Reminders Care Plan OB Reminders No Open Scheduling, Background documented as of this encounter Visit Diagnoses Not on filedocumented in this encounter Additional Health Concerns Active Problems Noted Date Diagnosed Date OB Reminders 04/27/2023 documented as of this encounter
--- OUTSIDE RECORDS SUMMARY | 2025-03-27 18:58 | XMS_ITS | Encounter Summary ---
Author Organization [facility] Address [address] [place] [address] Care Team Providers Care Power Plant Technician Name Role Phone Unavailable Primary Care Provider Unavailabl e Encounter Details Date Type Department Care Team (Late Contact Info) Description 02/16/2023 Abstract [facility] Z[facility]O [address] [facility] [place] [address] Torri Carlos PA [address] [facility] [address] [place], [place] [address] Social History Tobacco Use Types Packs/Day Years [...] 04/02/2025 8:50 AM EDT Routine NOMKeyon ZAMBRANO [address] [place] [address] [place] [address] Benjamin Spencer DO [address] [facility] [address] [place], [facility] 04/09/2025 8:40 AM EDT Routine N[facility] ZAMBR[facility]O [address] [place] [address] [place] [address] Benjamin Spencer, [address] [place] [address] documented as of this encounter Visit Diagnoses Not on filedocumented in this encounter
--- OUTSIDE RECORDS SUMMARY | 2025-03-27 18:58 | XMS_ITS ---
Author Organization [facility] Source Produ ction (ClinicalSummary Clone) Address Unknown Care Team Providers Care Money Position Officer Name Role Phone Unavailable Primary Care Physician Unavailab le Results * [UNITY] ANEUPLOIDY NIPT Performed by: [employer] Component Value Range Date Fraction 4.6% 10/25/2024 03 :42 am UTC Rh(D) NIPT RhD DETECTED 10/25/2024 03:4 2 am UTC Sex Chromosome Aneuploidy NOT DETECTED 03:42 am UTC Monosomy X LOW RISK <1 in 10,000 2024 03:42 am UTC Trisomy 13 LOW RISK <1 in 10,000 2024 03:42 am UTC Trisomy 18 LOW RISK <1 in 10,000 2024 03:42 am UTC Trisomy 21 LOW RISK <1 in 10,000 2024 03:42 am UTC Sex MALE 10/25/2024 03:4 2 am UTC Gestation LAN 10/26/19 03:42 am UTC For detailed report, see PDF See PDF 10/25/2024 03:42 am UTC 10/25/2024 03:4 2 am UTC Social History Observation Value Start Date End Date
[2025-03-27 19:01] VITALS: BP 113/67; PULSE 93
--- OUTSIDE RECORDS SUMMARY | 2025-03-27 19:01 | XMS_ITS | CCD ---
Author Organization [facility] Care Team Providers Care Curriculum Development Manager Name Role Phone Elsa eRa Unavailable Deann Partida Unavailable RosalvaCharisse Unavailable ANTONIETAC, DR HIGHTOWER Primary Care Unavailable [...] Unavailable AI SPENCER Attending Unavailable AI SPENCER Referring Unavailable Allergies Allergy Classification Reported Allergen(s) Allergy [...] sources) Iron Not-Taking/ PRN Iron Active levonorgestrel 0.457740 mg/hr intrauterine system (2 sources) Progestin, Progestin-containing [...] low weight; and growth retardation (2 sources) Jolrk-pyg-zbrys baby; Translations: [Cook small for gestational age, unspecified weight] 03-19-2025 [...] Test Name Value Interpretation Reference Range Facility US OB FOLLOW UP TRANSABDOMIN AL APPROACHon 03-20-2025 US OB FOLLOW UP TRANSABDOMINAL APPROACH FINDINGS: No prior examinations. A single, live [...] 2176 grams ( 4 pound, 13 ounces). IMPRESSION: 1. Single, live intrauterine , current sonographic age of 33 weeks and 3 days, with an estimated date of delivery of May 05. 2. weight is 2176 grams, and weight by percentile is 10.1% * Estimated Weight (g) by Percentile is based upon an accurate estimated age based on last menstrual period. TRANSCRIBED BY: ELECTRONICALLY SIGNED BY: Oscar Kent MD Normal Not Available Comment on above: Order Comment: US OB SCAN FOR GROWTH Estimated Date of Delivery: 04/24/25 Gestational Age as of 03/19/2025: 34w6d Urinalysis macro (dipstick) panel (U)on 03-19-2025 Bilirubin, UA Negative Negative - 4(70) +++ mg/dL [facility] Blood, UA Negative Negative - 50 Nicolás/mcL [facility] Clarity, UA Clear [facility] re Color, UA Yellow [facility] Glucose, UA Negative Negative - 2000(110) ++++ mg/dL [facility] Interpretation and review of laboratory results Normal [facility] Ketones, UA Negative Negative - 160(16) ++++ mg/dL [facility] Leukocytes, UA Negative Negative - 500+++ Yodit/mcL [facility] Nitrite, UA Negative Negative - Positive [facility] Healthcare pH, UA 7 5 - 9 [facility] Protein, UA Negative Negative - 1999(20) ++++ mg/dL [facility] Healthcare Spec Grav, UA 1.015 1 - 1.03 [facility] Urobilinogen, UA 1.0 0.2 - 12 mg/dL [facility] Urinalysis macro (dipstick) panel (U)on 03-07-2025 Bilirubin, UA Negative Negative - 4(70) +++ mg/dL [facility] Blood, UA Negative Negative - 50 Nicolás/mcL [facility] Healthcare Clarity, UA Clear [facility] Color, UA Yellow [facility] Glucose, UA Negative Negative - 1999(110) ++++ mg/dL [facility] Interpretation and review of laboratory results Abnormal [facility] Ketones, UA Negative Negative - 160(16) ++++ mg/dL [facility] Leukocytes, UA Positive Negative - 500+++ Yodit/mcL [facility] Healthcare Nitrite, UA Negative Negative - Positive [facility] pH, UA 7 5 - 9 [facility] Health[facility] e Protein, UA Negative Negative - 1999(20) ++++ mg/dL [facility] Healthcare Spec Grav, UA 1.01 1 - 1.03 [facility] Health care Urobilinogen, UA 1.0 0.2 - 12 mg/dL [facility] OB GROWTHon 03-01-2025 The [place] [id number] Ultrasound Report Signed Patient: KARLY AGOSTO MR#: [id number] : 2000 Acct:[id number] Age/Sex: 24 / F ADM Date: 03/01/25 Loc: US Attending Dr: Torri Meza Ordering Physician: Torri Meza Date of Service: 03/01/25 Procedure(s): US OB growth Accession Number(s): [id number] cc: Torri Meza; Physician,Non-Staff M.DTani The [address] [address] Patient Name: KARLY AGOSTO MRN: [facility]:[id number] date: 2000 Sex: F Assigned Patient Location: US Current Patient Location: US Accession/Order Number: [id number] Exam Date: 03/01/2025 08:28 Report Date: 03/01/2025 [...] Jr., D.O. 03/01/2025 8:33 AM Dictation Location: [place] [address] Electronically authenticated by: [id number] Y Date: 03/01/2025 08:33 Dictated By: Oscar Clemens M.D. Signed By: 03/01/2535 DD/ TD/TT: Hospice Coordinator: [facility] Radiology, Radiologist, - 03/01/[address] [address] Ultrasound Report Signed Patient: KARLY AGOSTO MR#: [id number] : 2000 Acct:[id number] Age/Sex: 24 / F ADM Date: 03/01/25 Loc: US Attending Dr: Torri Meza Ordering Physician: Torri Meza Date of Service: 03/01/25 Procedure(s): US OB growth Accession Number(s): [id number] cc: Torri Meza; Physician,Non-Staff Jayme The [address] [address] Patient Name: KARLY AGOSTO MRN: [facility]:[id number] date: 2000 Sex: F Assigned Patient Location: US Current Patient Location: US Accession/Order Number: [id number] Exam Date: 03/01/2025 08:28 Report Date: 03/01/2025 [...] Jr., D.O. 03/01/2025 8:33 AM Dictation Location: [facility] Electronically authenticated by: [id number] Y Date: 03/01/2025 08:33 Dictated By: Oscar Clemens M.D. Signed By: 03/01/2535 DD/ TD/TT: Hospice Coordinator: [facility] Radiology Study observation (narrative) [facility] OB GROWTHOrdered By: Joel lynn Radiology on 03-01-2025 [facility] Work Phone: Urinalysis macro (dipstick) panel (U)on 02-21-2025 Bilirubin, UA Negative Negative - 4(70) +++ mg/dL [facility] Blood, UA Negative Negative - 50 Nicolás/mcL [facility] Clarity, UA Clear [facility] Color, UA Yellow [facility] e Glucose, UA Negative Negative - 2000(110) ++++ mg/dL [facility] Interpretation and review of laboratory results Normal [facility] Ketones, UA Negative Negative - 160(16) ++++ mg/dL [facility] Leukocytes, UA Negative Negative - 500+++ Yodit/mcL [facility] Nitrite, UA Negative Negative - Positive [facility] pH, UA 5.5 5 - 9 [facility] Protein, UA Negative Negative - 1999(20) ++++ mg/dL [facility] Spec Grav, UA 1.02 1 - 1.03 [facility] Urobilinogen, UA 1.0 0.2 - 12 mg/dL [facility] e GLUCOSE TOLERANCE 3 HOURon 0 02-14-2025 GLUCOSE TOLERANCE 3 HOUR mg/dL [facility] Comment on above: GLU FAST 86 (<95) Co l: 02/14/25 0737 GLU 1HR 157 (<180) Col: 02/14/25 0841 GLU 2HR 129 (<155) Col: 02/14/25 0941 GLU 3HR 114 (<140) Col: 02/14/25 1040 [facility] ALL CBC WITH AUTO DIFFon BASOPHILS ABSOLUTE AUTO 0 [facility] Basophils/100 WBC (Bld) 0.3 % 0.2 - 2.0 % [facility] Eosinophils/100 WBC (Bld) 3.9 % 0.9 - 7.0 % [facility] Erythrocyte distribution width (RBC) [Ratio] 13 % 11.0 - 15.0 % [facility] Hematocrit (Bld) [Volume fraction] 35.8 % Low 36.0 - 48.0 % [facility] Hemoglobin (Bld) [Mass/Vol] 11.9 g/dL Low 12.0 - 16.0 g/dL [facility] IMMATURE GRANULOCYTES ABS AUTO 0.03 [facility] Immature granulocytes/100 WBC (Bld) 0.3 % 0.0 - 0.5 % [facility] Interpretation and review of laboratory results Abnormal [facility] LYMPHOCYTES ABSOLUTE AUTO 1.3 [facility] Lymphocytes/100 WBC (Bld) 13.7 % Low 20.5 - 60.0 % [facility] MCH (RBC) [Entitic mass] 28 pg 26.7 - 34.0 pg [facility] MCHC (RBC) [Mass/Vol] 33.2 g/dL 29.9 - 35.2 g/dL [facility] MCV (RBC) [Entitic vol] 84.2 fL 81.0 - 99.0 fL [facility] MONOCYTES ABSOLUTE AUTO 0.4 [facility] Monocytes/100 WBC (Bld) 4.5 % 1.7 - 12.0 % [facility] NEUTROPHILS ABSOLUTE AUTO 7.5 High [facility] Neutrophils/100 WBC (Bld) 77.3 % High 43.0 - 75.0 % [facility] Platelet mean volume (Bld) [Entitic vol] 10.9 fL 9.5 - 13.5 fL [facility] are TBH EO # 0.4 [facility] e TB PLT 254 [facility] e TB RBC 4.25 [facility] e TB WBC 9.7 [facility] e Urinalysis macro (dipstick) panel (U)on 01-10-2025 Bilirubin, UA Negative Negative - 4(70) +++ mg/dL [facility] Blood, UA Negative Negative - 50 Nicolás/mcL [facility] Clarity, UA Clear [facility] Healthca re Color, UA Yellow [facility] e Glucose, UA Positive Negative - 1999(110) ++++ mg/dL [facility] Comment on above: 250mg/dL Interpretation and review of laboratory results Abnormal [facility] Ketones, UA Negative Negative - 160(16) ++++ mg/dL [facility] Leukocytes, UA Positive Negative - 500+++ Yodit/mcL [facility] Comment on above: small Nitrite, UA Negative Negative - Positive [facility] pH, UA 7 5 - 9 [facility] Protein, UA Negative Negative - 1999(20) ++++ mg/dL [facility] Spec Grav, UA 1.02 1 - 1.03 [facility] Urobilinogen, UA 0.2 0.2 - 12 mg/dL [facility] e Urinalysis macro (dipstick) panel (U)on 12-04-2024 Bilirubin, UA Negative Negative - 4(70) +++ mg/dL [facility] Blood, UA Negative Negative - 50 Nicolás/mcL [facility] Clarity, UA Clear [facility] Healthca re Color, UA Yellow [facility] Glucose, UA Negative Negative - 1999(110) ++++ mg/dL [facility] Interpretation and review of laboratory results Normal [facility] Ketones, UA Negative Negative - 160(16) ++++ mg/dL [facility] Leukocytes, UA Negative Negative - 500+++ Yodit/mcL [facility] Nitrite, UA Negative Negative - Positive [facility] pH, UA 8.5 5 - 9 [facility] Healthcar e Protein, UA Negative Negative - 1999(20) ++++ mg/dL [facility] Spec Grav, UA 1.02 1 - 1.03 [facility] Urobilinogen, UA 0.2 0.2 - 12 mg/dL [facility] Urinalysis macro (dipstick) panel (U)on 11-22-2024 Bilirubin, UA Negative Negative - 4(70) +++ mg/dL [facility] Blood, UA Negative Negative - 50 Nicolás/mcL [facility] Clarity, UA Clear [facility] re Color, UA Yellow [facility] Glucose, UA Positive Negative - 1999(110) ++++ mg/dL [facility] Interpretation and review of laboratory results Abnormal [facility] Ketones, UA Negative Negative - 160(16) ++++ mg/dL [facility] Leukocytes, UA Positive Negative - 500+++ Yodit/mcL [facility] Nitrite, UA Negative Negative - Positive [facility] pH, UA 6.5 5 - 9 [facility] Protein, UA Negative Negative - 1999(20) ++++ mg/dL [facility] Spec Grav, UA 1.025 1 - 1.03 [facility] Urobilinogen, UA 1.0 0.2 - 12 mg/dL [facility] IGP,APTIMA HPV,AGE GDLNon AGE GDLN ACOG TESTING Note . [facility] Comment on above: TESTS RESULT FLAG UN ITS REF RANGE LAB Clinician Provided Cytology Information Source.............[employer] Other.............. No. of containers..01 ThinPrep Vial Age Algo ACOG Rosita... FLAG LEGEND: L-Low Normal,H-High Normal,LL-Alert Low,HH-Alert High <-Panic Low,>-Panic High,A-Abnormal,AA-Critical Abnormal Performed at: 01 =[facility] [address] [place] [address] Tamy Matos MD, IGP, RFX APTIMA HPV ASCU Note . [facility] Comment on above: TESTS RESULT FLAG UN ITS REF RANGE LAB DIAGNOSIS: 02 NEGATIVE FOR INTRAEPITHELIAL LESION OR MALIGNANCY. Specimen adequacy: 02 Satisfactory for evaluation. No endocervical component is identified. Performed by: Edison Todd Compliance Manager ([facility]) . 02 Note: Note 03 The Pap [...] <-Panic Low,>-Panic High,A-Abnormal,AA-Critical Abnormal Performed at: [address] [address] Neha Cole MD, [address] [address] Tamy Matos MD, Performed at: =[facility] [address] [id number] Clinical Research Spec: Tamy Matos MD, Phone: [phone] Performed at: [address] [id number] Clinical Research Spec: Neha Cole MD, Phone: [phone] SPAT[facility]-AL[facility] Healthcar e RECURRENT VAGINITIS (HTRX)on 11-01-2024 ATOPOBIUM VAGINAE 0 [facility] ATOPOBIUM VAGINAE Not detected [facility] BVAB 2,3 (BACTERIAL VAGINOSIS ASSOCIATED BACTERIA 2, 3); MOBILUNCUS SPP 0 [facility] BVAB 2,3 (BACTERIAL VAGINOSIS ASSOCIATED BACTERIA 2, 3); MOBILUNCUS SPP Not detected [facility] ELAINA ALBICANS, PARAPSILOSIS, TROPICALIS 0 [facility] ELAINA ALBICANS, PARAPSILOSIS, TROPICALIS Not detected [facility] ELAINA GLABRATA 0 [facility] ELAINA GLABRATA Not detected [facility]althcare ELAINA KRUSEI 0 [facility] ELAINA KRUSEI Not detected [facility] CHLAMYDIA TRACHOMATIS 0 [facility] CHLAMYDIA TRACHOMATIS Not detected [facility] Healthcare ERMB, C; MEFA 21.586 Abnormal [facility] Health care ERMB, C; MEFA Detected Abnormal [facility] GARDNERELLA VAGINALIS 24.886 Abnormal [facility] GARDNERELLA VAGINALIS Detected Abnormal [facility] Interpretation and review of laboratory results Abnormal [facility] MEGASPHAERA (TYPES 1, 2) 0 [facility] MEGASPHAERA (TYPES 1, 2) Not detected [facility] MYCOPLASMA GENITALIUM 0 [facility] MYCOPLASMA GENITALIUM Not detected [facility] NEISSERIA GONORRHOEAE 0 [facility] NEISSERIA GONORRHOEAE Not detected [facility] TRICHOMONAS VAGINALIS 0 [facility] TRICHOMONAS VAGINALIS Not detected [facility] TB DRUG SCREEN RAPID (URINE )on 10-18-2024 AMPHETAMINE SCREEN URINE Negative NEGATIVE [facility] BARBITURATES SCREEN URINE Negative NEGATIVE [facility] BENZODIAZEPINES SCREEN URINE Negative NEGATIVE [facility] BUPRENORPHINE SCREEN URINE Negative NEGATIVE [facility] Comment on above: DRUG CLASS [...] 300 ng/mL CANNABINOID SCREEN URINE Negative NEGATIVE [facility] COCAINE SCREEN URINE Negative NEGATIVE [facility] METHADONE SCREEN URINE Negative NEGATIVE [facility] METHAMPHETAMINES SCREEN URINE Negative NEGATIVE [facility] OPIATE SCREEN URINE Negative NEGATIVE [facility] OXYCODONE SCREEN URINE Negative NEGATIVE [facility] PHENCYCLIDINE SCREEN URINE Negative NEGATIVE [facility] TRICYCLIC ANTIDEPRESSANT URINE Negative NEGATIVE [facility] TBH PREG QUANT HCGon 025 HCG QUANTITATIVE 53530 mIU/mL Located within [facility] lthcare Comment on above: 5-50 0.2-1 WEEK 50-500 1-2 WEEKS 100-5,000 2-3 WEEKS 500-10,000 3-4 WEEKS 1,000-50,000 4-5 WEEKS 10,000-100,000 5-6 WEEKS 15,000-200,000 6-8 WEEKS 10,000-100,000 2-3 MONTHS [facility] HCG ( test) Ql (U)o n 07-31-2024 Interpretation and review of laboratory results Normal [facility] Preg Test, Ur Negative Negative [facility] COVID + FLU Quick Testingon 08-18-2023 SARS-CoV-2 (COVID-19) RNA ANNE+probe Ql (Unsp spec) Positive [facility] [employer] Other COVID + FLU Quick Testing Negative [facility] [employer] Other PAP ACOG PANEL 2: 21 to 29on 11-25-2022 . . [facility] Comment on above: Performed By: #### [id number] #### [facility] [address] [place] [address] Dr. Keri Guerra Age Gdln ACOG Testing - [facility] Comment on above: Performed By: #### [id number] #### [facility] [address] [place] [address] Dr. Keri Guerra DIAGNOSIS: Comment [facility] Comment on above: Result Comment: NEGA TIVE FOR INTRAEPITHELIAL LESION OR MALIGNANCY. Performed By: #### 4 [id number] #### [facility] [address] [place] [address] Dr. Keri Guerra Methodology: Comment [facility] Comment on above: Result Comment: This liquid based ThinPrep(R) pap test was screened with the use of an image guided system. Performed By: #### 4 [id number] #### [facility] [address] [place] [address] Dr. Keri Guerra Note: Comment [facility] Comment on above: Result Comment: The Pap smear is a screening test designed to aid in the detection of premalignant and malignant conditions of the uterine cervix. It is not a diagnostic procedure and should not be used as the sole means of detecting cervical cancer. Both false-positive and false-negative reports do occur. . Performed By: #### 4 [id number] #### [facility] [address] [place] [address] Dr. Keri Guerra Performed by: Comment [facility] Comment on above: Result Comment: Drew Florian, Compliance Manager (ASCP) Performed By: #### [id number] #### [facility] [address] [place] [address] Dr. Keri Guerra Reflex Criteria: Comment Normal [facility] Comment on above: Result Comment: The HPV DNA reflex criteria were not met with this specimen result therefore, no HPV testing was performed. . Performed By: #### [id number] #### [facility] [address] [place] [address] Dr. Keri Guerra Specimen adequacy: Comment Normal [facility] Comment on above: Result Comment: Sati sfactory for evaluation. No endocervical component is identified. Areas of partially obscuring inflammatory exudate are present. Performed By: #### 4 [id number] #### [facility] [address] [place] [address] Dr. Keri Guerra HEP B SURFACE ANTIGEN SCREEN on 10-17-2022 HBsAg Screen Negative Normal Negative [facility] Comment on above: Performed By: #### H BSANS #### [facility] [address] [place] [address] Dr. Keri Guerra HEPATITIS C VIRUS AB W/ REFL EX QUANTon 10-17-2022 HCV AB Non-Reactive Normal Non Reactive [facility] Comment on above: Performed By: #### H CVPCRR #### [facility] [address] [place] [address] Dr. Keri Guerra Interpretation: Comment Normal [facility] Comment on above: Result Comment: Not infected with HCV unless early or acute infection is suspected (which may be delayed in an immunocompromised individual), or other evidence exists to indicate HCV infection. Performed By: #### H CVPCRR #### [facility] [address] [place] [address] Dr. Keri Guerra HIV 1 AND 2 WITH REFLEXon HIV Screen 4th Generation wRfx Non-Reactive Normal Non Reactive [facility] Comment on above: Result Comment: HIV Negative HIV-1/HIV-2 antibodies and HIV-1 p24 antigen were NOT detected. There is no laboratory evidence of HIV infection. Performed By: #### H IV12 #### [facility] [address] [place] [address] Dr. Keri Guerra RPR QUANTon 10-17-2022 Rapid Plasma Reagin, Quant Non-Reactive Normal NonRea<1:1 [facility] Comment on above: Result Comment: Ranjeet velasquez Note: This test does not meet current guidelines for screening and diagnosis of syphilis. This test is intended for following treatment response in patients being treated for syphilis infection. To screen for syphilis infection, a reflex cascade that includes both RPR and a treponema-specific assay should be utilized, such as Treponema pallidum (Syphilis) Screening [place] (212495) or Rapid Plasma Reagin (RPR) Test With Reflex to Quantitative RPR and Confirmatory Treponema pallidum Antibodies (751331). Performed By: #### R PRQ #### [facility] [address] [place] [address] Dr. Keri Guerra RUBELLA AB IGGon 10-17-2022 Rubella Antibodies, IgG <0.90 Critically low Immune >0.99 [facility] Comment on above: Result Comment: Non- immune <0.90 Equivocal 0.90 - 0.99 Immune >0.99 Performed By: #### R UBIGG #### [facility] [address] [place] [address] Dr. Keri Guerra CBC AUTO DIFFon 10-15-2022 BASO # 0.0 103/ul Normal 0.0-0.1 [facility] Comment on above: Performed By: #### C BC #### [facility] [address] [place] [address] Dr. Keri Guerra Basophils/100 WBC (Bld) 0.1 % Critically low 0.2-2.0 [facility] Comment on above: Performed By: #### C BC #### [facility] [address] [place] [address] Dr. Keri Guerra EO # 0.3 103/ul Normal 0.0-0.7 [facility] Comment on above: Performed By: #### C BC #### [facility] [address] [place] [address] Dr. Keri Guerra Eosinophils/100 WBC (Bld) 3.7 % Normal 0.9-7.0 [facility] Comment on above: Performed By: #### C BC #### [facility] [address] [place] [address] Dr. Keri Guerra Erythrocyte distribution width (RBC) [Ratio] 16.0 % Critically high 11.0-15.0 [facility] Comment on above: Performed By: #### C BC #### [facility] [address] [place] [address] Dr. Keri Guerra Hematocrit (Bld) [Volume fraction] 36.3 % Normal 36.0-48.0 [facility] Comment on above: Performed By: #### C BC #### [facility] [address] [place] [address] Dr. Keri Guerra Hemoglobin (Bld) [Mass/Vol] 12.1 g/dL Normal 12.0-16.0 [facility] Comment on above: Performed By: #### C BC #### [facility] [address] [place] [address] Dr. Keri Guerra IG # 0.02 10e3/ul Normal 0.00-0.03 [facility] Comment on above: Performed By: #### C BC #### [facility] [address] [place] [address] Dr. Keri Guerra IG % 0.3 % Normal 0.0-0.5 [facility] Comment on above: Performed By: #### C BC #### [facility] [address] [place] [address] Dr. Keri Guerra LYMPH # 1.7 103/ul Normal 1.2-3.8 [facility] Comment on above: Performed By: #### C BC #### [facility] [address] [place] [address] Dr. Keri Guerra Lymphocytes/100 WBC (Bld) 20.8 % Normal 20.5-60.0 [facility] Comment on above: Performed By: #### C BC #### [facility] [address] [place] [address] Dr. Keri Guerra MANUAL DIFF REQ NO Normal [facility] Comment on above: Performed By: #### C BC #### [facility] [address] [place] [address] Dr. Keri Guerra MCH (RBC) [Entitic mass] 25.3 pg Critically low 26.7-34.0 [facility] Comment on above: Performed By: #### C BC #### [facility] [address] [place] [address] Dr. Keri Guerra MCHC (RBC) [Mass/Vol] 33.3 g/dL Normal 29.9-35.2 [facility] Comment on above: Performed By: #### C BC #### [facility] [address] [place] [address] Dr. Keri Guerra MCV (RBC) [Entitic vol] 75.9 fL Critically low 81.0-99.0 [facility] Comment on above: Performed By: #### C BC #### [facility] [address] [place] [address] Dr. Keri Guerra MONO # 0.4 103/ul Normal 0.3-0.8 [facility] Comment on above: Performed By: #### C BC #### [facility] [address] [place] [address] Dr. Keri Guerra Monocytes/100 WBC (Bld) 5.0 % Normal 1.7-12.0 [facility] Comment on above: Performed By: #### C BC #### [facility] [address] [place] [address] Dr. Keri Guerra NEUT # 5.6 103/ul Normal 1.4-6.5 [facility] Comment on above: Performed By: #### C BC #### [facility] [address] [place] [address] Dr. Keri Guerra Neutrophils/100 WBC (Bld) 70.1 % Normal 43.0-75.0 [facility] Comment on above: Performed By: #### C BC #### [facility] [address] [place] [address] Dr. Keri Guerra Platelet mean volume (Bld) [Entitic vol] 11.0 fL Normal 9.5-13.5 [facility] Comment on above: Performed By: #### C BC #### [facility] [address] [place] [address] Dr. Keri Guerra PLT 319 103/ul Normal 150-450 [facility] Comment on above: Performed By: #### C BC #### [facility] [address] [address] [address] Keri Guerra RBC 4.78 106/ul Normal 4.20-5.40 [facility] Comment on above: Performed By: #### C BC #### [facility] [address] [place] [address] Dr. Keri Guerra WBC 7.9 103/ul Normal 4.0-11.0 [facility] Comment on above: Performed By: #### C BC #### [facility] [address] [place] [address] Dr. Keri Guerra CULTURE URINEon 10-15-2022 CULTURE URINE Culture Observations : LIGHT GROWTH OF MIXED GENITAL LARISA. NO POTENTIAL PATHOGENS SEEN. Normal [facility] Comment on above: Performed By: #### U RCX #### [facility] [address] [place] [address] Dr. Keri Guerra TSHon 10-15-2022 TSH 0.294 uIU/mL Critically low 0.358-3.740 [facility] Comment on above: Performed By: #### T SH #### [facility] [address] [place] [address] Dr. Keri Guerra TYPE AND SCREENon 10-15-2022 TYPE AND SCREEN Negative Normal [facility] Comment on above: Performed By: #### T NS #### [facility] [address] [place] [address] Dr. Keri Guerra US PREG TVon 10-01-2022 [...] by: GM BARRY Date: 2022-10-01 15:23 Normal [facility] Quick Strepon 03-25-2022 S. pyogenes Org specific cx Ql (Throat) Negative [facility] [employer] Other Quick Strep [facility] [employer] Other COVID/FLU RT-PCRon SARS-CoV-2 (COVID-19) RNA ANNE+probe Ql (Unsp spec) Positive [facility] [employer] Other COVID/FLU RT-PCR Negative [facility] [employer] Other COVID Quick Testingon 2020 Result Positive [facility] [employer] Other Consultation Noteon 08-05-19 Consultation Note [id number]:[id number] Normal [facility] Vital Signs Date Time Vital Sign Value Performing Clinician Facility 03-19-2025 08:52-0400 Body mass index (BMI) [Ratio] 30.43 kg/m2 Ai Tj DO Work Phone: [facility] 03-19-2025 08:52-0400 Body weight 75.48 kg Ai Tj DO Work Phone: [facility] 03-19-2025 08:52-0400 Diastolic blood pressure 78 mm[Hg] Ai Tj DO Work Phone: [facility] 03-19-2025 08:52-0400 Systolic blood pressure 120 mm[Hg] Ai Tj DO Work Phone: [facility] 03-07-2025 10:12-0400 Body mass index (BMI) [Ratio] 30.18 kg/m2 Ai Tj DO Work Phone: [facility] 03-07-2025 10:12-0400 Body weight 74.84 kg Ai Tj DO Work Phone: [facility] 03-07-2025 10:12-0400 Diastolic blood pressure 70 mm[Hg] Ai Tj DO Work Phone: [facility] 03-07-2025 10:12-0400 Systolic blood pressure 110 mm[Hg] Ai Tj DO Work Phone: [facility] 02-21-2025 11:44-0400 Body mass index (BMI) [Ratio] 30.07 kg/m2 Torri Desoto PA Work Phone: [facility] 02-21-2025 11:44-0400 Body weight 74.57 kg Torri Breanna PA Work Phone: [facility] 02-21-2025 11:44-0400 Diastolic blood pressure 78 mm[Hg] Torri Desoto PA Work Phone: [facility] 02-21-2025 11:44-0400 Systolic blood pressure 118 mm[Hg] Torri Desoto PA Work Phone: [facility] 01-10-2025 11:33-0400 Body mass index (BMI) [Ratio] 29.17 kg/m2 Torri Desoto PA Work Phone: [facility] 01-10-2025 11:33-0400 Body weight 72.35 kg Torri Desoto PA Work Phone: [facility] 01-10-2025 11:33-0400 Diastolic blood pressure 76 mm[Hg] Torri Breanna PA Work Phone: [facility] 01-10-2025 11:33-0400 Systolic blood pressure 122 mm[Hg] Torri Desoto PA Work Phone: [facility] 12-04-2024 13:28-0400 Body mass index (BMI) [Ratio] 27.87 kg/m2 Ai Tj DO Work Phone: [facility] 12-04-2024 13:28-0400 Body weight 69.13 kg Ai Tj DO Work Phone: [facility] 12-04-2024 13:28-0400 Diastolic blood pressure 70 mm[Hg] Ai Tj DO Work Phone: [facility] 12-04-2024 13:28-0400 Systolic blood pressure 120 mm[Hg] Ai Tj DO Work Phone: [facility] 11-22-2024 15:22-0400 Body mass index (BMI) [Ratio] 27.76 kg/m2 Nom Nurse [facility] 11-22-2024 15:22-0400 Body weight 68.86 kg [facility] Nurse [facility] 10-31-2024 13:04-0400 Body mass index (BMI) [Ratio] 27.53 kg/m2 Ai Tj DO Work Phone: [facility] 10-31-2024 13:04-0400 Body weight 68.27 kg Ai Tj DO Work Phone: [facility] 10-31-2024 13:04-0400 Diastolic blood pressure 80 mm[Hg] Ai Tj DO Work Phone: [facility] 10-31-2024 13:04-0400 Systolic blood pressure 112 mm[Hg] Ai Tj DO Work Phone: [facility] 07-31-2024 09:06-0500 Body mass index (BMI) [Ratio] 27.58 kg/m2 Ai Tj DO Work Phone: [facility] 07-31-2024 09:06-0500 Body weight 68.4 kg Ai Tj DO Work Phone: [facility] 07-31-2024 09:06-0500 Diastolic blood pressure 80 mm[Hg] Ai Tj DO Work Phone: [facility] 07-31-2024 09:06-0500 Systolic blood pressure 120 mm[Hg] Ai Tj DO Work Phone: [facility] 05-10-2024 10:22-0400 Body height 160.02 cm [facility] 05-10-2024 10:22-0400 Body mass index (BMI) [Ratio] 24.7 kg/m2 [facility] 05-10-2024 10:22-0400 Body temperature 98.2 [degF] [facility] 05-10-2024 10:22-0400 Body weight 63.5 kg [facility] 05-10-2024 10:22-0400 Diastolic blood pressure 65 mm[Hg] [facility] 05-10-2024 10:22-0400 Heart rate 95 /min [facility] 05-10-2024 10:22-0400 Respiratory rate 18 /min [facility] 05-10-2024 10:22-0400 SaO2% (BldA) [Mass fraction] 97 % [facility] 05-10-2024 10:22-0400 Systolic blood pressure 128 mm[Hg] [facility] 08-18-2023 11:30-0500 Body height 157.48 cm Deann Partida Other [facility] [employer] Other 08-18-2023 11:30-0500 Body mass index (BMI) [Ratio] 26.48 kg/m2 Deann Partida Other [facility] Other 08-18-2023 11:30-0500 Body temperature 98.6 [degF] Deann Partida Other [facility] Other 08-18-2023 11:30-0500 Body weight 65.68 kg Deann Partida Other [facility] Other 08-18-2023 11:30-0500 Respiratory rate 18 /min Deann Kingsleyler Other [facility] Other 08-18-2023 11:30-0500 SaO2% (BldA) [Mass fraction] 97 % Deann Partida Other [facility] Other 09-14-2022 15:25-0500 Body height 157.48 cm Elsa Rea Other [facility] Other 09-14-2022 15:25-0500 Body mass index (BMI) [Ratio] 26.88 kg/m2 Elsa Rea Other [facility] Other 09-14-2022 15:25-0500 Body temperature 97.7 [degF] Elsa Rea Other [facility] Other 09-14-2022 15:25-0500 Body weight 66.68 kg Elsa Rea Other [facility] Other 09-14-2022 15:25-0500 Diastolic blood pressure 65 mm[Hg] Elsa Rea Other [facility] Other 09-14-2022 15:25-0500 Respiratory rate 18 /min Elsa Rea Other [facility] Other 09-14-2022 15:25-0500 SaO2% (BldA) [Mass fraction] 99 % Elsa Rea Other [facility] Other 09-14-2022 15:25-0500 Systolic blood pressure 118 mm[Hg] Elsa Rea Other [facility] Other 03-25-2022 11:40-0400 Body height 157.48 cm Charisse Blackwell Other [facility] Other 03-25-2022 11:40-0400 Body mass index (BMI) [Ratio] 27.43 kg/m2 Charisse Blackwell Other [facility] Other 03-25-2022 11:40-0400 Body temperature 98.8 [degF] Charisse Blackwell Other [facility] Other 03-25-2022 11:40-0400 Body weight 68.04 kg Charisse Blackwell Other [facility] Other 03-25-2022 11:40-0400 Respiratory rate 18 /min Charisse Blackwell Other [facility] Other 03-25-2022 11:40-0400 SaO2% (BldA) [Mass fraction] 99 % Charisse Blackwell Other [facility] Other 01-01-2022 10:40-0400 Body height 160.02 cm Deann Partida Other [facility] Other 01-01-2022 10:40-0400 Body mass index (BMI) [Ratio] 24.8 kg/m2 Deann Partida Other [facility] Other 01-01-2022 10:40-0400 Body temperature 97.5 [degF] Deann Partida Other [facility] Other 01-01-2022 10:40-0400 Body weight 63.5 kg Deann Partida Other [facility] Other 01-01-2022 10:40-0400 SaO2% (BldA) [Mass fraction] 99 % Deann Partida Other [facility] Other 05-04-2021 11:30-0400 Body height 160.02 cm Elsa Rea Other [facility] Other 05-04-2021 11:30-0400 Body mass index (BMI) [Ratio] 23.91 kg/m2 Elsa Rea Other [facility] Other 05-04-2021 11:30-0400 Body temperature 97.3 [degF] Elsa Rea Other [facility] Other 05-04-2021 11:30-0400 Body weight 61.24 kg Elsa Rea Other [facility] Other 05-04-2021 11:30-0400 SaO2% (BldA) [Mass fraction] 99 % Elsa Rea Other [facility] Other Encounters Encounter Date Encounter Type Care Provider Facility Start: 03-20-2025 End: 03-20-2025 ambulatory AI TJ Not Available Start: 03-19-2025 End: 03-19-2025 Bamboo flowsheet Ai Tj DO Work Phone: [facility] Start: 03-19-2025 End: 03-19-2025 Bamboo flowsheet Ai Tj DO Work Phone: [facility] Start: 03-19-2025 End: 03-19-2025 ambulatory AI TJ Not Available Start: 03-19-2025 End: 03-19-2025 flow sheet Ai Tj DO Work Phone: [facility] Comment on above: 34 weeks gestation o f ([facility]); Third trimester ([facility]); SGA (small for gestational age) ([facility] Start: 03-07-2025 End: 03-07-2025 Bamboo flowsheet Ai Tj DO Work Phone: [facility] Start: 03-07-2025 End: 03-07-2025 Bamboo flowsheet Ai Tj DO Work Phone: [facility] Start: 03-07-2025 End: 03-07-2025 ambulatory AI TJ Not Available Start: 03-07-2025 End: 03-07-2025 flow sheet Ai Tj DO Work Phone: [facility] Comment on above: 33 weeks gestation o f ([facility]); Third trimester ([facility]) Start: 03-01-2025 End: 03-01-2025 Clinisync Result Encounter Torri IMLLER Work Phone: [facility] Unsolicited Start: 03-01-2025 End: 03-01-2025 Clinisync Result Encounter Torri MILLER Work Phone: [facility] Unsolicited Start: 02-21-2025 End: 02-21-2025 Bamboo flowsheet Torri MILLER Work Phone: [facility] Start: 02-21-2025 End: 02-21-2025 Bamboo flowsheet Torri MILLER Work Phone: [facility] Start: 02-21-2025 End: 02-21-2025 ambulatory TORRI MEZA Not Available Start: 02-21-2025 End: 02-21-2025 flow sheet Torri MILLER Work Phone: [facility] Comment on above: Third trimester preg sandy ([facility]); 31 weeks gestation of ([facility]); size inconsistent with dates ([facility]) Start: 02-14-2025 End: 02-14-2025 Clinisync Result Encounter Torri MILLER Work Phone: [facility] Unsolicited Start: 02-14-2025 End: 02-14-2025 Clinisync Result Encounter Torri MILLER Work Phone: [facility] Unsolicited Start: 01-12-2025 End: 01-12-2025 Clinisync Result Encounter Torri MILLER Work Phone: [facility] Unsolicited Start: 01-12-2025 End: 01-12-2025 Clinisync Result Encounter Torri Meza ANGELA Work Phone: [facility] Unsolicited Start: 01-10-2025 End: 01-10-2025 Bamboo flowsheet Torri Meza ANGELA Work Phone: [facility] Start: 01-10-2025 End: 01-10-2025 Bamboo flowsheet Torri Meza ANGELA Work Phone: [facility] Start: 01-10-2025 End: 01-10-2025 ambulatory TORRI MEZA Not Available Start: 01-10-2025 End: 01-10-2025 flow sheet Torri Meza ANGELA Work Phone: [facility] Comment on above: Second trimester pre gnancy ([facility]); 25 weeks gestation of ([facility]); Diabetes mellitus screening Start: 12-04-2024 End: 12-04-2024 [...] unspecified contraceptive Start: 05-10-2024 End: 05-10-2024 ambulatory [facility] Work Phone: Start: 05-10-2024 End: 05-10-2024 Patient encounter procedure [facility] Work Phone: Start: 08-18-2023 End: 08-18-2023 ambulatory Deann Partida Other [facility] Other Start: 08-18-2023 Office outpatient vi sit 25 minutes Deann Partida [facility] Start: 11-17-2022 End: 11-17-[address] AI SPENCER . Facility:[facility] Start: 10-18-[address] DOCTOR MONCADA Facility :[facility] Start: 10-15-2022 End: 10-16-[address] AI SPENCER . Facility:[facility] Start: 10-01-2022 End: 10-02-[address] AI SPENCER . Facility:[facility] Start: 09-14-2022 End: 09-14-2022 ambulatory Elsa Rea Other [facility] Other Start: 09-14-2022 Office outpatient vi sit 15 minutes Elsa Álvaro [facility] Start: 03-25-2022 End: 03-25-2022 ambulatory Charisse Blackwell Other [facility] Other Start: 03-25-2022 Office outpatient vi sit 15 minutes Charissenell Blackwell [facility] Start: 01-01-2022 End: 01-01-2022 ambulatory Deann Partida Other [facility] Other Start: 01-01-2022 Office outpatient vi sit [...] micrscp Ai Tj DO Work Phone: Start: 05-08-2025 Urnls dip stick/tabl et rgnt non-auto w/o [...] procedure 04/09/2025 8:40 AM EDT Routine [facility] [address] [place] [address] Ai Spencer DO [address] [place], [place] [id number] [facility] Start: 04-02-2025 End: 04-02-2025 Patient encounter procedure 04/02/2025 8:50 AM EDT Routine [facility] [address] [place] [address] Ai Spencer DO [address] [place], [place] [id number] [facility] Start: 03-26-2025 End: 03-26-2025 Patient encounter procedure 03/26/2025 8:30 AM EDT Routine [facility] [address] [place] [address] Torri Meza PA [address] [place] [address] [facility] Start: 03-20-2025 End: 03-20-2025 Professional / ancillary services management 03/20/2025 11:30 AM EDT Ancillary Procedure [facility] [address] [place] [id number] [facility] Start: 03-19-2025 End: 07-19-2025 US for US OB follow up transabdominal approach Imaging Routine SGA (small for gestational age) ([facility]) Expected: 03/19/2025, Expires: 07/19/2025 [facility] Work Phone: Comment on above: Expected: 03/19/2025 , Expires: 07/19/2025 Start: 03-19-2025 End: 03-19-2025 Patient encounter procedure 03/19/2025 8:40 AM EDT Routine [facility] [address] [place] [address] Ai Spencer DO [address] [place] [address] [facility] Start: 03-07-2025 End: 03-07-2025 Patient encounter procedure 03/07/2025 9:00 AM EDT Routine [facility] [address] [place] [address] Ai Spencer DO [address] [place] [address] [facility] Start: 03-07-2025 End: 03-07-2025 Professional / ancillary services management 03/07/2025 8:30 AM EDT Ancillary Procedure [facility] [address] [place] [phone] [facility] Start: 02-21-2025 End: 06-23-2025 US for US OB follow up transabdominal approach Imaging Routine size inconsistent with dates ([facility]) Expected: 02/21/2025, Expires: 06/23/2025 [facility] Work Phone: Comment on above: Expected: 02/21/2025 , Expires: 06/23/2025 Start: 02-05-2025 End: 02-05-2025 Patient encounter procedure 02/05/2025 8:40 AM EDT Routine [facility] [address] [facility] [id number] Ai Spencer, DO [address] [place] [address] [facility] Start: 01-10-2025 End: 01-10-2026 CBC panel - Blood by Automated count CBC Lab Routine Diabetes mellitus screening Expected: 01/10/2025 (Approximate), Expires: 01/10/2026 [facility] Work Phone: Comment on above: Expected: 01/10/2025 (Approximate), Expires: 01/10/2026 Start: 01-10-2025 End: 01-10-2026 Measurement of glucose 1 hour after glucose challenge for glucose tolerance test Glucose tolerance, 1 hour Lab Routine Diabetes mellitus screening Expected: 01/10/2025 (Approximate), Expires: 01/10/2026 [facility] Comment on above: Expected: 01/10/2025 (Approximate), Expires: 01/10/2026 Start: 01-01-2025 End: 01-01-2025 Patient encounter procedure 01/01/2025 2:40 PM EDT Routine [facility] [address] [place] [id number] Ai Spencer, DO [address] [place] [address] [facility] Start: 12-04-2024 End: 12-04-2024 [...] Initial [facility] [address] [place] [address] [facility] Start: 11-22-2024 End: 02-22-2025 US for US OB 14+ weeks anatomy scan Imaging Routine Screening, , for anatomic survey Expected: 11/22/2024, Expires: 02/22/2025 [facility] Comment on above: Expected: 11/22/2024 [...] Visit [facility] [address] [place] [address] Ai Spencer DO [address], [place] [id number] [facility] CHLAMYDIA TRACHOMATI S (GENITO/STI) CHLAMYDIA TRACHOMATIS (GENITO/STI) Lab Routine STD exposure Ordered: 10/31/2024 [facility] Comment on above: Ordered: 10/31/2024 Cytology Cervical or vaginal smear or scraping study Pap Smear Pathology and Cytology Routine Well woman exam with routine gynecological exam Ordered: 10/31/2024 [facility] Comment on above: Ordered: 10/31/2024 End: 2025 hCG, quantitative, hCG, quantitative, Lab Routine examination or test, positive result 4 Occurrences starting 2024 until 2025 [facility] Work Phone: Comment on above: 4 Occurrences starti ng 2024 until 2025 Neisseria gonorrhoea e DNA [Presence] in Unspecified specimen by ANNE with probe detection Neisseria gonorrhea DNA probe, direct Lab Routine STD exposure Ordered: 10/31/2024 [facility] Comment on above: Ordered: 10/31/2024 SURESWAB(R) ADVANCED VAGINITIS PLUS, TMA SURESWAB(R) ADVANCED VAGINITIS PLUS, TMA Pathology and Cytology Routine STD exposure Ordered: 10/31/2024 [facility] Comment on above: Ordered: 10/31/2024 Payers Date Payer Category Payer Medicaid [employer] [place] [place] [id number] 2024 Private Health Insurance [id number] 2024 Unknown [id number] 2022 Medicaid [id number] 2001 Unknown [id number] 2.16.840.1.711438.3.579.2. 593 2001 Unknown [id number] 2.16.840.1.398065.3.579.2. 593 2001 Unknown [id number] 2.16.840.1.127175.3.579.2. 593 2001 Unknown [id number] 2.16.840.1.778901.3.579.2. 593 2001 Unknown [id number] 2.16.840.1.425239.3.579.2. 593 2001 Unknown [id number] 2.16.840.1.618072.3.579.2. 1259 2001 Unknown [id number] 2.16.840.1.960634.3.579.2. 1259 2001 Unknown [id number] 2.16.840.1.340310.3.579.2. 1259 2001 Unknown [id number] 2.16.840.1.541226.3.579.2. 1259 2001 Unknown [id number] 2.16.840.1.796064.3.579.2. 1259 2001 Unknown [id number] 2.16.840.1.668740.3.579.2. 1259 2001 Unknown [id number] 2.16.840.1.577987.3.579.2. 1259 2001 Unknown [id number] 2.16.840.1.547982.3.579.2. 1259 2001 Unknown [id number] 2.16.840.1.923691.3.579.2. 1259 2001 Unknown [id number] 2.16.840.1.471582.3.579.2. 1259 1958 [facility] [id number] 2.16.840.1.312717.19 Private Health Insurance [id number] Self-pay Self Pay [id number] Unknown [id number] [id number] Unknown Benny BC/BS [id number] Social History Date Type Detail Facility Unknown if ever smoked [facility] Other Start: 01-31-2024 End: 07-31-2024 Sex Assigned At [facility] [employer] Other Start: 03-31-2023 End: 05-10-2024 Tobacco smoking status NHIS Never smoked tobacco (finding) [facility] Start: 2001 Sex Assigned At Female [facility] Start: 03-31-2023 Tobacco use and [...] goal Clinical Notes 05-04-2021 to 03-19-2025 Lisa Rodriguez LPN - 03/19/2025 8:40 AM Silvino Linares LPN - 03/07/2025 9:00 AM ANGELA Sharma - [...] menses 2024 examination or test, positive result ([facility]) 2024 Resolved Ambulatory Problems Diagnosis Date Noted No Resolved Ambulatory Problems Past Medical History: Diagnosis Date 6 weeks follow-up ([facility]) BMI 25.0-25.9,adult Salt deficiency Type O blood, Rh positive HISTORY PAST MEDICAL HISTORY SOCIAL HISTORY Past Medical History: Diagnosis Date 6 weeks follow-up ([facility]) BMI 25.0-25.9,adult Salt deficiency Type O blood, [...] nursing note reviewed. Exam conducted with a kitchen food assembler present. Vitals: Estimated body mass index is 30.43 kg/m as calculated from the following: Height as of 12/15/22: 5' 2 . Weight as of this encounter: 166 lb 6.4 oz. BP: 120/78 Patient's last menstrual period was 07/18/2024. ASSESSMENT & PLAN ICD-10-CM 1. 34 weeks gestation of ([facility]) Z3A.34 POCT urinalysis dipstick manually resulted 2. Third trimester ([facility]) Z34.93 POCT urinalysis dipstick manually resulted Return [...] Ai Spencer DO documented in this encounter [facility] 03-07-2025 History of Presen t illness Narrative Reason for Appointment: Patient ID: Karly Agosto is a 24 y.o. female who presents for Routine Visit Patient presents today for Return OB appointment. MEDICATIONS No current outpatient medications ALLERGIES Allergies Allergen Reactions Minocycline Nausea Only PROBLEMS Active Ambulatory Problems Diagnosis Date Noted Missed menses 2024 examination or test, positive result ([facility]) 2024 Resolved Ambulatory Problems Diagnosis Date Noted No Resolved Ambulatory Problems Past Medical History: Diagnosis Date 6 weeks follow-up ([facility]) BMI 25.0-25.9,adult Salt deficiency Type O blood, Rh positive HISTORY PAST MEDICAL HISTORY SOCIAL HISTORY Past Medical History: Diagnosis Date 6 weeks follow-up ([facility]) BMI 25.0-25.9,adult Salt deficiency Type O blood, [...] nursing note reviewed. Exam conducted with a kitchen food assembler present. Vitals: Estimated body mass index is 30.18 kg/m as calculated from the following: Height as of 12/15/22: 5' 2 . Weight as of this encounter: 165 lb. BP: 110/70 Patient's last menstrual period was 07/18/2024. ASSESSMENT & PLAN ICD-10-CM 1. 33 weeks gestation of ([facility]) Z3A.33 POCT urinalysis dipstick manually resulted 2. Third trimester ([facility]) Z34.93 POCT urinalysis dipstick manually resulted Patient presents today for a routine obstetrics appointment. Patient is currently 33w1d with a Estimated Date of Delivery: 04/24/25. Patient to return to clinic in 2 weeks. Documented by Waleska Linares LPN on behalf of: Ai Spencer DO documented in this encounter [facility] 02-21-2025 History of Presen t illness Narrative Reason for Appointment: Patient ID: Karly Agosto is a 24 y.o. female who presents for Routine Visit Patient presents today for Return OB appointment. MEDICATIONS No current outpatient medications ALLERGIES Allergies Allergen Reactions Minocycline Nausea Only PROBLEMS Active Ambulatory Problems Diagnosis Date Noted Missed menses 2024 examination or test, positive result ([facility]) 2024 Resolved Ambulatory Problems Diagnosis Date Noted No Resolved Ambulatory Problems Past Medical History: Diagnosis Date 6 weeks follow-up ([facility]) BMI 25.0-25.9,adult Salt deficiency Type O blood, Rh positive HISTORY PAST MEDICAL HISTORY SOCIAL HISTORY Past Medical History: Diagnosis Date 6 weeks follow-up ([facility]) BMI 25.0-25.9,adult Salt deficiency Type O blood, [...] ASSESSMENT & PLAN ICD-10-CM 1. Third trimester ([facility]) Z34.93 POCT urinalysis dipstick manually resulted 2. 31 weeks gestation of ([facility]) Z3A.31 POCT urinalysis dipstick manually resulted 3. size inconsistent with dates ([facility]) O26.849 US OB follow up transabdominal approach [...] of: ANGELA Mayorga documented in this encounter [facility] 01-10-2025 History of Presen t illness Narrative Reason for Appointment: Patient ID: Karly Agosto is a 24 y.o. female who presents for Routine Visit Patient presents today for Return OB appointment. MEDICATIONS No current outpatient medications ALLERGIES Allergies Allergen Reactions Minocycline Nausea Only PROBLEMS Active Ambulatory Problems Diagnosis Date Noted Missed menses 2024 examination or test, positive result ([facility]) 2024 Resolved Ambulatory Problems Diagnosis Date Noted No Resolved Ambulatory Problems Past Medical History: Diagnosis Date 6 weeks follow-up ([facility]) BMI 25.0-25.9,adult Salt deficiency Type O blood, Rh positive HISTORY PAST MEDICAL HISTORY SOCIAL HISTORY Past Medical History: Diagnosis Date 6 weeks follow-up ([facility]) BMI 25.0-25.9,adult Salt deficiency Type O blood, [...] ASSESSMENT & PLAN ICD-10-CM 1. Second trimester ([facility]) Z34.92 POCT urinalysis dipstick manually resulted 2. 25 weeks gestation of ([facility]) Z3A.25 3. Diabetes mellitus screening Z13.1 CBC [...] of: ANGELA Mayorga documented in this encounter [facility] 12-04-2024 History of Presen t [...] nursing note reviewed. Exam conducted with a kitchen food assembler present. Vitals: Estimated body mass index is [...] Ai Spencer DO documented in this encounter [facility] 11-22-2024 History of Presen t [...] or undercooked meat, and stay away from [facility]. Patient has also been advised to not [...] De Leon LPN documented in this encounter [facility] 10-31-2024 History of Presen t [...] nursing note reviewed. Exam conducted with a kitchen food assembler present. Vitals: Estimated body mass index is [...] Ai Spencer DO documented in this encounter [facility] 2024 History of Presen t [...] nursing note reviewed. Exam conducted with a kitchen food assembler present. Vitals: Estimated body mass index is [...] Ai Spencer DO documented in this encounter [facility] 07-31-2024 History of Presen t [...] nursing note reviewed. Exam conducted with a kitchen food assembler present. Vitals: Estimated body mass index is [...] Ai Spencer DO documented in this encounter [facility] 08-18-2023 Evaluation note Encounter Date [...] treatment plan. Patient left in stable condition [facility] 02-28-2023 Evaluation note* Encounter Date Diagnosis Assessment Notes Treatment Notes Treatment Clinical Notes Aug, Impetigo (ICD-10 - L01.00) Clean area as discussed with 1/2 peroxide and water mix. Apply ointment to area. Infection is very contagious. Bed laundering and cleaning toys is important. Follow up with primary care provider or come back into office to be seen if symptoms worsen [facility] 09-08-2022 Evaluation note* Encounter Date Diagnosis [...] no improvement in 2 to 3 days. [facility] 06-17-2022 Evaluation note* Encounter Date Diagnosis [...] treatment plan. Patient left in stable condition [facility] 10-18-2021 Evaluation note* Encounter Date Diagnosis Assessment Notes Treatment Notes Treatment Clinical Notes Apr, Contact with and (suspected) exposure to other viral communicable diseases (ICD-10 - Z20.828) Apr, COVID-19 (ICD-10 - U07.1) Today you tested positive for the COVID virus. This mean you need to follow all CDC quarantine guidelines found at [email or web address].go v. It is important to rest, increase [...] Patient care instructions given in writting by [facility] document. [facility] Evaluation note* Diagnosis Onset Date Resolution Status Right ankle sprain acute [facility] Work Phone: Evaluation note* Diagnosis Encounter [...] HealthcareEvaluation note* Diagnosis 34 weeks gestation of ([facility]) Third trimester ([facility]) state, incidental SGA (small for gestational age) ([facility]) Jojxv-[id number]-vgnnv without mention of malnutrition, unspecified (weight) [facility] - [facility]orted* Type Description Date Hospitalization History fractured arm and shatte red elbow [facility] History general Narrative - Reported* Type Description Date Hospitalization History fractured arm and shatte red elbow Hospitalization History childbirth [facility] Other Summary Purpose Family History No Family [...] and content) DATE CREATED AUTHOR 08/09/2020 [facility] DATE CREATED AUTHOR AUTHOR'S ORGANIZ ATION 12/24/2022 [facility] DATE CREATED AUTHOR AUTHOR'S ORGANIZ ATION 03/22/2025 [facility] EPIC REASON FOR [...] BE BASED ON THE PRIMARY CLINICAL RECORDS. [employer] provides no warranty or guarantee of the accuracy or completeness of information in this document.
--- NOTE | 2025-03-27 19:19 | US_ITS ---
[place] [address] Patient Name: KALRY CRUZ MRN: [facility]:[id number] date: 2000 Sex: F Assigned Patient Location: [facility] Current Patient Location: Accession/Order Number: [id number] Exam Date: 03/27/2025 19:34 Report Date: 03/27/2025 20:21 At the request of: AI DARBY DO Procedure: US OB BPP w non-stress Ultrasound biophysical profile INDICATION: Small for gestational age COMPARISON: 03/01/2025 Findings and impression: Single live anterior cephalic position. heart rate 145 bpm. ISAI 13.1 cm. Biophysical profile score 02/22 Impression dictated by: Orion Barlow M.D. 03/27/2025 8:21 PM Dictation Location: [place] [address] Electronically authenticated by: [id number] Y Date: 03/27/2025 20:21
== END 2025-03-27 20:10 | disposition home or self-care (01) ==
LOC: US 18:56 → FBC 18:58
PROVIDERS: Visit Provider Obstetrics & Gynecology
DX: O36.5930 Maternal care for other known or suspected poor fetal growth, third trimester, not applicable or unspecified (principal); Z3A.36 36 weeks gestation of pregnancy
CPT/HCPCS: 76818

== ENCOUNTER 2025-04-02 12:21 | Outpatient (REF) | payer OTHER, SELFPAY ==
--- OUTSIDE RECORDS SUMMARY | 2025-03-19 08:40 | XMS_ITS | Encounter Summary ---
Author Organization [facility] Address [address] [place] [address] Care Team Providers Care Technical Illustrator Name Role Phone Unavailable Primary Care Provider Unavailabl e Reason for Visit * Reason Comments Routine Visit Encounter Details Date Type Department Care Team (Late st Contact Info) Description 03/19/2025 8:40 AM EDT Routine [facility] [place] [facility] [address] [facility] [place] [phone] Benjamin Spencer DO [address] [facility] [place] [address] 34 weeks gestation of ([facility]); Third trimester ([facility]); SGA (small for gestational age) ([facility]) Social History Tobacco Use Types Packs/Day [...] Sign Reading Time Taken Comments Blood Pressure 120/78 03/19/2025 8:52 AM EDT Pulse - - Temperature - - Respiratory Rate - - Oxygen Saturation - - Inhaled Oxygen Concentration - - Weight 75.5 kg (166 lb 6.4 oz) 03/19/2025 8:52 A M EDT Height - - Body Mass Index 30.43 12/15/2022 10:37 AM EDT documented in this encounter Progress Notes * Martha RodriguezYARIEL - 03/19/2025 8:40 AM EDT Reason for Appointment: Patient ID: Wendy Agosto is a 24 y.o. female who presents for Routine Visit Patient presents today for Return OB appointment. MEDICATIONS No current outpatient medications ALLERGIES Allergies Allergen Reactions Minocycline Nausea Only PROBLEMS Active Ambulatory Problems Diagnosis Date Noted Missed menses 2024 examination or test, positive result ([facility]) 2024 Resolved Ambulatory Problems Diagnosis Date Noted No Resolved Ambulatory Problems Past Medical History: Diagnosis Date 6 weeks follow-up ([facility]) BMI 25.0-25.9,adult Salt deficiency Type O blood, Rh positive HISTORY PAST MEDICAL HISTORY SOCIAL HISTORY Past Medical History: Diagnosis Date 6 weeks follow-up ([facility]) BMI 25.0-25.9,adult Salt deficiency Type O [...] nursing note reviewed. Exam conducted with a stretcher operator present. Vitals: Estimated body mass index is 30.43 kg/m?? as calculated from the following: Height as of 12/15/22: 5' 2 . Weight as of this encounter: 166 lb 6.4 oz. BP: 120/78 Patient's last menstrual period was 07/18/2024. ASSESSMENT & PLAN ICD-10-CM 1. 34 weeks gestation of ([facility]) Z3A.34 POCT urinalysis dipstick manually resulted 2. Third trimester ([facility]) Z34.93 POCT urinalysis dipstick manually resulted Return OB: Patient presents today for a routine obstetrics appointment. Patient is currently 34w6d . Patient states she is doing well but has complaints of being tired due to current . Patient has verbalizes frequent movement. labor precautions was discussed/given and patient was instructed to perform kick counts three times a day. Pt had growth ultrasound measurin 10th%starting NST/BPP. Faxed orders to hospital. Pt voiced understanding. Pt to be induced 04/06 called over 03/20 Orders Placed This Encounter Procedures POCT urinalysis dipstick manually resulted Follow Up: Patient is to return to office in 1 week for routine OB appointment. Documented by Martha Rodriguez LPN on behalf of: Benjamin Spencer DO documented in this encounter Miscellaneous Notes * Addendum Note - Martha Rodriguez LPN - 03/19/2025 8:40 AM EDTAddended by: MARTHA RODRIGUEZ on: 03/20/2025 01:44 PM Modules accepted: Orders documented in this encounter Plan of Treatment Scheduled Orders Name Type Priority Associated Diagnoses Orde r Schedule US biophysical profile w non stress test Imaging Routine SGA (small for gestational age) ([facility]) Expected: 03/20/2025 (Approximate), Expires: 09/17/2025 documented as of this encounter Goals Goal Patient Goal Type Associated Problems Recent Progress Patient-Stated? Author Reminders Care Plan OB Reminders No Open Scheduling, Background documented as of this encounter Procedures Procedure Name Priority Date/Time Associated Diagnosis Comments POCT URINALYSIS DIPSTICK Routine 03/19/2025 9:00 AM EDT 34 weeks gestation of ([facility]) Third trimester ([facility]) documented in this encounter Results * US OB follow up transabdominal approach (03/20/2025 11:56 AM EDT) Anatomical Region Laterality Modality Body Ultrasound 03/20/2025 3:36 PM EDT Impressions 03/21/2025 7:33 AM EDT 1. Single, live intrauterine , current sonographic age of 33 weeks and 3 days, with an estimated date of delivery of May 05. 2. weight is 2176 grams, and weight by percentile is 10.1% * Estimated Weight (g) by Percentile is based upon an accurate estimated age based on last menstrual period. TRANSCRIBED BY: ELECTRONICALLY SIGNED BY: Oscar Kent MD Narrative 03/21/2025 7:33 AM EDT FINDINGS: No prior examinations. A single, live intrauterine is present with normal cardiac rate of 122 beats per minute. Normal activity and amniotic fluid volume. Amniotic fluid index is 12.0 cm. Morphology is grossly normal. The current sonographic age is 33 weeks and 3 days, based on the following measurements: BPD 8.2cm ( 33 weeks, 0 days) Head Circumference 31.1cm (34 weeks, 5 days) Abdominal Circumference 29.7cm (33 weeks, 5 days) Femur Length 6.2 cm (32 weeks, 2 days) Presentation Cephalic Weight (g) by Percentile 10.1 % * These measurements result in an estimated date of delivery of May 05, 2025. The current estimated weight is 2176 grams ( 4 pound, 13 ounces). Procedure Note Oscar Kent MD - 03/21/2025 FINDINGS: No prior examinations. A single, live intrauterine is presentwith normal cardiac rate of 122 beats per minute. Normal fetalactivity and amniotic fluid volume. Amniotic fluid index is 12.0 cm.Morphology is grossly normal. The current sonographic age is 33 weeks and3 days, based on the following measurements: BPD 8.2cm ( 33 weeks, 0 days) Head Circumference 31.1cm (34 weeks, 5 days) Abdominal Circumference 29.7cm (33 weeks, 5 days) Femur Length 6.2 cm (32 weeks, 2 days) Presentation Cephalic Weight (g) by Percentile 10.1 % * These measurements result in an estimated date of delivery of April. The current estimated weight is 2176 grams ( 4 pound, 13ounces). IMPRESSION: 1. Single, live intrauterine , current sonographic age of 33weeks and 3 days, with an estimated date of delivery of May 05. 2. weight is 2176 grams, and weight by percentile is 10.1% * Estimated Weight (g) by Percentile is based upon an accurateestimated age based on last menstrual period. TRANSCRIBED BY: ELECTRONICALLY SIGNED BY: Oscar Kent MD us Benjamin Spencer DO [facility] OB US PROCEDURES Final Resul t * POCT urinalysis dipstick manually resulted (03/19/2025 9:00 AM EDT) Color, UA Yellow Clarity, UA Clear Glucose, UA Negative Negative - 1999(110) ++++ mg/dL Bilirubin, UA Negative Negative - 4(70) +++ mg/dL Ketones, UA Negative Negative - 160(16) ++++ mg/dL Spec Grav, UA 1.015 1 - 1.03 Blood, UA Negative Negative - 50 Nicolás/mcL pH, UA 7.0 5 - 9 Protein, UA Negative Negative - 1999(20) ++++ mg/dL Urobilinogen, UA 1.0 0.2 - 12 mg/dL Leukocytes, UA Negative Negative - 500+++ Yodit/mcL Nitrite, UA Negative Negative - Positive Urine 03/19/2025 9:00 AM EDT Benjamin Spencer DO POINT OF CARE TEST ENTER/EDIT OR DERABLES Final Result documented in this encounter Visit Diagnoses Diagnosis 34 weeks gestation of ([facility]) Third trimester ([facility]) state, incidental SGA (small for gestational age) ([facility]) Jpygx-jco-vogwn without mention of malnutrition, unspecified (weight) SGA (small for gestational age) ([facility]) Ipwee-zbz-vytve without mention of malnutrition, unspecified (weight) documented in this encounter Additional Health Concerns Active Problems Noted Date Diagnosed Date OB Reminders 04/27/2023 documented as of this encounter
--- OUTSIDE RECORDS SUMMARY | 2025-03-20 11:30 | XMS_ITS | Encounter Summary ---
Author Organization [facility] Address [address] [place] [address] Care Team Providers Care Optometry Assistant Name Role Phone Unavailable Primary Care Provider Unavailabl e Encounter Details Date Type Department Care Team (Latest Contact Info) Description 03/20/2025 11:30 AM EDT Ancillary Procedure [facility] [address] [place] [address] [place] [phone] SGA (small for gestational age) ([facility] Social History Tobacco Use Types Packs/Day [...] as of this encounter Plan of Treatment Not on file documented as of this encounter Goals Goal Patient Goal Type Associated Problems Recent Progress Patient-Stated? Author Reminders Care Plan OB Reminders No Open Scheduling, Background documented as of this encounter Procedures Procedure Name Priority Date/Time Associated Diagnosis Comments US OB FOLLOW UP TRANSABDOMINAL APPROACH Routine 03/20/2025 11:56 AM EDT SGA (small for gestational age) ([facility]) documented in this encounter Results * US [...] Oscar Kent MD us Benjamin Spencer DO [facility] OB US PROCEDURES Final Resul t documented in this encounter Visit Diagnoses Diagnosis SGA (small for gestational age) ([facility]) [id number] without mention of malnutrition, unspecified (weight) documented in this encounter Additional Health Concerns Active Problems Noted Date Diagnosed Date OB Reminders 04/27/2023 documented as of this encounter
--- OUTSIDE RECORDS SUMMARY | 2025-04-02 08:50 | XMS_ITS | Encounter Summary ---
Author Organization [facility] Address [address] [place] [address] Care Team Providers Care Corn Sheller Name Role Phone Unavailable Primary Care Provider Unavailabl e Reason for Visit * Reason Comments Routine Visit Encounter Details Date Type Department Care Team (Late st Contact Info) Description 04/02/2025 8:50 AM EDT Routine [facility] [place] [facility] [address] [place] [id number] Benjamin Spencer DO [address] [place] [address] Third trimester ([facility]); 36 weeks gestation of ([facility]); Small for gestational age (SGA) ([facility]) Social History Tobacco Use Types Packs/Day [...] Sign Reading Time Taken Comments Blood Pressure 116/72 04/02/2025 8:36 AM EDT Pulse - - Temperature - - Respiratory Rate - - Oxygen Saturation - - Inhaled Oxygen Concentration - - Weight 76.6 kg (168 lb 12.8 oz) 04/02/2025 8:36 AM EDT Height - - Body Mass Index 30.87 12/15/2022 10:37 AM EDT documented in this encounter Progress Notes * Iza De Leon LPN - 04/02/2025 8:50 AM EDT * Lisa Rodriguez LPN - 04/02/2025 8:50 AM EDT Reason for Appointment: Patient ID: Wendy Agosto is a 24 y.o. female who presents for Routine Visit Patient presents today for Return OB appointment. MEDICATIONS No current outpatient medications ALLERGIES Allergies Allergen Reactions Minocycline Nausea Only PROBLEMS Active Ambulatory Problems Diagnosis Date Noted Missed menses 2024 examination or test, positive result ([facility]) 2024 Resolved Ambulatory Problems Diagnosis Date Noted No Resolved Ambulatory Problems Past Medical History: Diagnosis Date 6 weeks follow-up ([facility]) BMI 25.0-25.9,adult Salt deficiency Type O blood, Rh positive HISTORY PAST MEDICAL HISTORY SOCIAL HISTORY Past Medical History: Diagnosis Date 6 weeks follow-up ([facility]) BMI 25.0-25.9,adult Salt deficiency Type O [...] appearance. She is well-developed. Genitourinary: Vulva normal. Cardiovascular: Rate and Rhythm: Normal rate and [...] nursing note reviewed. Exam conducted with a scientific research associate present. Vitals: Estimated body mass index is 30.87 kg/m?? as calculated from the following: Height as of 12/15/22: 5' 2 . Weight as of this encounter: 168 lb 12.8 oz. BP: 116/72 Patient's last menstrual period was 07/18/2024. ASSESSMENT & PLAN ICD-10-CM 1. Third trimester ([facility]) Z34.93 POCT urinalysis dipstick manually resulted CULTURE, GROUP B STREP WITH SUSCEPTIBLITY CULTURE, GROUP B STREP WITH SUSCEPTIBLITY 2. 36 weeks gestation of ([facility]) Z3A.36 POCT urinalysis dipstick manually resulted 3. Small for gestational age (SGA) ([facility]) P05.10 Patient is doing well but has complaints of being tired and having maternal discomfort due to . Patient verbalized frequent movement and was instructed to perform kick counts three times per day. labor precautions were given, LARC consent was signed/declined, and GBS was obtained. Cervical check was performed and patient is 3cm dilated. Pt to be induced on 04/06/25- at 0500. Orders Placed This Encounter Procedures CULTURE, GROUP B STREP WITH SUSCEPTIBLITY POCT urinalysis dipstick manually resulted Follow Up: Patient is to return to office in 1 week for routine OB appointment Documented by Lisa Rodriguez LPN on behalf of: Benjamin Spencer DO documented in this encounter Plan of Treatment Scheduled Orders Name Type Priority Associated Diagnoses Orde r Schedule CULTURE, GROUP B STREP WITH SUSCEPTIBLITY Lab Routine Third trimester ([facility]) Expected: 04/02/2025, Expires: 04/02/2026 documented as of this encounter Goals Goal Patient Goal Type Associated Problems Recent Progress Patient-Stated? Author Reminders Care Plan OB Reminders No Open Scheduling, Background documented as of this encounter Procedures Procedure Name Priority Date/Time Associated Diagnosis Comments POCT URINALYSIS DIPSTICK Routine 04/02/2025 8:45 AM EDT Third trimester ([facility]) 36 weeks gestation of ([facility]) documented in this encounter Results * (ABNORMAL) POCT urinalysis dipstick manually resulted (04/02/2025 8:45 AM EDT) Color, UA Yellow Clarity, UA Clear Glucose, UA Negative Negative - 2000(110) ++++ mg/dL Bilirubin, UA Negative Negative - 4(70) +++ mg/dL Ketones, UA Negative Negative - 160(16) ++++ mg/dL Spec Grav, UA 1.020 1 - 1.03 Blood, UA Negative Negative - 50 Nicolás/mcL pH, UA 6.0 5 - 9 Protein, UA Positive Negative - 2000(20) ++++ mg/dL Urobilinogen, UA 1.0 0.2 - 12 mg/dL Leukocytes, UA Positive Negative - 500+++ Yodit/mcL Nitrite, UA Negative Negative - Positive Urine 04/02/2025 8:45 AM EDT Benjamin Spencer DO POINT OF CARE TEST ENTER/EDIT OR DERABLES Final Result documented in this encounter Visit Diagnoses Diagnosis Third trimester ([facility]) state, incidental 36 weeks gestation of ([facility]) Small for gestational age (SGA) ([facility]) documented in this encounter Additional Health Concerns Active Problems Noted Date Diagnosed Date OB Reminders 04/27/2023 documented as of this encounter
--- OUTSIDE RECORDS SUMMARY | 2025-04-02 12:24 | XMS_ITS | Encounter Summary ---
Author Organization [facility] Address [address] [place] [address] Care Team Providers Care Dress Cutter Name Role Phone Unavailable Primary Care Provider Unavailabl e Encounter Details Date Type Department Care Team (Late st Contact Info) Description 03/19/2025 Bamboo flowsheet [facility] [address] [place] [phone] Benjamin Spencer DO [address] [place], [facility] Social History Tobacco Use Types Packs/Day Years [...]
--- OUTSIDE RECORDS SUMMARY | 2025-04-02 12:24 | XMS_ITS | Encounter Summary ---
Author Organization [facility] Address [address] [place] [address] Care Team Providers Care Patternmaker Metal Name Role Phone Unavailable Primary Care Provider Unavailabl e Encounter Details Date Type Department Care Team (Late st Contact Info) Description 01/13/2023 Abstract [facility] [address] [place] [phone] Benjamin Spencer DO [address] [place] [address] Social History Tobacco Use Types Packs/Day Years Used Date Smoking Tobacco: Never Assessed Comments Yes Sex and Gender Information Value Date Recorded Sex Assigned at Not on file Legal Sex Female 7:06 PM EDT Gender Identity Not on file Sexual Orientation Not on file documented as of this encounter Plan of Treatment Not on file documented as of this encounter Visit Diagnoses Not on filedocumented in this encounter
--- OUTSIDE RECORDS SUMMARY | 2025-04-02 12:24 | XMS_ITS | Encounter Summary ---
Author Organization [facility] Address [address] [place] [address] Care Team Providers Care Contracting Specialist Name Role Phone Unavailable Primary Care Provider Unavailabl e Encounter Details Date Type Department Care Team (Late st Contact Info) Description 03/20/2025 Telephone [facility] [address] [place] [phone] Michelle Curry MA Social History Tobacco Use [...] documented in this encounter Plan of Treatment Not on [...]
--- OUTSIDE RECORDS SUMMARY | 2025-04-02 12:24 | XMS_ITS | Encounter Summary ---
Author Organization [facility] Address [address] [place] [address] Care Team Providers Care Sport Shoe Spike Assembler Name Role Phone Unavailable Primary Care Provider Unavailabl e Encounter Details Date Type Department Care Team (Late st Contact Info) Description 10/18/2024 Abstract [facility] [address] [place] [phone] Benjamin Spencer DO [address] [place] [address] Social History Tobacco Use Types Packs/Day Years [...]
--- OUTSIDE RECORDS SUMMARY | 2025-04-02 12:24 | XMS_ITS | Encounter Summary ---
Author Organization [facility] Address [address] [place] [address] Care Team Providers Care Voice Intercept Technician Name Role Phone Unavailable Primary Care Provider Unavailabl e Encounter Details Date Type Department Care Team (Late st Contact Info) Description 03/27/2025 Clinisync Result Encounter [facility] External Department Unsolicited Ai Spencer, DO [address] [place] [phone] Social History Tobacco Use Types Packs/Day Years [...] Priority Date/Time Associated Diagnosis Comments US OB BPP W NON-STRESS 03/27/2025 8:21 PM EDT documented in this encounter Results * US OB BPP W NON-STRESS (03/27/2025 8:21 PM EDT) Anatomical Region Laterality Modality Other 03/27/2025 8:21 PM EDT Narrative 03/27/2025 8:23 [place] [address] Ultrasound Report Signed Patient: WENDY AGOSTO MR#: [id number] : 2000 Acct:[id number] Age/Sex: 24 / F ADM Date: 03/27/25 Loc: US Attending Dr: Ai Spencer D.O. Ordering Physician: Ai Spencer D.O. Date of Service: 03/27/25 Procedure(s): US OB BPP w non-stress Accession Number(s): [id number] cc: Ai Spencer D.O.; Physician,Non-Staff [place] [id number] Patient Name: WENDY AGOSTO MRN: [id number] date: 2000 Sex: F Assigned Patient Location: [facility] Current Patient Location: Accession/Order Number: [id number] Exam Date: 03/27/2025 19:34 Report Date: 03/27/2025 20:21 At the request of: AI SPENCER DO Procedure: US OB BPP w non-stress Ultrasound biophysical profile INDICATION: Small for gestational age COMPARISON: 03/01/2025 Findings and impression: Single live anterior cephalic position. heart rate 145 bpm. ISAI 13.1 cm. Biophysical profile score 8/8 Impression dictated by: Orion Barlow M.D. 03/27/2025 8:21 PM Dictation Location: [place] [address] Electronically authenticated by: [id number] Y Date: 03/27/2025 20:21 Dictated By: Orion Barlow M.D. Signed By: 03/27/252022 DD/ 20 TD/TT: Oil And Gas Exploration Technician: Procedure Note Radiology, Radiologist, - 03/27/2025 [place] [address] Ultrasound Report Signed Patient: WENDY AGOSTO JMR#: [id number] : 2000Acct:[id number] Age/Sex: 24 / FADM Date: 03/27/25 Loc: US Attending Dr: Ai Spencer D.O. Ordering Physician: Ai Spencer D.O. Date of Service: 03/27/25 Procedure(s): US OB BPP w non-stress Accession Number(s): [id number] cc: Ai Spencer D.O.; Physician,Non-Staff [place] [address] Patient Name: WENDY AGOSTO MRN: [id number] date: 2000 Sex: F Assigned Patient Location: [facility] Current Patient Location: Accession/Order Number: [id number] Exam Date: 03/27/2025 19:34 Report Date: 03/27/2025 20:21 At the request of: AI SPENCER DO Procedure: US OB BPP w non-stress Ultrasound biophysical profile INDICATION: Small for gestational age COMPARISON: 03/01/2025 Findings and impression: Single live anterior cephalic position. heart rate 145 bpm. ISAI 13.1 cm. Biophysical profile score 8/8 Impression dictated by: Orion Barlow M.D. 03/27/2025 8:21 PM Dictation Location: [place] [address] Electronically authenticated by: [id number] Y Date: 0:21 Dictated By: Orion Barlow M.D. Signed By:03/27/252022 DD/ 20 TD/TT: Oil [employer] Exploration Technician: Ai Spencer DO [facility] Final Result documented in this encounter Visit Diagnoses Not on filedocumented in this encounter Additional Health Concerns Active Problems Noted Date Diagnosed Date OB Reminders 04/27/2023 documented as of this encounter
--- OUTSIDE RECORDS SUMMARY | 2025-04-02 12:24 | XMS_ITS | Clinical Summary ---
Author Organization [facility] Address [address] [place] [address] Care Team Providers Care Compass Operator Name Role Phone Unavailable Primary Care Provider Unavailabl e Allergies Active Allergy Reactions Criticality Noted Date Comments Minocycline Nausea Only 12/14/2022 Medications No known medications Active Problems Problem Noted Date Diagnosed Date Missed menses 2024 examination or test, positive result ( [facility]) 2024 Estimated Date of Delivery Comme nts Yes 04/24/2025 Based on last me nstrual period of 07/18/2024 Encounters Date Type Department Care Team Description 04/02/2025 8:50 AM [place] [address] Ai Spencer, Third trimester ([facility]); 36 weeks gestation of ([facility]); Small for gestational age (SGA) ([facility]) 04/02/20[place] [address] Ai Spencer, DO 04/02/2025 [place] [address] Ai Spencer, DO 03/27/2025 Clinisync Result Encounter NOMS External Department Unsolicited Ai Spencer, 03/20/2025 11:30 AM EDT [place] [address] SGA (small for gestational age) ([facility]) 03/20/2025 Telephone [facility] [address] [place] [address] Michelle Curry MA 03/19/2025 8:40 AM EDT Routine [facility] [address] [facility] [address] [place] [address] Ai Spencer, 34 weeks gestation of ([facility]); Third trimester ([facility]); SGA (small for gestational age) ([facility]) 03/19/2025 Bamboo flowsheet [facility] [address] [place] [address] [place] [address] Ai Spencer DO 03/07/2025 9:00 AM EDT Routine [facility] [address] [place] [address] [place] [address] Ai Spencer, 33 weeks gestation of ([facility]); Third trimester ([facility]) 03/07/2025 Bamboo flowsheet [facility] [address] [place] [address] [place] [address] Ai Spencer DO 03/01/2025 Clinisync Result Encounter NOMS External Department Unsolicited Torri Meza PA 02/21/2025 11:30 AM EDT Routine [facility] [address] [facility] [place] [address] Torri Meza PA Third trimester ([facility]); 31 weeks gestation of ([facility]); size inconsistent with dates ([facility]) 02/21/2025 Bamboo flowsheet [facility] [address] [facility] [place] [address] Torri Meza PA 02/14/2025 Clinisync Result Encounter NOMS External Department Unsolicited Torri Meza PA 01/14/2025 Telephone [facility] [place] [address] Torri Meza PA 01/12/2025 Clinisync Result Encounter NOMS External Department Unsolicited Torri Meza PA 01/10/2025 11:20 AM EDT Routine [facility] [place] [address] Torri Meza PA Second trimester ([facility]); 25 weeks gestation of ([facility]); Diabetes mellitus screening 01/10/2025 Bamboo flowsheet [facility] [address] [place] [address] [place] [address] Torri Meza PA 01/09/2025 Travel from Last [...] 12.8 oz) 04/02/2025 8:36 AM EDT Height 157.5 cm (5' 2 ) 12/15/2022 10:3 7 AM EDT Body Mass Index 30.87 12/15/2022 10:37 AM EDT Plan of Treatment Not on file Goals Goal Patient Goal Type Associated Problems Recent Progress Patient-Stated? Author Reminders Care Plan OB Reminders No Open Scheduling, Background Procedures Procedure Name Priority Date/Time Associated Diagnosis Comments POCT URINALYSIS DIPSTICK Routine 04/02/2025 8:45 AM EDT Third trimester ([facility]) 36 weeks gestation of ([facility]) US OB BPP W NON-STRESS 03/27/2025 8:21 PM EDT US OB FOLLOW UP TRANSABDOMINAL APPROACH Routine 03/20/2025 11:56 AM EDT SGA (small for gestational age) ([facility]) POCT URINALYSIS DIPSTICK Routine 03/19/2025 9:00 AM EDT 34 weeks gestation of ([facility]) Third trimester ([facility]) POCT URINALYSIS DIPSTICK Routine 03/07/2025 10:16 AM EDT 33 weeks gestation of ([facility]) Third trimester ([facility]) US OB GROWTH 03/01/2025 8:33 AM EDT POCT URINALYSIS DIPSTICK Routine 02/21/2025 11:49 AM EDT Third trimester ([facility]) 31 weeks gestation of ([facility]) GLUCOSE TOLERANCE 3 HOUR Routine 02/14/2025 7:37 AM EDT GLUCOSE 1 HOUR Routine 01/12/2025 9:01 AM EDT ALL CBC WITH AUTO DIFF Routine 9:01 AM EDT POCT URINALYSIS DIPSTICK Routine 01/10/2025 11:38 AM EDT Second trimester ([facility]) from Last 3 Months Results * (ABNORMAL) POCT urinalysis dipstick manually resulted (04/02/2025 8:45 AM EDT) Only the most recent of5 resultswithin the time period is included. Color, [...] - Positive Urine 04/02/2025 8:45 AM EDT us Ai Spencer DO POINT OF CARE TEST ENTER/EDIT OR DERABLES Final Result * US OB BPP W NON-STRESS (03/27/2025 8:21 PM EDT) Anatomical Region Laterality Modality Other 03/27/2025 8:21 PM EDT Narrative 03/27/2025 8:23 [place] [address] Ultrasound Report Signed Patient: KARLY AGOSTO MR#: [id number] : 2000 Acct:[id number] Age/Sex: 24 / F ADM Date: 03/27/25 Loc: US Attending Dr: Ai Spencer D.O. Ordering Physician: Ai Spencer D.O. Date of Service: 03/27/25 Procedure(s): US OB BPP w non-stress Accession Number(s): [id number] cc: Ai Spencer D.O.; Physician,Non-Staff M.DTani [address] [id number] Patient Name: KARLY AGOSTO MRN: [id number] date: 2000 Sex: F Assigned Patient Location: [facility] Current Patient Location: Accession/Order Number: [id number] Exam Date: 03/27/2025 19:34 Report Date: 03/27/2025 20:21 At the request of: AI SPENCER DO Procedure: US OB BPP w non-stress Ultrasound biophysical profile INDICATION: Small for gestational age COMPARISON: 03/01/2025 Findings and impression: Single live anterior cephalic position. heart rate 145 bpm. ISAI 13.1 cm. Biophysical profile score 02/22 Impression dictated by: Orion Barlow M.D. 03/27/2025 8:21 PM Dictation Location: [place] [address] Electronically authenticated by: [id number] Y Date: 03/27/2025 20:21 Dictated By: Orion Barlow M.D. Signed By: 03/27/252022 DD/ 20 TD/TT: Residential Energy Auditor: Procedure Note Radiology, Radiologist, MD - 03/27/2025 [place] [address] Ultrasound Report Signed Patient: KARLY AGOSTO R#: [id number] : 2000Acct:[id number] Age/Sex: 24 / FADM Date: 03/27/25 Loc: US Attending Dr: Ai Spencer D.O. Ordering Physician: Ai Spencer D.O. Date of Service: 03/27/25 Procedure(s): US OB BPP w non-stress Accession Number(s): [id number] cc: Ai Spencer D.O.; Physician,Non-Staff Jayme The [address] [address] Patient Name: KARLY AGOSTO MRN: [id number] date: 2000 Sex: F Assigned Patient Location: [facility] Current Patient Location: Accession/Order Number: [id number] Exam Date: 03/27/2025 19:34 Report Date: 03/27/2025 20:21 At the request of: AI SPENCER DO Procedure: US OB BPP w non-stress Ultrasound biophysical profile INDICATION: Small for gestational age COMPARISON: 03/01/2025 Findings and impression: Single live anterior cephalic position. heart rate 145 bpm. ISAI 13.1 cm. Biophysical profile score 02/22 Impression dictated by: Orion Barlow M.D. 03/27/2025 8:21 PM Dictation Location: [employer] Electronically authenticated by: [id number] Y Date: 0:21 Dictated By: Orion Barlow M.D. Signed By:03/27/252022 DD/ 20 TD/TT: Residential Energy Auditor: us Ai Spencer DO [facility] Final Result * US OB follow up transabdominal approach [...] BY: ELECTRONICALLY SIGNED BY: Oscar Kent MD Ai Spencer DO [facility] OB US PROCEDURES Final Resul t * US OB GROWTH (03/01/2025 8:33 AM EDT) Anatomical Region Laterality Modality Other 03/01/2025 8:33 AM EDT Narrative 03/01/2025 8:35 AM EDT [address] [address] Ultrasound Report Signed Patient: KARLY AGOSTO MR#: [id number] : 2000 Acct:[id number] Age/Sex: 24 / F ADM Date: 03/01/25 Loc: US Attending Dr: Torri Meza Ordering Physician: Torri Meza Date of Service: 03/01/25 Procedure(s): US OB growth Accession Number(s): [id number] cc: Torri Meza; Physician,Non-Staff Jayme The [place] [id number] Patient Name: KARLY AGOSTO MRN: [id number] date: 2000 Sex: F Assigned Patient Location: US Current Patient Location: US Accession/Order Number: [id number] Exam Date: 03/01/2025 08:28 Report Date: 03/01/2025 [...] Jr., D.O. 03/01/2025 8:33 AM Dictation Location: [place] [address] Electronically authenticated by: [id number] Y Date: 03/01/2025 08:33 Dictated By: Oscar Clemens M.D. Signed By: 03/01/25 0835 DD/ 0833 TD/TT: Residential Energy Auditor: Procedure Note Radiology, Radiologist, MD - 03/01/2025 [place] [address] Ultrasound Report Signed Patient: KARLY AGOSTO JMR#: [id number] : 2000Acct:[id number] Age/Sex: 24 / FADM Date: 03/01/25 Loc: US Attending Dr: Torri Meza Ordering Physician: Torri Meza Date of Service: 03/01/25 Procedure(s): US OB growth Accession Number(s): [id number] cc: Torri Meza; Physician,Non-Staff Jayme [address] [address] Patient Name: KARLY AGOSTO MRN: [id number] date: 2000 Sex: F Assigned Patient Location: US Current Patient Location: US Accession/Order Number: [id number] Exam Date: 03/01/2025 08:28 Report Date: 03/01/2025 [...] growth. Impression dictated by: Oscar Clemens Jr., D.OTani 03/01/2025 8:33 AM Dictation Location: [place] [address] Electronically authenticated by: [id number] Y Date: 508:33 Dictated By: Oscar Clemens M.D. Signed By:03/01/25 0835 DD/ 0833 TD/TT: Residential Energy Auditor: us Torri Meza PA [facility] Final Result * GLUCOSE TOLERANCE 3 HOUR (02/14/2025 7:37 AM EDT) GLUCOSE TOLERANCE 3 HOUR mg/dL [facility] Comment: GLU FAST 86 (<95) Col: 02/14/25 0737 GLU 1HR 157 (<180) Col: 02/14/25 0841 GLU 2HR 129 (<155) Col: 02/14/25 0941 GLU 3HR 114 (<140) Col: 02/14/25 1040 02/14/2025 7:37 AM EDT 02/14/2025 7:38 AM EDT Narrative [facility] - 02/14/2025 11:22 AM EDT us Torri MILLER LAB BLOOD ORDERABLES Final Resul t [facility] TB * (ABNORMAL) GLUCOSE 1 HOUR (01/12/2025 9:01 AM EDT) GLUCOSE 1 HOUR 140(H) <130 mg/dL TB 01/12/2025 9:01 AM EDT 01/12/2025 9:16 AM EDT Narrative [facility] - 01/12/2025 10:01 AM EDT us Torri MILLER LAB BLOOD ORDERABLES Final Resul t Performing Organization Address City/State/[facility] Co de Phone Number [facility] TB * (ABNORMAL) ALL CBC WITH AUTO DIFF (01/12/2025 9:01 AM EDT) TBH WBC 9.7 4.0 - 11.0 10 3/uL TBH TBH RBC 4.25 4.20 - 5.40 10 6/uL TBH TBH HGB 11.9(L) 12.0 - 16.0 g/dL TB TB HCT 35.8(L) 36.0 - 48.0 % TBH TBH MCV 84.2 81.0 - 99.0 fL TBH TBH MCH 28.0 26.7 - 34.0 pg TBH TB MCHC 33.2 29.9 - 35.2 g/dL TBH [...] Narrative [facility] - 01/12/2025 9:52 AM EDT Torri MILLER [facility] Final Result [facility] TB from Last 3 Months Additional Health Concerns Active Problems Noted Date Diagnosed Date OB Reminders 04/27/2023 Insurance [employer]
--- OUTSIDE RECORDS SUMMARY | 2025-04-02 12:24 | XMS_ITS | Encounter Summary ---
Author Organization [facility] Address [address] [place] [address] Care Team Providers Care Bit Tapper Name Role Phone Unavailable Primary Care Provider Unavailabl e Encounter Details Date Type Department Care Team (Late st Contact Info) Description 02/16/2023 Abstract [facility] [address] [place] [address] Torri Carlos PA [address] [facility] [address] [place], [facility] Social History Tobacco Use Types Packs/Day Years [...]
--- OUTSIDE RECORDS SUMMARY | 2025-04-02 12:25 | XMS_ITS | Encounter Summary ---
Author Organization [facility] Address [address] [place] [address] Care Team Providers Care Assistant Art Director Name Role Phone Unavailable Primary Care Provider Unavailabl e Encounter Details Date Type Department Care Team (Late st Contact Info) Description 02/01/2024 Clinisync Result Encounter [facility] External Department Unsolicited Ai Spencer, DO [address] [facility] [address] [place] [id number] Social History Tobacco Use Types Packs/Day Years [...] EDT Narrative 02/01/2024 2:24 [place] [address] Ultrasound Report Signed Patient: WENDY AGOSTO MR#: [id number] : 2000 Acct:[id number] Age/Sex: 23 / F ADM Date: 02/01/24 Loc: N[facility] Attending Dr: Ai Spencer D.O. Ordering Physician: Ai Spencer D.O. Date of Service: 02/01/24 Procedure(s): US pelvis w/ transvaginal Accession Number(s): [id number] cc: Ai Spencer D.O.; Physician,Non-Staff Jayme [place] [id number] Patient Name: WENDY AGOSTO MRN: [id number] date: 2000 Sex: F Assigned Patient Location: [facility] Current Patient Location: [facility] Accession/Order Number: [id number] Exam Date: 02/01/2024 08:07 Report Date: 02/01/2024 14:21 At the request of: AI SPENCER Procedure: US pelvis w/ transvaginal EXAMINATION: [...] Signed By: 02/01/24 1424 DD/ 1421 TD/TT: Anesthesiologist/Physician: Procedure Note Radiology, Radiologist, MD - 02/01/2024 [place] [address] Ultrasound Report Signed Patient: WENDY AGOSTO R#: [id number] : 2000Acct:[id number] Age/Sex: 23 / FADM Date: 02/01/24 Loc: NOMS Attending Dr: Ai Spencer D.O. Ordering Physician: Ai Spencer D.O. Date of Service: 02/01/24 Procedure(s): US pelvis w/ transvaginal Accession Number(s): [id number] cc: Ai Spencer D.O.; Physician,Non-Staff Jayme [place] [address] Patient Name: WENDY AGOSTO MRN: [id number] date: 2000 Sex: F Assigned Patient Location: [facility] Current Patient Location: [facility] Accession/Order Number: [id number] Exam Date: 02/01/2024 08:07 Report Date: 02/01/2024 14:21 At the request of: AI SPENCER Procedure: US pelvis w/ transvaginal EXAMINATION: [...] M.D. Signed By:02/01/24 1424 DD/ 1421 TD/TT: Anesthesiologist/Physician: us Ai Tj DO [facility] Final Result documented in this encounter Visit Diagnoses Not on filedocumented in this encounter Additional Health Concerns Active Problems Noted Date Diagnosed Date OB Reminders 04/27/2023 documented as of this encounter
--- OUTSIDE RECORDS SUMMARY | 2025-04-02 12:25 | XMS_ITS | Encounter Summary ---
Author Organization [facility] Address [address] [place] [address] Care Team Providers Care Production Mechanic Name Role Phone Unavailable Primary Care Provider Unavailabl e Encounter Details Date Type Department Care Team (Late st Contact Info) Description 04/02/2025 Bamboo flowsheet [facility] [address] [place] [address] Benjamin Spencer DO [address] [place], [facility]11 Social History Tobacco Use Types Packs/Day [...]
--- OUTSIDE RECORDS SUMMARY | 2025-04-02 12:25 | XMS_ITS | Encounter Summary ---
Author Organization [facility] Address [address] [place] [address] Care Team Providers Care Knitting Tester Name Role Phone Unavailable Primary Care Provider Unavailabl e Encounter Details Date Type Department Care Team (Late st Contact Info) Description 04/02/2025 Abstract [facility] [address] [facility] [place] [address] Benjamin Spencer DO [address] [facility] [place] [address] Social History Tobacco Use Types Packs/Day Years [...]
--- OUTSIDE RECORDS SUMMARY | 2025-04-02 12:25 | XMS_ITS | Encounter Summary ---
Author Organization [facility] Address [address] [place] [address] Care Team Providers Care Mint Wafer Depositor Name Role Phone Unavailable Primary Care Provider Unavailabl e Encounter Details Date Type Department Care Team (Late st Contact Info) Description 02/02/2024 Abstract [facility] [address] [place] [place] [address] Benjamin Spencer DO [address] [facility] [place] [address] Social History Tobacco Use Types Packs/Day Years [...]
--- OUTSIDE RECORDS SUMMARY | 2025-04-02 13:13 | XMS_ITS | CCD ---
Author Organization [facility] Care Team Providers Care Family Practice Physician Assistant Name Role Phone Elsa Rea Unavailable Deann [...] 14 day(s) Mar, Active Pre-Elen (1 source) Pre- Active predniSONE 20 mg oral tablet (1 source) Start: 03-25-2022 take 1 tablet by mouth every twelve hours predniSONE 20 MG 1 tablet Orally 2 times a day for 5 day(s) Mar, Active Completed/Discontinued Medications Medication Drug Class(es) Dates Sig (Normalized) Sig (Original) Iron (2 sources) Iron Not-Taking/ PRN Iron Active levonorgestrel 0.423499 mg/hr intrauterine system (2 sources) Progestin, Progestin-containing [...] [34 weeks gestation of ] 03-19-2025 Episodic Residual codes; unclassified (2 sources) Gestation period, 36 weeks; Translations: [36 weeks gestation of ] 04-02-2025 Episodic Short gestation; low weight; and growth retardation (4 sources) Jplwv-vep-jxzus baby; Translations: [ small for gestational age, unspecified weight] 03-19-2025 [...] Range Facility Urinalysis macro (dipstick) panel (U)on 04-02-2025 Bilirubin, UA Negative Negative - 4(70) +++ mg/dL [facility] Blood, UA Negative Negative - 50 Nicolás/mcL [facility] Clarity, UA Clear [facility] Color, UA Yellow [facility] Glucose, UA Negative Negative - 1999(110) ++++ mg/dL [facility] Interpretation and review of laboratory results Abnormal [facility] Ketones, UA Negative Negative - 160(16) ++++ mg/dL [facility] Leukocytes, UA Positive Negative - 500+++ Yodit/mcL [facility] Nitrite, UA Negative Negative - Positive [facility] pH, UA 6 5 - 9 [facility] Protein, UA Positive Negative - 1999(20) ++++ mg/dL [facility] Spec Grav, UA 1.02 1 - 1.03 [facility] Urobilinogen, UA 1.0 0.2 - 12 mg/dL [facility] US OB BPP W NON-STRESS on 03-27-2025 [place] [address] Ultrasound Report Signed Patient: KARLY AGOSTO MR#: [id number] : 2000 Acct:[id number] Age/Sex: 24 / F ADM Date: 03/27/25 Loc: US Attending Dr: Ai Spencer D.O. Ordering Physician: Ai Spencer D.O. Date of Service: 03/27/25 Procedure(s): US OB BPP w non-stress Accession Number(s): [id number] cc: Ai Spencer D.O.; Physician,Non-Staff M.D. [place] [id number] Patient Name: KARLY AGOSTO MRN: [facility]:[id number] date: 2000 Sex: F Assigned Patient Location: [facility] Current Patient Location: Accession/Order Number: [id number] Exam Date: 03/27/2025 19:34 Report Date: 03/27/2025 20:21 At the request of: AI SPENCER DO Procedure: US OB BPP w non-stress Ultrasound biophysical profile INDICATION: Small for gestational age COMPARISON: 03/01/2025 Findings and impression: Single live anterior cephalic position. heart rate 145 bpm. ISAI 13.1 cm. Biophysical profile score 02/22 Impression dictated by: Orion Barlow M.D. 03/27/2025 8:21 PM Dictation Location: [place] [address] Electronically authenticated by: [id number] Y Date: 03/27/2025 20:21 Dictated By: Orion Barlow M.D. Signed By: 03/27/252022 DD/ 20 TD/TT: Continuity Reader: [facility] Radiology, Radiologist, MD - 03/27/2025 [place] [address] Ultrasound Report Signed Patient: KARLY AGOSTO MR#: [id number] : 2000 Acct:[id number] Age/Sex: 24 / F ADM Date: 03/27/25 Loc: US Attending Dr: Ai Spencer D.O. Ordering Physician: Ai Spencer D.O. Date of Service: 03/27/25 Procedure(s): US OB BPP w non-stress Accession Number(s): [id number] cc: Ai Spencer D.O.; Physician,Non-Staff Jayme The [place] [address] Patient Name: KARLY AGOSTO MRN: [facility]:[id number] date: 2000 Sex: F Assigned Patient Location: [facility] Current Patient Location: Accession/Order Number: [id number] Exam Date: 03/27/2025 19:34 Report Date: 03/27/2025 20:21 At the request of: AI SPENCER DO Procedure: US OB BPP w non-stress Ultrasound biophysical profile INDICATION: Small for gestational age COMPARISON: 03/01/2025 Findings and impression: Single live anterior cephalic position. heart rate 145 bpm. ISAI 13.1 cm. Biophysical profile score 02/22 Impression dictated by: Orion Barlow M.D. 03/27/2025 8:21 PM Dictation Location: [employer] Electronically authenticated by: [id number] Y Date: 03/27/2025 20:21 Dictated By: Orion Barlow M.D. Signed By: 03/27/252022 DD/ 20 TD/TT: Continuity Reader: [facility] Ku6 Radiology Study observation (narrative) [facility] US OB BPP W NON-STRESS Ordered By: Radiologist Radiology on 03-27-2025 [facility] Work Phone: US OB FOLLOW UP TRANSABDOMIN AL APPROACHon [...] UA Negative Negative - 4(70) +++ mg/dL [facility] Blood, UA Negative Negative - 50 Nicolás/mcL [facility] Clarity, UA Clear [facility] Color, UA Yellow [facility] Glucose, UA Negative Negative - 1999(110) ++++ mg/dL [facility] Interpretation and review of laboratory results Normal [facility] Ketones, UA Negative Negative - 160(16) ++++ mg/dL [facility] Leukocytes, UA Negative Negative - 500+++ Yodit/mcL [facility] Nitrite, UA Negative Negative - Positive [facility] pH, UA 7 5 - 9 [facility] Protein, UA Negative Negative - 1999(20) ++++ mg/dL [facility] Spec Grav, UA 1.015 1 - 1.03 [facility] care Urobilinogen, UA 1.0 0.2 - 12 mg/dL [facility] Urinalysis macro (dipstick) panel (U)on 03-07-2025 Bilirubin, UA Negative Negative - 4(70) +++ mg/dL [facility] Blood, UA Negative Negative - 50 Nicolás/mcL [facility] Clarity, UA Clear [facility] Color, UA Yellow [facility] Glucose, UA Negative Negative - 1999(110) ++++ mg/dL [facility] Interpretation and review of laboratory results Abnormal [facility] Ketones, UA Negative Negative - 160(16) ++++ mg/dL [facility] Leukocytes, UA Positive Negative - 500+++ Yodit/mcL [facility] Nitrite, UA Negative Negative - Positive [facility] pH, UA 7 5 - 9 [facility] Protein, UA Negative Negative - 1999(20) ++++ mg/dL [facility] Spec Grav, UA 1.01 1 - 1.03 [facility] Urobilinogen, UA 1.0 0.2 - 12 mg/dL [facility] US OB GROWTHon 03-01-[address] [address] Ultrasound Report Signed Patient: KARLY AGOSTO MR#: [id number] : 2000 Acct:[id number] Age/Sex: 24 / F ADM Date: 03/01/25 Loc: US Attending Dr: Torri Meza Ordering Physician: Torri Meza Date of Service: 03/01/25 Procedure(s): US OB growth Accession Number(s): [id number] cc: Torri Meza; Physician,Non-Staff M.[place]ania [address] [address] Patient Name: KARLY AGOSTO MRN: [facility]:[id number] date: 2000 Sex: F Assigned Patient Location: US Current Patient Location: US Accession/Order Number: [id number] Exam Date: 03/01/2025 08:28 Report Date: 03/01/2025 [...] Jr., D.O. 03/01/2025 8:33 AM Dictation Location: [place] [address] Electronically authenticated by: [id number] Y Date: 03/01/2025 08:33 Dictated By: Oscar Clemens M.D. Signed By: 03/01/25 0835 DD/ 0833 TD/TT: Continuity Reader: [facility] Radiology, Radiologist, MD - 03/01/[address] [address] Ultrasound Report Signed Patient: KARLY AGOSTO MR#: [id number] : 2000 Acct:[id number] Age/Sex: 24 / F ADM Date: 03/01/25 Loc: US Attending Dr: Torri Meza Ordering Physician: Torri Meza Date of Service: 03/01/25 Procedure(s): US OB growth Accession Number(s): [id number] cc: Torri Meza; Physician,Non-Staff M.Thania The [address] [address] Patient Name: KARLY AGOSTO MRN: [id number]:[id number] date: 2000 Sex: F Assigned Patient Location: US Current Patient Location: US Accession/Order Number: [id number] Exam Date: 03/01/2025 08:28 Report Date: 03/01/2025 [...] Jr., D.O. 03/01/2025 8:33 AM Dictation Location: [place] [address] Electronically authenticated by: [id number] Y Date: 03/01/2025 08:33 Dictated By: Oscar Clemens M.D. Signed By: 03/01/2535 DD/ TD/TT: Continuity Reader: [facility] Radiology Study observation (narrative) [facility] US OB GROWTHOrdered By: Joel ologist Radiology on 03-01-2025 [facility] Work Phone: Urinalysis macro (dipstick) panel (U)on 02-21-2025 Bilirubin, UA Negative Negative - 4(70) +++ mg/dL [facility] Blood, UA Negative Negative - 50 Nicolás/mcL [facility] Clarity, UA Clear [facility] re Color, UA Yellow [facility] Glucose, UA Negative Negative - 1999(110) ++++ mg/dL [facility] Interpretation and review of laboratory results Normal [facility] Ketones, UA Negative Negative - 160(16) ++++ mg/dL [facility] Leukocytes, UA Negative Negative - 500+++ Yodit/mcL [facility] Nitrite, UA Negative Negative - Positive [facility] pH, UA 5.5 5 - 9 [facility] Protein, UA Negative Negative - 1999(20) ++++ mg/dL [facility] Spec Grav, UA 1.02 1 - 1.03 [facility] Urobilinogen, UA 1.0 0.2 - 12 mg/dL [facility] [facility] GLUCOSE TOLERANCE 3 HOURon 0 02-14-2025 GLUCOSE TOLERANCE 3 HOUR mg/dL [facility] Comment on above: GLU FAST 86 (<95) C ol: 02/14/25 0737 GLU 1HR 157 (<180) Col: 02/14/25 0841 GLU 2HR 129 (<155) Col: 02/14/25 0941 GLU 3HR 114 (<140) Col: 02/14/25 1040 [facility] ALL CBC WITH AUTO DIFFon BASOPHILS ABSOLUTE AUTO 0 [facility] Basophils/100 WBC (Bld) 0.3 % 0.2 - 2.0 % [facility] Eosinophils/100 WBC (Bld) 3.9 % 0.9 - 7.0 % [facility] Erythrocyte distribution width (RBC) [Ratio] 13 % 11.0 - 15.0 % [facility] Hematocrit (Bld) [Volume fraction] 35.8 % Low 36.0 - 48.0 % [facility] Hemoglobin (Bld) [Mass/Vol] 11.9 g/dL Low 12.0 - 16.0 g/dL [facility] IMMATURE GRANULOCYTES ABS AUTO 0.03 [facility] Immature granulocytes/100 WBC (Bld) 0.3 % 0.0 - 0.5 % [facility] Interpretation and review of laboratory results Abnormal [facility] LYMPHOCYTES ABSOLUTE AUTO 1.3 [facility] Lymphocytes/100 WBC (Bld) 13.7 % Low 20.5 - 60.0 % [facility] MCH (RBC) [Entitic mass] 28 pg 26.7 - 34.0 pg [facility] MCHC (RBC) [Mass/Vol] 33.2 g/dL 29.9 - 35.2 g/dL [facility] MCV (RBC) [Entitic vol] 84.2 fL 81.0 - 99.0 fL [facility] MONOCYTES ABSOLUTE AUTO 0.4 [facility] Monocytes/100 WBC (Bld) 4.5 % 1.7 - 12.0 % [facility] NEUTROPHILS ABSOLUTE AUTO 7.5 High [facility] Neutrophils/100 WBC (Bld) 77.3 % High 43.0 - 75.0 % [facility] Platelet mean volume (Bld) [Entitic vol] 10.9 fL 9.5 - 13.5 fL [facility] EO # 0.4 [facility] TB PLT 254 [facility] TB RBC 4.25 [facility] WBC 9.7 [facility] Urinalysis macro (dipstick) panel (U)on 01-10-2025 Bilirubin, UA Negative Negative - 4(70) +++ mg/dL [facility] Blood, UA Negative Negative - 50 Nicolás/mcL [facility] Clarity, UA Clear [facility] re Color, UA Yellow [facility] Glucose, UA Positive Negative - 1999(110) ++++ mg/dL [facility] Comment on above: 250mg/dL Interpretation and review of laboratory results Abnormal [facility] Ketones, UA Negative Negative - 160(16) ++++ mg/dL [facility] Leukocytes, UA Positive Negative - 500+++ Yodit/mcL [facility] Comment on above: small Nitrite, UA Negative Negative - Positive [facility] pH, UA 7 5 - 9 [facility] Protein, UA Negative Negative - 1999(20) ++++ mg/dL [facility] Spec Grav, UA 1.02 1 - 1.03 [facility] Urobilinogen, UA 0.2 0.2 - 12 mg/dL [facility] Urinalysis macro (dipstick) panel (U)on 12-04-2024 Bilirubin, UA Negative Negative - 4(70) +++ mg/dL [facility] Blood, UA Negative Negative - 50 Nicolás/mcL [facility] Clarity, UA Clear [facility] Color, UA Yellow [facility] Glucose, UA Negative Negative - 1999(110) ++++ mg/dL [facility] Interpretation and review of laboratory results Normal [facility] Ketones, UA Negative Negative - 160(16) ++++ mg/dL [facility] Leukocytes, UA Negative Negative - 500+++ Yodit/mcL [facility] Nitrite, UA Negative Negative - Positive [facility] pH, UA 8.5 5 - 9 [facility] Protein, UA Negative Negative - 1999(20) ++++ mg/dL [facility] Spec Grav, UA 1.02 1 - 1.03 [facility] Urobilinogen, UA 0.2 0.2 - 12 mg/dL [facility] Urinalysis macro (dipstick) panel (U)on 11-22-2024 Bilirubin, UA Negative Negative - 4(70) +++ mg/dL [facility] Blood, UA Negative Negative - 50 Nicolás/mcL [facility] Clarity, UA Clear [facility] Health[facility] re Color, UA Yellow [facility] Glucose, UA Positive Negative - 1999(110) ++++ mg/dL [facility] Interpretation and review of laboratory results Abnormal [facility] Ketones, UA Negative Negative - 160(16) ++++ mg/dL [facility] Leukocytes, UA Positive Negative - 500+++ Yodit/mcL [facility] Nitrite, UA Negative Negative - Positive [facility] pH, UA 6.5 5 - 9 [facility] Protein, UA Negative Negative - 1999(20) ++++ mg/dL [facility] Spec Grav, UA 1.025 1 - 1.03 [facility] Urobilinogen, UA 1.0 0.2 - 12 mg/dL [facility] IGP,APTIMA HPV,AGE GDLNon AGE GDLN ACOG TESTING Note . [facility] Comment on above: TESTS RESULT FLAG UN ITS REF RANGE LAB Clinician Provided Cytology Information Source.............[employer] Other.............. No. of containers..01 ThinPrep Vial Age Algo ACOG Rosita... FLAG LEGEND: L-Low Normal,H-High Normal,LL-Alert Low,HH-Alert High <-Panic Low,>-Panic High,A-Abnormal,AA-Critical Abnormal Performed at: 01 =[address] [facility] [address] Tamy Matos MD, IGP, RFX APTIMA HPV ASCU Note . [facility] Comment on above: TESTS RESULT FLAG UN ITS REF RANGE LAB DIAGNOSIS: 02 NEGATIVE FOR INTRAEPITHELIAL LESION OR MALIGNANCY. Specimen adequacy: 02 Satisfactory for evaluation. No endocervical component is identified. Performed by: Edison Todd Family Services Worker ([facility]) . 02 Note: Note 03 The [...] <-Panic Low,>-Panic High,A-Abnormal,AA-Critical Abnormal Performed at: [address] [address] Neha Cole MD, [address] [address] Tamy Matos MD, Performed at: =[address] [id number] Airline Radio Operator: Tamy Matos MD, Phone: [phone] Performed at: [address] [id number] Airline Radio Operator: Neha Cole MD, Phone: [phone] SPATULA-ALONE [facility] RECURRENT VAGINITIS (HTRX)on 11-01-2024 ATOPOBIUM VAGINAE 0 [facility] althcare ATOPOBIUM VAGINAE Not detected [facility] BVAB 2,3 (BACTERIAL VAGINOSIS ASSOCIATED BACTERIA 2, 3); MOBILUNCUS SPP 0 [facility] BVAB 2,3 (BACTERIAL VAGINOSIS ASSOCIATED BACTERIA 2, 3); MOBILUNCUS SPP Not detected [facility] ELAINA ALBICANS, PARAPSILOSIS, TROPICALIS 0 [facility] ELAINA ALBICANS, PARAPSILOSIS, TROPICALIS Not detected [facility] ELAINA GLABRATA 0 [facility] ELAINA GLABRATA Not detected [facility] ELAINA KRUSEI 0 [facility] ELAINA KRUSEI Not detected [facility] CHLAMYDIA TRACHOMATIS 0 [facility] CHLAMYDIA TRACHOMATIS Not detected [facility] ERMB, C; MEFA 21.586 Abnormal [facility] Health care ERMB, C; MEFA Detected Abnormal [facility] GARDNERELLA VAGINALIS 24.886 Abnormal [facility] Healthcare GARDNERELLA VAGINALIS Detected Abnormal [facility] Interpretation and review of laboratory results Abnormal [facility] MEGASPHAERA (TYPES 1, 2) 0 [facility] MEGASPHAERA (TYPES 1, 2) Not [facility] MYCOPLASMA GENITALIUM 0 [facility] MYCOPLASMA GENITALIUM Not detected [facility] NEISSERIA GONORRHOEAE 0 [facility] NEISSERIA GONORRHOEAE Not detected [facility] TRICHOMONAS VAGINALIS 0 [facility] TRICHOMONAS VAGINALIS Not detected [facility] TB DRUG SCREEN RAPID (URINE )on 10-18-2024 AMPHETAMINE SCREEN URINE Negative NEGATIVE [facility] BARBITURATES SCREEN URINE Negative NEGATIVE [facility] BENZODIAZEPINES SCREEN URINE Negative NEGATIVE [facility] BUPRENORPHINE SCREEN URINE Negative NEGATIVE [facility] Comment on above: DRUG CLASS TEST SYST [...] [facility] METHAMPHETAMINES SCREEN URINE Negative NEGATIVE [facility] OPIATE SCREEN URINE Negative NEGATIVE [facility] OXYCODONE SCREEN URINE Negative NEGATIVE [facility] PHENCYCLIDINE SCREEN URINE Negative NEGATIVE [facility] TRICYCLIC ANTIDEPRESSANT URINE Negative NEGATIVE [facility] TBH PREG QUANT HCGon 025 HCG QUANTITATIVE [address] mIU/mL [facility] Comment on above: 5-50 0.2-1 WEEK 50-500 1-2 WEEKS 100-5,000 2-3 WEEKS 500-10,000 3-4 WEEKS 1,000-50,000 4-5 WEEKS 10,000-100,000 5-6 WEEKS 15,000-200,000 6-8 WEEKS 10,000-100,000 2-3 MONTHS [facility] HCG ( test) Ql (U)o n 07-31-2024 Interpretation and review of laboratory results Normal [facility] Preg Test, Ur Negative Negative [facility] COVID + FLU Quick Testingon 08-18-2023 SARS-CoV-2 (COVID-19) RNA ANNE+probe Ql (Unsp spec) Positive [facility] Other COVID + FLU Quick Testing Negative [facility] Other PAP ACOG PANEL 2: 21 to 29on 11-25-2022 . . Normal [facility] Comment on above: Performed By: #### [id number] #### [facility] [address] [place] [address] Dr. Keri Guerra Age Gdln ACOG Testing - [facility] Comment on above: Performed By: #### 4 [id number] #### [facility] [address] [place] [address] [address] Keri Guerra DIAGNOSIS: Comment [facility] Comment on above: Result Comment: NEGA TIVE FOR INTRAEPITHELIAL LESION OR MALIGNANCY. Performed By: #### 4 [id number] #### [facility] [address] [place] [address] [address] Keri Guerra Methodology: Comment [facility] Comment on above: Result Comment: This liquid based ThinPrep(R) pap test was screened with the use of an image guided system. Performed By: #### 4 [id number] #### [facility] [address] [place] [address] [address] Keri Guerra Note: Comment [facility] Comment on above: Result Comment: The Pap smear is a screening test designed to aid in the detection of premalignant and malignant conditions of the uterine cervix. It is not a diagnostic procedure and should not be used as the sole means of detecting cervical cancer. Both false-positive and false-negative reports do occur. . Performed By: #### 4 [id number] #### [facility] [address] [place] [address] Dr. Keri Guerra Performed by: Comment Normal [facility] Comment on above: Result Comment: Drew Florian, Family Services Worker (ASCP) Performed By: #### 4 [id number] #### [facility] [address] [place] [address] Dr. Keri Guerra Reflex Criteria: Comment Normal [facility] Comment on above: Result Comment: The HPV DNA reflex criteria were not met with this specimen result therefore, no HPV testing was performed. . Performed By: #### 4 [id number] #### [facility] [address] [place] [address] Dr. Keri Guerra Specimen adequacy: Comment Normal [facility] Comment on above: Result Comment: Sati sfactory for evaluation. No endocervical component is identified. Areas of partially obscuring inflammatory exudate are present. Performed By: #### 4 [id number] #### [facility] [address] [place] [address] Dr. Keri Guerra HEP B SURFACE ANTIGEN SCREEN on 10-17-2022 HBsAg Screen Negative Normal Negative [facility] Comment on above: Performed By: #### H BSANS #### [facility] [address] [place] [address] Dr. Keri Guerra HEPATITIS C VIRUS AB W/ REFL EX QUANTon 10-17-2022 HCV AB Non-Reactive Normal Non Reactive [facility] Comment on above: Performed By: #### H CVPCRR #### [facility] [address] [place] [address] Dr. Keri Guerra Interpretation: Comment Normal [facility] Comment on above: Result Comment: Not infected with HCV unless early or acute infection is suspected (which may be delayed in an immunocompromised individual), or other evidence exists to indicate HCV infection. Performed By: #### H CVPCRR #### [facility] [address] [place] [address] [address] Keri Guerra HIV 1 AND 2 WITH REFLEXon HIV Screen 4th Generation wRfx Non-Reactive Normal Non Reactive [facility] Comment on above: Result Comment: HIV Negative HIV-1/HIV-2 antibodies and HIV-1 p24 antigen were NOT detected. There is no laboratory evidence of HIV infection. Performed By: #### H IV12 #### [facility] [address] [place] [address] [address] Keri Guerra RPR QUANTon 10-17-2022 Rapid Plasma Reagin, Quant Non-Reactive Normal NonRea<1:1 [facility] Comment on above: Result Comment: Plea se Note: This test does not meet current guidelines for screening and diagnosis of syphilis. This test is intended for following treatment response in patients being treated for syphilis infection. To screen for syphilis infection, a reflex cascade that includes both RPR and a treponema-specific assay should be utilized, such as Treponema pallidum (Syphilis) Screening Yancey (324035) or Rapid Plasma Reagin (RPR) Test With Reflex to Quantitative RPR and Confirmatory Treponema pallidum Antibodies (620106). Performed By: #### R PRQ #### [facility] [address] [place] [address] Dr. Keri Guerra RUBELLA AB IGGon 10-17-2022 Rubella Antibodies, IgG <0.90 Critically low Immune >0.99 [facility] Comment on above: Result Comment: Non- immune <0.90 Equivocal 0.90 - 0.99 Immune >0.99 Performed By: #### R UBIGG #### [facility] [address] [place] [address] Dr. Keri Guerra CBC AUTO DIFFon 10-15-2022 BASO # 0.0 103/ul Normal 0.0-0.1 [facility] Comment on above: Performed By: #### C BC #### [facility] [address] [place] [address] Dr. Keri Guerra Basophils/100 WBC (Bld) 0.1 % Critically low 0.2-2.0 [facility] Comment on above: Performed By: #### C BC #### [facility] [address] [place] [address] Dr. Keri Guerra EO # 0.3 103/ul Normal 0.0-0.7 [facility] Comment on above: Performed By: #### C BC #### [facility] [address] [place] [address] Dr. Keri Guerra Eosinophils/100 WBC (Bld) 3.7 % Normal 0.9-7.0 [facility] Comment on above: Performed By: #### C BC #### [facility] [address] [place] [address] Dr. Keri Guerra Erythrocyte distribution width (RBC) [Ratio] 16.0 % Critically high 11.0-15.0 [facility] Comment on above: Performed By: #### C BC #### [facility] [address] [place] [address] Dr. Keri Guerra Hematocrit (Bld) [Volume fraction] 36.3 % Normal 36.0-48.0 [facility] Comment on above: Performed By: #### C BC #### [facility] [address] [place] [address] Dr. Keri Guerra Hemoglobin (Bld) [Mass/Vol] 12.1 g/dL Normal 12.0-16.0 [facility] Comment on above: Performed By: #### C BC #### [facility] [address] [place] [address] Dr. Keri Guerra IG # 0.02 10e3/ul Normal 0.00-0.03 [facility] Comment on above: Performed By: #### C BC #### [facility] [address] [place] [address] Dr. Keri Guerra IG % 0.3 % Normal 0.0-0.5 [facility] Comment on above: Performed By: #### C BC #### [facility] [address] [place] [address] Dr. Keri Guerra LYMPH # 1.7 103/ul Normal 1.2-3.8 [facility] Comment on above: Performed By: #### C BC #### [facility] [address] [place] [address] Dr. Keri Guerra Lymphocytes/100 WBC (Bld) 20.8 % Normal 20.5-60.0 [facility] Comment on above: Performed By: #### C BC #### [facility] [address] [place] [address] Dr. Keri Guerra MANUAL DIFF REQ NO Normal [facility] Comment on above: Performed By: #### C BC #### [facility] [address] [place] [address] Dr. Keri Guerra MCH (RBC) [Entitic mass] 25.3 pg Critically low 26.7-34.0 [facility] Comment on above: Performed By: #### C BC #### [facility] [address] [place] [address] Dr. Keri Guerra MCHC (RBC) [Mass/Vol] 33.3 g/dL Normal 29.9-35.2 [facility] Comment on above: Performed By: #### C BC #### [facility] [address] [place] [address] Dr. Keri Guerra MCV (RBC) [Entitic vol] 75.9 fL Critically low 81.0-99.0 [facility] Comment on above: Performed By: #### C BC #### [facility] [address] [place] [address] Dr. Keri Guerra MONO # 0.4 103/ul Normal 0.3-0.8 [facility] Comment on above: Performed By: #### C BC #### [facility] [address] [place] [address] Dr. Keri Guerra Monocytes/100 WBC (Bld) 5.0 % Normal 1.7-12.0 [facility] Comment on above: Performed By: #### C BC #### [facility] [address] [place] [address] Dr. Keri Guerra NEUT # 5.6 103/ul Normal 1.4-6.5 [facility] Comment on above: Performed By: #### C BC #### [facility] [address] [address] [address] Keri Guerra Neutrophils/100 WBC (Bld) 70.1 % Normal 43.0-75.0 [facility] Comment on above: Performed By: #### C BC #### [facility] [address] [address] [address] Keri Guerra Platelet mean volume (Bld) [Entitic vol] 11.0 fL Normal 9.5-13.5 [facility] Comment on above: Performed By: #### C BC #### [facility] [address] [address] [address] Keri Guerra PLT 319 103/ul Normal 150-450 [facility] Comment on above: Performed By: #### C BC #### [facility] [address] [place] [address] Dr. Keri Guerra RBC 4.78 106/ul Normal 4.20-5.40 [facility] Comment on above: Performed By: #### C BC #### [facility] [address] [place] [address] Dr. Keri Guerra WBC 7.9 103/ul Normal 4.0-11.0 [facility] Comment on above: Performed By: #### C BC #### [facility] [address] [place] [address] Dr. Keri Guerra CULTURE URINEon 10-15-2022 CULTURE URINE Culture Observations : LIGHT GROWTH OF MIXED GENITAL LARISA. NO POTENTIAL PATHOGENS SEEN. Normal [facility] Comment on above: Performed By: #### U RCX #### [facility] [address] [place] [address] Dr. Keri Guerra TSHon 10-15-2022 TSH 0.294 uIU/mL Critically low 0.358-3.740 [facility] Comment on above: Performed By: #### T SH #### [facility] [address] [place] [address] Dr. eKri Guerra TYPE AND SCREENon 10-15-2022 TYPE AND SCREEN Negative Normal [facility] Comment on above: Performed By: #### T NS #### [facility] [address] [address] [address] Keri Guerra US PREG TVon 10-01-2022 [...] GM BARRY Date: 2022-10-01 15:23 Normal [facility] Quick Strepon 03-25-2022 S. pyogenes Org specific cx Ql (Throat) Negative [facility] Other Quick Strep [employer] [facility] Other COVID/FLU RT-PCRon 2 SARS-CoV-2 (COVID-19) RNA ANNE+probe Ql (Unsp spec) Positive [facility] Other COVID/FLU RT-PCR Negative [facility] [employer] Other COVID Quick Testingon 2020 Result Positive [facility] Other Consultation Noteon 08-05-19 21 Consultation Note [id number] .[id number]:127 Normal [facility] Vital Signs Date Time Vital Sign Value Performing Clinician Facility 04-02-2025 08:36-0400 Body mass index (BMI) [Ratio] 30.87 kg/m2 [employer] Phone: [facility] 04-02-2025 08:36-0400 Body weight 76.57 kg [employer] Work Phone: [facility] 04-02-2025 08:36-0400 Diastolic blood pressure 72 mm[Hg] Ai Tj DO Work Phone: [facility] 04-02-2025 08:36-0400 Systolic blood pressure 116 mm[Hg] Ai Tj DO Work Phone: [facility] 03-19-2025 08:52-0400 Body mass index (BMI) [Ratio] 30.43 kg/m2 Ai Tj DO Work Phone: [facility] 03-19-2025 08:52-0400 Body weight 75.48 kg Ai Tj DO Work Phone: [facility] 03-19-2025 08:52-0400 Diastolic blood pressure 78 mm[Hg] Ai Tj DO Work Phone: [facility] 03-19-2025 08:52-0400 Systolic blood pressure 120 mm[Hg] Ai Tj DO Work Phone: [facility] 03-07-2025 10:12-0400 Body mass index (BMI) [Ratio] 30.18 kg/m2 Ai Tj DO Work Phone: [facility] 03-07-2025 10:12-0400 Body weight 74.84 kg Ai Tj DO Work Phone: [facility] 03-07-2025 10:12-0400 Diastolic blood pressure 70 mm[Hg] Ai Tj DO Work Phone: [facility] 03-07-2025 10:12-0400 Systolic blood pressure 110 mm[Hg] Ai Tj DO Work Phone: [facility] 02-21-2025 11:44-0400 Body mass index (BMI) [Ratio] 30.07 kg/m2 Torri MILLER Work Phone: [facility] 02-21-2025 11:44-0400 Body weight 74.57 kg Torri MILLER Work Phone: [facility] 02-21-2025 11:44-0400 Diastolic blood pressure 78 mm[Hg] Torri Meza PA Work Phone: [facility] 02-21-2025 11:44-0400 Systolic blood pressure 118 mm[Hg] Torri Meza PA Work Phone: [facility] 01-10-2025 11:33-0400 Body mass index (BMI) [Ratio] 29.17 kg/m2 Torri Breanna PA Work Phone: [facility] 01-10-2025 11:33-0400 Body weight 72.35 kg Torri Meza PA Work Phone: [facility] 01-10-2025 11:33-0400 Diastolic blood pressure 76 mm[Hg] Torri Meza PA Work Phone: [facility] 01-10-2025 11:33-0400 Systolic blood pressure 122 mm[Hg] Torri Meza PA Work Phone: [facility] 12-04-2024 13:28-0400 Body mass index (BMI) [Ratio] 27.87 kg/m2 Ai Tj DO Work Phone: [facility] 12-04-2024 13:28-0400 Body weight 69.13 kg Ai Tj DO Work Phone: [facility] 12-04-2024 13:28-0400 Diastolic blood pressure 70 mm[Hg] Ai Tj DO Work Phone: [facility] 12-04-2024 13:28-0400 Systolic blood pressure 120 mm[Hg] Ai Tj DO Work Phone: [facility] 11-22-2024 15:22-0400 Body mass index (BMI) [Ratio] 27.76 kg/m2 [facility] 11-22-2024 15:22-0400 Body weight 68.86 kg [facility] Nurse [facility] 10-31-2024 13:04-0400 Body mass index (BMI) [Ratio] 27.53 kg/m2 Ai Tj DO Work Phone: [facility] 10-31-2024 13:04-0400 Body weight 68.27 kg Ai Tj DO Work Phone: [facility] 10-31-2024 13:04-0400 Diastolic blood pressure 80 mm[Hg] Ai Tj DO Work Phone: [facility] 10-31-2024 13:04-0400 Systolic blood pressure 112 mm[Hg] Ai Tj DO Work Phone: [facility] 07-31-2024 09:06-0500 Body mass index (BMI) [Ratio] 27.58 kg/m2 Ai Tj DO Work Phone: [facility] 07-31-2024 09:06-0500 Body weight 68.4 kg Ai Jt DO Work Phone: [facility] 07-31-2024 09:06-0500 Diastolic blood pressure 80 mm[Hg] Ai Tj DO Work Phone: [facility] 07-31-2024 09:06-0500 Systolic blood pressure 120 mm[Hg] Ai Tj DO Work Phone: [facility] 05-10-2024 10:040 Body height 160.02 cm [facility] 05-10-2024 10:220400 Body mass index (BMI) [Ratio] 24.7 kg/m2 [facility] 05-10-2024 10:040 Body temperature 98.2 [degF] [facility] 05-10-2024 10:22-0400 Body weight 63.5 kg [facility] 05-10-2024 10:22-0400 Diastolic blood pressure 65 mm[Hg] [facility] 05-10-2024 10:22-0400 Heart rate 95 /min [facility] 05-10-2024 10:22-0400 Respiratory rate 18 /min [facility] 05-10-2024 10:22-0400 SaO2% (BldA) [Mass fraction] 97 % [facility] 05-10-2024 10:22-0400 Systolic blood pressure 128 mm[Hg] [facility] 08-18-2023 11:30-0500 Body height 157.48 cm Deann Jaquan Other [facility] Other 08-18-2023 11:30-0500 Body mass index (BMI) [Ratio] 26.48 kg/m2 Deann Partida Other [facility] Other 08-18-2023 11:30-0500 Body temperature 98.6 [degF] Deann Partida Other [facility] Other 08-18-2023 11:30-0500 Body weight 65.68 kg Deann Partida Other [facility] Other 08-18-2023 11:30-0500 Respiratory rate 18 /min Deann Partida Other [facility] Other 08-18-2023 11:30-0500 SaO2% (BldA) [Mass fraction] 97 % Deann Partida Other [facility] Other 09-14-2022 15:25-0500 Body height 157.48 cm Elsa Rea Other [facility] Other 09-14-2022 15:25-0500 Body mass index (BMI) [Ratio] 26.88 kg/m2 Elsa Rea Other [facility] Other 09-14-2022 15:25-0500 Body temperature 97.7 [degF] Elsa Rea Other [facility] Other 09-14-2022 15:25-0500 Body weight 66.68 kg Elsa Rea Other [facility] Other 09-14-2022 15:25-0500 Diastolic blood pressure 65 mm[Hg] Elsa Rea Other [facility] Other 09-14-2022 15:25-0500 Respiratory rate 18 /min Elsa Rea Other [facility] Other 09-14-2022 15:25-0500 SaO2% (BldA) [Mass fraction] 99 % Elsa Rea Other [facility] Other 09-14-2022 15:25-0500 Systolic blood pressure 118 mm[Hg] Elsa Rea Other [facility] Other 03-25-2022 11:40-0400 Body height 157.48 cm Charisse Blackwell Other [facility] Other 03-25-2022 11:40-0400 Body mass index (BMI) [Ratio] 27.43 kg/m2 Charisse Blackwell Other [facility] Other 03-25-2022 11:40-0400 Body temperature 98.8 [degF] Charisse Bonillamond Other [facility] Other 03-25-2022 11:40-0400 Body weight 68.04 kg Charisse Bonillamond Other [facility] Other 03-25-2022 11:40-0400 Respiratory rate 18 /min Charisse Blackwell Other [facility] Other 03-25-2022 11:40-0400 SaO2% (BldA) [Mass fraction] 99 % Charisse Blackwell Other [facility] Other 01-01-2022 10:40-0400 Body height 160.02 cm Deann Jaquan Other [facility] Other 01-01-2022 10:40-0400 Body mass index (BMI) [Ratio] 24.8 kg/m2 Deann Partida Other [facility] Other 01-01-2022 10:40-0400 Body temperature 97.5 [degF] Deann Partida Other [facility] Other 01-01-2022 10:40-0400 Body weight 63.5 kg Deann Partida Other [facility] Other 01-01-2022 10:40-0400 SaO2% (BldA) [Mass fraction] 99 % Deann Partida Other [facility] Other 05-04-2021 11:30-0400 Body height 160.02 cm Elsa Rea Other [facility] Other 05-04-2021 11:30-0400 Body mass index (BMI) [Ratio] 23.91 kg/m2 Elsa Rea Other [facility] Other 05-04-2021 11:30-0400 Body temperature 97.3 [degF] Elsa Rea Other [facility] Other 05-04-2021 11:30-0400 Body weight 61.24 kg Elsa Rea Other [facility] Other 05-04-2021 11:30-0400 SaO2% (BldA) [Mass fraction] 99 % Elsa Rea Other [employer] Other Encounters Encounter Date Encounter Type Care Provider Facility Start: 04-02-2025 End: 04-02-2025 Bamboo flowsheet Ai Tj DO Work Phone: [facility] Start: 04-02-2025 End: 04-02-2025 Bamboo flowsheet Ai Tj DO Work Phone: [facility] Start: 04-02-2025 End: 04-02-2025 flow sheet Ai Tj DO Work Phone: [facility] Comment on above: Third trimester preg sandy ([facility]); 36 weeks gestation of ([facility]); Small for gestational age (SGA) ([facility]) Start: 03-27-2025 End: 03-27-2025 Clinisync Result Encounter Ai Tj DO Work Phone: [facility]solic[facility] Start: 03-27-2025 End: 03-27-2025 Clinisync Result Encounter Ai Tj DO Work Phone: [facility] Start: 03-20-2025 End: 03-20-2025 ambulatory AI TJ Not Available Start: 03-19-2025 End: 03-19-2025 Bamboo flowsheet Ai Tj DO Work Phone: [facility] Start: 03-19-2025 End: 03-19-2025 Bamboo flowsheet Ai Tj DO Work Phone: [facility] Start: 03-19-2025 End: 03-19-2025 ambulatory AI TJ Not Available Start: 03-19-2025 End: 03-19-2025 flow sheet Ai Tj DO Work Phone: [facility] Comment on above: 34 weeks gestation o f ([facility]); Third trimester ([facility]); SGA (small for gestational age) ([facility]) Start: 03-07-2025 End: 03-07-2025 Bamboo flowsheet Ai Tj DO Work Phone: [facility] Start: 03-07-2025 End: 03-07-2025 Bamboo flowsheet Ai Tj DO Work Phone: [facility] Start: 03-07-2025 End: 03-07-2025 ambulatory AI TJ Not Available Start: 03-07-2025 End: 03-07-2025 flow sheet Ai Tj DO Work Phone: [facility] Comment on above: 33 weeks gestation o f ([facility]); Third trimester ([facility]) Start: 03-01-2025 End: 03-01-2025 Clinisync Result Encounter Torri MILLER Work Phone: [facility] Unsolicited Start: 03-01-2025 End: 03-01-2025 Clinisync Result Encounter Torri MILLER Work Phone: [facility] Unsolicited Start: 02-21-2025 End: 02-21-2025 Bamboo flowsheet Torri MILLER Work Phone: [facility] Start: 02-21-2025 End: 02-21-2025 Bamboo flowsheet Torri MILLER Work Phone: [facility] Start: 02-21-2025 End: 02-21-2025 ambulatory TORRI MEZA Not Available Start: 02-21-2025 End: 02-21-2025 flow sheet Torri MILLER Work Phone: [facility] Comment on above: Third trimester preg sandy ([facility]); 31 weeks gestation of ([facility]); size inconsistent with dates ([facility]) Start: 02-14-2025 End: 02-14-2025 Clinisync Result Encounter [...] Start: 01-10-2025 End: 01-10-2025 Bamboo flowsheet Torri [place] PA Work Phone: [facility] Start: 01-10-2025 End: 01-10-2025 ambulatory TORRI MEZA Not Available Start: 01-10-2025 End: 01-10-2025 flow sheet Torri [place] PA Work Phone: [facility] Comment on above: Second trimester pre gnancy ([facility]); 25 weeks gestation of ([facility]); Diabetes mellitus screening Start: 12-04-2024 End: [...] unspecified contraceptive Start: 05-10-2024 End: 05-10-2024 ambulatory [facility] Work Phone: Start: 05-10-2024 End: 05-10-2024 Patient encounter procedure Counts Include [facility] Physician [facility] Work Phone: Start: 08-18-2023 End: 08-18-2023 ambulatory Deann Partida Other [facility] Other Start: 08-18-2023 Office outpatient vi sit 25 minutes Deann Partida [facility] Start: 11-17-2022 End: 11-17-[address] AI SPENCER . Facility:[facility] Start: 10-18-[address] DOCTOR FUNG Facility :[facility] Start: 10-15-2022 End: 10-16-[address] AI SPENCER . Facility:[facility] Start: 10-01-2022 End: 10-02-[address] AI SPENCER . Facility:[facility] Start: 09-14-2022 End: 09-14-2022 ambulatory Elsa Rea Other [facility] Other Start: 09-14-2022 Office outpatient vi sit 15 minutes Elsa Álvaro [facility] Start: 03-25-2022 End: 03-25-2022 ambulatory Charisse Rosalva Other [facility] Other Start: 03-25-2022 Office outpatient vi sit 15 minutes Charisse Rosalva [facility] Start: 01-01-2022 End: 01-01-2022 ambulatory Deann Partida Other [facility] Other Start: 01-01-2022 Office outpatient vi sit 25 minutes Deann Partida [facility] Start: 05-04-2021 Office outpatient vi sit 15 minutes Elsa Álvaro [facility] Procedures Date Procedure Procedure Detail Performing Clinician Start: 04-02-2025 Urnls dip stick/tabl et rgnt non-auto w/o micrscp Ai Tj DO Work Phone: Start: 03-27-2025 US OB BPP W NON-STRESS Ai Tj DO Work Phone: Start: 03-19-2025 Urnls dip stick/tabl et rgnt non-auto w/o micrscp Ai Tj DO Work Phone: Start: 03-07-2025 Urnls dip stick/tabl et rgnt non-auto w/o micrscp Ai Tj DO Work Phone: Start: 03-01-2025 US OB GROWTH Torri Meza PA Work Phone: Start: 02-21-2025 Urnls dip stick/tabl [...] encounter procedure 04/09/2025 8:40 AM EDT Routine PIERRE ZAMBRANO [address] [place] [address] Ai Spencer DO [address] [place] [address] [facility] Start: 04-02-2025 End: 04-02-2026 CULTURE, GROUP B STREP WITH SUSCEPTIBLITY CULTURE, GROUP B STREP WITH SUSCEPTIBLITY Lab Routine Third trimester ([facility]) Expected: 04/02/2025, Expires: 04/02/2026 [facility] Work Phone: Comment on above: Expected: 04/02/2025 , Expires: 04/02/2026 Start: 04-02-2025 End: 04-02-2025 Patient encounter procedure [facility] Comment on above: Arrived Start: 03-26-2025 End: 03-26-2025 Patient encounter procedure 03/26/2025 8:30 AM EDT Routine [facility] [address] [place] [id number] Torri Meza PA [address] [place] [address] [facility] Start: 03-20-2025 End: 03-20-2025 Professional / ancillary services management 03/20/2025 11:30 AM EDT Ancillary Procedure [facility] [address] [place] [phone] [facility] Start: 03-19-2025 End: 07-19-2025 US for US OB follow up transabdominal approach Imaging Routine SGA (small for gestational age) ([facility]) Expected: 03/19/2025, Expires: 07/19/2025 [facility] Work Phone: Comment on above: Expected: 03/19/2025 , Expires: 07/19/2025 Start: 03-19-2025 End: 03-19-2025 Patient encounter procedure 03/19/2025 8:40 AM EDT Routine [facility] [address] [place] [phone] Ai Spencer DO [address] [place] [address] [facility] Start: 03-07-2025 End: 03-07-2025 Patient encounter procedure 03/07/2025 9:00 AM EDT Routine [facility] [address] [place] [address] Ai Spencer, DO [address] [place] [address] [facility] Start: 03-07-2025 End: 03-07-2025 Professional / ancillary services management 03/07/2025 8:30 AM EDT Ancillary Procedure [facility] [address] [place] [phone] [facility] Start: 02-21-2025 End: 06-23-2025 US for US OB follow up transabdominal approach Imaging Routine size inconsistent with dates ([facility]) Expected: 02/21/2025, Expires: 06/23/2025 [facility] Work Phone: Comment on above: Expected: 02/21/2025 , Expires: 06/23/2025 Start: 02-05-2025 End: 02-05-2025 Patient encounter procedure 02/05/2025 8:40 AM EDT Routine [facility] [address] [place] [address] Ai Spencer, DO [address] [place] [address] [facility] Start: 01-10-2025 End: 01-10-2026 [...] mellitus screening Expected: 01/10/2025 (Approximate), Expires: 01/10/2026 [facility] Comment on above: Expected: 01/10/2025 (Approximate), Expires: 01/10/2026 Start: 01-01-2025 End: 01-01-2025 Patient encounter procedure 01/01/2025 2:40 PM EDT Routine [facility] [address] [place] [phone] Ai Spencer, DO [address] [place], [place] [id number] [facility] Start: 12-04-2024 End: 12-04-2024 Patient encounter procedure [facility] Comment on above: Arrived Start: 11-22-2024 End: 03-25-2025 Alpha fetoprotein, maternal Alpha fetoprotein, maternal Lab Routine Screening, , for anatomic survey Expected: 11/22/2024 (Approximate), Expires: 03/25/2025 [facility] Work Phone: Comment on above: Expected: 11/22/2024 (Approximate), Expires: 03/25/2025 Start: 11-22-2024 End: 11-22-2024 ambulatory 11/22/2024 2:00 PM EDT Initial [facility] [address] [place] [address] [facility] Start: 11-22-2024 End: 02-22-2025 US for US OB 14+ weeks anatomy scan Imaging Routine Screening, , for anatomic survey Expected: 11/22/2024, Expires: 02/22/2025 [facility] Comment on above: Expected: 11/22/2024 , Expires: 02/22/2025 Start: 10-31-2024 End: 12-31-2024 Alpha fetoprotein, maternal Alpha fetoprotein, maternal Lab Routine Well woman exam with routine gynecological exam Expected: 10/31/2024 (Approximate), Expires: 12/31/2024 [facility] Work Phone: Comment on above: Expected: 10/31/2024 (Approximate), Expires: 12/31/2024 Start: 10-31-2024 End: 10-31-2024 Patient encounter procedure [facility] Comment on above: Arrived Start: 2024 End: 2024 Patient encounter procedure 2024 3:30 PM EST Procedure Visit [facility] [address] [place] [phone] Ai Spencer DO [address] [place] [address] [facility] CHLAMYDIA TRACHOMATI S (GENITO/STI) CHLAMYDIA TRACHOMATIS (GENITO/STI) Lab Routine STD exposure Ordered: 10/31/2024 [facility] Comment on above: Ordered: 10/31/2024 Cytology Cervical or vaginal smear or scraping study Pap Smear Pathology and Cytology Routine Well woman exam with routine gynecological exam Ordered: 10/31/2024 [facility] Comment on above: Ordered: 10/31/2024 End: 2025 hCG, quantitative, hCG, quantitative, Lab Routine examination or test, positive result 4 Occurrences starting 2024 until 2025 [facility] Work Phone: Comment on above: 4 Occurrences starti ng 2024 until 2025 Neisseria gonorrhoea e DNA [Presence] in Unspecified specimen by ANNE with probe detection Neisseria gonorrhea DNA probe, direct Lab Routine STD exposure Ordered: 10/31/2024 [facility] Comment on above: Ordered: 10/31/2024 SURESWAB(R) ADVANCED VAGINITIS PLUS, TMA SURESWAB(R) ADVANCED VAGINITIS PLUS, TMA Pathology and Cytology Routine STD exposure Ordered: 10/31/2024 [facility] Comment on above: Ordered: 10/31/2024 Payers Date Payer Category Payer Medicaid [employer] [place] [place] [id number] 2024 Private Health Insurance [id number] 2024 Unknown [id number] 2022 Medicaid [id number] [id number] 2001 Unknown [id number] 2.16.840.1.639483.3.579.2. 593 2001 Unknown [id number] 2.16.840.1.542461.3.579.2. 593 2001 Unknown [id number] 2.16.840.1.336622.3.579.2. 593 2001 Unknown [id number] 2.16.840.1.817953.3.579.2. 593 2001 Unknown [id number] 2.16.840.1.145361.3.579.2. 593 2001 Unknown [id number] 2.16.840.1.924978.3.579.2. 1259 2001 Unknown [id number] 2.16.840.1.793733.3.579.2. 1259 2001 Unknown [id number] 2.16.840.1.637654.3.579.2. 1259 2001 Unknown [id number] 2.16.840.1.513798.3.579.2. 1259 2001 Unknown [id number] 2.16.840.1.617751.3.579.2. 1259 2001 Unknown [id number] 2.16.840.1.325634.3.579.2. 1259 2001 Unknown [id number] 2.16.840.1.225157.3.579.2. 1259 2001 Unknown [id number] 2.16.840.1.658389.3.579.2. 1259 2001 Unknown [id number] 2.16.840.1.255558.3.579.2. 1259 2001 Unknown [id number] 2.16.840.1.018696.3.579.2. 1259 1958 [id number] 2..[id number] Private Health Insurance [id number] 2.16.840.1.457833.19 Self-pay Self Pay [id number] Unknown [id number] 2..[id number] Unknown Benny BARRIGA/GRACE [id number] Social History Date Type Detail Facility Unknown if ever smoked [facility] Other Start: 01-31-2024 End: 07-31-2024 Sex Assigned At [employer] Other Start: 03-31-2023 End: 05-10-2024 Tobacco smoking status NHIS Never smoked tobacco (finding) [facility] Start: 2001 Sex Assigned At Female F [facility] Start: 03-31-2023 Tobacco use and exposure Smokeless tobacco non-user [facility] Start: 01-31-2024 End: 03-19-2025 Alcoholic beverage intake Lifetime non-drinker (finding) [facility] Start: 01-31-2024 End: 07-31-2024 History of Social function [facility] Start: 02-16-2023 Alcohol Comment Caffeine intak e: soda/pop occasional [facility] Start: 2000 Sex assigned at Not on file [facility] Start: 08-01-2024 [facility] Goals Date Patient Goal Desired Activity /State Personal health goal Clinical Notes 05-04-2021 to 04-02-2025 Iza De Leon LPN - 04/02/2025 8:50 AM Sabrina Rodriguez, YARIEL - 04/02/2025 8:50 AM Sabrina Rodriguez LPN - 03/19/2025 8:40 AM Silvino Linares LPN - 03/07/2025 9:00 AM EDT Note Date & Type Note Facility 04-02-2025 History of Presen t illness Narrative Reason for Appointment: Patient ID: Karly Agosto is a 24 y.o. female who presents for Routine Visit Patient presents today for Return OB appointment. MEDICATIONS No current outpatient medications ALLERGIES Allergies Allergen Reactions Minocycline Nausea Only PROBLEMS Active Ambulatory Problems Diagnosis Date Noted Missed menses 2024 examination or test, positive result ([facility]) 2024 Resolved Ambulatory Problems Diagnosis Date Noted No Resolved Ambulatory Problems Past Medical History: Diagnosis Date 6 weeks follow-up ([facility]) BMI 25.0-25.9,adult Salt deficiency Type O blood, Rh positive HISTORY PAST MEDICAL HISTORY SOCIAL HISTORY Past Medical History: Diagnosis Date 6 weeks follow-up ([facility]) BMI 25.0-25.9,adult Salt deficiency Type O [...] nursing note reviewed. Exam conducted with a federal java developer present. Vitals: Estimated body mass index is 30.87 kg/m as calculated from the following: Height as of 12/15/22: 5' 2 . Weight as of this encounter: 168 lb 12.8 oz. BP: 116/72 Patient's last menstrual period was 07/18/2024. ASSESSMENT & PLAN ICD-10-CM 1. Third trimester ([facility]) Z34.93 POCT urinalysis dipstick manually resulted CULTURE, GROUP B STREP WITH SUSCEPTIBLITY CULTURE, GROUP B STREP WITH SUSCEPTIBLITY 2. 36 weeks gestation of ([facility]) Z3A.36 POCT urinalysis dipstick manually resulted 3. Small for gestational age (SGA) ([facility]) P05.10 Patient is doing well but [...] Ai Spencer DO documented in this encounter [facility] 03-19-2025 History of Presen t illness Narrative Reason for Appointment: Patient ID: Karly Agosto is a 24 y.o. female who presents for Routine Visit Patient presents today for Return OB appointment. MEDICATIONS No current outpatient medications ALLERGIES Allergies Allergen Reactions Minocycline Nausea Only PROBLEMS Active Ambulatory Problems Diagnosis Date Noted Missed menses 2024 examination or test, positive result ([facility]) 2024 Resolved Ambulatory Problems Diagnosis Date Noted No Resolved Ambulatory Problems Past Medical History: Diagnosis Date 6 weeks follow-up ([facility]) BMI 25.0-25.9,adult Salt deficiency Type O blood, Rh positive HISTORY PAST MEDICAL HISTORY SOCIAL HISTORY Past Medical History: Diagnosis Date 6 weeks follow-up ([facility]) BMI 25.0-25.9,adult Salt deficiency Type O [...] nursing note reviewed. Exam conducted with a federal java developer present. Vitals: Estimated body mass index is 30.43 kg/m as calculated from the following: Height as of 12/15/22: 5' 2 . Weight as of this encounter: 166 lb 6.4 oz. BP: 120/78 Patient's last menstrual period was 07/18/2024. ASSESSMENT & PLAN ICD-10-CM 1. 34 weeks gestation of ([facility]) Z3A.34 POCT urinalysis dipstick manually resulted 2. Third trimester ([facility]) Z34.93 POCT urinalysis dipstick manually resulted [...] Ai Spencer DO documented in this encounter [facility] 03-07-2025 History of Presen t illness Narrative Reason for Appointment: Patient ID: Karly Agosto is a 24 y.o. female who presents for Routine Visit Patient presents today for Return OB appointment. MEDICATIONS No current outpatient medications ALLERGIES Allergies Allergen Reactions Minocycline Nausea Only PROBLEMS Active Ambulatory Problems Diagnosis Date Noted Missed menses 2024 examination or test, positive result ([facility]) 2024 Resolved Ambulatory Problems Diagnosis Date Noted No Resolved Ambulatory Problems Past Medical History: Diagnosis Date 6 weeks follow-up ([facility]) BMI 25.0-25.9,adult Salt deficiency Type O blood, Rh positive HISTORY PAST MEDICAL HISTORY SOCIAL HISTORY Past Medical History: Diagnosis Date 6 weeks follow-up ([facility]) BMI 25.0-25.9,adult Salt deficiency Type O [...] nursing note reviewed. Exam conducted with a federal java developer present. Vitals: Estimated body mass index is 30.18 kg/m as calculated from the following: Height as of 12/15/22: 5' 2 . Weight as of this encounter: 165 lb. BP: 110/70 Patient's last menstrual period was 07/18/2024. ASSESSMENT & PLAN ICD-10-CM 1. 33 weeks gestation of ([facility]) Z3A.33 POCT urinalysis dipstick manually resulted 2. Third trimester ([facility]) Z34.93 POCT urinalysis dipstick manually resulted Patient presents today for a routine obstetrics appointment. Patient is currently 33w1d with a Estimated Date of Delivery: 04/24/25. Patient to return to clinic in 2 weeks. Documented by Waleska Linares LPN on behalf of: Ai Spencer DO documented in this encounter [facility] 02-21-2025 History of Presen t illness Narrative Reason for Appointment: Patient ID: Karly Agosto is a 24 y.o. female who presents for Routine Visit Patient presents today for Return OB appointment. MEDICATIONS No current outpatient medications ALLERGIES Allergies Allergen Reactions Minocycline Nausea Only PROBLEMS Active Ambulatory Problems Diagnosis Date Noted Missed menses 2024 examination or test, positive result ([facility]) 2024 Resolved Ambulatory Problems Diagnosis Date Noted No Resolved Ambulatory Problems Past Medical History: Diagnosis Date 6 weeks follow-up ([facility]) BMI 25.0-25.9,adult Salt deficiency Type O blood, Rh positive HISTORY PAST MEDICAL HISTORY SOCIAL HISTORY Past Medical History: Diagnosis Date 6 weeks follow-up ([facility]) BMI 25.0-25.9,adult Salt deficiency Type O [...] ASSESSMENT & PLAN ICD-10-CM 1. Third trimester ([facility]) Z34.93 POCT urinalysis dipstick manually resulted 2. 31 weeks gestation of ([facility]) Z3A.31 POCT urinalysis dipstick manually resulted 3. size inconsistent with dates ([facility]) O26.849 US OB follow up transabdominal approach [...] of: ANGELA Mayorga documented in this encounter [facility] 01-10-2025 History of Presen t illness Narrative Reason for Appointment: Patient ID: Karly Agosto is a 24 y.o. female who presents for Routine Visit Patient presents today for Return OB appointment. MEDICATIONS No current outpatient medications ALLERGIES Allergies Allergen Reactions Minocycline Nausea Only PROBLEMS Active Ambulatory Problems Diagnosis Date Noted Missed menses 2024 examination or test, positive result ([facility]) 2024 Resolved Ambulatory Problems Diagnosis Date Noted No Resolved Ambulatory Problems Past Medical History: Diagnosis Date 6 weeks follow-up ([facility]) BMI 25.0-25.9,adult Salt deficiency Type O blood, Rh positive HISTORY PAST MEDICAL HISTORY SOCIAL HISTORY Past Medical History: Diagnosis Date 6 weeks follow-up ([facility]) BMI 25.0-25.9,adult Salt deficiency Type O [...] ASSESSMENT & PLAN ICD-10-CM 1. Second trimester ([facility]) Z34.92 POCT urinalysis dipstick manually resulted 2. 25 weeks gestation of ([facility]) Z3A.25 3. Diabetes mellitus screening Z13.1 [...] of: ANGELA Mayorga documented in this encounter [facility] 12-04-2024 History of Presen t illness Narrative [...] nursing note reviewed. Exam conducted with a federal java developer present. Vitals: Estimated body mass index is [...] Ai Spencer DO documented in this encounter [facility] 11-22-2024 History of Presen t illness Narrative [...] or undercooked meat, and stay away from [facility]. Patient has also been advised to [...] De Leon LPN documented in this encounter [facility] 10-31-2024 History of Presen t illness Narrative [...] nursing note reviewed. Exam conducted with a federal java developer present. Vitals: Estimated body mass index is [...] Ai Spencer DO documented in this encounter [facility] 2024 History of Presen t illness Narrative [...] nursing note reviewed. Exam conducted with a federal java developer present. Vitals: Estimated body mass index is [...] Ai Spencer DO documented in this encounter [facility] 07-31-2024 History of Presen t illness Narrative [...] nursing note reviewed. Exam conducted with a federal java developer present. Vitals: Estimated body mass index is [...] Ai Spencer DO documented in this encounter [facility] 08-18-2023 Evaluation note Encounter Date Diagnosis Assessment [...] treatment plan. Patient left in stable condition [facility] Other 02-28-2023 Evaluation note* Encounter Date Diagnosis Assessment Notes Treatment Notes Treatment Clinical Notes Aug, Impetigo (ICD-10 - L01.00) Clean area as discussed with 1/2 peroxide and water mix. Apply ointment to area. Infection is very contagious. Bed laundering and cleaning toys is important. Follow up with primary care provider or come back into office to be seen if symptoms worsen [facility] 09-08-2022 Evaluation note* Encounter Date Diagnosis [...] no improvement in 2 to 3 days. [facility] Other 06-17-2022 Evaluation note* Encounter Date Diagnosis [...] treatment plan. Patient left in stable condition [facility] Other 10-18-2021 Evaluation note* Encounter Date Diagnosis Assessment Notes Treatment Notes Treatment Clinical Notes Apr, Contact with and (suspected) exposure to other viral communicable diseases (ICD-10 - Z20.828) Apr, COVID-19 (ICD-10 - U07.1) Today you tested positive for the COVID virus. This mean you need to follow all CDC quarantine guidelines [facility] at [email or web address]. It is important to rest, increase [...] Patient care instructions given in writting by [facility] document[facility] Other Evaluation note* Diagnosis Onset Date Resolution Status Right ankle sprain acute [facility] Work Phone: Evaluation note* Diagnosis Encounter [...] gestation of ([facility]) size inconsistent with dates ([facility]) [facility] Diagnosis 33 weeks gestation of ([facility]) Third trimester ([facility]) state, incidental [facility] Diagnosis 34 weeks gestation of ([facility]) Third trimester ([facility]) state, incidental SGA (small for gestational age) ([facility]) Hvqok-sey-nfuvy without mention of malnutrition, unspecified (weight) [facility] Diagnosis Third trimester ([facility]) state, incidental 36 weeks gestation of ([facility]) Small for gestational age (SGA) ([facility]) [facility] - [facility]* Type Description Date Hospitalization History fractured arm and shatte red elbow [employer] [facility] Other History general Narrative - Reported* Type Description Date Hospitalization History fractured arm and shatte red elbow Hospitalization History childbirth [employer] [facility] Other Summary Purpose Family History Relationship Condition [...] section and content) DATE CREATED AUTHOR 08/09/2020 [facility] DATE CREATED AUTHOR AUTHOR'S ORGANIZ ATION [facility]/24[facility]2022 [facility] DATE CREATED AUTHOR AUTHOR'S ORGANIZ ATION 03/22/2025 [facility] EPIC REASON FOR VISIT (unrecogniz ed [...] BE BASED ON THE PRIMARY CLINICAL RECORDS. [facility]. provides no warranty or guarantee of the accuracy or completeness of information in this document.
== END 2025-04-02 12:22 | disposition home or self-care (01) ==
LOC: LAB 12:21
PROVIDERS: Visit Provider Obstetrics & Gynecology
DX: Z34.93 Encounter for supervision of normal pregnancy, unspecified, third trimester (principal)
CPT/HCPCS: 87081; 87184

== ENCOUNTER 2025-04-03 18:59 | Outpatient (OUT) | payer OTHER, SELFPAY ==
--- NOTE | 2025-04-03 19:03 | US_ITS ---
[facility] [place] [address] Patient Name: KARLY CRUZ MRN: [facility]:[id number] date: 2000 Sex: F Assigned Patient Location: Current Patient Location: Accession/Order Number: [id number] Exam Date: 04/03/2025 19:34 Report Date: 04/04/2025 08:29 At the request of: AI DARBY DO Procedure: US OB BPP w non-stress BIOPHYSICAL PROFILE: CLINICAL INFORMATION: SGA COMPARISON: 03/27/2025 There is a single live intrauterine gestation in cephalic presentation. The reported gestational age is 37 weeks 0 days. The heart rate measures 153 beats per minute. FINDINGS: TONE: 1 or more episodes of activity extension and flexion of extremity or opening and closing of the hand [Y] 2/2 GROSS BODY MOVEMENTS: 3 or more discrete body or limb movements [Y] 2/2 BREATHING MOVEMENTS: 1 or more episodes of breathing lasting at least 30 seconds [Y] 2/2 ISAI: A single deepest vertical pocket of amniotic fluid greater than 2 cm [Y] 2/2 ISAI: 14.6 cm Total score: 8/8 US/US OB BPP w non-stress IMPRESSION: NORMAL BIOPHYSICAL PROFILE Impression dictated by: Lisa Angela M.D. 04/04/2025 8:29 AM Dictation Location: [place] [address] Electronically authenticated by: [id number] Y Date: 04/04/2025 08:29
--- OUTSIDE RECORDS SUMMARY | 2025-04-03 19:04 | XMS_ITS | CCD ---
Author Organization [facility] Care Team Providers Care Nursing Manager Name Role Phone Elsa Rea Unavailable Deann [...] Unavailabl e AI SPENCER Attending Unavailable TJAI NOWAK Attending Unavailable AI SPENCER Attending Unavailable TORRI MEZA Attending Unavailable TORRI MEZA Attending Unavailable AI SPENCER Attending Unavailable AI SPENCER Attending Unavailable AI SPENCER Attending Unavailable AI SPENCER Referring Unavailable AI SPENCER Attending Unavailable Allergies Allergy [...] sources) Iron Not-Taking/ PRN Iron Active levonorgestrel 0.342318 mg/hr intrauterine system (2 sources) Progestin, Progestin-containing [...] low weight; and growth retardation (4 sources) Geqdk-vve-zmtys baby; Translations: [Darden small for gestational age, unspecified weight] 03-19-2025 [...] UA Negative Negative - 4(70) +++ mg/dL [facility] Blood, UA Negative Negative - 50 Nicolás/mcL [facility] Clarity, UA Clear [facility] re Color, UA Yellow [facility] Glucose, UA Negative Negative - 1999(110) ++++ mg/dL [facility] Interpretation and review of laboratory results Abnormal [facility] Ketones, UA Negative Negative - 160(16) ++++ mg/dL [facility] Leukocytes, UA Positive Negative - 500+++ Yodit/mcL [facility] Nitrite, UA Negative Negative - Positive [facility] pH, UA 6 5 - 9 [facility] Protein, UA Positive Negative - 1999(20) ++++ mg/dL [facility] Spec Grav, UA 1.02 1 - 1.03 [facility] care Urobilinogen, UA 1.0 0.2 - 12 mg/dL [facility] US OB BPP W NON-STRESS on 03-27-2025 [place] [address] Ultrasound Report Signed Patient: KARLY AGOSTO MR#: [id number] : 2000 Acct:[id number] Age/Sex: 24 / F ADM Date: 03/27/25 Loc: US Attending Dr: Ai Spencer D.O. Ordering Physician: Ai Spencer D.O. Date of Service: 03/27/25 Procedure(s): US OB BPP w non-stress Accession Number(s): [id number] cc: Ai Spencer D.O.; Physician,Non-Staff M.DTani [address] [id number] Patient Name: KARLY AGOSTO MRN: [facility]:[id number] date: 2000 Sex: F Assigned Patient Location: [facility] Current Patient Location: Accession/Order Number: [id number] Exam Date: 03/27/2025 19:34 Report Date: 03/27/2025 20:21 At the request of: AI SPENCER DO Procedure: US OB BPP w non-stress Ultrasound biophysical profile INDICATION: Small for gestational age COMPARISON: 03/01/2025 Findings and impression: Single live anterior cephalic position. heart rate 145 bpm. ISAI 13.1 cm. Biophysical profile score 02/22 Impression dictated by: Orion Barlow M.D. 03/27/2025 8:21 PM Dictation Location: [place] [address] Electronically authenticated by: [id number] Y Date: 03/27/2025 20:21 Dictated By: Orion Barlow M.D. Signed By: 03/27/252022 DD/ 20 TD/TT: Pluck Separator: [facility] Radiology, Radiologist, MD - 03/27/2025 [place] [address] Ultrasound Report Signed Patient: KARLY AGOSTO MR#: [id number] : 2000 Acct:[id number] Age/Sex: 24 / F ADM Date: 03/27/25 Loc: US Attending Dr: Ai Spencer D.O. Ordering Physician: Ai Spencer D.O. Date of Service: 03/27/25 Procedure(s): US OB BPP w non-stress Accession Number(s): [id number] cc: Ai Spencer D.O.; Physician,Non-Staff Jayme The [address] [address] Patient Name: KARLY AGOSTO MRN: [facility]:[id number] date: 2000 Sex: F Assigned Patient Location: [facility] Current Patient Location: Accession/Order Number: [id number] Exam Date: 03/27/2025 19:34 Report Date: 03/27/2025 20:21 At the request of: AI SPENCER DO Procedure: US OB BPP w non-stress Ultrasound biophysical profile INDICATION: Small for gestational age COMPARISON: 03/01/2025 Findings and impression: Single live anterior cephalic position. heart rate 145 bpm. ISAI 13.1 cm. Biophysical profile score 02/22 Impression dictated by: Orion Barlow M.D. 03/27/2025 8:21 PM Dictation Location: [place] [address] Electronically authenticated by: [id number] Y Date: 03/27/2025 20:21 Dictated By: Oiron Barlow M.D. Signed By: 03/27/252022 DD/ 20 TD/TT: Pluck Separator: [facility] [employer] Radiology Study observation (narrative) [facility] US OB BPP W NON-STRESS Ordered By: Radiologist Radiology on 03-27-2025 [facility] [employer] Work Phone: US OB FOLLOW UP [...] UA Negative Negative - 4(70) +++ mg/dL [facility] Healthcare Blood, UA Negative Negative - 50 Nioclás/mcL [facility] Healthcare Clarity, UA Clear [facility] Color, UA Yellow [facility] Glucose, UA Negative Negative - 1999(110) ++++ mg/dL [facility] Interpretation and review of laboratory results Normal [facility] Healthcare Ketones, UA Negative Negative - 160(16) ++++ mg/dL [facility] Healthcare Leukocytes, UA Negative Negative - 500+++ Yodit/mcL [facility] Healthcare Nitrite, UA Negative Negative - Positive [facility] Healthcare pH, UA 7 5 - 9 [facility] Protein, UA Negative Negative - 1999(20) ++++ mg/dL [facility] Spec Grav, UA 1.015 1 - 1.03 [facility] Urobilinogen, UA 1.0 0.2 - 12 mg/dL [facility] Urinalysis macro (dipstick) panel (U)on 03-07-2025 Bilirubin, UA Negative Negative - 4(70) +++ mg/dL [facility] Healthcare Blood, UA Negative Negative - 50 Nicolás/mcL [facility] Healthcare Clarity, UA Clear [facility] Color, UA Yellow [facility] Glucose, UA Negative Negative - 1999(110) ++++ mg/dL [facility] Interpretation and review of laboratory results Abnormal [facility] Ketones, UA Negative Negative - 160(16) ++++ mg/dL [facility] Leukocytes, UA Positive Negative - 500+++ Yodit/mcL [facility] Healthcare Nitrite, UA Negative Negative - Positive [facility] Healthcare pH, UA 7 5 - 9 [facility] Protein, UA Negative Negative - 1999(20) ++++ mg/dL [facility] Spec Grav, UA 1.01 1 - 1.03 [facility] Urobilinogen, UA 1.0 0.2 - 12 mg/dL Counts include 234 beds at the [facility] e US OB GROWTHon 03-01-[address] [address] Ultrasound Report Signed Patient: KARLY AGOSTO MR#: [id number] : 2000 Acct:[id number] Age/Sex: 24 / F ADM Date: 03/01/25 Loc: US Attending Dr: Torri Meza Ordering Physician: Torri Meza Date of Service: 03/01/25 Procedure(s): US OB growth Accession Number(s): [id number] cc: Torri Meza; Physician,Non-Staff MPatricia [place] [id number] Patient Name: KARLY AGOSTO MRN: [facility]:[id number] date: 2000 Sex: F Assigned Patient Location: US Current Patient Location: US Accession/Order Number: [id number] Exam Date: 03/01/2025 08:28 Report Date: 03/01/2025 [...] Jr., D.O. 03/01/2025 8:33 AM Dictation Location: [place] [address] Electronically authenticated by: [id number] Y Date: 03/01/2025 08:33 Dictated By: Oscar Clemens M.D. Signed By: 03/01/25 0835 DD/ TD/TT: Pluck Separator: [facility] Radiology, Radiologist, MD Fofana 03/01/[address] [address] Ultrasound Report Signed Patient: KARLY AGOSTO MR#: [id number] : 2000 Acct:[id number] Age/Sex: 24 / F ADM Date: 03/01/25 Loc: US Attending Dr: Torri Meza Ordering Physician: Torri Meza Date of Service: 03/01/25 Procedure(s): US OB growth Accession Number(s): [id number] cc: Torri Meza; Physician,Non-Staff M.Thania The [address] [address] Patient Name: KARLY AGOSTO MRN: [facility]:[id number] date: 2000 Sex: F Assigned Patient Location: US Current Patient Location: US Accession/Order Number: [id number] Exam Date: 03/01/2025 08:28 Report Date: 03/01/2025 [...] Jr., D.O. 03/01/2025 8:33 AM Dictation Location: [place] [address] Electronically authenticated by: [id number] Y Date: 03/01/2025 08:33 Dictated By: Oscar Clemens M.D. Signed By: 03/01/25 0835 DD/ TD/TT: Pluck Separator: [facility] Radiology Study observation (narrative) [facility] US OB GROWTHOrdered By: Joel ologist Radiology on 03-01-2025 [facility] [employer] Work Phone: Urinalysis macro (dipstick) panel (U)on 02-21-2025 Bilirubin, UA Negative Negative - 4(70) +++ mg/dL [facility] Blood, UA Negative Negative - 50 Nicolás/mcL [facility] Clarity, UA Clear [facility] re Color, UA Yellow [facility] e Glucose, UA Negative Negative - 1999(110) ++++ mg/dL [facility] Interpretation and review of laboratory results Normal [facility] Ketones, UA Negative Negative - 160(16) ++++ mg/dL [facility] Leukocytes, UA Negative Negative - 500+++ Yodit/mcL [facility] Nitrite, UA Negative Negative - Positive [facility] pH, UA 5.5 5 - 9 [facility] Protein, UA Negative Negative - 1999(20) ++++ mg/dL [facility] Spec Grav, UA 1.02 1 - 1.03 [facility] Urobilinogen, UA 1.0 0.2 - 12 mg/dL [facility] [employer] GLUCOSE TOLERANCE 3 HOURon 0 02-14-2025 GLUCOSE TOLERANCE 3 HOUR mg/dL [facility] Comment on above: GLU FAST 86 (<95) C ol: 02/14/25 0737 GLU 1HR 157 (<180) Col: 02/14/25 0841 GLU 2HR 129 (<155) Col: 02/14/25 0941 GLU 3HR 114 (<140) Col: 02/14/25 1040 [facility] e ALL CBC WITH AUTO DIFFon BASOPHILS ABSOLUTE AUTO 0 [facility] Basophils/100 WBC (Bld) 0.3 % 0.2 - 2.0 % [facility] Eosinophils/100 WBC (Bld) 3.9 % 0.9 - 7.0 % [facility] Erythrocyte distribution width (RBC) [Ratio] 13 % 11.0 - 15.0 % [facility] Hematocrit (Bld) [Volume fraction] 35.8 % Low 36.0 - 48.0 % [facility] e Hemoglobin (Bld) [Mass/Vol] 11.9 g/dL Low 12.0 - 16.0 g/dL [facility] IMMATURE GRANULOCYTES ABS AUTO 0.03 [facility] Immature granulocytes/100 WBC (Bld) 0.3 % 0.0 - 0.5 % [facility] Interpretation and review of laboratory results Abnormal [facility] LYMPHOCYTES ABSOLUTE AUTO 1.3 [facility] Lymphocytes/100 WBC (Bld) 13.7 % Low 20.5 - 60.0 % [facility] MCH (RBC) [Entitic mass] 28 pg 26.7 - 34.0 pg [facility] MCHC (RBC) [Mass/Vol] 33.2 g/dL 29.9 - 35.2 g/dL [facility] MCV (RBC) [Entitic vol] 84.2 fL 81.0 - 99.0 fL [facility] MONOCYTES ABSOLUTE AUTO 0.4 [facility] Monocytes/100 WBC (Bld) 4.5 % 1.7 - 12.0 % [facility] NEUTROPHILS ABSOLUTE AUTO 7.5 High [facility] Neutrophils/100 WBC (Bld) 77.3 % High 43.0 - 75.0 % [facility] Platelet mean volume (Bld) [Entitic vol] 10.9 fL 9.5 - 13.5 fL [facility] EO # 0.4 [facility] TB PLT 254 [facility] e TB RBC 4.25 [facility] Health[facility] e TB WBC 9.7 [facility] e Urinalysis macro (dipstick) panel (U)on 01-10-2025 Bilirubin, UA Negative Negative - 4(70) +++ mg/dL [facility] Blood, UA Negative Negative - 50 Nicolás/mcL [facility] Clarity, UA Clear [facility] re Color, UA Yellow [facility] e Glucose, UA Positive Negative - 1999(110) ++++ mg/dL [facility] Comment on above: 250mg/dL Interpretation and review of laboratory results Abnormal [facility] Ketones, UA Negative Negative - 160(16) ++++ mg/dL [facility] Leukocytes, UA Positive Negative - 500+++ Yodit/mcL [facility] Comment on above: small Nitrite, UA Negative Negative - Positive [facility] pH, UA 7 5 - 9 [facility] Protein, UA Negative Negative - 1999(20) ++++ mg/dL [facility] Spec Grav, UA 1.02 1 - 1.03 [facility] Health care Urobilinogen, UA 0.2 0.2 - 12 mg/dL [facility] Urinalysis macro (dipstick) panel (U)on 12-04-2024 Bilirubin, UA Negative Negative - 4(70) +++ mg/dL [facility] Blood, UA Negative Negative - 50 Nicolás/mcL [facility] Healthcare Clarity, UA Clear [facility] Color, UA Yellow [facility] Glucose, UA Negative Negative - 1999(110) ++++ mg/dL [facility] Interpretation and review of laboratory results Normal [facility] Ketones, UA Negative Negative - 160(16) ++++ mg/dL [facility] Healthcare Leukocytes, UA Negative Negative - 500+++ Yodit/mcL [facility] Healthcare Nitrite, UA Negative Negative - Positive [facility] pH, UA 8.5 5 - 9 [facility] Health[facility] e Protein, UA Negative Negative - 1999(20) ++++ mg/dL [facility] Healthcare Spec Grav, UA 1.02 1 - 1.03 [facility] Urobilinogen, UA 0.2 0.2 - 12 mg/dL [facility] Urinalysis macro (dipstick) panel (U)on 11-22-2024 Bilirubin, UA Negative Negative - 4(70) +++ mg/dL [facility] Blood, UA Negative Negative - 50 Nicolás/mcL [facility] Healthcare Clarity, UA Clear [facility] Color, UA Yellow [facility] Health[facility] Glucose, UA Positive Negative - 1999(110) ++++ mg/dL [facility] Interpretation and review of laboratory results Abnormal [facility] Ketones, UA Negative Negative - 160(16) ++++ mg/dL [facility] Healthcare Leukocytes, UA Positive Negative - 500+++ Yodit/mcL [facility] Healthcare Nitrite, UA Negative Negative - Positive [facility] pH, UA 6.5 5 - 9 [facility] Health[facility] Protein, UA Negative Negative - 1999(20) ++++ mg/dL [facility] Healthcare Spec Grav, UA 1.025 1 - 1.03 [facility] care Urobilinogen, UA 1.0 0.2 - 12 mg/dL [facility] IGP,APTIMA HPV,AGE GDLNon 04 -19-2025 AGE GDLN ACOG TESTING Note . [facility] Comment on above: TESTS RESULT FLAG UN ITS REF RANGE LAB Clinician Provided Cytology Information Source.............[employer] Other.............. No. of containers..01 ThinPrep Vial Age Algo ACOG Rosita... -15 08 FLAG LEGEND: L-Low Normal,H-High Normal,LL-Alert Low,HH-Alert High <-Panic Low,>-Panic High,A-Abnormal,AA-Critical Abnormal Performed at: 01 =[address] [facility] [address] Tamy Matos MD, IGP, RFX APTIMA HPV ASCU Note . [facility] Comment on above: TESTS RESULT FLAG UN ITS REF RANGE LAB DIAGNOSIS: 02 NEGATIVE FOR INTRAEPITHELIAL LESION OR MALIGNANCY. Specimen adequacy: 02 Satisfactory for evaluation. No endocervical component is identified. Performed by: Edison Todd Income Tax Analyst (ASC) . 02 Note: Note 03 The [...] <-Panic Low,>-Panic High,A-Abnormal,AA-Critical Abnormal Performed at: [address] [address] Neha Cole MD, [address] [address] Tamy Matos MD, Performed at: =[address] [id number] Senior Officer: Tamy Matos MD, Phone: [phone] Performed at: [address] [id number] Senior Officer: Neha Cole MD, Phone: [phone] SPATULA-ALONE ENDOCERVIX [facility] Healthcar e RECURRENT VAGINITIS (HTRX)on 11-01-2024 ATOPOBIUM VAGINAE 0 [facility] ATOPOBIUM VAGINAE Not detected [facility] BVAB 2,3 (BACTERIAL VAGINOSIS ASSOCIATED BACTERIA 2, 3); MOBILUNCUS SPP 0 [facility] BVAB 2,3 (BACTERIAL VAGINOSIS ASSOCIATED BACTERIA 2, 3); MOBILUNCUS SPP Not detected [facility] ELAINA ALBICANS, PARAPSILOSIS, TROPICALIS 0 [facility] ELAINA ALBICANS, PARAPSILOSIS, TROPICALIS Not detected [facility] ELAINA GLABRATA 0 [facility] ELAINA GLABRATA Not detected [facility] ELAINA KRUSEI 0 [facility] Healt hcare ELAINA KRUSEI Not detected [facility] CHLAMYDIA TRACHOMATIS 0 [facility] CHLAMYDIA TRACHOMATIS Not detected [facility] ERMB, C; MEFA 21.586 Abnormal [facility] Health care ERMB, C; MEFA Detected Abnormal [facility] GARDNERELLA VAGINALIS 24.886 Abnormal [facility] GARDNERELLA VAGINALIS Detected Abnormal [facility] Interpretation and review of laboratory results Abnormal [facility] MEGASPHAERA (TYPES 1, 2) 0 [facility] MEGASPHAERA (TYPES 1, 2) Not detected [facility] MYCOPLASMA GENITALIUM 0 [facility] MYCOPLASMA GENITALIUM Not detected [facility] NEISSERIA GONORRHOEAE 0 [facility] NEISSERIA GONORRHOEAE Not detected [facility] TRICHOMONAS VAGINALIS 0 [facility] TRICHOMONAS VAGINALIS Not detected [facility] Healthcare [facility] TBH DRUG SCREEN RAPID (URINE )on 10-18-2024 AMPHETAMINE SCREEN URINE Negative NEGATIVE [facility] BARBITURATES SCREEN URINE Negative NEGATIVE [facility] BENZODIAZEPINES SCREEN URINE Negative NEGATIVE [facility] BUPRENORPHINE SCREEN URINE Negative NEGATIVE [facility] Comment on above: DRUG CLASS TEST [...] [facility] COCAINE SCREEN URINE Negative NEGATIVE [facility] Healthcare METHADONE SCREEN URINE Negative NEGATIVE [facility] METHAMPHETAMINES SCREEN URINE Negative NEGATIVE [facility] OPIATE SCREEN URINE Negative NEGATIVE [facility] OXYCODONE SCREEN URINE Negative NEGATIVE [facility] PHENCYCLIDINE SCREEN URINE Negative NEGATIVE [facility] TRICYCLIC ANTIDEPRESSANT URINE Negative NEGATIVE [facility] TBH PREG QUANT HCGon 025 HCG QUANTITATIVE [address]150 mIU/mL [facility] lthcare Comment on above: 5-50 0.2-1 WEEK 50-500 1-2 WEEKS 100-5,000 2-3 WEEKS 500-10,000 3-4 WEEKS 1,000-50,000 4-5 WEEKS 10,000-100,000 5-6 WEEKS 15,000-200,000 6-8 WEEKS 10,000-100,000 2-3 MONTHS [facility] Health[facility] e HCG ( test) Ql (U)o n 07-31-2024 Interpretation and review of laboratory results Normal [facility] Preg Test, Ur Negative Negative [facility] COVID + FLU Quick Testingon 08-18-2023 SARS-CoV-2 (COVID-19) RNA ANNE+probe Ql (Unsp spec) Positive [facility] Other COVID + FLU Quick Testing Negative [facility] Other PAP ACOG PANEL 2: 21 to 29on 11-25-2022 . . Normal [facility] Comment on above: Performed By: #### [id number] #### [facility] [address] [place] [address] Dr. Keri Guerra Age Gdln ACOG Testing - Normal [facility] Comment on above: Performed By: #### 4 [id number] #### [facility] [address] [place] [address] [address] Keri Guerra DIAGNOSIS: Comment Normal [facility] Comment on above: Result Comment: NEGA TIVE FOR INTRAEPITHELIAL LESION OR MALIGNANCY. Performed By: #### 4 [id number] #### [facility] [address] [place] [address] [address] Keri Guerra Methodology: Comment [facility] Comment on above: Result Comment: This liquid based ThinPrep(R) pap test was screened with the use of an image guided system. Performed By: #### 4 [id number] #### [facility] [address] [place] [address] Dr. Keri Guerra Note: Comment Normal [facility] Comment on above: Result Comment: The Pap smear is a screening test designed to aid in the detection of premalignant and malignant conditions of the uterine cervix. It is not a diagnostic procedure and should not be used as the sole means of detecting cervical cancer. Both false-positive and false-negative reports do occur. . Performed By: #### 4 [id number] #### [facility] [address] [place] [address] Dr. Keri Guerra Performed by: Comment Normal [facility] Comment on above: Result Comment: Drew Florian, Income Tax Analyst (ASCP) Performed By: #### 4 [id number] #### [facility] [address] [place] [address] Dr. Keri Guerra Reflex Criteria: Comment Normal [facility] Comment on above: Result Comment: The HPV DNA reflex criteria were not met with this specimen result therefore, no HPV testing was performed. . Performed By: #### 4 [id number] #### [facility] [address] [place] [address] Dr. Keri Guerra Specimen adequacy: Comment Normal [facility] Comment on above: Result Comment: Sati sfactory for evaluation. No endocervical component is identified. Areas of partially obscuring inflammatory exudate are present. Performed By: #### 4 [id number] #### [facility] [address] [place] [address] Dr. Keri Guerra HEP B SURFACE ANTIGEN SCREEN on 10-17-2022 HBsAg Screen Negative Normal Negative [facility] Comment on above: Performed By: #### H BSANS #### [facility] [address] [place] [address] Dr. Keri Guerra HEPATITIS C VIRUS AB W/ REFL EX QUANTon 10-17-2022 HCV AB Non-Reactive Normal Non Reactive [facility] Comment on above: Performed By: #### H CVPCRR #### [facility] [address] [place] [address] Dr. Keri Guerra Interpretation: Comment Normal [facility] Comment on above: Result Comment: Not infected with HCV unless early or acute infection is suspected (which may be delayed in an immunocompromised individual), or other evidence exists to indicate HCV infection. Performed By: #### H CVPCRR #### [facility] [address] [place] [address] Dr. Keri Guerra HIV 1 AND 2 WITH REFLEXon HIV Screen 4th Generation wRfx Non-Reactive Normal Non Reactive [facility] Comment on above: Result Comment: HIV Negative HIV-1/HIV-2 antibodies and HIV-1 p24 antigen were NOT detected. There is no laboratory evidence of HIV infection. Performed By: #### H IV12 #### [facility] [address] [place] [address] Dr. Keri Guerra RPR QUANTon 10-17-2022 Rapid Plasma Reagin, Quant Non-Reactive Normal NonRea<1:1 [facility] Comment on above: Result Comment: Plea se Note: This test does not meet current guidelines for screening and diagnosis of syphilis. This test is intended for following treatment response in patients being treated for syphilis infection. To screen for syphilis infection, a reflex cascade that includes both RPR and a treponema-specific assay should be utilized, such as Treponema pallidum (Syphilis) Screening [place] (375190) or Rapid Plasma Reagin (RPR) Test With Reflex to Quantitative RPR and Confirmatory Treponema pallidum Antibodies (232745). Performed By: #### R PRQ #### [facility] [address] [place] [address] Dr. Keri Guerra RUBELLA AB IGGon 10-17-2022 Rubella Antibodies, IgG <0.90 Critically low Immune >0.99 [facility] Comment on above: Result Comment: Non- immune <0.90 Equivocal 0.90 - 0.99 Immune >0.99 Performed By: #### R UBIGG #### [facility] [address] [place] [address] Dr. Keri Guerra CBC AUTO DIFFon 10-15-2022 BASO # 0.0 103/ul Normal 0.0-0.1 [facility] Comment on above: Performed By: #### C BC #### [facility] [address] [place] [address] Dr. Keri Guerra Basophils/100 WBC (Bld) 0.1 % Critically low 0.2-2.0 [facility] Comment on above: Performed By: #### C BC #### [facility] [address] [place] [address] Dr. Keri Guerra EO # 0.3 103/ul Normal 0.0-0.7 [facility] Comment on above: Performed By: #### C BC #### [facility] [address] [place] [address] Dr. Keri Guerra Eosinophils/100 WBC (Bld) 3.7 % Normal 0.9-7.0 [facility] Comment on above: Performed By: #### C BC #### [facility] [address] [place] [address] Dr. Keri Guerra Erythrocyte distribution width (RBC) [Ratio] 16.0 % Critically high 11.0-15.0 [facility] Comment on above: Performed By: #### C BC #### [facility] [address] [place] [address] Dr. Keri Guerra Hematocrit (Bld) [Volume fraction] 36.3 % Normal 36.0-48.0 [facility] Comment on above: Performed By: #### C BC #### [facility] [address] [place] [address] Dr. Keri Guerra Hemoglobin (Bld) [Mass/Vol] 12.1 g/dL Normal 12.0-16.0 [facility] Comment on above: Performed By: #### C BC #### [facility] [address] [place] [address] Dr. Keri uGerra IG # 0.02 10e3/ul Normal 0.00-0.03 [facility] [facility] Comment on above: Performed By: #### C BC #### [facility] [address] [place] [address] Dr. Keri Guerra IG % 0.3 % Normal 0.0-0.5 [facility] Comment on above: Performed By: #### C BC #### [facility] [address] [place] [address] Dr. Keri Guerra LYMPH # 1.7 103/ul Normal 1.2-3.8 [facility] Comment on above: Performed By: #### C BC #### [facility] [address] [place] [address] Dr. Keri Guerra Lymphocytes/100 WBC (Bld) 20.8 % Normal 20.5-60.0 [facility] Comment on above: Performed By: #### C BC #### [facility] [address] [place] [address] Dr. Keri Guerra MANUAL DIFF REQ NO Normal [facility] Comment on above: Performed By: #### C BC #### [facility] [address] [place] [address] Dr. Keri Guerra MCH (RBC) [Entitic mass] 25.3 pg Critically low 26.7-34.0 [facility] Comment on above: Performed By: #### C BC #### [facility] [address] [place] [address] Dr. Keri Guerra MCHC (RBC) [Mass/Vol] 33.3 g/dL Normal 29.9-35.2 [facility] Comment on above: Performed By: #### C BC #### [facility] [address] [place] [address] Dr. Keri Guerra MCV (RBC) [Entitic vol] 75.9 fL Critically low 81.0-99.0 [facility] Comment on above: Performed By: #### C BC #### [facility] [address] [place] [address] Dr. Keri Guerra MONO # 0.4 103/ul Normal 0.3-0.8 [facility] Comment on above: Performed By: #### C BC #### [facility] [address] [place] [address] Dr. Keri Guerra Monocytes/100 WBC (Bld) 5.0 % Normal 1.7-12.0 [facility] Comment on above: Performed By: #### C BC #### [facility] [address] [place] [address] Dr. Keri Guerra NEUT # 5.6 103/ul Normal 1.4-6.5 [facility] Comment on above: Performed By: #### C BC #### [facility] [address] [address] [address] Keri Guerra Neutrophils/100 WBC (Bld) 70.1 % Normal 43.0-75.0 [facility] Comment on above: Performed By: #### C BC #### [facility] [address] [address] [address] Keri Guerra Platelet mean volume (Bld) [Entitic vol] 11.0 fL Normal 9.5-13.5 [facility] Comment on above: Performed By: #### C BC #### [facility] [address] [place] [address] Dr. Keri Guerra PLT 319 103/ul Normal 150-450 [facility] Comment on above: Performed By: #### C BC #### [facility] [address] [place] [address] Dr. Keri Guerra RBC 4.78 106/ul Normal 4.20-5.40 [facility] Comment on above: Performed By: #### C BC #### [facility] [address] [place] [address] Dr. Keri Guerra WBC 7.9 103/ul Normal 4.0-11.0 [facility] Comment on above: Performed By: #### C BC #### [facility] [address] [place] [address] Dr. Keri Guerra CULTURE URINEon 10-15-2022 CULTURE URINE Culture Observations : LIGHT GROWTH OF MIXED GENITAL LARISA. NO POTENTIAL PATHOGENS SEEN. Normal [facility] Comment on above: Performed By: #### U RCX #### [facility] [address] [place] [address] Dr. Keri Guerra TSHon 10-15-2022 TSH 0.294 uIU/mL Critically low 0.358-3.740 [facility] Comment on above: Performed By: #### T SH #### [facility] [address] [place] [address] Dr. Keri Guerra TYPE AND SCREENon 10-15-2022 TYPE AND SCREEN Negative Normal [facility] Comment on above: Performed By: #### T NS #### [facility] [address] [address] [address] Keri Guerra US PREG TVon 10-01-2022 [...] GM BARRY Date: 2022-10-01 15:23 Normal [facility] Quick Strepon 03-25-2022 S. pyogenes Org specific cx Ql (Throat) Negative [employer] Other Quick Strep [employer] Other COVID/FLU RT-PCRon 2 SARS-CoV-2 (COVID-19) RNA ANNE+probe Ql (Unsp spec) Positive [employer] Other COVID/FLU RT-PCR Negative [employer] Other COVID Quick Testingon 2020 Result Positive [employer] Other Consultation Noteon 08-05-19 21 Consultation Note [id number]:127 Normal [facility] Vital Signs Date Time Vital Sign Value Performing Clinician Facility 04-02-2025 08:36-0400 Body mass index (BMI) [Ratio] 30.87 kg/m2 [employer] Phone: [facility] 04-02-2025 08:36-0400 Body weight 76.57 kg Ai Tj DO Work Phone: [facility] 04-02-2025 08:36-0400 Diastolic blood pressure 72 mm[Hg] Ai Tj DO Work Phone: [facility] 04-02-2025 08:36-0400 Systolic blood pressure 116 mm[Hg] Ai Tj DO Work Phone: [facility] 03-19-2025 08:52-0400 Body mass index (BMI) [Ratio] 30.43 kg/m2 Ia Tj DO Work Phone: [facility] 03-19-2025 08:52-0400 Body weight 75.48 kg Ai Tj DO Work Phone: [facility] 03-19-2025 08:52-0400 Diastolic blood pressure 78 mm[Hg] Ai Tj DO Work Phone: [facility] 03-19-2025 08:52-0400 Systolic blood pressure 120 mm[Hg] Ai Tj DO Work Phone: [facility] 03-07-2025 10:12-0400 Body mass index (BMI) [Ratio] 30.18 kg/m2 Ai Tj DO Work Phone: [facility] 03-07-2025 10:12-0400 Body weight 74.84 kg Ai Tj DO Work Phone: [facility] 03-07-2025 10:12-0400 Diastolic blood pressure 70 mm[Hg] Ai Tj DO Work Phone: [facility] 03-07-2025 10:12-0400 Systolic blood pressure 110 mm[Hg] Ai Tj DO Work Phone: [facility] 02-21-2025 11:44-0400 Body mass index (BMI) [Ratio] 30.07 kg/m2 Torri MILLER Work Phone: [facility] 02-21-2025 11:44-0400 Body weight 74.57 kg Torri MILLER Work Phone: [facility] 02-21-2025 11:44-0400 Diastolic blood pressure 78 mm[Hg] Torri Meza PA Work Phone: [facility] 02-21-2025 11:44-0400 Systolic blood pressure 118 mm[Hg] Torri Meza PA Work Phone: [facility] 01-10-2025 11:33-0400 Body mass index (BMI) [Ratio] 29.17 kg/m2 Torri Breanna PA Work Phone: [facility] 01-10-2025 11:33-0400 Body weight 72.35 kg Torri Mineral PA Work Phone: [facility] 01-10-2025 11:33-0400 Diastolic blood pressure 76 mm[Hg] Torri Ryaney PA Work Phone: [facility] 01-10-2025 11:33-0400 Systolic blood pressure 122 mm[Hg] Torri Meza PA Work Phone: [facility] 12-04-2024 13:28-0400 Body mass index (BMI) [Ratio] 27.87 kg/m2 Ai Tj DO Work Phone: [facility] 12-04-2024 13:28-0400 Body weight 69.13 kg Ai Tj DO Work Phone: [facility] 12-04-2024 13:28-0400 Diastolic blood pressure 70 mm[Hg] Ai Tj DO Work Phone: [facility] 12-04-2024 13:28-0400 Systolic blood pressure 120 mm[Hg] Ai Tj DO Work Phone: [facility] 11-22-2024 15:22-0400 Body mass index (BMI) [Ratio] 27.76 kg/m2 [facility] 11-22-2024 15:22-0400 Body weight 68.86 kg [facility] Nurse [facility] 10-31-2024 13:04-0400 Body mass index (BMI) [Ratio] 27.53 kg/m2 Ai Tj DO Work Phone: [facility] 10-31-2024 13:04-0400 Body weight 68.27 kg Ai Tj DO Work Phone: [facility] 10-31-2024 13:04-0400 Diastolic blood pressure 80 mm[Hg] Ai Tj DO Work Phone: [facility] 10-31-2024 13:04-0400 Systolic blood pressure 112 mm[Hg] Ai Tj DO Work Phone: [facility] 07-31-2024 09:06-0500 Body mass index (BMI) [Ratio] 27.58 kg/m2 Ai Tj DO Work Phone: [facility] 07-31-2024 09:06-0500 Body weight 68.4 kg Ai Tj DO Work Phone: [facility] 07-31-2024 09:06-0500 Diastolic blood pressure 80 mm[Hg] Ai Tj DO Work Phone: [facility] 07-31-2024 09:06-0500 Systolic blood pressure 120 mm[Hg] Ai Tj DO Work Phone: [facility] 05-10-2024 10:22-0400 Body height 160.02 cm [facility] 05-10-2024 10:22-0400 Body mass index (BMI) [Ratio] 24.7 kg/m2 [facility] 05-10-2024 10:22-0400 Body temperature 98.2 [degF] [facility] 05-10-2024 10:22-0400 Body weight 63.5 kg [facility] 05-10-2024 10:22-0400 Diastolic blood pressure 65 mm[Hg] [facility] 05-10-2024 10:22-0400 Heart rate 95 /min [facility] 05-10-2024 10:22-0400 Respiratory rate 18 /min [facility] 05-10-2024 10:22-0400 SaO2% (BldA) [Mass fraction] 97 % [facility] 05-10-2024 10:22-0400 Systolic blood pressure 128 mm[Hg] [facility] 08-18-2023 11:30-0500 Body height 157.48 cm Deann Partida Other [employer] Other 08-18-2023 11:30-0500 Body mass index (BMI) [Ratio] 26.48 kg/m2 Deann Partida Other [employer] Other 08-18-2023 11:30-0500 Body temperature 98.6 [degF] Deann Partida Other [employer] Other 08-18-2023 11:30-0500 Body weight 65.68 kg Deann Partida Other [employer] Other 08-18-2023 11:30-0500 Respiratory rate 18 /min Deann Partida Other [employer] Other 08-18-2023 11:30-0500 SaO2% (BldA) [Mass fraction] 97 % Deann Partida Other [employer] Other 09-14-2022 15:25-0500 Body height 157.48 cm Elsa Rea Other [employer] Other 09-14-2022 15:25-0500 Body mass index (BMI) [Ratio] 26.88 kg/m2 Elsa Rea Other [employer] Other 09-14-2022 15:25-0500 Body temperature 97.7 [degF] Elsa Rea Other [employer] Other 09-14-2022 15:25-0500 Body weight 66.68 kg Elsa Rea Other [employer] Other 09-14-2022 15:25-0500 Diastolic blood pressure 65 mm[Hg] Elsa Rea Other [employer] Other 09-14-2022 15:25-0500 Respiratory rate 18 /min Elsa Rea Other [employer] Other 09-14-2022 15:25-0500 SaO2% (BldA) [Mass fraction] 99 % Elsa Rea Other [employer] Other 09-14-2022 15:25-0500 Systolic blood pressure 118 mm[Hg] Elsa Rea Other [employer] Other 03-25-2022 11:40-0400 Body height 157.48 cm Charisse Blackwell Other [employer] Other 03-25-2022 11:40-0400 Body mass index (BMI) [Ratio] 27.43 kg/m2 Charisse Bonillamond Other [employer] Other 03-25-2022 11:40-0400 Body temperature 98.8 [degF] Charisse Bonillamond Other [employer] Other 03-25-2022 11:40-0400 Body weight 68.04 kg Charisse Bonillamond Other [employer] Other 03-25-2022 11:40-0400 Respiratory rate 18 /min Charisse Bonillamond Other [employer] Other 03-25-2022 11:40-0400 SaO2% (BldA) [Mass fraction] 99 % Charisse Blackwell Other [employer] Other 01-01-2022 10:40-0400 Body height 160.02 cm Deann Partida Other [employer] Other 01-01-2022 10:40-0400 Body mass index (BMI) [Ratio] 24.8 kg/m2 Deann Partida Other [employer] Other 01-01-2022 10:40-0400 Body temperature 97.5 [degF] Deann Partida Other [employer] Other 01-01-2022 10:40-0400 Body weight 63.5 kg Deann Partida Other [employer] Other 01-01-2022 10:40-0400 SaO2% (BldA) [Mass fraction] 99 % Deann Partida Other [employer] Other 05-04-2021 11:30-0400 Body height 160.02 cm Elsa Rea Other [employer] Other 05-04-2021 11:30-0400 Body mass index (BMI) [Ratio] 23.91 kg/m2 Elsa Rea Other [employer] Other 05-04-2021 11:30-0400 Body temperature 97.3 [degF] Elsa Rea Other [employer] Other 05-04-2021 11:30-0400 Body weight 61.24 kg Elsa Rea Other [employer] Other 05-04-2021 11:30-0400 SaO2% (BldA) [Mass fraction] 99 % Elsa Rea Other [facility] [employer] Other Encounters Encounter Date Encounter Type Care Provider Facility Start: 04-02-2025 End: 04-02-2025 Bamboo flowsheet Ai Tj DO Work Phone: [facility] Start: 04-02-2025 End: 04-02-2025 Bamboo flowsheet Ai Tj DO Work Phone: [facility] Start: 04-02-2025 End: 04-02-2025 flow sheet Ai Tj DO Work Phone: [facility] Comment on above: Third trimester preg sandy ([facility] 36 weeks gestation of ([facility]); Small for gestational age (SGA) ([facility]) Start: 04-02-2025 End: 04-02-2025 ambulatory AI TJ Not Available Start: 03-27-2025 End: 03-27-2025 Clinisync Result Encounter Ai Tj DO Work Phone: [facility]olic[facility] Start: 03-27-2025 End: 03-27-2025 Clinisync Result Encounter Ai Tj DO Work Phone: [facility] Start: 03-20-2025 End: 03-20-2025 ambulatory AI TJ Not Available Start: 03-19-2025 End: 03-19-2025 Bamboo flowsheet Ai Tj DO Work Phone: [facility] Start: 03-19-2025 End: 03-19-2025 Bamboo flowsheet Ai Tj DO Work Phone: [facility] Start: 03-19-2025 End: 03-19-2025 ambulatory AI TJ Not Available Start: 03-19-2025 End: 03-19-2025 flow sheet Ai Tj DO Work Phone: [facility] Comment on above: 34 weeks gestation o f ([facility]); Third trimester ([facility]); SGA (small for gestational age) ([facility]) Start: 03-07-2025 End: 03-07-2025 Bamboo flowsheet Ai Tj DO Work Phone: [facility] Start: 03-07-2025 End: 03-07-2025 Bamboo flowsheet Ai Tj DO Work Phone: [facility] Start: 03-07-2025 End: 03-07-2025 ambulatory AI TJ Not Available Start: 03-07-2025 End: 03-07-2025 flow sheet Ai Tj DO Work Phone: [facility] Comment on above: 33 weeks gestation o f ([facility]); Third trimester ([facility]) Start: 03-01-2025 End: 03-01-2025 Clinisync Result Encounter Torri MILLER Work Phone: [facility]solicited Start: 03-01-2025 End: 03-01-2025 Clinisync Result Encounter Torri MILLER Work Phone: [facility] Unsolicited Start: 02-21-2025 End: 02-21-2025 Bamboo flowsheet Torri MILLER Work Phone: [facility] Start: 02-21-2025 End: 02-21-2025 Bamboo flowsheet Torri MILLER Work Phone: [facility] Start: 02-21-2025 End: 02-21-2025 ambulatory TORRI MEZA Not Available Start: 02-21-2025 End: 02-21-2025 flow sheet Torri MILLER Work Phone: [facility] Comment on above: Third trimester preg sandy ([facility]); 31 weeks gestation of ([facility]); size inconsistent with dates ([facility]) Start: 02-14-2025 End: 02-14-2025 Clinisync Result Encounter [...] Comment on above: Second trimester pre gnancy ([facility]); 25 weeks gestation of ([facility]); Diabetes mellitus screening Start: 12-04-2024 End: 12-04-2024 [...] 05-10-2024 End: 05-10-2024 ambulatory [facility] Work Phone: Start: 05-10-2024 End: 05-10-2024 Patient encounter procedure [facility] Work Phone: Start: 08-18-2023 End: 08-18-2023 ambulatory Deann Partida Other [facility] [employer] Other Start: 08-18-2023 Office outpatient vi sit 25 minutes Deann Partida [facility] Start: 11-17-2022 End: 05-03-[address] AI SPENCER . Facility:[facility] Start: 10-18-[address] DOCTOR MONCADA Facility :[facility] Start: 10-15-2022 End: 10-16-[address] AI SPENCER . Facility:[facility] Start: 10-01-2022 End: 10-02-[address] AI SPENCER . Facility:[facility] Start: 09-14-2022 End: 09-14-2022 ambulatory Elsa Rea Other [employer] Other Start: 09-14-2022 Office outpatient vi sit 15 minutes Elsamarychuy Rea [facility] Start: 03-25-2022 End: 03-25-2022 ambulatory Charisse Blackwell Other [employer] Other Start: 03-25-2022 Office outpatient vi sit 15 minutes Charisse Blackwell [facility] Start: 01-01-2022 End: 01-01-2022 ambulatory Deann Partida Other [employer] Other Start: 01-01-2022 Office outpatient vi sit [...] Routine [facility] [address] [place] [address] Ai Spencer DO [address] [place] [address] [facility] Start: 04-02-2025 End: 04-02-2026 CULTURE, GROUP B STREP WITH SUSCEPTIBLITY CULTURE, GROUP B STREP WITH SUSCEPTIBLITY Lab Routine Third trimester ([facility]) Expected: 04/02/2025, Expires: 04/02/2026 [facility] Work Phone: Comment on above: Expected: 04/02/2025 , Expires: 04/02/2026 Start: 04-02-2025 End: 04-02-2025 Patient encounter procedure [facility] Comment on above: Arrived Start: 03-26-2025 End: 03-26-2025 Patient encounter procedure 03/26/2025 8:30 AM EDT Routine [facility] [place] [facility] [address] [facility] [place] [phone] Torri Meza PA [address] [facility] [place] [address] [facility] Start: 03-20-2025 End: 03-20-2025 Professional / ancillary services management 03/20/2025 11:30 AM EDT Ancillary Procedure [facility] [place] [facility] [address] [facility] [place] [phone] [facility] Start: 03-19-2025 End: 07-19-2025 US for US OB follow up transabdominal approach Imaging Routine SGA (small for gestational age) ([facility]) Expected: 03/19/2025, Expires: 07/19/2025 [facility] Work Phone: Comment on above: Expected: 03/19/2025 , Expires: 07/19/2025 Start: 03-19-2025 End: 03-19-2025 Patient encounter procedure 03/19/2025 8:40 AM EDT [facility] [address] [place] [address] Ai Spencer, DO [address] [place] [address] [facility] Start: 03-07-2025 End: 03-07-2025 Patient encounter procedure 03/07/2025 9:00 AM EDT Routine [facility] [address] [facility] [place] [phone] Ai Spencer, DO [address] [place] [address] [facility] Start: 03-07-2025 End: 03-07-2025 Professional / ancillary services management 03/07/2025 8:30 AM EDT Ancillary Procedure [facility] [address] [place] [address] [facility] Start: 02-21-2025 End: 06-23-2025 US for US OB follow up transabdominal approach Imaging Routine size inconsistent with dates ([facility]) Expected: 02/21/2025, Expires: 06/23/2025 [facility] Work Phone: Comment on above: Expected: 02/21/2025 , Expires: 06/23/2025 Start: 02-05-2025 End: 02-05-2025 Patient encounter procedure 02/05/2025 8:40 AM EDT Routine [facility] [address] [place] [phone] Ai Spencer, DO [address], [place] [id number] [facility] Start: 01-10-2025 End: 01-10-2026 [...] PM EDT Routine [facility] [address] [facility] [place] [phone] Ai Spencer DO [address], [place] [id number] [facility] Start: 12-04-2024 End: 12-04-2024 [...] PM EDT Initial [facility] [address] [facility] [place] [phone] [facility] Start: 11-22-2024 End: 02-22-2025 US for US OB 14+ weeks anatomy scan Imaging Routine Screening, , for anatomic survey Expected: 11/22/2024, Expires: 02/22/2025 [facility] Comment on above: Expected: 11/22/2024 , Expires: 02/22/2025 Start: 10-31-2024 End: 12-31-2024 Alpha fetoprotein, maternal Alpha fetoprotein, maternal Lab Routine Well woman exam with routine gynecological exam Expected: 10/31/2024 (Approximate), Expires: 12/31/2024 [facility] Work Phone: Comment on above: Expected: 10/31/2024 (Approximate), Expires: 12/31/2024 Start: 10-31-2024 End: 10-31-2024 Patient encounter procedure [facility] Comment on above: Arrived Start: 2024 End: 2024 Patient encounter procedure 2024 3:30 PM EST Procedure Visit [facility] [address] [place] [phone] Ai Spencer DO [address] [facility] [place] [address] [facility] CHLAMYDIA TRACHOMATI S (GENITO/STI) CHLAMYDIA TRACHOMATIS (GENITO/STI) Lab Routine STD exposure Ordered: 10/31/2024 [facility] Comment on above: Ordered: 10/31/2024 Cytology Cervical or vaginal smear or scraping study Pap Smear Pathology and Cytology Routine Well woman exam with routine gynecological exam Ordered: 10/31/2024 [facility] Comment on above: Ordered: 10/31/2024 End: 2025 hCG, quantitative, hCG, quantitative, Lab Routine examination or test, positive result 4 Occurrences starting 2024 until 2025 [facility] Work Phone: Comment on above: 4 Occurrences starti ng 2024 until 2025 Neisseria gonorrhoea e DNA [Presence] in Unspecified specimen by ANNE with probe detection Neisseria gonorrhea DNA probe, direct Lab Routine STD exposure Ordered: 10/31/2024 [facility] Comment on above: Ordered: 10/31/2024 SURESWAB(R) ADVANCED VAGINITIS PLUS, TMA SURESWAB(R) ADVANCED VAGINITIS PLUS, TMA Pathology and Cytology Routine STD exposure Ordered: 10/31/2024 [facility] Comment on above: Ordered: 10/31/2024 Payers Date Payer Category Payer Medicaid [facility] [id number] 2024 Private Health Insurance [id number] 2024 Unknown [id number] 2022 Medicaid [id number] [id number] 2001 Unknown [id number] 2.16.840.1.858297.3.579.2. 593 2001 Unknown [id number] 2.16.840.1.813395.3.579.2. 593 2001 Unknown [id number] 2.16.840.1.213883.3.579.2. 593 2001 Unknown [id number] 2.16.840.1.712939.3.579.2. 593 2001 Unknown [id number] 2.16.840.1.471959.3.579.2. 593 2001 Unknown [id number] 2.16.840.1.503006.3.579.2. 1259 2001 Unknown [id number] 2.16.840.1.587839.3.579.2. 1259 2001 Unknown [id number] 2.16.840.1.973872.3.579.2. 1259 2001 Unknown [id number] 2.16.840.1.658902.3.579.2. 1259 2001 Unknown [id number] 2.16.840.1.568231.3.579.2. 1259 2001 Unknown [id number] 2.16.840.1.258855.3.579.2. 1259 2001 Unknown [id number] 2.16.840.1.003809.3.579.2. 1259 2001 Unknown [id number] 2.16.840.1.662825.3.579.2. 1259 2001 Unknown [id number] 2.16.840.1.204359.3.579.2. 1259 2001 Unknown [id number] 2.16.840.1.052053.3.579.2. 1259 2001 Unknown [id number] 2.16.840.1.137575.3.579.2. 1259 1958 [facility] [id number] 2.16.840.1.812795.19 Private Health Insurance [id number] 2.16.840.1.756989.19 Self-pay Self Pay [id number] Unknown [id number] 2.16.840.1.556036.19 Unknown [employer] BC/BS [id number] Social History Date Type Detail Facility Unknown if ever smoked [employer] Other Start: 01-31-2024 End: 07-31-2024 Sex Assigned At [employer] Other Start: 03-31-2023 End: 05-10-2024 Tobacco smoking status NHIS Never smoked tobacco (finding) [facility] Start: 2001 Sex Assigned At Female F [facility] Start: 03-31-2023 Tobacco use and [...] 2024 examination or test, positive result ([facility]) 2024 Resolved Ambulatory Problems Diagnosis Date Noted No Resolved Ambulatory Problems Past Medical History: Diagnosis Date 6 weeks follow-up ([facility]) BMI 25.0-25.9,adult Salt deficiency Type O blood, Rh positive HISTORY PAST MEDICAL HISTORY SOCIAL HISTORY Past Medical History: Diagnosis Date 6 weeks follow-up ([facility]) BMI 25.0-25.9,adult Salt deficiency Type O blood, [...] nursing note reviewed. Exam conducted with a mine administrator supervisor present. Vitals: Estimated body mass index is 30.87 kg/m as calculated from the following: Height as of 12/15/22: 5' 2 . Weight as of this encounter: 168 lb 12.8 oz. BP: 116/72 Patient's last menstrual period was 07/18/2024. ASSESSMENT & PLAN ICD-10-CM 1. Third trimester ([facility]) Z34.93 POCT urinalysis dipstick manually resulted CULTURE, GROUP B STREP WITH SUSCEPTIBLITY CULTURE, GROUP B STREP WITH SUSCEPTIBLITY 2. 36 weeks gestation of ([facility]) Z3A.36 POCT urinalysis dipstick manually resulted 3. Small for gestational age (SGA) ([facility]) P05.10 Patient is doing well but has [...] Ai Spencer DO documented in this encounter [facility] 03-19-2025 History of Presen t illness Narrative Reason for Appointment: Patient ID: Karly Agosto is a 24 y.o. female who presents for Routine Visit Patient presents today for Return OB appointment. MEDICATIONS No current outpatient medications ALLERGIES Allergies Allergen Reactions Minocycline Nausea Only PROBLEMS Active Ambulatory Problems Diagnosis Date Noted Missed menses 2024 examination or test, positive result ([facility]) 2024 Resolved Ambulatory Problems Diagnosis Date Noted No Resolved Ambulatory Problems Past Medical History: Diagnosis Date 6 weeks follow-up ([facility]) BMI 25.0-25.9,adult Salt deficiency Type O blood, Rh positive HISTORY PAST MEDICAL HISTORY SOCIAL HISTORY Past Medical History: Diagnosis Date 6 weeks follow-up ([facility]) BMI 25.0-25.9,adult Salt deficiency Type O blood, [...] nursing note reviewed. Exam conducted with a mine administrator supervisor present. Vitals: Estimated body mass index is 30.43 kg/m as calculated from the following: Height as of 12/15/22: 5' 2 . Weight as of this encounter: 166 lb 6.4 oz. BP: 120/78 Patient's last menstrual period was 07/18/2024. ASSESSMENT & PLAN ICD-10-CM 1. 34 weeks gestation of ([facility]) Z3A.34 POCT urinalysis dipstick manually resulted 2. Third trimester ([facility]) Z34.93 POCT urinalysis dipstick manually resulted Return [...] Ai Spencer DO documented in this encounter [facility] 03-07-2025 History of Presen t illness Narrative Reason for Appointment: Patient ID: Karly J Steible is a 24 y.o. female who presents for Routine Visit Patient presents today for Return OB appointment. MEDICATIONS No current outpatient medications ALLERGIES Allergies Allergen Reactions Minocycline Nausea Only PROBLEMS Active Ambulatory Problems Diagnosis Date Noted Missed menses 2024 examination or test, positive result ([facility]) 2024 Resolved Ambulatory Problems Diagnosis Date Noted No Resolved Ambulatory Problems Past Medical History: Diagnosis Date 6 weeks follow-up ([facility]) BMI 25.0-25.9,adult Salt deficiency Type O blood, Rh positive HISTORY PAST MEDICAL HISTORY SOCIAL HISTORY Past Medical History: Diagnosis Date 6 weeks follow-up ([facility]) BMI 25.0-25.9,adult Salt deficiency Type O blood, [...] nursing note reviewed. Exam conducted with a mine administrator supervisor present. Vitals: Estimated body mass index is 30.18 kg/m as calculated from the following: Height as of 23: 5' 2 . Weight as of this encounter: 165 lb. BP: 110/70 Patient's last menstrual period was 07/18/2024. ASSESSMENT & PLAN ICD-10-CM 1. 33 weeks gestation of ([facility]) Z3A.33 POCT urinalysis dipstick manually resulted 2. Third trimester ([facility]) Z34.93 POCT urinalysis dipstick manually resulted Patient presents today for a routine obstetrics appointment. Patient is currently 33w1d with a Estimated Date of Delivery: 04/24/25. Patient to return to clinic in 2 weeks. Documented by Waleska Linares LPN on behalf of: Ai Spencer DO documented in this encounter [facility] 02-21-2025 History of Presen t illness Narrative Reason for Appointment: Patient ID: Karly Agosto is a 24 y.o. female who presents for Routine Visit Patient presents today for Return OB appointment. MEDICATIONS No current outpatient medications ALLERGIES Allergies Allergen Reactions Minocycline Nausea Only PROBLEMS Active Ambulatory Problems Diagnosis Date Noted Missed menses 2024 examination or test, positive result ([facility]) 2024 Resolved Ambulatory Problems Diagnosis Date Noted No Resolved Ambulatory Problems Past Medical History: Diagnosis Date 6 weeks follow-up ([facility]) BMI 25.0-25.9,adult Salt deficiency Type O blood, Rh positive HISTORY PAST MEDICAL HISTORY SOCIAL HISTORY Past Medical History: Diagnosis Date 6 weeks follow-up ([facility]) BMI 25.0-25.9,adult Salt deficiency Type O blood, [...] ASSESSMENT & PLAN ICD-10-CM 1. Third trimester ([facility]) Z34.93 POCT urinalysis dipstick manually resulted 2. 31 weeks gestation of ([facility]) Z3A.31 POCT urinalysis dipstick manually resulted 3. size inconsistent with dates ([facility]) O26.849 US OB follow up transabdominal approach [...] of: ANGELA Mayorga documented in this encounter [facility] 01-10-2025 History of Presen t illness Narrative Reason for Appointment: Patient ID: Karly Agosto is a 24 y.o. female who presents for Routine Visit Patient presents today for Return OB appointment. MEDICATIONS No current outpatient medications ALLERGIES Allergies Allergen Reactions Minocycline Nausea Only PROBLEMS Active Ambulatory Problems Diagnosis Date Noted Missed menses 2024 examination or test, positive result ([facility]) 2024 Resolved Ambulatory Problems Diagnosis Date Noted No Resolved Ambulatory Problems Past Medical History: Diagnosis Date 6 weeks follow-up ([facility]) BMI 25.0-25.9,adult Salt deficiency Type O blood, Rh positive HISTORY PAST MEDICAL HISTORY SOCIAL HISTORY Past Medical History: Diagnosis Date 6 weeks follow-up ([facility]) BMI 25.0-25.9,adult Salt deficiency Type O blood, [...] ASSESSMENT & PLAN ICD-10-CM 1. Second trimester ([facility]) Z34.92 POCT urinalysis dipstick manually resulted 2. 25 weeks gestation of ([facility]) Z3A.25 3. Diabetes mellitus screening Z13.1 CBC [...] of: ANGELA Mayorga documented in this encounter [facility] 12-04-2024 History of Presen t illness [...] nursing note reviewed. Exam conducted with a mine administrator supervisor present. Vitals: Estimated body mass index is [...] Ai Spencer DO documented in this encounter [facility] 11-22-2024 History of Presen t illness [...] meat, and stay away from [facility]. Patient has also been advised to [...] De Leon LPN documented in this encounter [facility] 10-31-2024 History of Presen t illness [...] nursing note reviewed. Exam conducted with a mine administrator supervisor present. Vitals: Estimated body mass index is [...] Ai Spencer DO documented in this encounter [facility] 2024 History of Presen t illness [...] nursing note reviewed. Exam conducted with a mine administrator supervisor present. Vitals: Estimated body mass index is [...] Ai Spencer DO documented in this encounter [facility] 07-31-2024 History of Presen t illness [...] nursing note reviewed. Exam conducted with a mine administrator supervisor present. Vitals: Estimated body mass index is [...] Ai Spencer DO documented in this encounter [facility] 08-18-2023 Evaluation note Encounter Date Diagnosis [...] treatment plan. Patient left in stable condition [facility] 02-28-2023 Evaluation note* Encounter Date Diagnosis Assessment Notes Treatment Notes Treatment Clinical Notes Aug, Impetigo (ICD-10 - L01.00) Clean area as discussed with 1/2 peroxide and water mix. Apply ointment to area. Infection is very contagious. Bed laundering and cleaning toys is important. Follow up with primary care provider or come back into office to be seen if symptoms worsen [facility] 09-08-2022 Evaluation note* Encounter Date Diagnosis [...] no improvement in 2 to 3 days. [facility] 06-17-2022 Evaluation note* Encounter Date Diagnosis [...] treatment plan. Patient left in stable condition [facility] 10-18-2021 Evaluation note* Encounter Date Diagnosis Assessment Notes Treatment Notes Treatment Clinical Notes Apr, Contact with and (suspected) exposure to other viral communicable diseases (ICD-10 - Z20.828) Apr, COVID-19 (ICD-10 - U07.1) Today you tested positive for the COVID virus. This mean you need to follow all CDC quarantine guidelines found at [email or web address]. It is important to rest, increase [...] instructions given in writting by [facility] document. [employer] Other Evaluation note* Diagnosis Onset Date Resolution Status Right ankle sprain acute [facility] Work Phone: Evaluation note* Diagnosis [...] incidental SGA (small for gestational age) (HHS-HCC) [id number]-tzlil without mention of malnutrition, unspecified (weight) [facility] Third trimester ([facility]) state, incidental 36 weeks gestation of ([facility]) Small for gestational age (SGA) ([facility]HS-HCC) [facility] - [facility]* Type Description Date Hospitalization History fractured arm and shatte red elbow [employer] [facility] [employer] Other History general Narrative - Reported* Type Description Date Hospitalization History fractured arm and shatte red elbow Hospitalization History childbirth [employer] [facility] [employer] Other Summary Purpose Family History No Family [...] section and content) DATE CREATED AUTHOR [facility]09/2020 [facility] DATE CREATED AUTHOR AUTHOR'S ORGANIZ ATION 12/24/2022 [facility] DATE CREATED AUTHOR AUTHOR'S ORGANIZ ATION 04/03/2025 [facility] EPIC REASON FOR VISIT (unrecogniz [...] BE BASED ON THE PRIMARY CLINICAL RECORDS. [facility] [employer] [facility]. provides no warranty or guarantee of the accuracy or completeness of information in this document.
[2025-04-03 19:28] VITALS: BP 119/79; PULSE 81
== END 2025-04-03 19:50 | disposition home or self-care (01) ==
LOC: US 18:59 → FBC 19:00
PROVIDERS: Visit Provider Obstetrics & Gynecology
DX: O36.5930 Maternal care for other known or suspected poor fetal growth, third trimester, not applicable or unspecified (principal); Z3A.37 37 weeks gestation of pregnancy
CPT/HCPCS: 76818

== ENCOUNTER 2025-04-06 05:08 | Inpatient (IN) | payer OTHER, SELFPAY ==
[2025-04-06] VITALS (61 sets, daily range): BP systolic 77–139; BP diastolic 43–88; PULSE 70–129; TEMP 36.8
--- OUTSIDE RECORDS SUMMARY | 2025-04-06 05:15 | XMS_ITS | CCD ---
Author Organization [facility] Care Team Providers Care Wood Crew Supervisor Name Role Phone Elsa Rea Unavailable Deann [...] SPENCER Attending Unavailable AI SPENCER Attending Unavailable IA SPENCER Attending Unavailable AI SPENCER Referring Unavailable [...] sources) Iron Not-Taking/ PRN Iron Active levonorgestrel 0.174779 mg/hr intrauterine system (2 sources) Progestin, Progestin-containing [...] size-date discrepancy, unspecified trimester] 02-21-2025 Episodic Other screening for suspected conditions (not [...] low weight; and growth retardation (4 sources) Ggecl-qfu-vdkdg baby; Translations: [ small for gestational age, [...] Value Interpretation Reference Range Facility US OB BPP W NON-STRESS on 04-04-2025 [place] [address] Ultrasound Report Signed Patient: KARLY AGOSTO MR#: [id number] : 2000 Acct:[id number] Age/Sex: 24 / F ADM Date: 04/03/25 Loc: US Attending Dr: Ai Spencer D.O. Ordering Physician: Ai Spencer D.O. Date of Service: 04/03/25 Procedure(s): US OB BPP w non-stress Accession Number(s): [id number] cc: Ai Spencer D.O.; Physician,Non-Staff M.DTani The [place] [id number] Patient Name: KARLY AGOSTO MRN: [id number] date: 2000 Sex: F Assigned Patient Location: US Current Patient Location: Accession/Order Number: [id number] Exam Date: 04/03/2025 19:34 Report Date: 04/04/2025 08:29 At the request of: AI SPENCER DO Procedure: US OB BPP w non-stress BIOPHYSICAL PROFILE: CLINICAL INFORMATION: SGA COMPARISON: 03/27/2025 There is a single live intrauterine gestation in cephalic presentation. The reported gestational age is 37 weeks 0 days. The heart rate measures 153 beats per minute. FINDINGS: TONE: 1 or more episodes of activity extension and flexion of extremity or opening and closing of the hand [Y] 2/2 GROSS BODY MOVEMENTS: 3 or more discrete body or limb movements [Y] 2/2 BREATHING MOVEMENTS: 1 or more episodes of breathing lasting at least 30 seconds [Y] 2/2 ISAI: A single deepest vertical pocket of amniotic fluid greater than 2 cm [Y] 2/2 ISAI: 14.6 cm Total score: 8/8 US/US OB BPP w non-stress IMPRESSION: NORMAL BIOPHYSICAL PROFILE Impression dictated by: Lisa Angela M.D. 04/04/2025 8:29 AM Dictation Location: [place] [address] Electronically authenticated by: [id number] Y Date: 04/04/2025 08:29 Dictated By: Lisa Angela M.D. Signed By: 04/04/25831 DD/ 8 TD/TT: Manager Convention: [facility] Radiology, Radiologist, MD - 04/04/2025 [place] [address] Ultrasound Report Signed Patient: KARLY AGOSTO MR#: [id number] : 2000 Acct:[id number] Age/Sex: 24 / F ADM Date: 04/03/25 Loc: US Attending Dr: Ai Spencer D.O. Ordering Physician: Ai Spencer D.O. Date of Service: 04/03/25 Procedure(s): US OB BPP w non-stress Accession Number(s): [id number] cc: Ai Spencer D.O.; Physician,Non-Staff Jayme The [place] [id number] Patient Name: KARLY AGOSTO MRN: [facility]:[id number] date: 2000 Sex: F Assigned Patient Location: US Current Patient Location: Accession/Order Number: [id number] Exam Date: 04/03/2025 19:34 Report Date: 04/04/2025 08:29 At the request of: AI SPENCER DO Procedure: US OB BPP w non-stress BIOPHYSICAL PROFILE: CLINICAL INFORMATION: SGA COMPARISON: 03/27/2025 There is a single live intrauterine gestation in cephalic presentation. The reported gestational age is 37 weeks 0 days. The heart rate measures 153 beats per minute. FINDINGS: TONE: 1 or more episodes of activity extension and flexion of extremity or opening and closing of the hand [Y] 2/2 GROSS BODY MOVEMENTS: 3 or more discrete body or limb movements [Y] 2/2 BREATHING MOVEMENTS: 1 or more episodes of breathing lasting at least 30 seconds [Y] 2/2 ISAI: A single deepest vertical pocket of amniotic fluid greater than 2 cm [Y] 2/2 ISAI: 14.6 cm Total score: 88 US/US OB BPP w non-stress IMPRESSION: NORMAL BIOPHYSICAL PROFILE Impression dictated by: Lisa Angela M.D. 04/04/2025 8:29 AM Dictation Location: [employer] Electronically authenticated by: [id number] Y Date: 04/04/2025 08:29 Dictated By: Lisa Angela M.D. Signed By: 04/04/2532 DD/ 8 TD/TT: Manager Convention: [facility] Radiology Study observation (narrative) [facility] OB BPP W NON-STRESS Ordered By: Radiologist Radiology on 04-04-2025 [facility] [employer] Work Phone: Urinalysis macro (dipstick) panel (U)on 04-02-2025 Bilirubin, UA Negative Negative - 4(70) +++ mg/dL [facility] Blood, UA Negative Negative - 50 Nicolás/mcL [facility] Clarity, UA Clear [facility] re Color, UA Yellow [facility] e Glucose, UA Negative Negative - 1999(110) ++++ mg/dL [facility] Interpretation and review of laboratory results Abnormal [facility] Ketones, UA Negative Negative - 160(16) ++++ mg/dL [facility] Leukocytes, UA Positive Negative - 500+++ Yodit/mcL [facility] Nitrite, UA Negative Negative - Positive [facility] pH, UA 6 5 - 9 [facility] e Protein, UA Positive Negative - 1999(20) ++++ mg/dL [facility] Spec Grav, UA 1.02 1 - 1.03 [facility] Urobilinogen, UA 1.0 0.2 - 12 mg/dL [facility] US OB BPP W NON-STRESS on 03-27-2025 [place] [address] Ultrasound Report Signed Patient: KARLY AGOSTO MR#: [id number] : 2000 Acct:[id number] Age/Sex: 24 / F ADM Date: 03/27/25 Loc: US Attending Dr: Ai Spencer D.O. Ordering Physician: Ai Spencer D.O. Date of Service: 03/27/25 Procedure(s): US OB BPP w non-stress Accession Number(s): [id number] cc: Ai Spencer D.O.; Physician,Non-Staff Jayme The [place] [id number] Patient Name: KARLY AGOSTO MRN: [facility]:[id number] date: 2000 Sex: F Assigned Patient Location: [facility] Current Patient Location: Accession/Order Number: [id number] Exam Date: 03/27/2025 19:34 Report Date: 03/27/2025 20:21 At the request of: AI SPENCER DO Procedure: US OB BPP w non-stress Ultrasound biophysical profile INDICATION: Small for gestational age COMPARISON: 03/01/2025 Findings and impression: Single live anterior cephalic position. heart rate 145 bpm. ISAI 13.1 cm. Biophysical profile score 8/8 Impression dictated by: Orion Barlow M.D. 03/27/2025 8:21 PM Dictation Location: [place] [address] Electronically authenticated by: [id number] Y Date: 03/27/2025 20:21 Dictated By: Orion Barlow M.D. Signed By: 03/27/252022 DD/ 20 TD/TT: Manager Convention: [facility] Radiology, Radiologist, - 03/27/2025 The [place] [id number] Ultrasound Report Signed Patient: KARLY AGOSTO MR#: [id number] : 2000 Acct:[id number] Age/Sex: 24 / F ADM Date: 03/27/25 Loc: US Attending Dr: Ai Spencer D.O. Ordering Physician: Ai Spencer D.O. Date of Service: 03/27/25 Procedure(s): US OB BPP w non-stress Accession Number(s): [id number] cc: Ai Spencer D.O.; Physician,Non-Staff Jayme [place] [address] Patient Name: KARLY AGOSTO MRN: [id number] date: 2000 Sex: F Assigned Patient Location: [facility] Current Patient Location: Accession/Order Number: [id number] Exam Date: 03/27/2025 19:34 Report Date: 03/27/2025 20:21 At the request of: AI SPENCER DO Procedure: US OB BPP w non-stress Ultrasound biophysical profile INDICATION: Small for gestational age COMPARISON: 03/01/2025 Findings and impression: Single live anterior cephalic position. heart rate 145 bpm. ISAI 13.1 cm. Biophysical profile score 02/22 Impression dictated by: Orion Barlow M.D. 03/27/2025 8:21 PM Dictation Location: [place] [address] Electronically authenticated by: [id number] Y Date: 03/27/2025 20:21 Dictated By: Orion Barlow M.D. Signed By: 03/27/252022 DD/ 20 TD/TT: Manager Convention[facility] Rad[facility] Study observation (narrative) [facility] [employer] US OB BPP W NON-STRESS Ordered By: Radiologist Radiology on 03-27-2025 [employer] Work Phone: US OB FOLLOW UP [...] UA Negative Negative - 4(70) +++ mg/dL [facility] Blood, UA Negative Negative - 50 Nicolás/mcL [facility] Clarity, UA Clear [facility] re Color, UA Yellow [facility] e Glucose, UA Negative Negative - 1999(110) ++++ mg/dL [facility] Interpretation and review of laboratory results Normal [facility] Ketones, UA Negative Negative - 160(16) ++++ mg/dL [facility] Leukocytes, UA Negative Negative - 500+++ Yodit/mcL [facility] Nitrite, UA Negative Negative - Positive [facility] pH, UA 7 5 - 9 [facility] e Protein, UA Negative Negative - 1999(20) ++++ mg/dL [facility] Spec Grav, UA 1.015 1 - 1.03 [facility] Urobilinogen, UA 1.0 0.2 - 12 mg/dL [facility] Urinalysis macro (dipstick) panel (U)on 03-07-2025 Bilirubin, UA Negative Negative - 4(70) +++ mg/dL [facility] Blood, UA Negative Negative - 50 Nicolás/mcL [facility] Clarity, UA Clear [facility] re Color, UA Yellow [facility] Glucose, UA Negative Negative - 1999(110) ++++ mg/dL [facility] Interpretation and review of laboratory results Abnormal [facility] Ketones, UA Negative Negative - 160(16) ++++ mg/dL [facility] Leukocytes, UA Positive Negative - 500+++ Yodit/mcL [facility] Nitrite, UA Negative Negative - Positive [facility] pH, UA 7 5 - 9 [facility] Protein, UA Negative Negative - 1999(20) ++++ mg/dL [facility] Spec Grav, UA 1.01 1 - 1.03 [facility] Urobilinogen, UA 1.0 0.2 - 12 mg/dL [facility] US OB GROWTHon 03-01-2025 [place] [address] Ultrasound Report Signed Patient: KARLY AGOSTO MR#: [id number] : 2000 Acct:[id number] Age/Sex: 24 / F ADM Date: 03/01/25 Loc: US Attending Dr: Torri Meza Ordering Physician: Torri Meza Date of Service: 03/01/25 Procedure(s): US OB growth Accession Number(s): [id number] cc: Torri Meza; Physician,Non-Staff M.D. The [place] [address] Patient Name: KARLY AGOSTO MRN: [id number] date: 2000 Sex: F Assigned Patient Location: US Current Patient Location: US Accession/Order Number: [id number] Exam Date: 03/01/2025 08:28 Report Date: 03/01/2025 [...] Jr., D.O. 03/01/2025 8:33 AM Dictation Location: [facility] Electronically authenticated by: [id number] Y Date: 03/01/2025 08:33 Dictated By: Oscar Clemens M.D. Signed By: 03/01/2535 DD/ TD/TT: Manager Convention: [facility] Radiology, Radiologist, MD - 03/01/2025 [place] [address] Ultrasound Report Signed Patient: KARLY AGOSTO MR#: [id number] : 2000 Acct:[id number] Age/Sex: 24 / F ADM Date: 03/01/25 Loc: US Attending Dr: Torri Meza Ordering Physician: Torri Meza Date of Service: 03/01/25 Procedure(s): US OB growth Accession Number(s): [id number] cc: Torri Meza; Physician,Non-Staff Jayme The [address] [address] Patient Name: KARLY AGOSTO MRN: [facility]:[id number] date: 2000 Sex: F Assigned Patient Location: US Current Patient Location: US Accession/Order Number: [id number] Exam Date: 03/01/2025 08:28 Report Date: 03/01/2025 [...] Jr., D.O. 03/01/2025 8:33 AM Dictation Location: [place] [address] Electronically authenticated by: [id number] Y Date: 03/01/2025 08:33 Dictated By: Oscar Clemens M.D. Signed By: 03/01/2535 DD/ 2 TD/TT: Manager Convention: [facility] Radiology Study observation (narrative) [facility] OB GROWTHOrdered By: Joel ologluis Radiology on 03-01-2025 [facility] [employer] Work Phone: Urinalysis macro (dipstick) panel (U)on 02-21-2025 Bilirubin, UA Negative Negative - 4(70) +++ mg/dL [facility] Blood, UA Negative Negative - 50 Nicolás/mcL [facility] Clarity, UA Clear [facility] re Color, UA Yellow [facility] [employer] Glucose, UA Negative Negative - 1999(110) ++++ mg/dL [facility] Interpretation and review of laboratory results Normal [facility] Ketones, UA Negative Negative - 160(16) ++++ mg/dL [facility] Leukocytes, UA Negative Negative - 500+++ Yodit/mcL [facility] Nitrite, UA Negative Negative - Positive [facility] pH, UA 5.5 5 - 9 [facility] [employer] Protein, UA Negative Negative - 1999(20) ++++ mg/dL [facility] Spec Grav, UA 1.02 1 - 1.03 [facility] Urobilinogen, UA 1.0 0.2 - 12 mg/dL [facility] GLUCOSE TOLERANCE 3 HOURon 0 02-14-2025 GLUCOSE TOLERANCE 3 HOUR mg/dL [facility] Comment on above: GLU FAST 86 (<95) Co l: 02/14/25 0737 GLU 1HR 157 (<180) Col: 02/14/25 0841 GLU 2HR 129 (<155) Col: 02/14/25 0941 GLU 3HR 114 (<140) Col: 02/14/25 1040 [facility] ALL CBC WITH AUTO DIFFon BASOPHILS ABSOLUTE AUTO 0 [facility] Basophils/100 WBC (Bld) 0.3 % 0.2 - 2.0 % [facility] Eosinophils/100 WBC (Bld) 3.9 % 0.9 - 7.0 % [facility] Erythrocyte distribution width (RBC) [Ratio] 13 % 11.0 - 15.0 % [facility] Hematocrit (Bld) [Volume fraction] 35.8 % Low 36.0 - 48.0 % [facility] Hemoglobin (Bld) [Mass/Vol] 11.9 g/dL Low 12.0 - 16.0 g/dL [facility] IMMATURE GRANULOCYTES ABS AUTO 0.03 [facility] Immature granulocytes/100 WBC (Bld) 0.3 % 0.0 - 0.5 % [facility] Interpretation and review of laboratory results Abnormal [facility] LYMPHOCYTES ABSOLUTE AUTO 1.3 [facility] Lymphocytes/100 WBC (Bld) 13.7 % Low 20.5 - 60.0 % [facility] MCH (RBC) [Entitic mass] 28 pg 26.7 - 34.0 pg [facility] MCHC (RBC) [Mass/Vol] 33.2 g/dL 29.9 - 35.2 g/dL [facility] MCV (RBC) [Entitic vol] 84.2 fL 81.0 - 99.0 fL [facility] MONOCYTES ABSOLUTE AUTO 0.4 [facility] Monocytes/100 WBC (Bld) 4.5 % 1.7 - 12.0 % [facility] NEUTROPHILS ABSOLUTE AUTO 7.5 High [facility] Neutrophils/100 WBC (Bld) 77.3 % High 43.0 - 75.0 % [facility] Platelet mean volume (Bld) [Entitic vol] 10.9 fL 9.5 - 13.5 fL [facility] EO # 0.4 [facility] PLT 254 [facility] RBC 4.25 [facility] WBC 9.7 [facility] Urinalysis macro (dipstick) panel (U)on 01-10-2025 Bilirubin, UA Negative Negative - 4(70) +++ mg/dL [facility] Blood, UA Negative Negative - 50 Nicolás/mcL [facility] Healthcare Clarity, UA Clear [facility] re Color, UA Yellow [facility] Glucose, UA Positive Negative - 1999(110) ++++ mg/dL [facility] Comment on above: 250mg/dL Interpretation and review of laboratory results Abnormal [facility] Ketones, UA Negative Negative - 160(16) ++++ mg/dL [facility] Leukocytes, UA Positive Negative - 500+++ Yodit/mcL [facility] Healthcare Comment on above: small Nitrite, UA Negative Negative - Positive [facility] pH, UA 7 5 - 9 [facility] Protein, UA Negative Negative - 1999(20) ++++ mg/dL [facility] Healthcare Spec Grav, UA 1.02 1 - 1.03 [facility] care Urobilinogen, UA 0.2 0.2 - 12 mg/dL [facility] Urinalysis macro (dipstick) panel (U)on 12-04-2024 Bilirubin, UA Negative Negative - 4(70) +++ mg/dL [facility] Blood, UA Negative Negative - 50 Nicolás/mcL [facility] Healthcare Clarity, UA Clear [facility] re Color, UA Yellow [facility] Glucose, UA Negative Negative - 1999(110) ++++ mg/dL [facility] Interpretation and review of laboratory results Normal [facility] Ketones, UA Negative Negative - 160(16) ++++ mg/dL [facility] Leukocytes, UA Negative Negative - 500+++ Yodit/mcL [facility] Nitrite, UA Negative Negative - Positive [facility] pH, UA 8.5 5 - 9 [facility] Protein, UA Negative Negative - 1999(20) ++++ mg/dL [facility] Healthcare Spec Grav, UA 1.02 1 - 1.03 [facility] Urobilinogen, UA 0.2 0.2 - 12 mg/dL [facility] Urinalysis macro (dipstick) panel (U)on 11-22-2024 Bilirubin, UA Negative Negative - 4(70) +++ mg/dL [facility] Blood, UA Negative Negative - 50 Nicolás/mcL [facility] Healthcare Clarity, UA Clear [facility] re Color, UA Yellow [facility] Glucose, UA Positive Negative - 1999(110) ++++ mg/dL [facility] Interpretation and review of laboratory results Abnormal [facility] Ketones, UA Negative Negative - 160(16) ++++ mg/dL [facility] Leukocytes, UA Positive Negative - 500+++ Yodit/mcL [facility] Nitrite, UA Negative Negative - Positive [facility] pH, UA 6.5 5 - 9 [facility] Protein, UA Negative Negative - 1999(20) ++++ mg/dL [facility] Spec Grav, UA 1.025 1 - 1.03 [facility] care Urobilinogen, UA 1.0 0.2 - 12 mg/dL [facility] [employer] IGP,APTIMA HPV,AGE GDLNon AGE GDLN ACOG TESTING Note . [facility] Comment on above: TESTS RESULT FLAG UN ITS REF RANGE LAB Clinician Provided Cytology Information Source.............[employer] Other.............. No. of containers..01 ThinPrep Vial Age Algo ACOG Rosita... -15 08 FLAG LEGEND: L-Low Normal,H-High Normal,LL-Alert Low,HH-Alert High <-Panic Low,>-Panic High,A-Abnormal,AA-Critical Abnormal Performed at: 01 =[facility] [place] [address] Tamy Matos MD, IGP, RFX APTIMA HPV ASCU Note . [facility] Comment on above: TESTS RESULT FLAG UN ITS REF RANGE LAB DIAGNOSIS: 02 NEGATIVE FOR INTRAEPITHELIAL LESION OR MALIGNANCY. Specimen adequacy: 02 Satisfactory for evaluation. No endocervical component is identified. Performed by: 02 Shiraz Todd Rn Practitioner ([facility]) . 02 Note: Note 03 [...] <-Panic Low,>-Panic High,A-Abnormal,AA-Critical Abnormal Performed at: 02 [facility] [address] [place] [address] Neha Cole MD, 03 WB [facility] [address] [place] [address] Tamy Matos MD, Performed at: =[facility] [id number] Phlebotomist Medical Lab Assistant: Tamy Matos MD, Phone: [phone] Performed at: [address] [id number] Phlebotomist Medical Lab Assistant: Neha Cole MD, Phone: [phone] [facility] RECURRENT VAGINITIS (HTRX)on 11-01-2024 ATOPOBIUM VAGINAE 0 [facility] ATOPOBIUM VAGINAE Not detected [facility] BVAB 2,3 (BACTERIAL VAGINOSIS ASSOCIATED BACTERIA 2, 3); MOBILUNCUS SPP 0 [facility] BVAB 2,3 (BACTERIAL VAGINOSIS ASSOCIATED BACTERIA 2, 3); MOBILUNCUS SPP Not detected [facility] ELAINA ALBICANS, PARAPSILOSIS, TROPICALIS 0 [facility] ELAINA ALBICANS, PARAPSILOSIS, TROPICALIS Not detected [facility] ELAINA GLABRATA 0 [facility] ELAINA GLABRATA Not detected [facility] ELAINA KRUSEI 0 [facility] ELAINA KRUSEI Not detected [facility] CHLAMYDIA TRACHOMATIS 0 [facility] CHLAMYDIA TRACHOMATIS Not detected [facility] ERMB, C; MEFA 21.586 Abnormal [facility] Health care ERMB, C; MEFA Detected Abnormal [facility] care GARDNERELLA VAGINALIS 24.886 Abnormal [facility] GARDNERELLA VAGINALIS Detected Abnormal [facility] Interpretation and review of laboratory results Abnormal [facility] MEGASPHAERA (TYPES 1, 2) 0 [facility] MEGASPHAERA (TYPES 1, 2) Not detected [facility]ITALIUM 0 [facility] MYCOPLAS[facility] GENITALIUM Not detected [facility] NEISSERIA GONORRHOEAE 0 [facility] NEISSERIA GONORRHOEAE Not detected [facility] TRICHOMONAS VAGINALIS 0 [facility] TRICHOMONAS VAGINALIS Not detected [facility] DRUG SCREEN RAPID (URINE )on 10-18-2024 AMPHETAMINE SCREEN URINE Negative NEGATIVE [facility] BARBITURATES SCREEN URINE Negative NEGATIVE [facility] BENZODIAZEPINES SCREEN URINE Negative NEGATIVE [facility] BUPRENORPHINE SCREEN URINE Negative NEGATIVE [facility] Comment on above: DRUG CLASS TEST [...] 300 ng/mL CANNABINOID SCREEN URINE Negative NEGATIVE [facility] COCAINE SCREEN URINE Negative NEGATIVE [facility] METHADONE SCREEN URINE Negative NEGATIVE [facility] METHAMPHETAMINES SCREEN URINE Negative NEGATIVE [facility] OPIATE SCREEN URINE Negative NEGATIVE [facility] OXYCODONE SCREEN URINE Negative NEGATIVE [facility] Healthcare PHENCYCLIDINE SCREEN URINE Negative NEGATIVE [facility] TRICYCLIC ANTIDEPRESSANT URINE Negative NEGATIVE [facility] care [facility] PREG QUANT HCGon 025 HCG QUANTITATIVE 14483 mIU/mL [facility]care Comment on above: 5-50 0.2-1 WEEK 50-500 1-2 WEEKS 100-5,000 2-3 WEEKS 500-10,000 3-4 WEEKS 1,000-50,000 4-5 WEEKS 10,000-100,000 5-6 WEEKS 15,000-200,000 6-8 WEEKS 10,000-100,000 2-3 MONTHS [facility] e HCG ( test) Ql (U)o n 07-31-2024 Interpretation and review of laboratory results Normal [facility] Preg Test, Ur Negative Negative [facility] COVID + FLU Quick Testingon 08-18-2023 SARS-CoV-2 (COVID-19) RNA ANNE+probe Ql (Unsp spec) Positive [employer] Other COVID + FLU Quick Testing Negative [employer] Other PAP ACOG PANEL 2: 21 to 29on 11-25-2022 . . Normal Comment on above: Performed By: #### [id number] #### [facility] [address] [place] [address] Dr. Keri Guerra Age Gdln ACOG Testing -30 Normal Comment on above: Performed By: #### [id number] #### [facility] [address] [place] [address] Dr. Keri Guerra DIAGNOSIS: Comment [facility] Comment on above: Result Comment: NEGA TIVE FOR INTRAEPITHELIAL LESION OR MALIGNANCY. Performed By: #### [id number] #### [facility] [address] [place] [address] Dr. Keri Guerra Methodology: Comment [facility] Comment on above: Result Comment: This liquid based ThinPrep(R) pap test was screened with the use of an image guided system. Performed By: #### [id number] #### [facility] [address] [place] [address] Dr. Keri Guerra Note: Comment [facility] Comment on above: Result Comment: The Pap smear is a screening test designed to aid in the detection of premalignant and malignant conditions of the uterine cervix. It is not a diagnostic procedure and should not be used as the sole means of detecting cervical cancer. Both false-positive and false-negative reports do occur. . Performed By: #### [id number] #### [facility] [address] [place] [address] Dr. Keri Guerra Performed by: Comment Normal [facility] Comment on above: Result Comment: Drew Florian, Rn Practitioner (ASCP) Performed By: #### [id number] #### [facility] [address] [place] [address] Dr. Keri Guerra Reflex Criteria: Comment Normal [facility] Comment on above: Result Comment: The HPV DNA reflex criteria were not met with this specimen result therefore, no HPV testing was performed. . Performed By: #### [id number] #### [facility] [address] [place] [address] Dr. Keri Guerra Specimen adequacy: Comment Normal [facility] Comment on above: Result Comment: Sati sfactory for evaluation. No endocervical component is identified. Areas of partially obscuring inflammatory exudate are present. Performed By: #### [id number] #### [facility] [address] [place] [address] Dr. Keri Guerra HEP B SURFACE ANTIGEN SCREEN on 10-17-2022 HBsAg Screen Negative Normal Negative Comment on above: Performed By: #### H BSANS #### [facility] [address] [place] [address] Dr. Keri Guerra HEPATITIS C VIRUS AB W/ REFL EX QUANTon 10-17-2022 HCV AB Non-Reactive Normal Non Reactive [facility] Comment on above: Performed By: #### H CVPCRR #### [facility] [address] [place] [address] Dr. Keri Guerra Interpretation: Comment Normal [facility] Comment on above: Result Comment: Not infected with HCV unless early or acute infection is suspected (which may be delayed in an immunocompromised individual), or other evidence exists to indicate HCV infection. Performed By: #### H CVPCRR #### [facility] [address] [place] [address] Dr. Keri Guerra HIV 1 AND 2 WITH REFLEXon HIV Screen 4th Generation wRfx Non-Reactive Normal Non Reactive Comment on above: Result Comment: HIV Negative HIV-1/HIV-2 antibodies and HIV-1 p24 antigen were NOT detected. There is no laboratory evidence of HIV infection. Performed By: #### H IV12 #### [facility] [address] [place] [address] Dr. Keri Guerra RPR QUANTon 10-17-2022 Rapid Plasma Reagin, Quant Non-Reactive Normal NonRea<1:1 [facility] Comment on above: Result Comment: Plea se Note: This test does not meet current guidelines for screening and diagnosis of syphilis. This test is intended for following treatment response in patients being treated for syphilis infection. To screen for syphilis infection, a reflex cascade that includes both RPR and a treponema-specific assay should be utilized, such as Treponema pallidum (Syphilis) Screening [place] (334087) or Rapid Plasma Reagin (RPR) Test With Reflex to Quantitative RPR and Confirmatory Treponema pallidum Antibodies (288370). Performed By: #### R PRQ #### [facility] [address] [place] [address] Dr. Keri Guerra RUBELLA AB IGGon 10-17-2022 Rubella Antibodies, IgG <0.90 Critically low Immune >0.99 Comment on above: Result Comment: Non- immune <0.90 Equivocal 0.90 - 0.99 Immune >0.99 Performed By: #### R UBIGG #### [facility] [address] [place] [address] Dr. Keri Guerra CBC AUTO DIFFon 10-15-2022 BASO # 0.0 103/ul Normal 0.0-0.1 Comment on above: Performed By: #### C BC #### [facility] [address] [place] [address] Dr. Keri Guerra Basophils/100 WBC (Bld) 0.1 % Critically low 0.2-2.0 Comment on above: Performed By: #### C BC #### [facility] [address] [place] [address] Dr. Keri Guerra EO # 0.3 103/ul Normal 0.0-0.7 Comment on above: Performed By: #### C BC #### [facility] [address] [place] [address] Dr. Keri Guerra Eosinophils/100 WBC (Bld) 3.7 % Normal 0.9-7.0 Comment on above: Performed By: #### C BC #### [facility] [address] [place] [address] Dr. Keri Guerra Erythrocyte distribution width (RBC) [Ratio] 16.0 % Critically high 11.0-15.0 Comment on above: Performed By: #### C BC #### [facility] [address] [place] [address] Dr. Keri Guerra Hematocrit (Bld) [Volume fraction] 36.3 % Normal 36.0-48.0 Comment on above: Performed By: #### C BC #### [facility] [address] [place] [address] Dr. Keri Guerra Hemoglobin (Bld) [Mass/Vol] 12.1 g/dL Normal 12.0-16.0 Comment on above: Performed By: #### C BC #### [facility] [address] [place] [address] Dr. Keri Guerra IG # 0.02 10e3/ul Normal 0.00-0.03 Comment on above: Performed By: #### C BC #### [facility] [address] [place] [address] Dr. Keri Guerra IG % 0.3 % Normal 0.0-0.5 Comment on above: Performed By: #### C BC #### [facility] [address] [place] [address] Dr. Keri Guerra LYMPH # 1.7 103/ul Normal 1.2-3.8 Comment on above: Performed By: #### C BC #### [facility] [address] [place] [address] Dr. Keri Guerra Lymphocytes/100 WBC (Bld) 20.8 % Normal 20.5-60.0 Comment on above: Performed By: #### C BC #### [facility] [address] [place] [address] Dr. Keri Guerra MANUAL DIFF REQ NO Normal [facility] Comment on above: Performed By: #### C BC #### [facility] [address] [place] [address] Dr. Keri Guerra MCH (RBC) [Entitic mass] 25.3 pg Critically low 26.7-34.0 Comment on above: Performed By: #### C BC #### [facility] [address] [place] [address] Dr. Keri Guerra MCHC (RBC) [Mass/Vol] 33.3 g/dL Normal 29.9-35.2 Comment on above: Performed By: #### C BC #### [facility] [address] [place] [address] Dr. Keri Guerra MCV (RBC) [Entitic vol] 75.9 fL Critically low 81.0-99.0 [facility] Comment on above: Performed By: #### C BC #### [facility] [address] [address] [address] Keri Guerra MONO # 0.4 103/ul Normal 0.3-0.8 Comment on above: Performed By: #### C BC #### [facility] [address] [place] [address] Dr. Keri Guerra Monocytes/100 WBC (Bld) 5.0 % Normal 1.7-12.0 Comment on above: Performed By: #### C BC #### [facility] [address] [place] [address] Dr. Keri Guerra NEUT # 5.6 103/ul Normal 1.4-6.5 Comment on above: Performed By: #### C BC #### [facility] [address] [place] [address] Dr. Keri Guerra Neutrophils/100 WBC (Bld) 70.1 % Normal 43.0-75.0 Comment on above: Performed By: #### C BC #### [facility] [address] [place] [address] Dr. Keri Guerra Platelet mean volume (Bld) [Entitic vol] 11.0 fL Normal 9.5-13.5 Comment on above: Performed By: #### C BC #### [facility] [address] [place] [address] Dr. Keri Guerra PLT 319 103/ul Normal 150-450 [facility] Comment on above: Performed By: #### C BC #### [facility] [address] [place] [address] Dr. Keri Guerra RBC 4.78 106/ul Normal 4.20-5.40 [facility] Comment on above: Performed By: #### C BC #### [facility] [address] [place] [address] Dr. Keri Guerra WBC 7.9 103/ul Normal 4.0-11.0 [facility] Comment on above: Performed By: #### C BC #### [facility] [id number] Keri Gurera CULTURE URINEon 10-15-2022 CULTURE URINE Culture Observations : LIGHT GROWTH OF MIXED GENITAL LARISA. NO POTENTIAL PATHOGENS SEEN. Normal [facility] Comment on above: Performed By: #### U RCX #### [facility] [address] [address] [address] Keri Guerra TSHon 10-15-2022 TSH 0.294 uIU/mL Critically low 0.358-3.740 [facility] Comment on above: Performed By: #### T SH #### [facility] [address] [address] [address] Keri Guerra TYPE AND SCREENon 10-15-2022 TYPE AND SCREEN Negative Normal [facility] Comment on above: Performed By: #### T NS #### [facility] [address] [place] [address] Dr. Keri Guerra US PREG TVon 10-01-2022 [...] GM BARRY Date: 2022-10-01 15:23 Normal [facility] Quick Strepon 03-25-2022 S. pyogenes Org specific cx Ql (Throat) Negative [employer] Other Quick Strep [employer] Other COVID/FLU RT-PCRon 2 SARS-CoV-2 (COVID-19) RNA ANNE+probe Ql (Unsp spec) Positive [employer] Other COVID/FLU RT-PCR Negative [facility] [employer] Other COVID Quick Testingon 2020 Result Positive [facility] [employer] Other Consultation Noteon 08-05-19 Consultation Note [id number]:127 Normal [facility] Vital Signs Date Time Vital Sign Value Performing Clinician Facility 04-02-2025 08:36-0400 Body mass index (BMI) [Ratio] 30.87 kg/m2 Ai Tj DO Work Phone: [facility] 04-02-2025 08:36-0400 Body weight 76.57 kg Ai Tj DO Work Phone: [facility] 04-02-2025 08:36-0400 Diastolic blood pressure 72 mm[Hg] Ai Tj DO Work Phone: [facility] 04-02-2025 08:36-0400 Systolic blood pressure 116 mm[Hg] Ai Tj DO Work Phone: [facility] 03-19-2025 08:52-0400 Body mass index (BMI) [Ratio] 30.43 kg/m2 Ai Tj DO Work Phone: [facility] 03-19-2025 08:52-0400 Body weight 75.48 kg Ai Tj DO Work Phone: [facility] 03-19-2025 08:52-0400 Diastolic blood pressure 78 mm[Hg] Ai Tj DO Work Phone: [facility] 03-19-2025 08:52-0400 Systolic blood pressure 120 mm[Hg] Ai Tj DO Work Phone: [facility] 03-07-2025 10:12-0400 Body mass index (BMI) [Ratio] 30.18 kg/m2 Ai Tj DO Work Phone: [facility] 03-07-2025 10:12-0400 Body weight 74.84 kg Ai Tj DO Work Phone: [facility] 03-07-2025 10:12-0400 Diastolic blood pressure 70 mm[Hg] Ai Tj DO Work Phone: [facility] 03-07-2025 10:12-0400 Systolic blood pressure 110 mm[Hg] Ai Tj DO Work Phone: [facility] 02-21-2025 11:44-0400 Body mass index (BMI) [Ratio] 30.07 kg/m2 Torri Hillsboro PA Work Phone: [facility] 02-21-2025 11:44-0400 Body weight 74.57 kg Torri Hillsboro PA Work Phone: [facility] 02-21-2025 11:44-0400 Diastolic blood pressure 78 mm[Hg] Torri Hillsboro PA Work Phone: [facility] 02-21-2025 11:44-0400 Systolic blood pressure 118 mm[Hg] Torri Breanna PA Work Phone: [facility] 01-10-2025 11:33-0400 Body mass index (BMI) [Ratio] 29.17 kg/m2 Torri Breanna PA Work Phone: [facility] 01-10-2025 11:33-0400 Body weight 72.35 kg Torri Breanna PA Work Phone: [facility] 01-10-2025 11:33-0400 Diastolic blood pressure 76 mm[Hg] Torri Breanna PA Work Phone: [facility] 01-10-2025 11:33-0400 Systolic blood pressure 122 mm[Hg] Torri Hillsboro PA Work Phone: [facility] 12-04-2024 13:28-0400 Body mass index (BMI) [Ratio] 27.87 kg/m2 Ai Tj DO Work Phone: [facility] 12-04-2024 13:28-0400 Body weight 69.13 kg Ai Tj DO Work Phone: [facility] 12-04-2024 13:28-0400 Diastolic blood pressure 70 mm[Hg] Ai Tj DO Work Phone: [facility] 12-04-2024 13:28-0400 Systolic blood pressure 120 mm[Hg] Ai Tj DO Work Phone: [facility] 11-22-2024 15:22-0400 Body mass index (BMI) [Ratio] 27.76 kg/m2 [facility] 11-22-2024 15:22-0400 Body weight 68.86 kg [facility] Nurse [facility] 10-31-2024 13:04-0400 Body mass index (BMI) [Ratio] 27.53 kg/m2 Ai Tj DO Work Phone: [facility] 10-31-2024 13:04-0400 Body weight 68.27 kg Ai Tj DO Work Phone: [facility] 10-31-2024 13:04-0400 Diastolic blood pressure 80 mm[Hg] Ai Tj DO Work Phone: [facility] 10-31-2024 13:04-0400 Systolic blood pressure 112 mm[Hg] Ai Tj DO Work Phone: [facility] 07-31-2024 09:06-0500 Body mass index (BMI) [Ratio] 27.58 kg/m2 Ai Tj DO Work Phone: [facility] 07-31-2024 09:06-0500 Body weight 68.4 kg Ai Tj DO Work Phone: [facility] 07-31-2024 09:06-0500 Diastolic blood pressure 80 mm[Hg] Ai Tj DO Work Phone: [facility] 07-31-2024 09:06-0500 Systolic blood pressure 120 mm[Hg] Ai Tj DO Work Phone: [facility] 05-10-2024 10:22-0400 Body height 160.02 cm [facility] 05-10-2024 10:22-0400 Body mass index (BMI) [Ratio] 24.7 kg/m2 [facility] 05-10-2024 10:22-0400 Body temperature 98.2 [degF] [facility] 05-10-2024 10:22-0400 Body weight 63.5 kg [facility] 05-10-2024 10:22-0400 Diastolic blood pressure 65 mm[Hg] [facility] 05-10-2024 10:22-0400 Heart rate 95 /min [facility] 05-10-2024 10:22-0400 Respiratory rate 18 /min [facility] 05-10-2024 10:22-0400 SaO2% (BldA) [Mass fraction] 97 % [facility] 05-10-2024 10:22-0400 Systolic blood pressure 128 mm[Hg] [facility] 08-18-2023 11:30-0500 Body height 157.48 cm Deann Partida Other [facility] [employer] Other 08-18-2023 11:30-0500 Body mass index (BMI) [Ratio] 26.48 kg/m2 Deann Partida Other [employer] Other 08-18-2023 11:30-0500 Body temperature 98.6 [degF] Deann Partida Other [employer] Other 08-18-2023 11:30-0500 Body weight 65.68 kg Deann Partida Other [employer] Other 08-18-2023 11:30-0500 Respiratory rate 18 /min Deann Partida Other [employer] Other 08-18-2023 11:30-0500 SaO2% (BldA) [Mass fraction] 97 % Deann Partida Other [employer] Other 09-14-2022 15:25-0500 Body height 157.48 cm Elsa Rea Other [employer] Other 09-14-2022 15:25-0500 Body mass index (BMI) [Ratio] 26.88 kg/m2 Elsa Rea Other [employer] Other 09-14-2022 15:25-0500 Body temperature 97.7 [degF] Elsa Rea Other [employer] Other 09-14-2022 15:25-0500 Body weight 66.68 kg Elsa Rea Other [employer] Other 09-14-2022 15:25-0500 Diastolic blood pressure 65 mm[Hg] Elsa Rea Other [employer] Other 09-14-2022 15:25-0500 Respiratory rate 18 /min Elsa Rea Other [employer] Other 09-14-2022 15:25-0500 SaO2% (BldA) [Mass fraction] 99 % Elsa Rea Other [employer] Other 09-14-2022 15:25-0500 Systolic blood pressure 118 mm[Hg] Elsa Rea Other [employer] Other 03-25-2022 11:40-0400 Body height 157.48 cm Cahrisse Blackwell Other [employer] Other 03-25-2022 11:40-0400 Body mass index (BMI) [Ratio] 27.43 kg/m2 Charisse Blackwell Other [employer] Other 03-25-2022 11:40-0400 Body temperature 98.8 [degF] Charisse Blackwell Other [employer] Other 03-25-2022 11:40-0400 Body weight 68.04 kg Charisse Blackwell Other [employer] Other 03-25-2022 11:40-0400 Respiratory rate 18 /min Charisse Blackwell Other [employer] Other 03-25-2022 11:40-0400 SaO2% (BldA) [Mass fraction] 99 % Charisse Blackwell Other [employer] Other 01-01-2022 10:40-0400 Body height 160.02 cm Deann Partida Other [employer] Other 01-01-2022 10:40-0400 Body mass index (BMI) [Ratio] 24.8 kg/m2 Deann Partida Other [employer] Other 01-01-2022 10:40-0400 Body temperature 97.5 [degF] Deann Partida Other [employer] Other 01-01-2022 10:40-0400 Body weight 63.5 kg Deann Partida Other [employer] Other 01-01-2022 10:40-0400 SaO2% (BldA) [Mass fraction] 99 % Deann Partida Other [employer] Other 05-04-2021 11:30-0400 Body height 160.02 cm Elsa Rea Other [employer] Other 05-04-2021 11:30-0400 Body mass index (BMI) [Ratio] 23.91 kg/m2 Elsa Rea Other [employer] Other 05-04-2021 11:30-0400 Body temperature 97.3 [degF] Elsa Rea Other [employer] Other 05-04-2021 11:30-0400 Body weight 61.24 kg Elsa Rea Other [employer] Other 05-04-2021 11:30-0400 SaO2% (BldA) [Mass fraction] 99 % Elsa Rea Other [employer] Other Encounters Encounter Date Encounter Type Care Provider Facility Start: 04-04-2025 End: 04-04-2025 Clinisync Result Encounter Ai Tj DO Work Phone: [facility] Unsolicited Start: 04-04-2025 End: 04-04-2025 Clinisync Result Encounter Ai Tj DO Work Phone: [facility] Unsolicited Start: 04-02-2025 End: 04-02-2025 Bamboo flowsheet Ai Tj DO Work Phone: [facility] Start: 04-02-2025 End: 04-02-2025 Bamboo flowsheet Ai Tj DO Work Phone: [facility] Start: 04-02-2025 End: 04-02-2025 flow sheet Ai Tj DO Work Phone: [facility] Comment on above: Third trimester preg sandy ([facility]); 36 weeks gestation of ([facility]); Small for gestational age (SGA) ([facility]) Start: 04-02-2025 End: 04-02-2025 ambulatory AI TJ Not Available Start: 03-27-2025 End: 03-27-2025 Clinisync Result Encounter Ia Tj DO Work Phone: [facility] [...] on above: 34 weeks gestation o f ([facility]); Third trimester ([facility]); SGA (small for gestational age) ([facility]) Start: 03-07-2025 End: 03-07-2025 Bamboo flowsheet Ai Tj DO Work Phone: [facility] Start: 03-07-2025 End: 03-07-2025 Bamboo flowsheet Ai Tj DO Work Phone: [facility] Start: 03-07-2025 End: 03-07-2025 ambulatory AI JT Not Available Start: 03-07-2025 End: 03-07-2025 flow sheet Ai Tj DO Work Phone: [facility] Comment on above: 33 weeks gestation o f ([facility]); Third trimester ([facility]) Start: 03-01-2025 End: 03-01-2025 Clinisync Result Encounter [...] Comment on above: Third trimester preg sandy ([facility]); 31 weeks gestation of ([facility]); size inconsistent with dates ([facility]) Start: 02-14-2025 End: 02-14-2025 Clinisync Result Encounter Torri MILLER Work Phone: [facility] Unsolicited Start: 02-14-2025 End: 02-14-2025 Clinisync Result Encounter Torri MILLER Work Phone: [facility] Unsolicited Start: 01-12-2025 End: 01-12-2025 Clinisync Result Encounter Torri MILLER Work Phone: [facility] Unsolicited Start: 01-12-2025 End: 01-12-2025 Clinisync Result Encounter Torri MILLER Work Phone: [facility] Unsolicited Start: 01-10-2025 End: 06-26-2025 Bamboo flowsheet Torri MILLER Work Phone: [facility] Start: 01-10-2025 End: 01-10-2025 Bamboo flowsheet Torri MILLER Work Phone: [facility] Start: 01-10-2025 End: 01-10-2025 ambulatory TORRI MEZA Not Available Start: 01-10-2025 End: 01-10-2025 flow sheet Torri MILLER Work Phone: [facility] Comment on above: Second trimester pre gnancy ([facility]); 25 weeks gestation of ([facility]); Diabetes mellitus screening Start: 12-04-2024 End: 12-04-2024 [...] STD exposure Start: 10-31-2024 End: 10-31-2024 ambulatory IA TJ Not Available Start: 10-18-2024 End: 10-18-2024 [...] OB Start: 07-31-2024 End: 07-31-2024 ambulatory AI SPENCER Not Available Start: 07-31-2024 End: 07-31-2024 Office outpatient visit 15 minutes Ai Tj DO Work Phone: [facility] Comment on above: Encounter for initia l prescription of contraceptives, unspecified contraceptive Start: 05-10-2024 End: 05-10-2024 ambulatory [facility] Work Phone: Start: 05-10-2024 End: 05-10-2024 Patient encounter procedure [facility] Work Phone: Start: 08-18-2023 End: 08-18-2023 ambulatory Deann Partida Other [employer] Other Start: 08-18-2023 Office outpatient vi sit 25 minutes Deann Partida [facility] Start: 11-17-2022 End: 11-17-[address] AI SPENCER . Facility:[facility] Start: 10-18-[address] DOCTOR MONCADA Facility :[facility] Start: 10-15-2022 End: 10-16-[address] AI SPENCER . Facility:[facility] Start: 10-01-2022 End: 10-02-[address] AI SPENCER . Facility:[facility] Start: 09-14-2022 End: 09-14-2022 ambulatory Elsa Rea Other [employer] Other Start: 09-14-2022 Office outpatient vi sit 15 minutes Elsa Rea [facility] Start: 03-25-2022 End: 03-25-2022 ambulatory Charisse Blackwell Other [employer] Other Start: 03-25-2022 Office outpatient vi sit 15 minutes Charisse Blackwell [facility] Start: 01-01-2022 End: 01-01-2022 ambulatory Deann Partida Other [employer] Other Start: 01-01-2022 Office outpatient vi sit 25 minutes Deann Jaquan [facility] Start: 05-04-2021 Office outpatient vi sit 15 minutes Elsa Rea [facility] Procedures Date Procedure Procedure Detail Performing Clinician Start: 04-04-2025 OB BPP W NON-STRESS Ai Tj DO Work Phone: Start: 04-02-2025 Urnls dip stick/tabl et rgnt non-auto w/o micrscp Ai Tj DO Work Phone: Start: 03-27-2025 OB BPP W NON-STRESS Ai Tj DO [...] Phone: Start: 2024 [facility] PREG QUANT HCG Wanda y Tj DO Work Phone: Start: 07-31-2024 Urine test visual color cmprsn meths Ai Tj DO Work Phone: Plan of Treatment Date Care Activity Detail Author Start: 04-09-2025 End: 04-09-2025 Patient encounter procedure 04/09/2025 8:40 AM EDT Routine [facility] ZAMBRANO [address] [address] Ai Spencer, DO [address] [place] [address] PIERRE ZAMBRANO Start: 04-02-2025 End: 04-02-2026 CULTURE, GROUP B STREP WITH SUSCEPTIBLITY CULTURE, GROUP B STREP WITH SUSCEPTIBLITY Lab Routine Third trimester ([facility]) Expected: 04/02/2025, Expires: 04/02/2026 [facility] Work Phone: Comment on above: Expected: 04/02/2025 , Expires: 04/02/2026 Start: 04-02-2025 End: 04-02-2025 Patient encounter procedure PIERRE ZAMBRANO Comment on above: Arrived Start: 03-26-2025 End: 03-26-2025 Patient encounter procedure 03/26/2025 8:30 AM EDT Routine [facility] [address] [place] [phone] Torri Meza PA [address] [place] [address] [facility] Start: 03-20-2025 End: 03-20-2025 Professional / ancillary services management 03/20/2025 11:30 AM EDT Ancillary Procedure [facility] [address] [phone] [facility] Start: 03-19-2025 End: 07-19-2025 US for US OB follow up transabdominal approach Imaging Routine SGA (small for gestational age) ([facility]) Expected: 03/19/2025, Expires: 07/19/2025 [facility] Work Phone: Comment on above: Expected: 03/19/2025 , Expires: 07/19/2025 Start: 03-19-2025 End: 03-19-2025 Patient encounter procedure 03/19/2025 8:40 AM EDT Routine [facility] [address] [place] [phone] Ai Spencer, DO [address] [place] [address] [facility] Start: 03-07-2025 End: 03-07-2025 Patient encounter procedure 03/07/2025 9:00 AM EDT Routine [facility] [address] [place] [phone] Ai Spencer, DO [address] [place] [address] [facility] Start: 03-07-2025 End: 08-21-2025 Professional / ancillary services management 03/07/2025 8:30 AM EDT Ancillary Procedure [facility] [address] [phone] [facility] Start: 02-21-2025 End: 06-23-2025 US for US OB follow up transabdominal approach Imaging Routine size inconsistent with dates ([facility]) Expected: 02/21/2025, Expires: 06/23/2025 [facility] Work Phone: Comment on above: Expected: 02/21/2025 , Expires: 06/23/2025 Start: 02-05-2025 End: 02-05-2025 Patient encounter procedure 02/05/2025 8:40 AM EDT Routine [facility] [address] [phone] Ai Spencer DO [address], [place] [address] [facility] Start: 01-10-2025 End: 01-10-2026 CBC panel - Blood by Automated count CBC Lab Routine Diabetes mellitus screening Expected: 01/10/2025 (Approximate), Expires: 01/10/2026 [facility] Work Phone: Comment on above: Expected: 01/10/2025 (Approximate), Expires: 01/10/2026 Start: 01-10-2025 End: 01-10-2026 Measurement of glucose 1 hour after glucose challenge for glucose tolerance test Glucose tolerance, 1 hour Lab Routine Diabetes mellitus screening Expected: 01/10/2025 (Approximate), Expires: 01/10/2026 [facility] Comment on above: Expected: 01/10/2025 (Approximate), Expires: 01/10/2026 Start: 01-01-2025 End: 01-01-2025 Patient encounter procedure 01/01/2025 2:40 PM EDT Routine [facility] [address] [place] [phone] Ai Spencer, DO [address] [place] [address] [facility] Start: 12-04-2024 End: 12-04-2024 [...] PM EDT Initial [facility] [address] [phone] [facility] Start: 11-22-2024 End: 02-22-2025 [...] Visit [facility] [address] [place] [phone] Ai Spencer, DO [address] [place] [address] [facility] CHLAMYDIA TRACHOMATI S (GENITO/STI) CHLAMYDIA TRACHOMATIS (GENITO/STI) Lab Routine STD exposure Ordered: 10/31/2024 [facility] Comment on above: Ordered: 10/31/2024 Cytology Cervical or vaginal smear or scraping study Pap Smear Pathology and Cytology Routine Well woman exam with routine gynecological exam Ordered: 10/31/2024 [facility] Comment on above: Ordered: 10/31/2024 End: 2025 hCG, quantitative, hCG, quantitative, Lab Routine examination or test, positive result 4 Occurrences starting 2024 until 2025 [facility] Work Phone: Comment on above: 4 Occurrences starti ng 2024 until 2025 Neisseria gonorrhoea e DNA [Presence] in Unspecified specimen by ANNE with probe detection Neisseria gonorrhea DNA probe, direct Lab Routine STD exposure Ordered: 10/31/2024 [facility] Comment on above: Ordered: 10/31/2024 SURESWAB(R) ADVANCED VAGINITIS PLUS, TMA SURESWAB(R) ADVANCED VAGINITIS PLUS, TMA Pathology and Cytology Routine STD exposure Ordered: 10/31/2024 [facility] Comment on above: Ordered: 10/31/2024 Payers Date Payer Category Payer Medicaid [employer] [place] [place] [id number] 2024 Private Health Insurance [id number] 2024 Unknown [id number] 2022 Medicaid [id number] 2.16.840.1.305530.19 2001 Unknown [id number] 2.16.840.1.112221.3.579.2. 593 2001 Unknown [id number] 2.16.840.1.048666.3.579.2. 593 2001 Unknown [id number] 2.16.840.1.989552.3.579.2. 593 2001 Unknown [id number] 2.16.840.1.111502.3.579.2. 593 2001 Unknown [id number] 2.16.840.1.943862.3.579.2. 593 2001 Unknown [id number] 2.16.840.1.456342.3.579.2. 1259 2001 Unknown [id number] 2.16.840.1.151743.3.579.2. 1259 2001 Unknown [id number] 2.16.840.1.702547.3.579.2. 1259 2001 Unknown [id number] 2.16.840.1.576982.3.579.2. 1259 2001 Unknown [id number] 2.16.840.1.681726.3.579.2. 1259 2001 Unknown [id number] 2.16.840.1.669325.3.579.2. 1259 2001 Unknown [id number] 2.16.840.1.100571.3.579.2. 1259 2001 Unknown [id number] 2.16.840.1.454674.3.579.2. 1259 2001 Unknown [id number] 2.16.840.1.174707.3.579.2. 1259 2001 Unknown [id number] 2.16.840.1.243598.3.579.2. 1259 2001 Unknown [id number] 2.16.840.1.293745.3.579.2. 1259 1959 [facility] [id number] 2..[id number] Private Health Insurance [id number] 2..840.1.907472.19 Self-pay Self Pay [id number] Unknown [id number] 2.840.1.949301.19 Unknown Benny BARRIGA/GRACE [id number] Social History Date Type Detail Facility Unknown if ever smoked [employer] Other Start: 01-31-2024 End: 07-31-2024 Sex Assigned At [employer] Other Start: 03-31-2023 End: 05-10-2024 Tobacco smoking status NHIS Never smoked tobacco (finding) [facility] Start: 2001 Sex Assigned At Female F [facility] Start: 03-31-2023 Tobacco use and exposure [...] Clinical Notes 05-04-2021 to 04-02-2025 Iza De Leon, [employer] - 04/02/2025 8:50 AM Sabrina Rodriguez, [employer] - 04/02/2025 8:50 AM Sabrina Rodriguez, YARIEL - 03/19/2025 8:40 AM Silvino Linares, YARIEL - 03/07/2025 9:00 AM EDT Note Date [...] menses 2024 examination or test, positive result ([facility]) 2024 Resolved Ambulatory Problems Diagnosis Date Noted No Resolved Ambulatory Problems Past Medical History: Diagnosis Date 6 weeks follow-up ([facility]) BMI 25.0-25.9,adult Salt deficiency Type O blood, Rh positive HISTORY PAST MEDICAL HISTORY SOCIAL HISTORY Past Medical History: Diagnosis Date 6 weeks follow-up ([facility]) BMI 25.0-25.9,adult Salt deficiency Type O blood, [...] nursing note reviewed. Exam conducted with a rolling machine operator automatic present. Vitals: Estimated body mass index is 30.87 kg/m as calculated from the following: Height as of 12/15/22: 5' 2 . Weight as of this encounter: 168 lb 12.8 oz. BP: 116/72 Patient's last menstrual period was 07/18/2024. ASSESSMENT & PLAN ICD-10-CM 1. Third trimester ([facility]) Z34.93 POCT urinalysis dipstick manually resulted CULTURE, GROUP B STREP WITH SUSCEPTIBLITY CULTURE, GROUP B STREP WITH SUSCEPTIBLITY 2. 36 weeks gestation of ([facility]) Z3A.36 POCT urinalysis dipstick manually resulted 3. Small for gestational age (SGA) ([facility]) P05.10 Patient is doing well but has [...] Spencer DO documented in this encounter [facility] 03-19-2025 History of Presen t illness Narrative Reason for Appointment: Patient ID: Karly Agosto is a 24 y.o. female who presents for Routine Visit Patient presents today for Return OB appointment. MEDICATIONS No current outpatient medications ALLERGIES Allergies Allergen Reactions Minocycline Nausea Only PROBLEMS Active Ambulatory Problems Diagnosis Date Noted Missed menses 2024 examination or test, positive result ([facility]) 2024 Resolved Ambulatory Problems Diagnosis Date Noted No Resolved Ambulatory Problems Past Medical History: Diagnosis Date 6 weeks follow-up ([facility]) BMI 25.0-25.9,adult Salt deficiency Type O blood, Rh positive HISTORY PAST MEDICAL HISTORY SOCIAL HISTORY Past Medical History: Diagnosis Date 6 weeks follow-up ([facility]) BMI 25.0-25.9,adult Salt deficiency Type O blood, [...] nursing note reviewed. Exam conducted with a rolling machine operator automatic present. Vitals: Estimated body mass index is 30.43 kg/m as calculated from the following: Height as of 12/15/22: 5' 2 . Weight as of this encounter: 166 lb 6.4 oz. BP: 120/78 Patient's last menstrual period was 07/18/2024. ASSESSMENT & PLAN ICD-10-CM 1. 34 weeks gestation of ([facility]) Z3A.34 POCT urinalysis dipstick manually resulted 2. Third trimester ([facility]) Z34.93 POCT urinalysis dipstick manually resulted Return [...] Spencer DO documented in this encounter [facility] 03-07-2025 History of Presen t illness Narrative Reason for Appointment: Patient ID: Karly Agosto is a 24 y.o. female who presents for Routine Visit Patient presents today for Return OB appointment. MEDICATIONS No current outpatient medications ALLERGIES Allergies Allergen Reactions Minocycline Nausea Only PROBLEMS Active Ambulatory Problems Diagnosis Date Noted Missed menses 2024 examination or test, positive result ([facility]) 2024 Resolved Ambulatory Problems Diagnosis Date Noted No Resolved Ambulatory Problems Past Medical History: Diagnosis Date 6 weeks follow-up ([facility]) BMI 25.0-25.9,adult Salt deficiency Type O blood, Rh positive HISTORY PAST MEDICAL HISTORY SOCIAL HISTORY Past Medical History: Diagnosis Date 6 weeks follow-up ([facility]) BMI 25.0-25.9,adult Salt deficiency Type O blood, [...] nursing note reviewed. Exam conducted with a rolling machine operator automatic present. Vitals: Estimated body mass index is 30.18 kg/m as calculated from the following: Height as of 12/15/22: 5' 2 . Weight as of this encounter: 165 lb. BP: 110/70 Patient's last menstrual period was 07/18/2024. ASSESSMENT & PLAN ICD-10-CM 1. 33 weeks gestation of ([facility]) Z3A.33 POCT urinalysis dipstick manually resulted 2. Third trimester ([facility] Z34.93 POCT urinalysis dipstick manually resulted Patient presents today for a routine obstetrics appointment. Patient is currently 33w1d with a Estimated Date of Delivery: 04/24/25. Patient to return to clinic in 2 weeks. Documented by Waleska Linares LPN on behalf of: Ai Spencer DO documented in this encounter [facility] 02-21-2025 History of Presen t illness Narrative Reason for Appointment: Patient ID: Karly Agosto is a 24 y.o. female who presents for Routine Visit Patient presents today for Return OB appointment. MEDICATIONS No current outpatient medications ALLERGIES Allergies Allergen Reactions Minocycline Nausea Only PROBLEMS Active Ambulatory Problems Diagnosis Date Noted Missed menses 2024 examination or test, positive result ([facility]) 2024 Resolved Ambulatory Problems Diagnosis Date Noted No Resolved Ambulatory Problems Past Medical History: Diagnosis Date 6 weeks follow-up ([facility]) BMI 25.0-25.9,adult Salt deficiency Type O blood, Rh positive HISTORY PAST MEDICAL HISTORY SOCIAL HISTORY Past Medical History: Diagnosis Date 6 weeks follow-up ([facility]) BMI 25.0-25.9,adult Salt deficiency Type O blood, [...] ASSESSMENT & PLAN ICD-10-CM 1. Third trimester ([facility]) Z34.93 POCT urinalysis dipstick manually resulted 2. 31 weeks gestation of ([facility]) Z3A.31 POCT urinalysis dipstick manually resulted 3. size inconsistent with dates ([facility]) O26.849 US OB follow up transabdominal approach [...] of: ANGELA Mayorga documented in this encounter [facility] 01-10-2025 History of Presen t illness Narrative Reason for Appointment: Patient ID: Karly Agosto is a 24 y.o. female who presents for Routine Visit Patient presents today for Return OB appointment. MEDICATIONS No current outpatient medications ALLERGIES Allergies Allergen Reactions Minocycline Nausea Only PROBLEMS Active Ambulatory Problems Diagnosis Date Noted Missed menses 2024 examination or test, positive result ([facility]) 2024 Resolved Ambulatory Problems Diagnosis Date Noted No Resolved Ambulatory Problems Past Medical History: Diagnosis Date 6 weeks follow-up ([facility]) BMI 25.0-25.9,adult Salt deficiency Type O blood, Rh positive HISTORY PAST MEDICAL HISTORY SOCIAL HISTORY Past Medical History: Diagnosis Date 6 weeks follow-up ([facility]) BMI 25.0-25.9,adult Salt deficiency Type O blood, [...] ASSESSMENT & PLAN ICD-10-CM 1. Second trimester ([facility]) Z34.92 POCT urinalysis dipstick manually resulted 2. 25 weeks gestation of ([facility]) Z3A.25 3. Diabetes mellitus screening Z13.1 CBC [...] of: ANGELA Mayorga documented in this encounter [facility] 12-04-2024 History of Presen t illness [...] nursing note reviewed. Exam conducted with a rolling machine operator automatic present. Vitals: Estimated body mass index is [...] Spencer DO documented in this encounter [facility] 11-22-2024 History of Presen t illness [...] meat, and stay away from [facility]. Patient has also been advised to [...] De Leon LPN documented in this encounter [facility] 10-31-2024 History of Presen t illness [...] nursing note reviewed. Exam conducted with a rolling machine operator automatic present. Vitals: Estimated body mass index is [...] Spencer DO documented in this encounter [facility] 2024 History of Presen t illness [...] nursing note reviewed. Exam conducted with a rolling machine operator automatic present. Vitals: Estimated body mass index is [...] Spencer DO documented in this encounter [facility] 07-31-2024 History of Presen t illness [...] nursing note reviewed. Exam conducted with a rolling machine operator automatic present. Vitals: Estimated body mass index is [...] Spencer DO documented in this encounter [facility] 08-18-2023 Evaluation note Encounter Date Diagnosis [...] treatment plan. Patient left in stable condition [employer] Other 02-28-2023 Evaluation note* Encounter Date Diagnosis Assessment Notes Treatment Notes Treatment Clinical Notes Aug, Impetigo (ICD-10 - L01.00) Clean area as discussed with 1/2 peroxide and water mix. Apply ointment to area. Infection is very contagious. Bed laundering and cleaning toys is important. Follow up with primary care provider or come back into office to be seen if symptoms worsen [employer] Other 09-08-2022 Evaluation note* Encounter Date Diagnosis [...] no improvement in 2 to 3 days. [employer] Other 06-17-2022 Evaluation note* Encounter Date Diagnosis [...] treatment plan. Patient left in stable condition [employer] Other 10-18-2021 Evaluation note* Encounter Date Diagnosis Assessment Notes Treatment Notes Treatment Clinical Notes Apr, Contact with and (suspected) exposure to other viral communicable diseases (ICD-10 - Z20.828) Apr, COVID-19 (ICD-10 - U07.1) Today you tested positive for the COVID virus. This mean you need to follow all CDC quarantine guidelines found at [email or web address] v. It is important to rest, increase [...] Patient care instructions given in writting by [facility] document. [employer] Other Evaluation note* Diagnosis Onset Date Resolution Status Right ankle sprain acute [facility] Work Phone: Evaluation note* Diagnosis Encounter [...] incidental SGA (small for gestational age) ([facility]HS-HCC) Ahvvf-arv-ucsau without mention of malnutrition, unspecified (weight) [facility] Third trimester ([facility]) state, incidental 36 weeks gestation of ([facility]) Small for gestational age (SGA) ([facility]HCC) [facility] - [facility]* Type Description Date Hospitalization History fractured arm and shatte red elbow [facility] Other History general Narrative - Reported* Type Description Date Hospitalization History fractured arm and shatte red elbow Hospitalization History childbirth [facility] Other Summary Purpose Family History Relationship Condition [...] content) DATE CREATED AUTHOR 08/09/2020 Rodriguez Lucho [facility] DATE CREATED AUTHOR AUTHOR'S ORGANIZ ATION 12/24/2022 [facility] DATE CREATED AUTHOR AUTHOR'S ORGANIZ ATION 04/03/2025 [facility] EPIC REASON FOR VISIT [...] BE BASED ON THE PRIMARY CLINICAL RECORDS. [employer] provides no warranty or guarantee of the accuracy or completeness of information in this document.
[2025-04-06 05:57] LABS: Hematocrit 33.5 % (36.0-48.0); Hemoglobin 11.4 g/dL (12.0-16.0); Mean Corpuscular HGB Conc 34.0 g/dL (29.9-35.2); Mean Corpuscular Hemoglobin 27.1 pg (26.7-34.0); Mean Corpuscular Volume 79.8 fL (81.0-99.0); Platelet Count 264 10^3/uL (150-450); Red Blood Count 4.20 10^6/uL (4.20-5.40); White Blood Count 8.6 10^3/uL (4.0-11.0)
[2025-04-06] MEDS: AMPICILLIN SODIUM 2,000 MG in 0.9 % SODIUM CHLORIDE 100 ML 200 MG IV (06:00)
[2025-04-06] MEDS: 0.9 % SODIUM CHLORIDE 1,000 ML 125 ML IV ×2 (06:46→13:03)
[2025-04-06] MEDS: ROPIVACAINE HCL/PF 400 MG/200 ML PREMIX 10 MG EPIDURAL (08:29)
[2025-04-06 08:30] LABS: Cannabinoid Screen Urine NEGATIVE (NEGATIVE); Methamphetamines Screen Urine NEGATIVE (NEGATIVE); Tricyclic Antidepressant Urine NEGATIVE (NEGATIVE)
[2025-04-06] MEDS: AMPICILLIN SODIUM 1,000 MG in 0.9 % SODIUM CHLORIDE 50 ML 100 MG IV ×2 (09:59→13:56)
[2025-04-06] MEDS: 0.9 % SODIUM CHLORIDE 1,000 ML 1000 ML IV (11:30)
[2025-04-06] MEDS: OXYTOCIN/0.9 % SODIUM CHLORIDE 10 UNITS/500 ML PLAST..BAG 6 UNIT IV (12:30)
[2025-04-06] MEDS: OXYTOCIN/0.9 % SODIUM CHLORIDE 20 UNITS/1,000 ML PLAST..BAG 125 UNIT IV (14:48)
--- NOTE | 2025-04-06 14:52 | PM.OBPRCVD ---
Procedure Intrapartal events: None Induction method: per pitocin protocol Delivery augmentation: rupture of membranes and pitocin Delivery monitor: external FHT and external uterine Route of delivery: L&D Laceration Description: none Estimated blood loss (mL): 200 Anesthesia type: Epidural Disposition: floor Delivery date: 04/06/25 Gender: male presentation: vertex Placental delivery description: Spontaneous cord description: 3 Vessels
[2025-04-06] MEDS: IBUPROFEN 600 MG TABLET PO (19:18)
[2025-04-07 00:48] VITALS: BP 110/68; PULSE 98; TEMP 36.7
[2025-04-07] MEDS: IBUPROFEN 600 MG TABLET PO (01:49)
--- NOTE | 2025-04-07 06:09 | PM.OBPN ---
OB - PN: Subj Subjective Patient comments: no complaints and pain well controlled [place] status: doing well Exam Constitutional Vital Signs, click to edit/add: Last Vital Signs Temp 98.1 F 04/07/25 00:48 Pulse 98 H 04/07/25 00:48 Resp 18 04/07/25 00:48 BP 110/68 04/07/25 00:48 O2 Del Method Room Air 04/07/25 00:48 Documenting provider has reviewed patient's vital signs: yes Common normals: no apparent distress Respiratory Common normals: normal respiratory effort and clear to auscultation bilaterally Cardio Common normals: regular rate and regular rhythm GI Common normals: Normal to inspection, nondistended, normoactive bowel sounds present Extremity Common normals: no clubbing, cyanosis or edema and no calf tenderness Urinary Catheter Management Urinary Catheter Management Urethral: Cath placed during this visit: no OB - PN: A/P Plan - Vaginal Delivery day: 1 Plan: routine care, discharge home and follow up 6 weeks Time Spent with Patient Time: Total time spent is greater than 50% in coordination of care (as documented) at patient's floor/unit and/or counseling patient: Total time spent with greater than 50% in coordination of care (as documented) at patient's floor/unit and/or counseling patient: less than 15 minutes
[2025-04-07 07:02] LABS: Hematocrit 32.1 % (36.0-48.0); Hemoglobin 10.8 g/dL (12.0-16.0); Immature Granulocytes Abs Auto 0.04 10^3/uL (0.00-0.03); Immature Granulocytes Pct Auto 0.4 % (0.0-0.5); Lymphocytes Absolute Auto 1.6 10^3/uL (1.2-3.8); Mean Corpuscular HGB Conc 33.6 g/dL (29.9-35.2); Mean Corpuscular Hemoglobin 27.1 pg (26.7-34.0); Mean Corpuscular Volume 80.7 fL (81.0-99.0); Platelet Count 239 10^3/uL (150-450); Red Blood Count 3.98 10^6/uL (4.20-5.40); White Blood Count 9.3 10^3/uL (4.0-11.0)
[2025-04-07 09:44] VITALS: BP 116/73; PULSE 108
[2025-04-07 09:45] VITALS: TEMP 37.3
[2025-04-07] MEDS: BENZOCAINE/MENTHOL 85 GRAM SPRAY BOTTLE 1 APPLIC TOPICAL (13:20)
[2025-04-07] MEDS: GLYCERIN/WITCH HAZEL PADS 1 PAD TOPICAL (13:22)
[2025-04-07 15:27] VITALS: BP 124/85; PULSE 98
[2025-04-07 15:30] VITALS: BP 124/85; PULSE 98; TEMP 36.9
[2025-04-07] MEDS: DOCUSATE SODIUM 100 MG CAPSULE PO (21:26)
[2025-04-08 02:05] VITALS: BP 114/76; PULSE 64; TEMP 36.6
--- NOTE | 2025-04-08 07:38 | P.OBPN_ITS ---
OB - PN: Subj Subjective Patient comments: no complaints and pain well controlled [place] status: doing well Exam Constitutional Vital Signs, click to edit/add: Last Vital Signs Temp 97.8 F 04/08/25 02:05 Pulse 64 04/08/25 02:05 Resp 14 04/08/25 02:05 BP 114/76 04/08/25 02:05 O2 Del Method Room Air 04/08/25 02:05 Documenting provider has reviewed patient's vital signs: yes Common normals: no apparent distress Respiratory Common normals: normal respiratory effort and clear to auscultation bilaterally Cardio Common normals: regular rate and regular rhythm GI Common normals: Normal to inspection, nondistended, normoactive bowel sounds present Extremity Common normals: normal to inspection Urinary Catheter Management Urinary Catheter Management Urethral: Cath placed during this visit: no OB - PN: A/P Plan - Vaginal Delivery day: 2 Plan: routine care, discharge home and follow up 6 weeks Time Spent with Patient Time: Total time spent is greater than 50% in coordination of care (as documented) at patient's floor/unit and/or counseling patient: Total time spent with greater than 50% in coordination of care (as documented) at patient's floor/unit and/or counseling patient: less than 15 minutes
[2025-04-08 08:16] VITALS: BP 111/67; PULSE 62
[2025-04-08] MEDS: DOCUSATE SODIUM 100 MG CAPSULE PO (08:21)
[2025-04-08 08:30] VITALS: TEMP 36.6
--- NOTE | 2025-04-08 17:41 | PC.NURSE ---
This RN reviews and agrees with charting completed by Jessica Rider RN.
== END 2025-04-08 14:45 | disposition home or self-care (01) | DRG 807 ==
PROVIDERS: Admitting Provider Obstetrics & Gynecology; Visit Provider Obstetrics & Gynecology
DX: O36.5930 Maternal care for other known or suspected poor fetal growth, third trimester, not applicable or unspecified (principal); Z37.0 Single live birth; Z3A.37 37 weeks gestation of pregnancy
CPT/HCPCS: 36415; 51702; 80307; 85025; 85027; 86850; 86900; 86901; J0290; J2795